=== PATIENT | male | born 1930 | race Caucasian/White ===

== ENCOUNTER 2019-03-05 08:47 | Outpatient (CLI) | payer BC, MEDICARE ==
[2019-03-05 12:26] LABS: BASOPHILS # (AUTO) 0.1 10^3/uL (0.0-0.1); BASOPHILS % (AUTO) 0.6 %; EOSINOPHILS # (AUTO) 0.6 10^3/uL (0.0-0.7); HGB - HEMOGLOBIN 16.4 g/dL (14.0-18.0); LYMPHOCYTES % (AUTO) 9.7 %; MEAN CORPUSCULAR HEMOGLOBIN 30.1 pg (27.0-31.0); MEAN CORPUSCULAR HGB CONC 33.3 g/dL (32.0-36.0); MEAN CORPUSCULAR VOLUME 90.4 fL (80.0-94.0); MEAN PLATELET VOLUME 10.1 fL (7.4-11.4); MONOCYTES # (AUTO) 1.2 10^3/uL (0.0-1.0); MONOCYTES % (AUTO) 11.6 %; NEUTROPHILS # (AUTO) 7.1 10^3/uL (1.5-6.6); NEUTROPHILS % (AUTO) 71.6 %; PLT - PLATELET COUNT 259 10^3/uL (130-450); RED BLOOD COUNT 5.44 10^6/uL (4.70-6.10); RED CELL DISTRIBUTION WIDTH 13.1 % (12.0-15.0); WHITE BLOOD COUNT 9.9 x10^3/uL (4.8-10.8)
[2019-03-05 12:35] LABS: ALBUMIN 4.2 g/dL (3.2-5.5); ALBUMIN/GLOBULIN RATIO 1.4 (1.0-2.2); ALKALINE PHOSPHATASE 77 IU/L (42-121); ALT ALANINE AMINOTRANSFERASE 20 IU/L (10-60); AST ASPARTATE AMINOTRANSFERASE 23 IU/L (10-42); BILIRUBIN,TOTAL 0.8 mg/dL (0.2-1.0); BUN - BLOOD UREA NITROGEN 20 mg/dL (6-20); CARBON DIOXIDE - CO2 22 mmol/L (21-32); CHLORIDE 104 mmol/L (101-111); CHOLESTEROL 184 mg/dL; CREATININE 1.1 mg/dL (0.6-1.2); GFR - MDRD 63 (>89); GLUCOSE 102 mg/dL (70-100); HDL CHOLESTEROL 37 mg/dL; LDL CHOLESTEROL,CALCULATED 112 mg/dL; SODIUM 138 mmol/L (135-145); TOTAL PROTEIN 7.2 g/dL (6.7-8.2); VLDL CHOLESTEROL 35 mg/dL
== END 2019-03-05 08:48 | disposition home or self-care (01) ==
LOC: LAB.WCP 08:47
PROVIDERS: ATTEND Physician Assistant
DX: I10 Essential (primary) hypertension (principal); E78.5 Hyperlipidemia, unspecified; Z85.46 Personal history of malignant neoplasm of prostate
CPT/HCPCS: 36415; 80053; 80061; 83721; 84153; 85025

== ENCOUNTER 2019-03-19 07:16 | Outpatient (CLI) | payer BC, MEDICARE ==
--- NOTE | 2019-03-19 10:47 | MRI Report ---
Reason: CVA, FACIAL DROOP Procedure Date: 03/19/2019 Accession Number: [id number] / [id number] Procedure: MRI - Brain W/O CPT Code: FULL RESULT: EXAM: MRI BRAIN WITHOUT CONTRAST EXAM DATE: 03/19/2019 08:00 AM. CLINICAL HISTORY: CVA, facial droop. COMPARISON: No prior MRI. TECHNIQUE: Multiplanar, multisequence T1-weighted and fluid-sensitive MR sequences of the brain were performed. Sequences optimized for routine evaluation. Other: None. IV Contrast: None. FINDINGS: Brain Volume: Mild diffuse atrophy. Parenchyma/Dura: 11 mm focus of edema with mild restricted diffusion in the left grant radiata consistent with acute to subacute small vessel ischemic white matter infarct. Moderate to severe patchy, nodular and confluent bilateral cerebral white matter disease, nonspecific but likely attributable to aging and chronic small vessel ischemic disease. No evidence for acute hemorrhage. Probable chronic/senescent microhemorrhage in the right posterior temporal lobe deep white matter. Chronic lacunar infarct of the left caudate nucleus head. No mass effect, midline shift or abnormal subdural fluid collection. Ventricles/Cisterns: No hydrocephalus. Mild ventriculomegaly, probably from atrophy. Orbits: Previous lens extractions. Sella Turcica: No space-occupying mass. IAC: Grossly symmetric and unremarkable allowing for the inherent limitations of noncontrast imaging technique. Vasculature: The ICA skull base flow voids are present. There is loss of the normal proximal left intradural vertebral artery flow void where there is T2 FLAIR hyperintensity. Sinuses: Left maxillary retention cyst. Bones: No focal marrow edema. Other: None. IMPRESSION: 1. 11 mm nonhemorrhagic acute to subacute deep white matter infarct of the left grant radiata. 2. Loss of the expected left intradural vertebral artery flow void which may be from stenosis or occlusion. This could be further characterized as clinically warranted with MRA or CTA. 3. Moderately prominent generalized chronic senescent changes. 4. 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 [facility] ADDENDUM: 03/19/19 12:02 Telephone communication of findings of recent infarct to registered nurse Simi at 12:02 PM 03/19/2019.
--- NOTE | 2019-03-19 12:14 | MRI Report ---
Reason: CVA, FACIAL DROOP Procedure Date: 03/19/2019 Accession Number: [id number] / [id number] Procedure: MRI - Angio Neck W/O (MRA) CPT Code: FULL RESULT: EXAM: MR ANGIOGRAM NECK EXAM DATE: 03/19/2019 08:55 AM. CLINICAL HISTORY: Facial droop. Left cerebral infarct. COMPARISON: No prior MRA. TECHNIQUE: Noncontrast enhanced 2D [id number] neck MRA. Multi-projectional 3D MIP reconstructions. Fat-suppressed nonenhanced axial T1 of the neck. No IV contrast. Evaluation of arterial stenosis is based on a NASCET method of measurement. FINDINGS: Absent left vertebral artery flow signals suggestive of vessel occlusion. Arterial flow signal is present within the right cervical vertebral artery as expected. Intracranially the right vertebral artery continues as the basilar artery. As far as can be determined, no acute abnormality or focal flow-limiting stenosis of the cervical carotid arteries in the mid and upper neck. The cervical carotid bifurcations appear grossly patent. IMPRESSION: 1. 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 2. Patent right vertebral artery. 3. Grossly patent mid and distal cervical carotid arteries. No evidence for flow-limiting cervical carotid artery bifurcation stenosis. 4. 2D [id number] neck MRA imaging without contrast is somewhat motion limited. Also note that the MRA images do not include the top of the aortic arch or great vessel origins. [facility] The call report notification system was initiated by Dr. Josh Ham at 11:29 AM on 03/19/2019. The above call report findings were discussed with EMERALD Belcher by Dr. Josh Ham at 12:01 PM on 03/19/2019.
== END 2019-03-19 07:17 | disposition home or self-care (01) ==
LOC: DI 07:16
PROVIDERS: ATTEND Physician Assistant
DX: I63.212 Cerebral infarction due to unspecified occlusion or stenosis of left vertebral artery (principal); R29.810 Facial weakness; R90.82 White matter disease, unspecified; I35.1 Nonrheumatic aortic (valve) insufficiency
CPT/HCPCS: 70547; 70551; 93306

== ENCOUNTER 2019-07-12 14:06 | Outpatient (CLI) | payer BC, MEDICARE, OTHER | END 2019-07-12 14:07 | disposition home or self-care (01) | LOC: RT 14:06 | PROVIDERS: ATTEND Internal Medicine Cardiovascular Disease | DX: Z13.6 Encounter for screening for cardiovascular disorders (principal); R94.31 Abnormal electrocardiogram [ECG] [EKG] | CPT/HCPCS: 93005 ==

== ENCOUNTER 2021-08-02 09:27 | Outpatient (CLI) | payer BC, MEDICARE | END 2021-08-02 09:28 | disposition critical access hospital (66) | LOC: EMS 09:27 | DX: R53.1 Weakness (principal); R19.7 Diarrhea, unspecified; R19.5 Other fecal abnormalities | CPT/HCPCS: A0425; A0427 ==

== ENCOUNTER 2021-08-02 09:49 | Inpatient (IN) | payer BC, MEDICARE ==
--- NOTE | 2021-08-02 10:17 | ED Physician Documentation ---
PD HPI ALTERED MENTAL STATUS - Stated complaint Stated Complaint: WEAKNESS - Chief complaint Chief Complaint: Neuro - History obtained from History obtained from: Patient, Family, EMS - History of Present Illness Timing - onset: How many days ago (3-4) Timing - duration: Days (3-4 Days of increasing weakness associated with less oral intake and some odorous diarrhea. No note of melena per family or EMS. History of stroke with some speech abnormality residual that seems worse the last few days. No focal weakness.) Timing - details: Gradual onset Quality / character: Confused, Other (general weakness) Associated symptoms: General weakness. No: Fever, Headache, Dyspnea, Cough, Focal weakness Contributing factors: Recent illness (loose stools/diarrhea for 3-4 days.). No: New medication, Recent med change Basline status: Disoriented Treatment [employer] ADVISER: Accucheck Similar symptoms before: Has not had sx before Review of Systems Unable to obtain: Other (Patient with poor short-term memory. 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 denies: Vomiting, Constipation : denies: Dysuria Neurologic: reports: Generalized weakness. 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 ) Endocrine/Autoimmune: None Musculoskeletal: Osteoarthritis - Past Surgical History Past Surgical History: Yes HEENT: Cataracts - Present Medications Home Medications: Ambulatory Orders Medication Instructions Recorded Confirmed Aspirin [Aspir 81] 81 mg PO DAILY 03/01/14 03/01/14 Niacin 03/01/14 03/01/14 Timolol [Betimol] 03/01/14 03/01/14 Vit D3/Folic Acid/B2/B6/B12 03/01/14 03/01/14 [Folgard Tablet] amLODIPine [Norvasc] 10 mg PO DAILY 03/01/14 03/01/14 hydroCHLOROthiazide 03/01/14 03/01/14 [Hydrochlorothiazide] - Allergies Allergies/Adverse Reactions: Allergies Allergy/AdvReac Type Severity Reaction Status Date / Time No Known Drug Allergies Allergy Verified 08/02/21 09:59 - Social History Does the pt smoke?: No Smoking Status: Never smoker Does the pt drink ETOH?: Yes Does the pt have substance abuse?: No - POLST Patient has POLST: No PD ED PE NORMAL - Vitals Vital signs reviewed: Yes - General General: No acute distress, Well developed/nourished. No: Alert and oriented X 3 (alert and oriented to person and place. Does not remember symptoms from past few days. Able to express current symptoms. His speech is somewhat hard to understand. No focal weakness. ) - HEENT HEENT: Pharynx benign. No: Moist mucous membranes - Neck Neck: Supple, no meningeal sign - Cardiac Cardiac: RRR, No murmur - Respiratory Respiratory: Clear bilaterally - Abdomen Abdomen: Normal bowel sounds, Soft, Non distended, No organomegaly, Other (mild tenderness mid abdomen without guarding nor percussion tenderness. ) - Male Male : Other (normal genitalia) - Rectal Rectal: Other (loose watery stool in vault. Some dried in depends. Nonmelanotic appearance but does have malodor. ) - Derm Derm: Normal color, Warm and dry - Extremities Extremities: No tenderness to palpate, No edema, No calf tenderness / cord - Neuro Neuro: No motor deficit, No sensory deficit Eye Opening: Spontaneous Motor: Obeys Commands Verbal: Confused GCS Score: 14 Results - Vitals Vitals: Vital Signs - 24 hr 08/02/21 08/02/21 08/02/21 09:52 12:03 14:00 Temperature 36.7 C 36.4 C L 36.3 C L Heart Rate 56 L 54 L 54 L Respiratory 23 11 L 11 L Rate Blood Pressure 136/66 H 163/64 H 133/60 H O2 Saturation 100 100 100 Oxygen O2 Source Room air - Labs Labs: Microbiology 08/02/21 14:52 Occult Blood - Final Stool - Loose Consistency Laboratory Tests 08/02/21 08/02/21 08/02/21 11:37 12:05 12:05 WBC 9.5 RBC 5.14 Hgb 15.2 Hct 44.7 MCV 87.0 MCH 29.6 MCHC 34.0 RDW 13.1 Plt Count 284 MPV 8.7 Neut # (Auto) 8.2 H Lymph # (Auto) 0.6 L [place] # (Auto) 0.6 Eos # (Auto) 0.0 Baso # (Auto) 0.0 Absolute Nucleated RBC 0.00 Nucleated RBC % 0.0 Sodium 143 Potassium 4.0 Chloride 106 Carbon Dioxide 22 Anion Gap 15.0 H BUN 48 H Creatinine 1.8 H Estimated GFR (MDRD) 36 L Glucose 84 Lactic Acid Calcium 8.6 Magnesium 2.1 Total Bilirubin 1.2 H AST 88 H ALT 32 Alkaline Phosphatase 70 Total Protein 6.7 Albumin 4.0 Globulin 2.7 Albumin/Globulin Ratio 1.5 Lipase 19 L Urine Color DARK YELLOW Urine Clarity HAZY Urine pH 5.5 Ur Specific [place] >=1.030 H Urine Protein 30 H Urine Glucose (UA) NEGATIVE Urine Ketones 15 H Urine Occult Blood MODERATE H Urine Nitrite NEGATIVE Urine Bilirubin NEGATIVE Urine Urobilinogen 0.2 (NORMAL) Ur Leukocyte Esterase NEGATIVE Urine RBC 6-10 H Urine WBC 0-3 Ur Squamous Epith Cells NONE SEEN Urine Bacteria None Seen Ur Microscopic Review INDICATED Urine Culture Comments NOT INDICATED 08/02/21 12:05 WBC RBC Hgb Hct MCV MCH MCHC RDW Plt Count MPV Neut # (Auto) Lymph # (Auto) [place] # (Auto) Eos # (Auto) Baso # (Auto) Absolute Nucleated RBC Nucleated RBC % Sodium Potassium Chloride Carbon Dioxide Anion Gap BUN Creatinine Estimated GFR (MDRD) Glucose Lactic Acid 1.2 Calcium Magnesium Total Bilirubin AST ALT Alkaline Phosphatase Total Protein Albumin Globulin Albumin/Globulin Ratio Lipase Urine Color Urine Clarity Urine pH Ur Specific [place] Urine Protein Urine Glucose (UA) Urine Ketones Urine Occult Blood Urine Nitrite Urine Bilirubin Urine Urobilinogen Ur Leukocyte Esterase Urine RBC Urine WBC Ur Squamous Epith Cells Urine Bacteria Ur Microscopic Review Urine Culture Comments - Rads (name of study) chest xray Radiology: Prelim report reviewed (no acute abnormality), See rad report head CT Radiology: Prelim report reviewed (no acute process), See rad report abd/pelvic CT Radiology: Prelim report reviewed, See rad report PD MEDICAL DECISION MAKING - ED course Complexity details: reviewed results, re-evaluated patient (still general weakness and sleepy after IV fluids. Nursing attempted ambulation and they state he was barely able to walk on own, needed assistance and walker. Could not get up from bed himself. fall risk and has fallen at home couple times past 2 days. ), considered differential (Apparent acute illness with decreased oral intake but no vomiting associated with diarrhea and general weakness. states increased slurred speech from baseline. He attempted going to the restroom several times and she had to call EMS for lift assist twice. New acute symptoms.), d/w patient, d/w php consultant Departure - Departure Disposition: ED Place in Observation Clinical Impression: Generalized weakness, Acute diarrhea, NAVEED (acute kidney injury), Slurring of speech Condition: Stable Record reviewed to determine appropriate education?: Yes
[2021-08-02] MEDS ORDERED: SODIUM CHLORIDE 0.9% 1,000 ML IV STA ×2 (10:45→13:33)
[2021-08-02] MEDS ORDERED: IOVERSOL 320 100 ML VIAL IVP ONE ×2 (11:39→18:07)
--- NOTE | 2021-08-02 11:40 | XRAY Report ---
PROCEDURE: Chest 1 View X-Ray INDICATIONS: chest pain TECHNIQUE: One view of the chest was acquired. COMPARISON: None FINDINGS: Surgical changes and devices: None. Lungs and pleura: No pleural effusions or pneumothorax. Lungs are clear. Mediastinum: The aorta is prominent and tortuous. The cardiac contours are within normal limits. Bones and chest wall: No suspicious bony lesions. Age-appropriate degenerative changes are seen. O verlying soft tissues appear unremarkable. IMPRESSION: No acute cardiopulmonary process is seen. Prominent, tortuous aorta, with bony degenerative changes noted. Reviewed by: Blayne Luna MD on 08/02/2021 10:38 AM [facility] Approved by: Blayne Luna MD on 08/02/2021 10:38 AM [facility] Station ID: [id number]
[2021-08-02 12:14] LABS: BASOPHILS % (AUTO) 0.2 %; HCT - HEMATOCRIT 44.7 % (42.0-52.0); HGB - HEMOGLOBIN 15.2 g/dL (14.0-18.0); LYMPHOCYTES # (AUTO) 0.6 10^3/uL (1.5-3.5); LYMPHOCYTES % (AUTO) 6.2 %; MEAN CORPUSCULAR HEMOGLOBIN 29.6 pg (27.0-31.0); MEAN PLATELET VOLUME 8.7 fL (7.4-11.4); MONOCYTES # (AUTO) 0.6 10^3/uL (0.0-1.0); MONOCYTES % (AUTO) 6.7 %; NEUTROPHILS # (AUTO) 8.2 10^3/uL (1.5-6.6); NEUTROPHILS % (AUTO) 86.6 %; PLT - PLATELET COUNT 284 10^3/uL (130-450); RED BLOOD COUNT 5.14 10^6/uL (4.70-6.10); RED CELL DISTRIBUTION WIDTH 13.1 % (12.0-15.0); WHITE BLOOD COUNT 9.5 x10^3/uL (4.8-10.8)
[2021-08-02 12:15] LABS: BILIRUBIN,URINE NEGATIVE (NEGATIVE); GLUCOSE, URINE (UA) NEGATIVE (NEGATIVE); KETONES,URINE (UA) 15 mg/dL (NEGATIVE); LEUKOCYTE ESTERASE, URINE NEGATIVE (NEGATIVE); NITRITE,URINE NEGATIVE (NEGATIVE); OCCULT BLOOD,URINE MODERATE (NEGATIVE); PH,URINE 5.5 PH (5.0-7.5); PROTEIN,URINE 30 mg/dL (NEGATIVE); UROBILINOGEN,URINE 0.2 (NORMAL) E.U./dL (NORMAL)
[2021-08-02 12:17] LABS: CLARITY,URINE HAZY (CLEAR)
[2021-08-02 12:22] LABS: BACTERIA,URINE None Seen /HPF (None Seen); SQUAMOUS EPITHELIAL CELL,UR NONE SEEN (<= Few); WBC,URINE 0-3 /HPF (0-3)
[2021-08-02 12:27] LABS: ALBUMIN/GLOBULIN RATIO 1.5 (1.0-2.2); BILIRUBIN,TOTAL 1.2 mg/dL (0.2-1.0); CALCIUM 8.6 mg/dL (8.5-10.3); CREATININE 1.8 mg/dL (0.6-1.2); MAGNESIUM 2.1 mg/dL (1.7-2.8); TOTAL PROTEIN 6.7 g/dL (6.7-8.2)
--- NOTE | 2021-08-02 14:06 | CT Report ---
PROCEDURE: HEAD WO INDICATIONS: weakness for few days; slurred speech TECHNIQUE: Noncontrast 4.5 mm thick angled axial sections acquired from the foramen magnum to the vertex. For r adiation dose reduction, the following was used: automated exposure control, adjustment of mA and/or kV according to patient size. COMPARISON: 03/01/2014. Correlation is also made with brain MRI, 03/19/2019. Correlation is made with the accompanying abdomen and pelvis CT, 07/25/2021. FINDINGS: Image quality: Motion artifact is noted. There is streak artifact seen through the skull base. CSF spaces: Basal cisterns are patent. No extra-axial fluid collections. Ventricles are normal in size and shape. Brain: No midline shift. No intracranial masses or hemorrhage. [place]-white matter interface is norm al. Age-appropriate brain parenchymal volume loss and chronic small vessel ischemic change can be se en. Areas of remote infarction can be seen, which are overall most prominent involving the posterior occipital regions, right worse than left. Skull and face: Calvarium and visualized facial bones are intact, without suspicious lesions. Sinuses: There is a mucous retention cyst seen involving the posterior left maxillary sinus. Visuali zed sinuses and mastoids are otherwise relatively clear. IMPRESSION: No aundrea, acute abnormality can be seen. Areas of remote appearing infarct can be seen. If there is strong clinical concern for a stroke, please consider a dedicated brain MRI for further e valuation (assuming that there is no contraindication to MRI). Reviewed by: Blayne Luna MD on 08/02/2021 1:04 PM [facility] Approved by: Blayne Luna MD on 08/02/2021 1:04 PM [facility] Station ID: [id number]
--- NOTE | 2021-08-02 14:10 | CT Report ---
PROCEDURE: Abdomen/Pelvis W INDICATIONS: weakness, diarrhea, stomach cramps CONTRAST: IV CONTRAST: Optiray 320 ml: 100 PO CONTRAST: *NO PO CONTRAST TECHNIQUE: After the administration of IV contrast, 5 mm thick sections acquired from the diaphragms to the symp hysis. 5 mm thick coronal and sagittal reformats were acquired. For radiation dose reduction, the f ollowing was used: automated exposure control, adjustment of mA and/or kV according to patient size. COMPARISON: Correlation is made with the accompanying head CT, 08/02/2021. FINDINGS: Image quality: Motion artifact is noted. ABDOMEN: Lung bases: Nodular opacities seen involving the right lower lobe laterally, as on series 10 images 1 8 through 32. Heart size is normal. Relatively prominent coronary artery calcification can be seen. Solid organs: Liver and spleen are normal in size and enhancement. Gallbladder wall does not appear thickened. Biliary system is non dilated. Pancreas enhances normally. No adrenal nodules. Kidn eys demonstrate normal size and enhancement, without hydronephrosis. Peritoneum and bowel: Bowel loops demonstrate normal wall thickness and caliber. No free fluid or a ir. Nodes and vessels: No retroperitoneal or mesenteric adenopathy by size criteria. Aorta and inferior vena cava are normal in size. Atherosclerotic irregularity and calcification can be seen. Miscellaneous: No ventral hernias. PELVIS: Genitourinary: Bladder wall thickness is normal. Status post prostatectomy, with lymph node dissect ion clips. Miscellaneous: No inguinal hernias or adenopathy. Bones: No suspicious bony lesions. No vertebral body compression fractures. Relatively advanced de generative changes are seen, which are worst involving the lumbar spine. IMPRESSION: No imaging explanation is found for the patient's presenting symptoms. There is nodular opacity seen involving the right lower lobe laterally. This has the appearance of ch ronic infection. However, neoplasm is also possible. If there are not outside prior CT examinations d emonstrating this to be a chronic, benign process, then please consider 3 month follow-up chest CT, i f clinically appropriate. Incidental note is made of: Advanced coronary artery calcification is seen. Prostatectomy Reviewed by: Blayne Luna MD on 08/02/2021 1:09 PM [facility] Approved by: Blayne Luna MD on 08/02/2021 1:09 PM [facility] Station ID: [id number]
[2021-08-02] MEDS ORDERED: SODIUM CHLORIDE 0.9% 1,000 ML IV SCH ×2 (16:00→17:38)
[2021-08-02 16:36] LABS: B. PARAPERTUSSIS- RESP PCR PAN NOT DETECTED; B. PERTUSSIS- RESP PCR PANEL NOT DETECTED; C. PNEUMONIAE- RESP PCR PANEL NOT DETECTED; CORONAVIRUS 229E-RESP PCR NOT DETECTED; CORONAVIRUS HKU1-RESP PCR NOT DETECTED; CORONAVIRUS NL63-RESP PCR NOT DETECTED; CORONAVIRUS OC43-RESP PCR NOT DETECTED; HUMAN METAPNEUMOVIRUS NOT DETECTED; INFLUENZA A- RESP PCR PANEL NOT DETECTED; INFLUENZA B - RESP PCR PANEL NOT DETECTED; M. PNEUMONIAE- RESP PCR PANEL NOT DETECTED; PARAINFLUENZA VIRUS 1 NOT DETECTED; PARAINFLUENZA VIRUS 2 NOT DETECTED; PARAINFLUENZA VIRUS 3 NOT DETECTED; PARAINFLUENZA VIRUS 4 NOT DETECTED; RHINOVIRUS/ENTEROVIRUS NOT DETECTED; RSV- RESP PCR PANEL NOT DETECTED; SARS-CoV-2 -RESP PCR PANEL NOT DETECTED
--- NOTE | 2021-08-02 16:51 | HISTORY & PHYSICAL EXAMINATION ---
Chief Complaint - Chief Complaint Chief Complaint: Weakness History of Present Illness - Admitted From Admitted From:: Home - History Obtained From Records Reviewed: [facility] History obtained from: Exam Limitations: Pt confused, very hard of hearing - History of Present Illness HPI Comment/Other: Mr. Ocasio is an 89 year old male brought in by EMS with new weakness and dehydration, found to have rhabdomyolosis with CK 3545. 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 History was obtained from his via phone and also the ER note as he was very hard of hearing and confused, poor historian. Per his 's report he stopped eating and drinking prior to Thanksgiving, which was unusual for him. He then started having episodes of malodorous diarrhea and started spending more time in bed, getting weaker. When he did get out of bed and walked to the bathroom it was difficult for him to stand even with his walker and assisting, and EMS had to be called x2 to assist him back to bed. She did not report a fall and he did not have signs of trauma from a fall on his skin check or CTs. He denies pain, nausea or vomiting and cannot tell me why he has stopped eating and drinking. He has not had new medication changes, but it is unclear if he is taking any medications at home as his reports he manages his own medications and she does not know what he takes. She was also unable to find any pill bottles in the home. When asked if he took any medicine today he could not answer. In addition to the CK of 3545 he has a new acute kidney injury, with BUN of 48 and creatinine of 1.8. His electrolytes are within normal range. He was given 2L NS in the ED but continues to exhibit s/x of dehydration, with dark yellow urine and dry mucous membranes. Denies burning, dysuria, urgency or frequency. He is oriented to self and the fact that he is in the hospital but it is unclear if the rest of the answers he gave are due to his difficulties hearing or true confusion and dementia. He has a past history of dementia per his chart but his was unable to elaborate on baseline orientation. Given the rhabdo, NAVEED, dehydration and new weakness the decision was made to admit him to observation status. He will receive IV fluids and further work up, including troponins and EKG to ensure he is not also having an NSTEMI. Per discussion with his on the phone as he could not hear me at bedside, he was made Do Not Resuscitate, as she reports his will states that he does not want to be intubated or to have CPR performed. History - Past Medical History Cardiovascular: reports: Hypertension Respiratory: reports: None Neuro: reports: Dementia, CVA (with some baseline residual sluring of speech and confusion. ) Endocrine/Autoimmune: reports: None : reports: Incontinence (Per his he wears a diaper at home) Musculoskeletal: reports: Osteoarthritis MRSA Hx?: No - Past Surgical History HEENT: reports: Cataracts - Family & Social History Family History Comment/Other: Pt a poor historian and is unsure of his family history Living arrangement: At home Living Situation: With spouse/s.o. - Substance History Use: Uses substance without health or social issues: Alcohol (occasional glass of vodka that potts down) Abuse: Recurrent use of substance despite neg consequences: NONE Dependence: Experiences withdrawal or developed tolerances: NONE - POLST Patient has POLST: No POLST Status: DNR (Discussed Pt's code status with his who reports he would not want CPR or intubation) Meds/Allgy - Home Medications Home Medications: Ambulatory Orders Medication Instructions Recorded Confirmed Aspirin [Aspir 81] 81 mg PO DAILY 03/01/14 03/01/14 Niacin 03/01/14 03/01/14 Timolol [Betimol] 03/01/14 03/01/14 Vit D3/Folic Acid/B2/B6/B12 03/01/14 03/01/14 [Folgard Tablet] amLODIPine [Norvasc] 10 mg PO DAILY 03/01/14 03/01/14 hydroCHLOROthiazide 03/01/14 03/01/14 [Hydrochlorothiazide] - Allergies Allergies/Adverse Reactions: Allergies Allergy/AdvReac Type Severity Reaction Status Date / Time No Known Drug Allergies Allergy Verified 08/02/21 09:59 Review of Systems - Constitutional Constitutional: reports: Weakness - Ears, Nose & Throat Ears, Nose & Throat: reports: Hearing loss - Cardiovascular Cariovascular: denies: Palpitations, Chest pain - Respiratory Respiratory: denies: Cough, SOB at rest - Gastrointestinal Gastrointestinal: reports: Diarrhea, Poor appetite. denies: Abdominal pain - Genitourinary Genitourinary: reports: Incontinence - Other Findings Other Findings: Exam limited due to Pt confusion and significant difficulty hearing me Prior Level of Functionality: Up until approximately 2 weeks ago Pt was able to use a walker and get around independently. He took the [employer] to the grocery store to buy himself treat s a few times per day. He also medicated himself, his does not know what medications he is supposed to take or what medical conditions he has. He was able to dress and feed himself and perform his ADLs and iADLs with minimal assistance. Exam - Vital Signs Reviewed Vital Signs: Yes Vital Signs: Vital Signs x48h Temp Pulse Resp BP Pulse Ox 08/02/21 16:00 36.5 C 55 L 18 195/78 H 97 08/02/21 14:00 36.3 C L 54 L 11 L 133/60 H 100 08/02/21 12:03 36.4 C L 54 L 11 L 163/64 H 100 08/02/21 09:52 36.7 C 56 L 23 136/66 H 100 - Physical Exam General Appearance: positive: No acute distress, Alert Eyes Bilateral: positive: Normal inspection, PERRL ENT: positive: ENT inspection nml, Dry mucous membranes Neck: positive: Nml inspection Respiratory: positive: Chest non-tender, No respiratory distress, Breath sounds nml Cardiovascular: positive: Regular rate & rhythm, No murmur, No gallop, Tachycardia Abdomen: positive: Non-tender, No organomegaly, Nml bowel sounds, No distention Back: positive: Nml inspection Skin: positive: Dry, Pallor Extremities: positive: Non-tender, Nml appearance, No pedal edema Neurologic/Psychiatric: positive: Disoriented to time, Weakness, Other (Oriented to self and place but not oriented to time/date or reason for coming to the hospital) Sepsis Event Note (H) - Evaluation Current Stage of Sepsis: Ruled out Conclusion/Plan - Problem List (1) Rhabdomyolysis Conclusion/Plan: Per Pt's , he has not been eating or drinking much since the day before . No attributable cause he was just too weak to get up. He was spending long amounts of time in bed and when he did get up to the bathroom had difficulty getting off the toilet without assistance, which is new for him. He started having multiple episodes of foul-smelling diarrhea per his . On admission his labs are concerning for rhabdo, given his CK is 3545, BUN is 48 and creatinine 1.8. He was given a liter of normal saline in the ER. His urine is dark yellow. He does not have known kidney disease. Will plan to get an EKG and troponins to rule out VT, in addition to rehydrating him to treat the rhabdomyolysis. This may be the cause of his weakness. -EKG -Troponins x2, trend over 4 hours -IVF NS @ 150ml/hr -Regular diet, encourage hydration Qualifiers: Rhabdomyolysis type: non-traumatic Qualified Code(s): M62.82 - Rhabdomyol ysis (2) NAVEED (acute kidney injury) Conclusion/Plan: Due to dehydration and rhabdo. BUN 48 and creatinine 1.8. His last creatinine in [facility] was 1.1 03/05/2019. He was given 2L of fluids in the ED, we will plan to rehydrate with NS @ 150/hr and continue to monitor his urine output and labs. No electrolyte abnormalities, soidum, potassium, calcium and magnesium are all within normal ranges. -IVF NS @ 150ml/hr -Daily BMP -Monitor I/Os (3) Acute diarrhea Conclusion/Plan: Pt's reported multiple foul-smelling stools at home prior to admission. A stool culture is pending as he has not had an episode here. Will place him on enteric precautions and await a CDIFF PCR. The diarrhea likely has contributed to his significant dehydration, rhabdo and acute kidney injury. -Stool sample for CDIFF -Enteric precautions (4) Generalized weakness Conclusion/Plan: New over the past 2 weeks per Pt's . Prior to this he was able to get around independently with his walker. He was too weak to get out of bed to assess his gait. He is able to move in the bed with assistance. He has a history of a CVA but no evidence of acute infarct noted on head CT and no other evidence of stroke. Could consider MRI if no improvement noted with treatment of the rhabdo. Given his age and hx of CVA it is possible he is moving toward a new baseline. Will have PT/OT assess him tomorrow. -PT/OT consult (5) Hypertension Conclusion/Plan: On review of [facility] Pt was prescribed Amlodipine and Hydrochlorothiazide in February of 2014. His reports he has been managing his own medications and was unable to find any pill bottles at home, so he may not have been taking any medications for a while. While in the ER and now after admission he has been hypertensive but denies pain. Systolics have ranged 136-195. He has been bradycardic to the 50s. EKG showed sinus rhythm. Will continue to monitor and start him back on antihypertensives if indicated. Qualifiers: Hypertension type: primary hypertension Qualified Code(s): I10 - Essential (primary) hypertension (6) Dementia Conclusion/Plan: Pt's past medical history includes dementia per ER documentation. Per my discussion with his she is unsure of his diagnosis. She reports they later in life and she does not know his diagnoses or medications and he does not know hers. Per her report he does have baseline confusion to some extent but she did not elaborate. Prior to the last 2 weeks he was able to functionally care for himself and ride to the store on the [employer] multiple times per week to get himself snacks. Today he is able to state his name and th at he is in the hospital but the rest of his answers to my orientation questions were non-sensical. I am not sure if this is due to true confusion or to his difficulties hearing. Head CT was negative for intracranial processes or new infarct but it did show the old infarct from his prior CVA. Will continue to monitor to ascertain if he is at baseline, may consider a cognitive evaluation tomorrow. Qualifiers: Dementia type: unspecified type (7) Bradycardia Conclusion/Plan: His heart rate since arriving to the ED has been steady in the 50s. Sinus rhythm with occasional pauses on EKG. Unclear if this is his baseline but will continue to monitor. Will place on telemetry for 24 hours to assess. He denied chest pain, palpitations, light-headedness or feeling dizzy. Capillary refill is < 3 seconds and his skin is cool, appears to be well perfused. -Telemetry x24 hours -VS Q4H - Lab Results Fish Bones: 08/02/21 12:05 08/02/21 12:05 Core Measures - Anticipated LOS I expect patient to be DC'd or transferred within 96 hours.: Yes - Issues Hospital Issues and Management Plan: Rhabdomyalosis Weakness Dehydration Confusion/Dementia Plan to check troponins and EKG, rehydrate, and consider MRI if needed. - DVT/VTE - Prophylaxis VTE/DVT Device ordered at admit?: Yes
[2021-08-02] MEDS: SODIUM CHLORIDE FLUSH 0.9% 10 ML SYRINGE IVP SCH (18:49)
[2021-08-02] MEDS: LACTATED RINGERS 1,000 ML IV SCH (23:54)
[2021-08-03] MEDS ORDERED: ATROPINE ABBOJECT 1 MG/10 ML SYRINGE IVP ONE (00:28)
[2021-08-03] MEDS: SODIUM CHLORIDE FLUSH 0.9% 10 ML SYRINGE IVP SCH ×3 (05:06→16:59)
[2021-08-03 05:20] LABS: HCT - HEMATOCRIT 35.2 % (42.0-52.0); HGB - HEMOGLOBIN 11.7 g/dL (14.0-18.0); MEAN CORPUSCULAR HEMOGLOBIN 29.1 pg (27.0-31.0); MEAN CORPUSCULAR HGB CONC 33.2 g/dL (32.0-36.0); MEAN CORPUSCULAR VOLUME 87.6 fL (80.0-94.0); MEAN PLATELET VOLUME 9.2 fL (7.4-11.4); RED BLOOD COUNT 4.02 10^6/uL (4.70-6.10); RED CELL DISTRIBUTION WIDTH 13.5 % (12.0-15.0); WHITE BLOOD COUNT 8.7 x10^3/uL (4.8-10.8)
[2021-08-03 05:41] LABS: CALCIUM 8.1 mg/dL (8.5-10.3); CREATININE 1.3 mg/dL (0.6-1.2); POTASSIUM 3.4 mmol/L (3.5-5.0)
[2021-08-03] MEDS: LACTATED RINGERS 1,000 ML IV SCH ×2 (06:34→21:51)
[2021-08-03] MEDS ORDERED: POTASSIUM CHLORIDE 20 MEQ TABLET PO ONE (07:46)
[2021-08-03] MEDS: MIN OIL/DIMETHICON/COCONUT OIL 92 GM TUBE TOP PRN (13:48)
--- NOTE | 2021-08-03 14:01 | PHARMACY PROGRESS NOTE ---
- Best Possible Medication History Admit Date and Time: 08/02/21 1546 Processed by: Pharmacy Medication History completed: Yes Patient Interview: Pt unable to participate Secondary Source(s): Physician records As the person ultimately responsible for medication therapy, providers are able to order a medication from an existing home medication list in [facility] via the "Reconcile Routine" prior to Confirmation of that medication by pc support specialist. Such practice is discouraged except when the physician, in their clinical judgment, deems that a medical need exists for a medication without regard to previous use.
--- NOTE | 2021-08-03 15:35 | PROVIDER PROGRESS NOTE ---
Objective - Vital Signs/Intake & Output Vital Signs: Vital Signs x48h Temp Pulse Resp BP Pulse Ox 08/03/21 12:14 36.7 C 76 20 162/66 H 100 08/03/21 08:05 49 L 18 152/67 H 100 Intake & Output: Intake & Output 07/31/21 08/01/21 08/02/21 08/03/21 23:59 23:59 23:59 23:59 Intake Total 3500 3210 Output Total 125 Balance 3500 3085 - Lab Results Fish Bones: 08/03/21 04:52 08/03/21 04:52 Other Labs: Lab Results x24hrs 08/03/21 08/03/21 08/03/21 Range/Units 08: 04:52 04:52 WBC 8.7 (4.8-10.8) x10^3/uL RBC 4.02 L (4.70-6.10) 10^6/uL Hgb 11.7 L (14.0-18.0) g/dL Hct 35.2 L (42.0-52.0) % MCV 87.6 (80.0-94.0) fL MCH 29.1 (27.0-31.0) pg MCHC 33.2 (32.0-36.0) g/dL RDW 13.5 (12.0-15.0) % Plt Count 226 (130-450) 10^3/uL MPV 9.2 (7.4-11.4) fL Sodium 140 (135-145) mmol/L Potassium 3.4 L (3.5-5.0) mmol/L Chloride 109 (101-111) mmol/L Carbon Dioxide 20 L (21-32) mmol/L Anion Gap 11.0 (6-13) BUN 35 H (6-20) mg/dL Creatinine 1.3 H (0.6-1.2) mg/dL Estimated GFR (MDRD) 52 L (>89) Glucose 76 (70-100) mg/dL Calcium 8.1 L (8.5-10.3) mg/dL Total Creatine Kinase 1603 H* (22-269) IU/L Troponin I High Sens (2.3-19.7) ng/L Nasal Adenovirus (PCR) Nasal B. parapertussis DNA (PCR) Nasal Coronavir 229E PCR Nasal Coronavir HKU1 PCR Nasal Coronavir NL63 PCR Nasal Coronavir OC43 PCR Nasal Enterovir/Rhinovir PCR Nasal Influenza B PCR Nasal Influenza A PCR Nasal Parainfluen 1 PCR Nasal Parainfluen 2 PCR Nasal Parainfluen 3 PCR Nasal Parainfluen 4 PCR Nasal RSV (PCR) Nasal Screen MRSA (PCR) (NEGATIVE) Nasal B.pertussis DNA PCR Nasal C.pneumoniae (PCR) Edwin Human Metapneumo PCR Nasal M.pneumoniae (PCR) Nasal SARS-CoV-2 (PCR) Stl C. diff Tox B Gene NEGATIVE (NEGATIVE) 08/02/21 08/02/21 08/02/21 Range/Units 21:07 18:42 17:00 WBC (4.8-10.8) x10^3/uL RBC (4.70-6.10) 10^6/uL Hgb (14.0-18.0) g/dL Hct (42.0-52.0) % MCV (80.0-94.0) fL MCH (27.0-31.0) pg MCHC (32.0-36.0) g/dL RDW (12.0-15.0) % Plt Count (130-450) 10^3/uL MPV (7.4-11.4) fL Sodium (135-145) mmol/L Potassium (3.5-5.0) mmol/L Chloride (101-111) mmol/L Carbon Dioxide (21-32) mmol/L Anion Gap (6-13) BUN (6-20) mg/dL Creatinine (0.6-1.2) mg/dL Estimated GFR (MDRD) (>89) Glucose (70-100) mg/dL Calcium (8.5-10.3) mg/dL Total Creatine Kinase (22-269) IU/L Troponin I High Sens 60.8 H* 71.1 H* (2.3-19.7) ng/L Nasal Adenovirus (PCR) Nasal B. parapertussis DNA (PCR) Nasal Coronavir 229E PCR Nasal Coronavir HKU1 PCR Nasal Coronavir NL63 PCR Nasal Coronavir OC43 PCR Nasal Enterovir/Rhinovir PCR Nasal Influenza B PCR Nasal Influenza A PCR Nasal Parainfluen 1 PCR Nasal Parainfluen 2 PCR Nasal Parainfluen 3 PCR Nasal Parainfluen 4 PCR Nasal RSV (PCR) Nasal Screen MRSA (PCR) NEGATIVE (NEGATIVE) Nasal B.pertussis DNA PCR Nasal C.pneumoniae (PCR) Edwin Human Metapneumo PCR Nasal M.pneumoniae (PCR) Nasal SARS-CoV-2 (PCR) Stl C. diff Tox B Gene (NEGATIVE) 08/02/21 08/02/21 Range/Units 15:38 12:05 WBC (4.8-10.8) x10^3/uL RBC (4.70-6.10) 10^6/uL Hgb (14.0-18.0) g/dL Hct (42.0-52.0) % MCV (80.0-94.0) fL MCH (27.0-31.0) pg MCHC (32.0-36.0) g/dL RDW (12.0-15.0) % Plt Count (130-450) 10^3/uL MPV (7.4-11.4) fL Sodium (135-145) mmol/L Potassium (3.5-5.0) mmol/L Chloride (101-111) mmol/L Carbon Dioxide (21-32) mmol/L Anion Gap (6-13) BUN (6-20) mg/dL Creatinine (0.6-1.2) mg/dL Estimated GFR (MDRD) (>89) Glucose (70-100) mg/dL Calcium (8.5-10.3) mg/dL Total Creatine Kinase 3545 H* (22-269) IU/L Troponin I High Sens (2.3-19.7) ng/L Nasal Adenovirus (PCR) NOT DETECTED Nasal B. parapertussis DNA (PCR) NOT DETECTED Nasal Coronavir 229E PCR NOT DETECTED Nasal Coronavir HKU1 PCR NOT DETECTED Nasal Coronavir NL63 PCR NOT DETECTED Nasal Coronavir OC43 PCR NOT DETECTED Nasal Enterovir/Rhinovir PCR NOT DETECTED Nasal Influenza B PCR NOT DETECTED Nasal Influenza A PCR NOT DETECTED Nasal Parainfluen 1 PCR NOT DETECTED Nasal Parainfluen 2 PCR NOT DETECTED Nasal Parainfluen 3 PCR NOT DETECTED Nasal Parainfluen 4 PCR NOT DETECTED Nasal RSV (PCR) NOT DETECTED Nasal Screen MRSA (PCR) (NEGATIVE) Nasal B.pertussis DNA PCR NOT DETECTED Nasal C.pneumoniae (PCR) NOT DETECTED Edwin Human Metapneumo PCR NOT DETECTED Nasal M.pneumoniae (PCR) NOT DETECTED Nasal SARS-CoV-2 (PCR) NOT DETECTED Stl C. diff Tox B Gene (NEGATIVE) Sepsis Event Note (H) - Evaluation Current Stage of Sepsis: Ruled out Assessment/Plan - Problem List (1) Rhabdomyolysis Qualifiers: Rhabdomyolysis type: non-traumatic Qualified Code(s): M62.82 - Rhabdomyolysis (5) Hypertension Qualifiers: Hypertension type: primary hypertension Qualified Code(s): I10 - Essential (primary) hypertension (6) Dementia Qualifiers: Dementia type: unspecified type
[2021-08-03 16:02] LABS: CALCIUM 8.5 mg/dL (8.5-10.3); CREATININE 1.3 mg/dL (0.6-1.2); POTASSIUM 3.7 mmol/L (3.5-5.0)
--- NOTE | 2021-08-03 16:22 | PROVIDER PROGRESS NOTE ---
Subjective - Prog Note Date Prog Note Date: 08/03/21 - Subjective Pt reports feeling: Improved Subjective: Pt more alert today, able to answer basic questions. Thought he was in [place] and was surprised and unsure why he is in the hospital. Reports he slept well ("I don't remember doing it so it must have been good"). Found to have multiple pauses, the longest of 6 sec, on telemetry overnight. Denies chest pain, dizziness, light-headedness or palpitations. Also denies nausea, vomiting or pain. Objective - Vital Signs/Intake & Output Reviewed Vital Signs: Yes Vital Signs: Vital Signs x48h Temp Pulse Resp BP Pulse Ox 08/03/21 12:14 36.7 C 76 20 162/66 H 100 Intake & Output: Intake & Output 07/31/21 08/01/21 08/02/21 08/03/21 23:59 23:59 23:59 23:59 Intake Total 3500 3210 Output Total 125 Balance 3500 3085 - Objective General Appearance: positive: No acute distress, Alert Eyes Bilateral: positive: Normal inspection, No scleral icterus ENT: positive: ENT inspection nml, No signs of dehydration, Other (Hard of hearing) Neck: positive: Nml inspection Respiratory: positive: Chest non-tender, No respiratory distress, Breath sounds nml Cardiovascular: positive: Regular rate & rhythm, No murmur, Bradycardia Peripheral Pulses: 2+ Radial (R), 2+ Radial (L), 2+ Dorsalis pedis (R), 2+ Dorsalis pedis (L) Abdomen: positive: Non-tender, No organomegaly, Nml bowel sounds, No distention Back: positive: Nml inspection Skin: positive: Warm, Dry, Pallor Extremities: positive: Non-tender, Full ROM, Nml appearance, No pedal edema Neurologic/Psychiatric: positive: Mood/affect nml, Disoriented to place, Disoriented to time, Slurred/abnml speech (at baseline his speech is somewhat slurred due to CVA) - Lab Results Fish Bones: 08/03/21 04:52 08/03/21 15:38 Other Labs: Lab Results x24hrs 08/03/21 08/03/21 08/03/21 Range/Units 15:38 08:29 04:52 WBC (4.8-10.8) x10^3/uL RBC (4.70-6.10) 10^6/uL Hgb (14.0-18.0) g/dL Hct (42.0-52.0) % MCV (80.0-94.0) fL MCH (27.0-31.0) pg MCHC (32.0-36.0) g/dL RDW (12.0-15.0) % Plt Count (130-450) 10^3/uL MPV (7.4-11.4) fL Sodium 137 140 (135-145) mmol/L Potassium 3.7 3.4 L (3.5-5.0) mmol/L Chloride 104 109 (101-111) mmol/L Carbon Dioxide 23 20 L (21-32) mmol/L Anion Gap 10.0 11.0 (6-13) BUN 31 H 35 H (6-20) mg/dL Creatinine 1.3 H 1.3 H (0.6-1.2) mg/dL Estimated GFR (MDRD) 52 L 52 L (>89) Glucose 117 H 76 (70-100) mg/dL Calcium 8.5 8.1 L (8.5-10.3) mg/dL Total Creatine Kinase 1123 H* 1603 H* (22-269) IU/L Troponin I High Sens (2.3-19.7) ng/L Nasal Adenovirus (PCR) Nasal B. parapertussis DNA (PCR) Nasal Coronavir 229E PCR Nasal Coronavir HKU1 PCR Nasal Coronavir NL63 PCR Nasal Coronavir OC43 PCR Nasal Enterovir/Rhinovir PCR Nasal Influenza B PCR Nasal Influenza A PCR Nasal Parainfluen 1 PCR Nasal Parainfluen 2 PCR Nasal Parainfluen 3 PCR Nasal Parainfluen 4 PCR Nasal RSV (PCR) Nasal Screen MRSA (PCR) (NEGATIVE) Nasal B.pertussis DNA PCR Nasal C.pneumoniae (PCR) Edwin Human Metapneumo PCR Nasal M.pneumoniae (PCR) Nasal SARS-CoV-2 (PCR) Stl C. diff Tox B Gene NEGATIVE (NEGATIVE) 08/03/21 08/02/21 08/02/21 Range/Units 04:52 21:07 18:42 WBC 8.7 (4.8-10.8) x10^3/uL RBC 4.02 L (4.70-6.10) 10^6/uL Hgb 11.7 L (14.0-18.0) g/dL Hct 35.2 L (42.0-52.0) % MCV 87.6 (80.0-94.0) fL MCH 29.1 (27.0-31.0) pg MCHC 33.2 (32.0-36.0) g/dL RDW 13.5 (12.0-15.0) % Plt Count 226 (130-450) 10^3/uL MPV 9.2 (7.4-11.4) fL Sodium (135-145) mmol/L Potassium (3.5-5.0) mmol/L Chloride (101-111) mmol/L Carbon Dioxide (21-32) mmol/L Anion Gap (6-13) BUN (6-20) mg/dL Creatinine (0.6-1.2) mg/dL Estimated GFR (MDRD) (>89) Glucose (70-100) mg/dL Calcium (8.5-10.3) mg/dL Total Creatine Kinase (22-269) IU/L Troponin I High Sens 60.8 H* (2.3-19.7) ng/L Nasal Adenovirus (PCR) Nasal B. parapertussis DNA (PCR) Nasal Coronavir 229E PCR Nasal Coronavir HKU1 PCR Nasal Coronavir NL63 PCR Nasal Coronavir OC43 PCR Nasal Enterovir/Rhinovir PCR Nasal Influenza B PCR Nasal Influenza A PCR Nasal Parainfluen 1 PCR Nasal Parainfluen 2 PCR Nasal Parainfluen 3 PCR Nasal Parainfluen 4 PCR Nasal RSV (PCR) Nasal Screen MRSA (PCR) NEGATIVE (NEGATIVE) Nasal B.pertussis DNA PCR Nasal C.pneumoniae (PCR) Edwin Human Metapneumo PCR Nasal M.pneumoniae (PCR) Nasal SARS-CoV-2 (PCR) Stl C. diff Tox B Gene (NEGATIVE) 08/02/21 08/02/21 Range/Units 17:00 15:38 WBC (4.8-10.8) x10^3/uL RBC (4.70-6.10) 10^6/uL Hgb (14.0-18.0) g/dL Hct (42.0-52.0) % MCV (80.0-94.0) fL MCH (27.0-31.0) pg MCHC (32.0-36.0) g/dL RDW (12.0-15.0) % Plt Count (130-450) 10^3/uL MPV (7.4-11.4) fL Sodium (135-145) mmol/L Potassium (3.5-5.0) mmol/L Chloride (101-111) mmol/L Carbon Dioxide (21-32) mmol/L Anion Gap (6-13) BUN (6-20) mg/dL Creatinine (0.6-1.2) mg/dL Estimated GFR (MDRD) (>89) Glucose (70-100) mg/dL Calcium (8.5-10.3) mg/dL Total Creatine Kinase (22-269) IU/L Troponin I High Sens 71.1 H* (2.3-19.7) ng/L Nasal Adenovirus (PCR) NOT DETECTED Nasal B. parapertussis DNA (PCR) NOT DETECTED Nasal Coronavir 229E PCR NOT DETECTED Nasal Coronavir HKU1 PCR NOT DETECTED Nasal Coronavir NL63 PCR NOT DETECTED Nasal Coronavir OC43 PCR NOT DETECTED Nasal Enterovir/Rhinovir PCR NOT DETECTED Nasal Influenza B PCR NOT DETECTED Nasal Influenza A PCR NOT DETECTED Nasal Parainfluen 1 PCR NOT DETECTED Nasal Parainfluen 2 PCR NOT DETECTED Nasal Parainfluen 3 PCR NOT DETECTED Nasal Parainfluen 4 PCR NOT DETECTED Nasal RSV (PCR) NOT DETECTED Nasal Screen MRSA (PCR) (NEGATIVE) Nasal B.pertussis DNA PCR NOT DETECTED Nasal C.pneumoniae (PCR) NOT DETECTED Edwin Human Metapneumo PCR NOT DETECTED Nasal M.pneumoniae (PCR) NOT DETECTED Nasal SARS-CoV-2 (PCR) NOT DETECTED Stl C. diff Tox B Gene (NEGATIVE) ABX Reporting Has patient been on IV antibiotics over the past 48 hours?: No Sepsis Event Note (H) - Evaluation Current Stage of Sepsis: Ruled out Assessment/Plan - Problem List (1) Rhabdomyolysis Impression: Improving. Per Pt's , he has not been eating or drinking much since the day before . On admission he was found to have CK 3545 with BUN 48 and creatinine 1.8. He reportedly had diarrhea at home but has only had soft mostly formed stool here. He received multiple liters of NS yesterday and is now receiving lactated ringers. He is eating and drinking appropriately. His CK continues to trend down and is currently 1123. His weakness on my assessment appears to be slightly improved. He refused to work with PT/OT today due to confusion. -LR @ 150 -Trend CK -Regular diet, encourage hydration Qualifiers: Rhabdomyolysis type: non-traumatic Qualified Code(s): M62.82 - Rhabdomyolysis (2) NAVEED (acute kidney injury) Impression: Improving. Due to dehydration and rhabdo. BUN 48 and creatinine 1.8 on admission, decreased to 31 and 1.3 this afternoon. His last creatinine in [facility] was 1.1 03/05/2019. He received multiple liters of NS yesterday and is now receiving LR. No signs of fluid overload. He does not appear to be as dry as yesterday as his urine is clear and yellow and his mucus membranes are now moist. Can likely be saline locked from his fluids this evening or tomorrow morning if he continues to have appropriate oral intake. -IVF LR @ 150ml/hr -Daily BMP -Monitor I/Os (3) Generalized weakness Impression: Stable. New over the past 2 weeks per Pt's . Prior to this he was able to get around independently with his walker. He has been out of bed twice on my assessment, and able to get up with 1-2 person assist and his walker. Nursing believes he will need a grab bar to get off the toilet at home. He refused to work with PT/OT x2 today due to confusion. I spoke with his this morning and they do not have a grab bar but she had already ordered one from [employer] as well as a raised toilet seat with hands for him to use at home. He is able to move in the bed with assistance. He has a history of a CVA but no evidence of acute infarct noted on head CT and no other evidence of stroke. Given his age and hx of CVA it is possible he is moving toward a new baseline. -PT/OT if able (4) Hypertension Impression: Stable. On review of [facility] Pt was prescribed Amlodipine and Hydrochloroth iazide in February of 2014. His reports he has been managing his own medications and was unable to find any pill bottles at home, so he may not have been taking any medications for a while. This morning he reported he does not take medications at home except for "an occasional aspirin", however I am not sure how reliable he is. While in the ER and now after admission he has been hypertensive but denies pain. Systolics have ranged 130-160s. Will continue to monitor and start him back on antihypertensives if indicated. Qualifiers: Hypertension type: primary hypertension Qualified Code(s): I10 - Essential (primary) hypertension (5) Dementia Impression: Stable. Pt's past medical history includes dementia per ER documentation. Per my discussion with his she is unsure of his diagnosis. She reports they later in life and she does not know his diagnoses or medications and he does not know hers. Per her report he does have baseline confusion to some extent but she did not elaborate. Prior to the last 2 weeks he was able to functionally care for himself and ride to the store on the [employer] multiple times per week to get himself snacks. Today he is able to state his name but he thought he was in [place] and did not know he was in a hospital or why. He did not know the year, month, date or day of the week. He was pleasantly confused every time I checked in with him. Qualifiers: Dementia type: unspecified type (6) Bradycardia Impression: Stable. His heart rate has been consistently in the 50s. He has had 24 hours of telemetry and overnight he was noted to have multiple pauses, ranging from 3- 6 seconds. He was in sinus rhythm. On chart review he has been seen in the past (approximately 2013) for this but it is unclear if he followed up and his does not remember. I discussed this with him today and asked if he would be interested in a pacemaker. He reported very clearly that no, he does not want a pacemaker as if his heart stops "it is my time, I've had a long life". I also spoke with his and she stated that he would not want interventions as this is stated in his will. He denied chest pain, palpitations, light- headedness or feeling dizzy. (7) Acute diarrhea Impression: Resolved. No episodes of diarrhea since admission, only soft stool this morning. Sample was CDIFF negative and he was removed from enteric precautions.
[2021-08-03] MEDS: MULTIVITAMIN W/MINERALS TABLET PO SCH (16:58)
[2021-08-04] MEDS: SODIUM CHLORIDE FLUSH 0.9% 10 ML SYRINGE IVP SCH ×3 (01:36→16:18)
[2021-08-04] MEDS: LACTATED RINGERS 1,000 ML IV SCH ×3 (04:23→21:28)
[2021-08-04 05:31] LABS: HCT - HEMATOCRIT 36.9 % (42.0-52.0); HGB - HEMOGLOBIN 12.5 g/dL (14.0-18.0); MEAN CORPUSCULAR HEMOGLOBIN 29.5 pg (27.0-31.0); MEAN CORPUSCULAR HGB CONC 33.9 g/dL (32.0-36.0); MEAN PLATELET VOLUME 9.3 fL (7.4-11.4); RED BLOOD COUNT 4.24 10^6/uL (4.70-6.10); RED CELL DISTRIBUTION WIDTH 13.4 % (12.0-15.0); WHITE BLOOD COUNT 7.6 x10^3/uL (4.8-10.8)
[2021-08-04 05:48] LABS: CALCIUM 8.5 mg/dL (8.5-10.3); CREATININE 1.2 mg/dL (0.6-1.2); POTASSIUM 3.7 mmol/L (3.5-5.0)
[2021-08-04] MEDS: MULTIVITAMIN W/MINERALS TABLET PO SCH (11:05)
--- NOTE | 2021-08-04 15:38 | PROVIDER PROGRESS NOTE ---
Assessment/Plan - Problem List (1) Rhabdomyolysis Qualifiers: Rhabdomyolysis type: non-traumatic Qualified Code(s): M62.82 - Rhabdomyolysis Assessment/Plan: Improving. pt is comfortable laying at the bed. he denies any pain. CK is down to 760, continue IVF at 100 cc/h now. -Regular diet, encourage hydration, continue lab monitor (2) NAVEED (acute kidney injury) Impression: significantly Improving. creatinine is 1.2, BUN 23 now, continue IVF at 100 cc/h, continue lab monitor and avoid nephrotoxic agents (3) Generalized weakness Impression: PT/OT recommend to SNF, consult with social service technician for Disposition planning (4) Hypertension elevated BP, Resume home blood pressure medications Losartan, HCTZ, Amlodipine, Add hydralazine as needed, Continue vital signs monitor (5) Dementia Impression: Stable. OT had a evaluation for patient, pt has 7/30 score on [facility] Mental Status (6) Bradycardia Impression: Stable. per previous provider discussed as the following: "His heart rate has been consistently in the 50s. He has had 24 hours of telemetry and overnight he was noted to have multiple pauses, ranging from 3-6 seconds. He was in sinus rhythm. On chart review he has been seen in the past (approximately 2013) for this but it is unclear if he followed up and his does not remember. I discussed this with him today and asked if he would be interested in a pacemaker. He reported very clearly that no, he does not want a pacemaker as if his heart stops "it is my time, I've had a long life". I also spoke with his and she stated that he would not want interventions as this is stated in his will. He denied chest pain, palpitations, light-headedness or feeling dizzy." pt denies chest pain, shortness of breath, lightheaded. At this point, pt was already off tele monitor, and we will continue followup with pt's desire and wishes. (7) Acute diarrhea Impression: Resolved. No episodes of diarrhea since admission, only soft stool this morning. Sample was CDIFF negative and he was removed from enteric precautions. - Current Meds Current Meds: Current Medications Generic Name Dose Route Start Last Admin Trade Name Freq PRN Reason Stop Dose Admin Lactated Ringer's 1,000 mls @ 100 mls/hr 08/04/21 07:53 08/04/21 11:03 Lr IV 08/05/21 03:52 100 mls/hr .Q10H CARLOS Administration Mineral Oil 1 applic 08/02/21 22:23 08/03/21 13:48 Min Oil/Dimethicon/Coconut Oil 92 Gm Tube TOP 1 applic PRN PRN Administration Skin Care Multivitamins/Minerals 1 tab 08/03/21 16:00 08/04/21 11:05 Multivitamin W/Minerals Tablet PO 1 tab DAILYWM CARLOS Administration Sodium Chloride 10 ml 08/02/21 17:00 08/04/21 11:07 Sodium Chloride Flush 0.9% 10 Ml Syringe IVP Not Given 0100,0900,1700 CARLOS - Lab Result Fish Bone Diagrams: 08/04/21 04:39 08/04/21 04:39 - Additional Planning My Orders: My Active Orders 08/04/21 07:53 Lactated Ringers [Lr] 1,000 ml IV 100 mls/hr 08/05/21 05:00 BMP - BASIC METABOLIC PANEL [CHEM] DAILYLAB CBC - COMP BLD CT W/AUTO DIFF [HEME] DAILYLAB 08/06/21 05:00 BMP - BASIC METABOLIC PANEL [CHEM] DAILYLAB CBC - COMP BLD CT W/AUTO DIFF [HEME] DAILYLAB 08/07/21 05:00 BMP - BASIC METABOLIC PANEL [CHEM] DAILYLAB CBC - COMP BLD CT W/AUTO DIFF [HEME] DAILYLAB 08/08/21 05:00 BMP - BASIC METABOLIC PANEL [CHEM] DAILYLAB CBC - COMP BLD CT W/AUTO DIFF [HEME] DAILYLAB 08/09/21 05:00 BMP - BASIC METABOLIC PANEL [CHEM] DAILYLAB CBC - COMP BLD CT W/AUTO DIFF [HEME] DAILYLAB Subjective - Subjective Patient Reports: Feeling Better, Resting Comfortably Objective Vital Signs: Vital Signs - 24 hr 08/03/21 08/03/21 08/04/21 16:36 20:09 01:00 Temperature 36.5 C 36.8 C 36.5 C Heart Rate [ 72 73 50 L Brachial] Heart Rate [ Supine] Respiratory 18 20 18 Rate Blood Pressure 152/58 H 160/54 H 163/86 H [Left Brachial artery] Blood Pressure [Supine] O2 Saturation 100 100 98 08/04/21 08/04/21 08/04/21 05:00 09:45 12:00 Temperature 36.6 C 36.8 C Heart Rate [ 54 L 57 L Brachial] Heart Rate [ 60 Supine] Respiratory 14 20 Rate Blood Pressure 152/70 H 152/60 H [Left Brachial artery] Blood Pressure 196/79 H [Supine] O2 Saturation 93 96 08/04/21 08/04/21 12:35 14:51 Temperature 36.6 C Heart Rate [ 57 L Brachial] Heart Rate [ 60 Supine] Respiratory 20 Rate Blood Pressure 196/79 H [Left Brachial artery] Blood Pressure 196/79 H [Supine] O2 Saturation 95 Oxygen O2 Source Room air I&O (Last 24 Hrs): Intake and Output Totals x24h 08/02/21 08/03/21 08/04/21 23:59 23:59 23:59 Intake Total 3500 4637.5 2462.5 Output Total 125 250 Balance 3500 4512.5 2212.5 General: Alert, Cooperative, No acute distress HEENT: Atraumatic Neck: Supple Lymphatic: no adenopathy Neuro: Alert, Non Focal Cardiovascular: Regular rate, Normal S1, Normal S2 Respiratory: Chest non-tender, No respiratory distress Abdomen: Normal bowel sounds, Soft Extremities: Normal pulses - Results Results: Laboratory Results WBC 7.6 x10^3/uL (4.8-10.8) 08/04/21 04:39 RBC 4.24 10^6/uL (4.70-6.10) L 08/04/21 04:39 Hgb 12.5 g/dL (14.0-18.0) L 08/04/21 04:39 Hct 36.9 % (42.0-52.0) L 08/04/21 04:39 MCV 87.0 fL (80.0-94.0) 08/04/21 04:39 MCH 29.5 pg (27.0-31.0) 08/04/21 04:39 MCHC 33.9 g/dL (32.0-36.0) 08/04/21 04:39 RDW 13.4 % (12.0-15.0) 08/04/21 04:39 Plt Count 231 10^3/uL (130-450) 08/04/21 04:39 MPV 9.3 fL (7.4-11.4) 08/04/21 04:39 Neut # (Auto) 8.2 10^3/uL (1.5-6.6) H 08/02/21 12:05 Lymph # (Auto) 0.6 10^3/uL (1.5-3.5) L 08/02/21 12:05 [place] # (Auto) 0.6 10^3/uL (0.0-1.0) 08/02/21 12:05 Eos # (Auto) 0.0 10^3/uL (0.0-0.7) 08/02/21 12:05 Baso # (Auto) 0.0 10^3/uL (0.0-0.1) 08/02/21 12:05 Absolute Nucleated RBC 0.00 x10^3/uL 08/02/21 12:05 Nucleated RBC % 0.0 /100WBC 08/02/21 12:05 Sodium 135 mmol/L (135-145) 08/04/21 04:39 Potassium 3.7 mmol/L (3.5-5.0) 08/04/21 04:39 Chloride 104 mmol/L (101-111) 08/04/21 04:39 Carbon Dioxide 21 mmol/L (21-32) 08/04/21 04:39 Anion Gap 10.0 (6-13) 08/04/21 04:39 BUN 23 mg/dL (6-20) H 08/04/21 04:39 Creatinine 1.2 mg/dL (0.6-1.2) 08/04/21 04:39 Estimated GFR (MDRD) 57 (>89) L 08/04/21 04:39 Glucose 86 mg/dL (70-100) 08/04/21 04:39 Lactic Acid 1.2 mmol/L (0.5-2.2) 08/02/21 12:05 Calcium 8.5 mg/dL (8.5-10.3) 08/04/21 04:39 Magnesium 2.1 mg/dL (1.7-2.8) 08/02/21 12:05 Total Bilirubin 1.2 mg/dL (0.2-1.0) H 08/02/21 12:05 AST 88 IU/L (10-42) H 08/02/21 12:05 ALT 32 IU/L (10-60) 08/02/21 12:05 Alkaline Phosphatase 70 IU/L (42-121) 08/02/21 12:05 Total Creatine Kinase 767 IU/L (22-269) H 08/04/21 04:39 Troponin I High Sens 60.8 ng/L (2.3-19.7) H* 08/02/21 21:07 Total Protein 6.7 g/dL (6.7-8.2) 08/02/21 12:05 Albumin 4.0 g/dL (3.2-5.5) 08/02/21 12:05 Globulin 2.7 g/dL (2.1-4.2) 08/02/21 12:05 Albumin/Globulin Ratio 1.5 (1.0-2.2) 08/02/21 12:05 Lipase 19 U/L (22-51) L 08/02/21 12:05 Urine Color DARK YELLOW 08/02/21 11:37 Urine Clarity HAZY (CLEAR) 08/02/21 11:37 Urine pH 5.5 PH (5.0-7.5) 08/02/21 11:37 Ur Specific Spur >=1.030 (1.002-1.030) H 08/02/21 11:37 Urine Protein 30 mg/dL (NEGATIVE) H 08/02/21 11:37 Urine Glucose (UA) NEGATIVE mg/dL (NEGATIVE) 08/02/21 11:37 Urine Ketones 15 mg/dL (NEGATIVE) H 08/02/21 11:37 Urine Occult Blood MODERATE (NEGATIVE) H 08/02/21 11:37 Urine Nitrite NEGATIVE (NEGATIVE) 08/02/21 11:37 Urine Bilirubin NEGATIVE (NEGATIVE) 08/02/21 11:37 Urine Urobilinogen 0.2 (NORMAL) E.U./dL (NORMAL) 08/02/21 11:37 Ur Leukocyte Esterase NEGATIVE (NEGATIVE) 08/02/21 11:37 Urine RBC 6-10 /HPF (0-5) H 08/02/21 11:37 Urine WBC 0-3 /HPF (0-3) 08/02/21 11:37 Ur Squamous Epith Cells NONE SEEN (<= Few) 08/02/21 11:37 Urine Bacteria None Seen /HPF (None Seen) 08/02/21 11:37 Ur Microscopic Review INDICATED 08/02/21 11:37 Urine Culture Comments NOT INDICATED 08/02/21 11:37 Nasal Adenovirus (PCR) NOT DETECTED 08/02/21 15:38 Nasal B. parapertussis DNA (PCR) NOT DETECTED 08/02/21 15:38 Nasal Coronavir 229E PCR NOT DETECTED 08/02/21 15:38 Nasal Coronavir HKU1 PCR NOT DETECTED 08/02/21 15:38 Nasal Coronavir NL63 PCR NOT DETECTED 08/02/21 15:38 Nasal Coronavir OC43 PCR NOT DETECTED 08/02/21 15:38 Nasal Enterovir/Rhinovir PCR NOT DETECTED 08/02/21 15:38 Nasal Influenza B PCR NOT DETECTED 08/02/21 15:38 Nasal Influenza A PCR NOT DETECTED 08/02/21 15:38 Nasal Parainfluen 1 PCR NOT DETECTED 08/02/21 15:38 Nasal Parainfluen 2 PCR NOT DETECTED 08/02/21 15:38 Nasal Parainfluen 3 PCR NOT DETECTED 08/02/21 15:38 Nasal Parainfluen 4 PCR NOT DETECTED 08/02/21 15:38 Nasal RSV (PCR) NOT DETECTED 08/02/21 15:38 Nasal Screen MRSA (PCR) NEGATIVE (NEGATIVE) 08/02/21 18:42 Nasal B.pertussis DNA PCR NOT DETECTED 08/02/21 15:38 Nasal C.pneumoniae (PCR) NOT DETECTED 08/02/21 15:38 Edwin Human Metapneumo PCR NOT DETECTED 08/02/21 15:38 Nasal M.pneumoniae (PCR) NOT DETECTED 08/02/21 15:38 Nasal SARS-CoV-2 (PCR) NOT DETECTED 08/02/21 15:38 Stl C. diff Tox B Gene NEGATIVE (NEGATIVE) 08/03/21 08:29 Sepsis Event Note (H) - Evaluation Current Stage of Sepsis: Ruled out ABX Reporting Has patient been on IV antibiotics over the past 48 hours?: No Current Medications - Current Medications Current Medications: Active Medications Amlodipine Besylate (Amlodipine 5 Mg Tablet) 10 mg PO DAILY [facility] Atorvastatin Calcium (Atorvastatin 40 Mg Tablet) 40 mg PO QPM [facility] Clopidogrel Bisulfate (Clopidogrel 75 Mg Tablet) 75 mg PO DAILY [facility] Enoxaparin Sodium (Enoxaparin 40 Mg/0.4 Ml Syringe) 40 mg SUBQ DAILY [facility] Hydralazine HCl (Hydralazine Inj 20 Mg/Ml Vial) 10 mg IVP QID PRN PRN Reason: Hypertensive Emergency Hydrochlorothiazide (Hydrochlorothiazide 25 Mg Tablet) 37.5 mg PO DAILY [facility] Lactated Ringer's (Lr) 1,000 mls @ 100 mls/hr IV .Q10H [facility] Stop: 08/05/21 03:52 Last Admin: 08/04/21 11:03 Dose: 100 mls/hr Documented by: Loratadine (Loratadine 10 Mg Tablet) 10 mg PO DAILY [facility] Losartan Potassium (Losartan 50 Mg Tablet) 25 mg PO DAILY [facility] Mineral Oil (Min Oil/Dimethicon/Coconut Oil 92 Gm Tube) 1 applic TOP PRN PRN PRN Reason: Skin Care Last Admin: 08/03/21 13:48 Dose: 1 applic Documented by: Multivitamins/Minerals (Multivitamin W/Minerals Tablet) 1 tab PO DAILYWM [facility] Last Admin: 08/04/21 11:05 Dose: 1 tab Documented by: Sodium Chloride (Sodium Chloride Flush 0.9% 10 Ml Syringe) 10 ml IVP PRN PRN PRN Reason: NEEDED PER PROVIDER ORDERS Sodium Chloride (Sodium Chloride Flush 0.9% 10 Ml Syringe) 10 ml IVP 0100,0900,1700 [facility] Last Admin: 08/04/21 11:07 Dose: Not Given Documented by: Amlodipine Besylate [Norvasc] 10 mg PO DAILY 08/03/21 Atorvastatin Calcium 40 mg PO QPM 08/03/21 Chlorthalidone 25 mg PO DAILY 08/03/21 Clopidogrel [Plavix] 75 mg PO DAILY 08/03/21 Loratadine [Claritin] 10 mg PO DAILY 08/03/21 Losartan Potassium 25 mg PO DAILY 08/03/21
[2021-08-04] MEDS ORDERED: hydrALAZINE INJ 20 MG/ML VIAL IVP PRN (15:44)
[2021-08-04] MEDS ORDERED: LOSARTAN 50 MG TABLET PO SCH (16:00)
[2021-08-04] MEDS: ENOXAPARIN 40 MG/0.4 ML SYRINGE SUBQ SCH (16:16)
[2021-08-04] MEDS: amLODIPine 5 MG TABLET PO SCH (16:17)
[2021-08-04] MEDS: ATORVASTATIN 40 MG TABLET PO SCH (21:25)
[2021-08-05] MEDS: SODIUM CHLORIDE FLUSH 0.9% 10 ML SYRINGE IVP SCH ×3 (04:34→17:18)
[2021-08-05 05:23] LABS: BASOPHILS % (AUTO) 0.3 %; EOSINOPHILS # (AUTO) 0.1 10^3/uL (0.0-0.7); EOSINOPHILS % (AUTO) 0.5 %; HCT - HEMATOCRIT 40.7 % (42.0-52.0); HGB - HEMOGLOBIN 13.8 g/dL (14.0-18.0); LYMPHOCYTES # (AUTO) 0.7 10^3/uL (1.5-3.5); LYMPHOCYTES % (AUTO) 6.8 %; MEAN CORPUSCULAR HEMOGLOBIN 29.4 pg (27.0-31.0); MEAN CORPUSCULAR HGB CONC 33.9 g/dL (32.0-36.0); MEAN CORPUSCULAR VOLUME 86.6 fL (80.0-94.0); MEAN PLATELET VOLUME 9.4 fL (7.4-11.4); MONOCYTES # (AUTO) 0.8 10^3/uL (0.0-1.0); MONOCYTES % (AUTO) 7.7 %; NEUTROPHILS # (AUTO) 9.1 10^3/uL (1.5-6.6); NEUTROPHILS % (AUTO) 84.3 %; PLT - PLATELET COUNT 306 10^3/uL (130-450); WHITE BLOOD COUNT 10.7 x10^3/uL (4.8-10.8)
[2021-08-05 05:32] LABS: CALCIUM 8.7 mg/dL (8.5-10.3); CREATININE 1.3 mg/dL (0.6-1.2); POTASSIUM 3.7 mmol/L (3.5-5.0)
[2021-08-05] MEDS: SODIUM CHLORIDE 0.9% 1,000 ML IV SCH ×2 (07:54→21:06)
[2021-08-05] MEDS ORDERED: SODIUM CHLORIDE 0.9% 1,000 ML IV SCH (08:00)
[2021-08-05] MEDS ORDERED: hydroCHLOROthiazide 25 MG TABLET PO SCH (09:00)
[2021-08-05] MEDS: hydroCHLOROthiazide 25 MG TABLET PO SCH (09:44)
[2021-08-05] MEDS: CLOPIDOGREL 75 MG TABLET PO SCH (09:44)
[2021-08-05] MEDS: LORATADINE 10 MG TABLET PO SCH (09:44)
[2021-08-05] MEDS: MULTIVITAMIN W/MINERALS TABLET PO SCH (09:44)
[2021-08-05] MEDS: amLODIPine 5 MG TABLET PO SCH (09:44)
[2021-08-05] MEDS: LOSARTAN 50 MG TABLET PO SCH (09:45)
[2021-08-05] MEDS: ENOXAPARIN 40 MG/0.4 ML SYRINGE SUBQ SCH (09:45)
--- NOTE | 2021-08-05 11:11 | CT Report ---
PROCEDURE: HEAD WO INDICATIONS: slurred speech, more confused TECHNIQUE: Noncontrast 4.5 mm thick angled axial sections acquired from the foramen magnum to the vertex. For r adiation dose reduction, the following was used: automated exposure control, adjustment of mA and/or kV according to patient size. COMPARISON: 08/02/2021 FINDINGS: Image quality: Excellent. CSF spaces: Basal cisterns are patent. No extra-axial fluid collections. The ventricles are symmet nia in size and shape. Brain: No intracranial bleeds or masses. Scattered small old infarcts are again seen in bilateral p osterior occipital region and left basal ganglia unchanged from prior study. There is cerebral volume loss for age, with resultant ventricular and sulcal prominence. There are periventricular and deep white matter chronic small vessel ischemic changes. There is intracranial internal carotid artery at herosclerosis. Skull and face: Calvarium and visualized facial bones appear intact, without suspicious lesions. Sinuses: Likely mucous retention cyst in left maxillary sinus is again seen unchanged from prior stud y. IMPRESSION: No CT evidence of acute intracranial bleed, midline shift or mass effect. No definite CT evidence of acute infarction. No significant changes from previous study. Reviewed by: Logan Vital MD on 08/05/2021 11:10 AM [facility] Approved by: Logan Vital MD on 08/05/2021 11:10 AM PST Station ID: [id number]
--- NOTE | 2021-08-05 14:18 | PROVIDER PROGRESS NOTE ---
Assessment/Plan - Problem List (1) Confused Assessment/Plan: 08/05 pt seem more confused on today, but at the same time, he report" I always confused." pt still present slurred speech and slight weakness on his left side as his hx of [place] residence and remain. otherwise pt does not present other acute Focal neuro deficits. CT of head reveal no acute process. continue neuro check, continue home Plavix and Statin. (2) Rhabdomyolysis 08/05 improved Ck is down to 480, continue gentle IVF, lab monitor Improving. pt is comfortable laying at the bed. he denies any pain. CK is down to 760, continue IVF at 100 cc/h now. -Regular diet, encourage hydration, continue lab monitor (3) NAVEED (acute kidney injury) Impression: 08/05 creatinine 1.3, continue IVF, and lab monitor significantly Improving. creatinine is 1.2, BUN 23 now, continue IVF at 100 cc/h, continue lab monitor and avoid nephrotoxic agents (4) Generalized weakness Impression: PT/OT recommend to SNF, consult with addiction social worker for Disposition planning (5) Hypertension 08/05 improved. continue home BP meds, increased home Losartan dosage, continue vital monitor elevated BP, Resume home blood pressure medications Losartan, HCTZ, Amlodipine, Add hydralazine as needed, Continue vital signs monitor (6) Dementia Impression: Stable. OT had a evaluation for patient, pt has 7/30 score on U Mental Status (7) Bradycardia Impression: Stable. per previous provider discussed as the following: "His heart rate has been consistently in the 50s. He has had 24 hours of telemetry and overnight he was noted to have multiple pauses, ranging from 3-6 seconds. He was in sinus rhythm. On chart review he has been seen in the past (approximately 2013) for this but it is unclear if he followed up and his does not remember. I discussed this with him today and asked if he would be interested in a pacemaker. He reported very clearly that no, he does not want a pacemaker as if his heart stops "it is my time, I've had a long life". I also spoke with his and she stated that he would not want interventions as this is stated in his will. He denied chest pain, palpitations, light-headedness or feeling dizzy." pt denies chest pain, shortness of breath, lightheaded. At this point, pt was already off tele monitor, and we will continue followup with pt's desire and wishes. (8) Acute diarrhea Impression: Resolved. No episodes of diarrhea since admission, only soft stool this morning. Sample was CDIFF negative and he was removed from enteric precautions. (9)hx of stroke pt has hx of stroke with left side slight weakness and slurred speech. pt does not present acute neurological deficits now. continue Plavix and Statin, plan d/c to SNF per PT/OT recommendation. (2) Rhabdomyolysis Qualifiers: Rhabdomyolysis type: non-traumatic Qualified Code(s): M62.82 - Rhabdomyoly sis - Current Meds Current Meds: Current Medications Generic Name Dose Route Start Last Admin Trade Name Freq PRN Reason Stop Dose Admin Amlodipine Besylate 10 mg 08/04/21 16:00 08/05/21 09:44 Amlodipine 5 Mg Tablet PO 10 mg DAILY CARLOS Administration Atorvastatin Calcium 40 mg 08/04/21 21:00 08/04/21 21:25 Atorvastatin 40 Mg Tablet PO 40 mg QPM CARLOS Administration Clopidogrel Bisulfate 75 mg 08/05/21 09:00 08/05/21 09:44 Clopidogrel 75 Mg Tablet PO 75 mg DAILY CARLOS Administration Enoxaparin Sodium 40 mg 08/04/21 15:43 08/05/21 09:45 Enoxaparin 40 Mg/0.4 Ml Syringe SUBQ 40 mg DAILY CARLOS Administration Hydrochlorothiazide 25 mg 08/05/21 09:00 08/05/21 09:44 Hydrochlorothiazide 25 Mg Tablet PO 25 mg DAILY CARLOS Administration Sodium Chloride 1,000 mls @ 100 mls/hr 08/05/21 08:00 08/05/21 07:54 Normal Saline 0.9% IV 100 mls/hr .Q10H CARLOS Administration Loratadine 10 mg 08/05/21 09:00 08/05/21 09:44 Loratadine 10 Mg Tablet PO 10 mg DAILY CARLOS Administration Losartan Potassium 100 mg 08/05/21 09:00 08/05/21 09:45 Losartan 50 Mg Tablet PO 100 mg DAILY CARLOS Administration Mineral Oil 1 applic 08/02/21 22:23 08/03/21 13:48 Min Oil/Dimethicon/Coconut Oil 92 Gm Tube TOP 1 applic PRN PRN Administration Skin Care Multivitamins/Minerals 1 tab 08/03/21 16:00 08/05/21 09:44 Multivitamin W/Minerals Tablet PO 1 tab DAILYWM CARLOS Administration Sodium Chloride 10 ml 08/02/21 17:00 08/05/21 09:45 Sodium Chloride Flush 0.9% 10 Ml Syringe IVP Not Given 0100,0900,1700 CARLOS - Lab Result Fish Bone Diagrams: 08/05/21 04:07 08/05/21 04:07 - Additional Planning My Orders: My Active Orders 08/04/21 15:43 Enoxaparin [Lovenox] 40 mg SUBQ DAILY 08/04/21 15:44 hydrALAZINE INJ [Apresoline Inj] 10 mg IVP QID PRN 08/04/21 15:50 Out of bed 3+ hours today [RC] TID 08/04/21 16:00 amLODIPine [Norvasc] 10 mg PO DAILY 08/04/21 21:00 Atorvastatin [Lipitor] 40 mg PO QPM 08/05/21 08:00 Sodium Chloride 0.9% [Normal Saline 0.9%] 1,000 ml IV 100 mls/hr 08/05/21 09:00 Clopidogrel [Plavix] 75 mg PO DAILY Loratadine [Claritin] 10 mg PO DAILY Losartan [Cozaar] 100 mg PO DAILY hydroCHLOROthiazide [Hydrodiuril] 25 mg PO DAILY 08/05/21 10:27 Admit [Admit \\ Transfer \\ Status] [RC] .ONCE 08/06/21 05:00 BMP - BASIC METABOLIC PANEL [CHEM] DAILYLAB CBC - COMP BLD CT W/AUTO DIFF [HEME] DAILYLAB CK- CREATINE KINASE [CHEM] DAILYLAB 08/07/21 05:00 BMP - BASIC METABOLIC PANEL [CHEM] DAILYLAB CBC - COMP BLD CT W/AUTO DIFF [HEME] DAILYLAB CK- CREATINE KINASE [CHEM] DAILYLAB 08/08/21 05:00 BMP - BASIC METABOLIC PANEL [CHEM] DAILYLAB CBC - COMP BLD CT W/AUTO DIFF [HEME] DAILYLAB CK- CREATINE KINASE [CHEM] DAILYLAB 08/09/21 05:00 BMP - BASIC METABOLIC PANEL [CHEM] DAILYLAB CBC - COMP BLD CT W/AUTO DIFF [HEME] DAILYLAB CK- CREATINE KINASE [CHEM] DAILYLAB Subjective - Subjective Patient Reports: Resting Comfortably, No Complaints Nursing Reports: Confused Objective Vital Signs: Vital Signs - 24 hr 11/30/21 11/30/21 11/30/21 14:51 15:58 19:52 Temperature 37 C 36.7 C Heart Rate [ 67 63 Brachial] Heart Rate [ 60 Supine] Respiratory 18 18 Rate Blood Pressure 200/74 H 157/60 H [Left Brachial artery] Blood Pressure 196/79 H [Supine] O2 Saturation 97 96 08/05/21 08/05/21 08/05/21 00:20 05:00 08:10 Temperature 36.9 C 36.6 C 36.7 C Heart Rate [ 93 70 64 Brachial] Heart Rate [ Supine] Respiratory 20 20 18 Rate Blood Pressure 164/80 H 181/80 H 169/81 H [Left Brachial artery] Blood Pressure [Supine] O2 Saturation 93 93 93 08/05/21 11:50 Temperature 36.6 C Heart Rate [ 69 Brachial] Heart Rate [ Supine] Respiratory 18 Rate Blood Pressure 164/77 H [Left Brachial artery] Blood Pressure [Supine] O2 Saturation 94 Oxygen O2 Source Room air I&O (Last 24 Hrs): Intake and Output Totals x24h 08/03/21 08/04/21 08/05/21 23:59 23:59 23:59 Intake Total 4637.5 4595.833 480 Output Total 125 350 Balance 4512.5 4245.833 480 General: Alert, Cooperative, No acute distress HEENT: Atraumatic Neck: Supple Lymphatic: no adenopathy Neuro: Alert Cardiovascular: Regular rate, Normal S1, Normal S2 Respiratory: Chest non-tender, No respiratory distress Abdomen: Normal bowel sounds, Soft, No tenderness Extremities: Normal pulses - Results Results: Laboratory Results WBC 10.7 x10^3/uL (4.8-10.8) 08/05/21 04:07 RBC 4.70 10^6/uL (4.70-6.10) 08/05/21 04:07 Hgb 13.8 g/dL (14.0-18.0) L 08/05/21 04:07 Hct 40.7 % (42.0-52.0) L 08/05/21 04:07 MCV 86.6 fL (80.0-94.0) 08/05/21 04:07 MCH 29.4 pg (27.0-31.0) 08/05/21 04:07 MCHC 33.9 g/dL (32.0-36.0) 08/05/21 04:07 RDW 13.0 % (12.0-15.0) 08/05/21 04:07 Plt Count 306 10^3/uL (130-450) 08/05/21 04:07 MPV 9.4 fL (7.4-11.4) 08/05/21 04:07 Neut # (Auto) 9.1 10^3/uL (1.5-6.6) H 08/05/21 04:07 Lymph # (Auto) 0.7 10^3/uL (1.5-3.5) L 08/05/21 04:07 [place] # (Auto) 0.8 10^3/uL (0.0-1.0) 08/05/21 04:07 Eos # (Auto) 0.1 10^3/uL (0.0-0.7) 08/05/21 04:07 Baso # (Auto) 0.0 10^3/uL (0.0-0.1) 08/05/21 04:07 Absolute Nucleated RBC 0.00 x10^3/uL 08/05/21 04:07 Nucleated RBC % 0.0 /100WBC 08/05/21 04:07 Sodium 140 mmol/L (135-145) 08/05/21 04:07 Potassium 3.7 mmol/L (3.5-5.0) 08/05/21 04:07 Chloride 103 mmol/L (101-111) 08/05/21 04:07 Carbon Dioxide 26 mmol/L (21-32) 08/05/21 04:07 Anion Gap 11.0 (6-13) 08/05/21 04:07 BUN 17 mg/dL (6-20) 08/05/21 04:07 Creatinine 1.3 mg/dL (0.6-1.2) H 08/05/21 04:07 Estimated GFR (MDRD) 52 (>89) L 08/05/21 04:07 Glucose 112 mg/dL (70-100) H 08/05/21 04:07 Lactic Acid 1.2 mmol/L (0.5-2.2) 08/02/21 12:05 Calcium 8.7 mg/dL (8.5-10.3) 08/05/21 04:07 Magnesium 2.1 mg/dL (1.7-2.8) 08/02/21 12:05 Total Bilirubin 1.2 mg/dL (0.2-1.0) H 08/02/21 12:05 AST 88 IU/L (10-42) H 08/02/21 12:05 ALT 32 IU/L (10-60) 08/02/21 12:05 Alkaline Phosphatase 70 IU/L (42-121) 08/02/21 12:05 Total Creatine Kinase 488 IU/L (22-269) H 08/05/21 04:07 Troponin I High Sens 60.8 ng/L (2.3-19.7) H* 08/02/21 21:07 Total Protein 6.7 g/dL (6.7-8.2) 08/02/21 12:05 Albumin 4.0 g/dL (3.2-5.5) 08/02/21 12:05 Globulin 2.7 g/dL (2.1-4.2) 08/02/21 12:05 Albumin/Globulin Ratio 1.5 (1.0-2.2) 08/02/21 12:05 Lipase 19 U/L (22-51) L 08/02/21 12:05 Urine Color DARK YELLOW 08/02/21 11:37 Urine Clarity HAZY (CLEAR) 08/02/21 11:37 Urine pH 5.5 PH (5.0-7.5) 08/02/21 11:37 Ur Specific [place] >=1.030 (1.002-1.030) H 08/02/21 11:37 Urine Protein 30 mg/dL (NEGATIVE) H 08/02/21 11:37 Urine Glucose (UA) NEGATIVE mg/dL (NEGATIVE) 08/02/21 11:37 Urine Ketones 15 mg/dL (NEGATIVE) H 08/02/21 11:37 Urine Occult Blood MODERATE (NEGATIVE) H 08/02/21 11:37 Urine Nitrite NEGATIVE (NEGATIVE) 08/02/21 11:37 Urine Bilirubin NEGATIVE (NEGATIVE) 08/02/21 11:37 Urine Urobilinogen 0.2 (NORMAL) E.U./dL (NORMAL) 08/02/21 11:37 Ur Leukocyte Esterase NEGATIVE (NEGATIVE) 08/02/21 11:37 Urine RBC 6-10 /HPF (0-5) H 08/02/21 11:37 Urine WBC 0-3 /HPF (0-3) 08/02/21 11:37 Ur Squamous Epith Cells NONE SEEN (<= Few) 08/02/21 11:37 Urine Bacteria None Seen /HPF (None Seen) 08/02/21 11:37 Ur Microscopic Review INDICATED 08/02/21 11:37 Urine Culture Comments NOT INDICATED 08/02/21 11:37 Nasal Adenovirus (PCR) NOT DETECTED 08/02/21 15:38 Nasal B. parapertussis DNA (PCR) NOT DETECTED 08/02/21 15:38 Nasal Coronavir 229E PCR NOT DETECTED 08/02/21 15:38 Nasal Coronavir HKU1 PCR NOT DETECTED 08/02/21 15:38 Nasal Coronavir NL63 PCR NOT DETECTED 08/02/21 15:38 Nasal Coronavir OC43 PCR NOT DETECTED 08/02/21 15:38 Nasal Enterovir/Rhinovir PCR NOT DETECTED 08/02/21 15:38 Nasal Influenza B PCR NOT DETECTED 08/02/21 15:38 Nasal Influenza A PCR NOT DETECTED 08/02/21 15:38 Nasal Parainfluen 1 PCR NOT DETECTED 08/02/21 15:38 Nasal Parainfluen 2 PCR NOT DETECTED 08/02/21 15:38 Nasal Parainfluen 3 PCR NOT DETECTED 08/02/21 15:38 Nasal Parainfluen 4 PCR NOT DETECTED 08/02/21 15:38 Nasal RSV (PCR) NOT DETECTED 08/02/21 15:38 Nasal Screen MRSA (PCR) NEGATIVE (NEGATIVE) 08/02/21 18:42 Nasal B.pertussis DNA PCR NOT DETECTED 08/02/21 15:38 Nasal C.pneumoniae (PCR) NOT DETECTED 08/02/21 15:38 Edwin Human Metapneumo PCR NOT DETECTED 08/02/21 15:38 Nasal M.pneumoniae (PCR) NOT DETECTED 08/02/21 15:38 Nasal SARS-CoV-2 (PCR) NOT DETECTED 08/02/21 15:38 Stl C. diff Tox B Gene NEGATIVE (NEGATIVE) 08/03/21 08:29 Sepsis Event Note (H) - Evaluation Current Stage of Sepsis: Ruled out ABX Reporting Has patient been on IV antibiotics over the past 48 hours?: No Current Medications - Current Medications Current Medications: Active Medications Amlodipine Besylate (Amlodipine 5 Mg Tablet) 10 mg PO DAILY [facility] Last Admin: 08/05/21 09:44 Dose: 10 mg Documented by: Atorvastatin Calcium (Atorvastatin 40 Mg Tablet) 40 mg PO QPM [facility] Last Admin: 08/04/21 21:25 Dose: 40 mg Documented by: Clopidogrel Bisulfate (Clopidogrel 75 Mg Tablet) 75 mg PO DAILY [facility] Last Admin: 08/05/21 09:44 Dose: 75 mg Documented by: Enoxaparin Sodium (Enoxaparin 40 Mg/0.4 Ml Syringe) 40 mg SUBQ DAILY [facility] Last Admin: 08/05/21 09:45 Dose: 40 mg Documented by: Hydralazine HCl (Hydralazine Inj 20 Mg/Ml Vial) 10 mg IVP QID PRN PRN Reason: Hypertensive Emergency Hydrochlorothiazide (Hydrochlorothiazide 25 Mg Tablet) 25 mg PO DAILY [facility] Last Admin: 08/05/21 09:44 Dose: 25 mg Documented by: Sodium Chloride (Normal Saline 0.9%) 1,000 mls @ 100 mls/hr IV .Q10H [facility] Last Admin: 08/05/21 07:54 Dose: 100 mls/hr Documented by: Loratadine (Loratadine 10 Mg Tablet) 10 mg PO DAILY [facility] Last Admin: 08/05/21 09:44 Dose: 10 mg Documented by: Losartan Potassium (Losartan 50 Mg Tablet) 100 mg PO DAILY [facility] Last Admin: 08/05/21 09:45 Dose: 100 mg Documented by: Mineral Oil (Min Oil/Dimethicon/Coconut Oil 92 Gm Tube) 1 applic TOP PRN PRN PRN Reason: Skin Care Last Admin: 08/03/21 13:48 Dose: 1 applic Documented by: Multivitamins/Minerals (Multivitamin W/Minerals Tablet) 1 tab PO DAILYWM [facility] Last Admin: 08/05/21 09:44 Dose: 1 tab Documented by: Sodium Chloride (Sodium Chloride Flush 0.9% 10 Ml Syringe) 10 ml IVP PRN PRN PRN Reason: NEEDED PER PROVIDER ORDERS Sodium Chloride (Sodium Chloride Flush 0.9% 10 Ml Syringe) 10 ml IVP 0100,0900,1700 [facility] Last Admin: 08/05/21 09:45 Dose: Not Given Documented by: Amlodipine Besylate [Norvasc] 10 mg PO DAILY 08/03/21 Atorvastatin Calcium 40 mg PO QPM 08/03/21 Chlorthalidone 25 mg PO DAILY 08/03/21 Clopidogrel [Plavix] 75 mg PO DAILY 08/03/21 Loratadine [Claritin] 10 mg PO DAILY 08/03/21 Losartan Potassium 25 mg PO DAILY 08/03/21
[2021-08-05] MEDS ORDERED: hydrALAZINE 25 MG TABLET PO SCH (16:13)
[2021-08-05] MEDS ORDERED: cefTRIAXone 1 GM in SODIUM CHLORIDE 0.9% MINIBAG 100 ML IV SCH (17:47)
--- NOTE | 2021-08-05 18:07 | XRAY Report ---
PROCEDURE: Chest 1 View X-Ray INDICATIONS: sob TECHNIQUE: One view of the chest was acquired. COMPARISON: 08/02/2021 FINDINGS: Surgical changes and devices: None. Lungs and pleura: No pleural effusions or pneumothorax. Ill-defined patchy airspace opacities of the bilateral mid and lower lung zones more pronounced on the right. These are new compared to most rece nt study dated 08/02/2021 Mediastinum: Mediastinal contours appear normal. Heart size is normal. Bones and chest wall: No suspicious bony lesions. Overlying soft tissues appear unremarkable. IMPRESSION: Bilateral mid and lower lung zone airspace opacities more pronounced on the right. Findings likely re present developing airspace disease/pneumonia. Recommend follow-up chest radiograph 4-6 weeks after treatment to document resolution of findings and /or return to baseline exam. Reviewed by: Collin Copeland MD on 08/05/2021 6:05 PM PST Approved by: Collin Copeland MD on 08/05/2021 6:05 PM PST Station ID: [id number]
[2021-08-05 18:53] LABS: BILIRUBIN,URINE NEGATIVE (NEGATIVE); GLUCOSE, URINE (UA) NEGATIVE (NEGATIVE); KETONES,URINE (UA) NEGATIVE (NEGATIVE); LEUKOCYTE ESTERASE, URINE NEGATIVE (NEGATIVE); NITRITE,URINE NEGATIVE (NEGATIVE); OCCULT BLOOD,URINE NEGATIVE (NEGATIVE); PH,URINE 6.5 PH (5.0-7.5); PROTEIN,URINE NEGATIVE (NEGATIVE); UROBILINOGEN,URINE 0.2 (NORMAL) E.U./dL (NORMAL)
[2021-08-05 18:56] LABS: CLARITY,URINE CLEAR (CLEAR)
[2021-08-05 19:07] LABS: BACTERIA,URINE None Seen /HPF (None Seen); RBC,URINE 0-5 /HPF (0-5); SQUAMOUS EPITHELIAL CELL,UR NONE SEEN (<= Few); WBC,URINE 0-3 /HPF (0-3)
[2021-08-05] MEDS: CEFEPIME 1 GM in SODIUM CHLORIDE 0.9% MINIBAG 100 ML IV SCH (19:08)
[2021-08-05] MEDS: ACETAMINOPHEN 325 MG TABLET PO PRN (19:09)
[2021-08-05] MEDS ORDERED: ZINC OXIDE 20% OINT 30 GM TUBE TOP PRN (20:21)
[2021-08-05] MEDS ORDERED: LIDOCAINE 2% URO-JET 5 ML SYRINGE UR ONE (20:42)
[2021-08-05] MEDS: ATORVASTATIN 40 MG TABLET PO SCH (21:07)
[2021-08-05] MEDS: MIN OIL/DIMETHICON/COCONUT OIL 92 GM TUBE TOP PRN (21:25)
[2021-08-06] MEDS: SODIUM CHLORIDE FLUSH 0.9% 10 ML SYRINGE IVP SCH ×3 (00:12→17:01)
[2021-08-06] MEDS: CEFEPIME 1 GM in SODIUM CHLORIDE 0.9% MINIBAG 100 ML IV SCH ×3 (05:37→21:36)
[2021-08-06 05:52] LABS: BASOPHILS % (AUTO) 0.2 %; EOSINOPHILS # (AUTO) 0.3 10^3/uL (0.0-0.7); EOSINOPHILS % (AUTO) 3.1 %; HCT - HEMATOCRIT 35.3 % (42.0-52.0); LYMPHOCYTES # (AUTO) 0.7 10^3/uL (1.5-3.5); MEAN CORPUSCULAR HEMOGLOBIN 29.3 pg (27.0-31.0); MEAN CORPUSCULAR VOLUME 86.1 fL (80.0-94.0); MEAN PLATELET VOLUME 9.4 fL (7.4-11.4); MONOCYTES # (AUTO) 0.6 10^3/uL (0.0-1.0); MONOCYTES % (AUTO) 7.1 %; NEUTROPHILS # (AUTO) 6.6 10^3/uL (1.5-6.6); NEUTROPHILS % (AUTO) 81.1 %; PLT - PLATELET COUNT 229 10^3/uL (130-450); RED CELL DISTRIBUTION WIDTH 13.1 % (12.0-15.0); WHITE BLOOD COUNT 8.2 x10^3/uL (4.8-10.8)
[2021-08-06 05:58] LABS: CALCIUM 8.1 mg/dL (8.5-10.3); CREATININE 1.5 mg/dL (0.6-1.2); POTASSIUM 3.3 mmol/L (3.5-5.0)
[2021-08-06] MEDS ORDERED: POTASSIUM CHLORIDE 20 MEQ TABLET PO ONE ×2 (06:48→07:38)
[2021-08-06] MEDS: SODIUM CHLORIDE 0.9% 1,000 ML IV SCH ×2 (07:39→16:39)
[2021-08-06] MEDS: MULTIVITAMIN W/MINERALS TABLET PO SCH (07:39)
[2021-08-06] MEDS: TAMSULOSIN 0.4 MG CAPSULE PO SCH (08:03)
[2021-08-06] MEDS: polyethylene glycoL 3350 17 GM PACKET PO SCH (08:03)
[2021-08-06] MEDS: LOSARTAN 50 MG TABLET PO SCH (08:04)
[2021-08-06] MEDS: LORATADINE 10 MG TABLET PO SCH (08:04)
[2021-08-06] MEDS: amLODIPine 5 MG TABLET PO SCH (08:04)
[2021-08-06] MEDS: hydroCHLOROthiazide 25 MG TABLET PO SCH (08:05)
[2021-08-06] MEDS: CLOPIDOGREL 75 MG TABLET PO SCH (08:05)
--- NOTE | 2021-08-06 10:14 | PROVIDER PROGRESS NOTE ---
Assessment/Plan - Problem List (1) Pneumonia Assessment/Plan: 08/06 pt had low degree fever on yesterday afternoon, his O2 sat was reduced, CXR reveals bilateral lower lung airspace opacities more pronounced on the right, likely represent pneumonia. ordered blood culture, start with antibiotics Cefepime and probiotics, and continue gentle IVF (2)delirium Assessment/Plan: 08/06 significant improved. pt's mental status is close to his baseline. It was likely cause by his acute infection and acute urinary retention. 08/05 pt seem more confused on today, but at the same time, he report" I always confused." pt still present slurred speech and slight weakness on his left side as his hx of [place] residence and remain. otherwise pt does not present other acute Focal neuro deficits. CT of head reveal no acute process. continue neuro check, continue home Plavix and Statin. (3) Rhabdomyolysis 08/06 CK is down to normal arrange, resolved 08/05 improved Ck is down to 480, continue gentle IVF, lab monitor Improving. pt is comfortable laying at the bed. he denies any pain. CK is down to 760, continue IVF at 100 cc/h now. -Regular diet, encourage hydration, continue lab monitor (4) NAVEED (acute kidney injury) Impression: 08/06 creatinine is increased to 1.5 although pt continue to have IVF. Order US to r/o obstruction, hydronephrosis to affect kidney, continue gently IVF, avoid nephrotoxic agent, and lab monitor. 08/05 creatinine 1.3, continue IVF, and lab monitor significantly Improving. creatinine is 1.2, BUN 23 now, continue IVF at 100 cc/h, continue lab monitor and avoid nephrotoxic agents (5) Generalized weakness Impression: PT/OT recommend to SNF, consult with social media sr strategy manager for Disposition planning (6) Hypertension 08/06 improved. continue home meds and hydralazine PRN 08/05 improved. continue home BP meds, increased home Losartan dosage, continue vital monitor elevated BP, Resume home blood pressure medications Losartan, HCTZ, Amlodipine, Add hydralazine as needed, Continue vital signs monitor (7) Dementia Impression: Stable. OT had a evaluation for patient, pt has 30 score on [facility] Mental Status (8) Bradycardia Impression: Stable. per previous provider discussed as the following: "His heart rate has been consistently in the 50s. He has had 24 hours of telemetry and overnight he was noted to have multiple pauses, ranging from 3-6 seconds. He was in sinus rhythm. On chart review he has been seen in the past (approximately 2013) for this but it is unclear if he followed up and his does not remember. I discussed this with him today and asked if he would be interested in a pacemaker. He reported very clearly that no, he does not want a pacemaker as if his heart stops "it is my time, I've had a long life". I also spoke with his and she stated that he would not want interventions as this is stated in his will. He denied chest pain, palpitations, light-headedness or feeling dizzy." pt denies chest pain, shortness of breath, lightheaded. At this point, pt was already off tele monitor, and we will continue followup with pt's desire and wishes. (9) Acute diarrhea Impression: Resolved. No episodes of diarrhea since admission, only soft stool this morning. Sample was CDIFF negative and he was removed from enteric precautions. (10)hx of stroke pt has hx of stroke with left side slight weakness and slurred speech. pt does not present acute neurological deficits now. continue Plavix and Statin, plan d/c to SNF per PT/OT recommendation. (11)urinary retention / pt had 1000cc urine on straight catheter, pt has difficult to urinary now, order US to r/o obstruction, add Flomax, order Matthews catheter for pt. (3) Rhabdomyolysis Qualifiers: Rhabdomyolysis type: non-traumatic Qualified Code(s): M62.82 - Rhabdomyolysis - Current Meds Current Meds: Current Medications Generic Name Dose Route Start Last Admin Trade Name Freq PRN Reason Stop Dose Admin Acetaminophen 650 mg 08/05/21 17:45 08/05/21 19:09 Acetaminophen 325 Mg Tablet PO 650 mg Q4HR PRN Administration Pain or Fever > 38C (100.4F) Amlodipine Besylate 10 mg 08/04/21 16:00 08/06/21 08:04 Amlodipine 5 Mg Tablet PO 10 mg DAILY CARLOS Administration Atorvastatin Calcium 40 mg 08/04/21 21:00 08/05/21 21:07 Atorvastatin 40 Mg Tablet PO 40 mg QPM CARLOS Administration Clopidogrel Bisulfate 75 mg 08/05/21 09:00 08/06/21 08:05 Clopidogrel 75 Mg Tablet PO 75 mg DAILY CARLOS Administration Hydrochlorothiazide 25 mg 08/05/21 09:00 08/06/21 08:05 Hydrochlorothiazide 25 Mg Tablet PO 25 mg DAILY CARLOS Administration Sodium Chloride 1,000 mls @ 100 mls/hr 08/05/21 08:00 08/06/21 07:39 Normal Saline 0.9% IV 100 mls/hr .Q10H CARLOS Administration Cefepime HCl 1 gm/ Sodium 100 mls @ 200 mls/hr 08/05/21 19:00 08/06/21 06:10 Chloride IV Infused TID CARLOS Infusion Loratadine 10 mg 08/05/21 09:00 08/06/21 08:04 Loratadine 10 Mg Tablet PO 10 mg DAILY CARLOS Administration Losartan Potassium 100 mg 08/05/21 09:00 08/06/21 08:04 Losartan 50 Mg Tablet PO 100 mg DAILY CARLOS Administration Mineral Oil 1 applic 08/02/21 22:23 08/05/21 21:25 Min Oil/Dimethicon/Coconut Oil 92 Gm Tube TOP 1 applic PRN PRN Administration Skin Care Multi-Ingredient Ointment 1 applic 08/05/21 20:21 08/06/21 05:37 Zinc Oxide 20% Oint 30 Gm Tube TOP 1 applic PRN PRN Administration Skin Care Multivitamins/Minerals 1 tab 08/03/21 16:00 08/06/21 07:39 Multivitamin W/Minerals Tablet PO 1 tab DAILYWM CARLOS Administration Polyethylene Glycol 17 gm 08/06/21 09:00 08/06/21 08:03 Polyethylene Glycol 3350 17 Gm Packet PO 17 gm DAILY CARLOS Administration Sodium Chloride 10 ml 08/02/21 17:00 08/06/21 08:03 Sodium Chloride Flush 0.9% 10 Ml Syringe IVP 10 ml 0100,0900,1700 CARLOS Administration Tamsulosin HCl 0.4 mg 08/06/21 09:00 08/06/21 08:03 Tamsulosin 0.4 Mg Capsule PO 0.4 mg DAILY CARLOS Administration - Lab Result Fish Bone Diagrams: 08/06/21 05:08 08/06/21 05:08 - Additional Planning My Orders: My Active Orders 08/05/21 14:21 Neuro Check [RC] QSHIFT 08/05/21 17:45 Straight Catheter Insertion [RC] ONCE Acetaminophen [Tylenol] 650 mg PO Q4HR PRN 08/05/21 18:31 Matthews Insertion [RC] QSHIFT 08/05/21 18:50 Blood Culture [CULTURE, BLOOD #1] [RM] Urgent 08/05/21 18:54 Blood Culture [CULTURE, BLOOD #2] [RM] Urgent 08/05/21 19:00 Cefepime [Maxipime] 1 gm Sodium Chloride 0.9% Minibag [Normal Saline 0.9% Minibag] 100 ml IV TID 08/06/21 08:00 Retroperitoneal [US] Stat 08/06/21 09:00 Tamsulosin [Flomax] 0.4 mg PO DAILY 08/07/21 05:00 BMP - BASIC METABOLIC PANEL [CHEM] DAILYLAB CBC - COMP BLD CT W/AUTO DIFF [HEME] DAILYLAB CK- CREATINE KINASE [CHEM] DAILYLAB 08/08/21 05:00 BMP - BASIC METABOLIC PANEL [CHEM] DAILYLAB CBC - COMP BLD CT W/AUTO DIFF [HEME] DAILYLAB CK- CREATINE KINASE [CHEM] DAILYLAB 08/09/21 05:00 BMP - BASIC METABOLIC PANEL [CHEM] DAILYLAB CBC - COMP BLD CT W/AUTO DIFF [HEME] DAILYLAB CK- CREATINE KINASE [CHEM] DAILYLAB Subjective - Subjective Patient Reports: Resting Comfortably Objective Vital Signs: Vital Signs - 24 hr 08/05/21 08/05/21 08/05/21 11:50 15:35 15:45 Temperature 36.6 C Heart Rate [ 69 Brachial] Heart Rate [ 93 93 Sitting] Heart Rate [ 67 67 Supine] Respiratory 18 Rate Blood Pressure 164/77 H [Left Brachial artery] Blood Pressure 196/87 H 196/87 H [Sitting] Blood Pressure 193/70 H 193/70 H [Supine] O2 Saturation 94 08/05/21 08/05/21 08/05/21 16:27 17:24 21:00 Temperature 37.3 C 38.2 C H 37.6 C Heart Rate [ 64 59 L Brachial] Heart Rate [ Sitting] Heart Rate [ Supine] Respiratory 20 18 Rate Blood Pressure 147/61 H 153/75 H [Left Brachial artery] Blood Pressure [Sitting] Blood Pressure [Supine] O2 Saturation 93 100 08/06/21 08/06/21 08/06/21 00:34 06:02 07:18 Temperature 37.4 C 36.8 C 37.1 C Heart Rate [ 100 73 57 L Brachial] Heart Rate [ Sitting] Heart Rate [ Supine] Respiratory 18 16 18 Rate Blood Pressure 137/84 H 165/62 H [Left Brachial artery] Blood Pressure [Sitting] Blood Pressure [Supine] O2 Saturation 98 90 L 92 Oxygen O2 Source Room air I&O (Last 24 Hrs): Intake and Output Totals x24h 08/04/21 08/05/21 08/06/21 23:59 23:59 23:59 Intake Total 4595.833 3526.667 1130 Output Total 350 1700 800 Balance 4245.833 1826.667 330 General: Alert, Cooperative, No acute distress HEENT: Atraumatic Neck: Supple Lymphatic: no adenopathy Neuro: Alert, Non Focal Cardiovascular: Regular rate, Normal S1, Normal S2 Respiratory: Chest non-tender, No respiratory distress Abdomen: Normal bowel sounds, Soft Extremities: Normal pulses - Results Results: Laboratory Results WBC 8.2 x10^3/uL (4.8-10.8) 08/06/21 05:08 RBC 4.10 10^6/uL (4.70-6.10) L 08/06/21 05:08 Hgb 12.0 g/dL (14.0-18.0) L 08/06/21 05:08 Hct 35.3 % (42.0-52.0) L 08/06/21 05:08 MCV 86.1 fL (80.0-94.0) 08/06/21 05:08 MCH 29.3 pg (27.0-31.0) 08/06/21 05:08 MCHC 34.0 g/dL (32.0-36.0) 08/06/21 05:08 RDW 13.1 % (12.0-15.0) 08/06/21 05:08 Plt Count 229 10^3/uL (130-450) 08/06/21 05:08 MPV 9.4 fL (7.4-11.4) 08/06/21 05:08 Neut # (Auto) 6.6 10^3/uL (1.5-6.6) 08/06/21 05:08 Lymph # (Auto) 0.7 10^3/uL (1.5-3.5) L 08/06/21 05:08 Brantley # (Auto) 0.6 10^3/uL (0.0-1.0) 08/06/21 05:08 Eos # (Auto) 0.3 10^3/uL (0.0-0.7) 08/06/21 05:08 Baso # (Auto) 0.0 10^3/uL (0.0-0.1) 08/06/21 05:08 Absolute Nucleated RBC 0.00 x10^3/uL 08/06/21 05:08 Nucleated RBC % 0.0 /100WBC 08/06/21 05:08 Sodium 137 mmol/L (135-145) 08/06/21 05:08 Potassium 3.3 mmol/L (3.5-5.0) L 08/06/21 05:08 Chloride 104 mmol/L (101-111) 08/06/21 05:08 Carbon Dioxide 24 mmol/L (21-32) 08/06/21 05:08 Anion Gap 9.0 (6-13) 08/06/21 05:08 BUN 19 mg/dL (6-20) 08/06/21 05:08 Creatinine 1.5 mg/dL (0.6-1.2) H 08/06/21 05:08 Estimated GFR (MDRD) 44 (>89) L 08/06/21 05:08 Glucose 97 mg/dL (70-100) 08/06/21 05:08 Lactic Acid 1.2 mmol/L (0.5-2.2) 08/02/21 12:05 Calcium 8.1 mg/dL (8.5-10.3) L 08/06/21 05:08 Magnesium 2.1 mg/dL (1.7-2.8) 08/02/21 12:05 Total Bilirubin 1.2 mg/dL (0.2-1.0) H 08/02/21 12:05 AST 88 IU/L (10-42) H 08/02/21 12:05 ALT 32 IU/L (10-60) 08/02/21 12:05 Alkaline Phosphatase 70 IU/L (42-121) 08/02/21 12:05 Total Creatine Kinase 160 IU/L (22-269) 08/06/21 05:08 Troponin I High Sens 60.8 ng/L (2.3-19.7) H* 08/02/21 21:07 Total Protein 6.7 g/dL (6.7-8.2) 08/02/21 12:05 Albumin 4.0 g/dL (3.2-5.5) 08/02/21 12:05 Globulin 2.7 g/dL (2.1-4.2) 08/02/21 12:05 Albumin/Globulin Ratio 1.5 (1.0-2.2) 08/02/21 12:05 Lipase 19 U/L (22-51) L 08/02/21 12:05 Urine Color YELLOW 08/05/21 18:32 Urine Clarity CLEAR (CLEAR) 08/05/21 18:32 Urine pH 6.5 PH (5.0-7.5) 08/05/21 18:32 Ur Specific [place] 1.010 (1.002-1.030) 08/05/21 18:32 Urine Protein NEGATIVE mg/dL (NEGATIVE) 08/05/21 18:32 Urine Glucose (UA) NEGATIVE mg/dL (NEGATIVE) 08/05/21 18:32 Urine Ketones NEGATIVE mg/dL (NEGATIVE) 08/05/21 18:32 Urine Occult Blood NEGATIVE (NEGATIVE) 08/05/21 18:32 Urine Nitrite NEGATIVE (NEGATIVE) 08/05/21 18:32 Urine Bilirubin NEGATIVE (NEGATIVE) 08/05/21 18:32 Urine Urobilinogen 0.2 (NORMAL) E.U./dL (NORMAL) 08/05/21 18:32 Ur Leukocyte Esterase NEGATIVE (NEGATIVE) 08/05/21 18:32 Urine RBC 0-5 /HPF (0-5) 08/05/21 18:32 Urine WBC 0-3 /HPF (0-3) 08/05/21 18:32 Ur Squamous Epith Cells NONE SEEN (<= Few) 08/05/21 18:32 Urine Bacteria None Seen /HPF (None Seen) 08/05/21 18:32 Ur Microscopic Review INDICATED 08/02/21 11:37 Urine Culture Comments NOT INDICATED 08/05/21 18:32 Nasal Adenovirus (PCR) NOT DETECTED 08/02/21 15:38 Nasal B. parapertussis DNA (PCR) NOT DETECTED 08/02/21 15:38 Nasal Coronavir 229E PCR NOT DETECTED 08/02/21 15:38 Nasal Coronavir HKU1 PCR NOT DETECTED 08/02/21 15:38 Nasal Coronavir NL63 PCR NOT DETECTED 08/02/21 15:38 Nasal Coronavir OC43 PCR NOT DETECTED 08/02/21 15:38 Nasal Enterovir/Rhinovir PCR NOT DETECTED 08/02/21 15:38 Nasal Influenza B PCR NOT DETECTED 08/02/21 15:38 Nasal Influenza A PCR NOT DETECTED 08/02/21 15:38 Nasal Parainfluen 1 PCR NOT DETECTED 08/02/21 15:38 Nasal Parainfluen 2 PCR NOT DETECTED 08/02/21 15:38 Nasal Parainfluen 3 PCR NOT DETECTED 08/02/21 15:38 Nasal Parainfluen 4 PCR NOT DETECTED 08/02/21 15:38 Nasal RSV (PCR) NOT DETECTED 08/02/21 15:38 Nasal Screen MRSA (PCR) NEGATIVE (NEGATIVE) 08/02/21 18:42 Nasal B.pertussis DNA PCR NOT DETECTED 08/02/21 15:38 Nasal C.pneumoniae (PCR) NOT DETECTED 08/02/21 15:38 Edwin Human Metapneumo PCR NOT DETECTED 08/02/21 15:38 Nasal M.pneumoniae (PCR) NOT DETECTED 08/02/21 15:38 Nasal SARS-CoV-2 (PCR) NOT DETECTED 08/02/21 15:38 Stl C. diff Tox B Gene NEGATIVE (NEGATIVE) 08/03/21 08:29 Sepsis Event Note (H) - Evaluation Current Stage of Sepsis: Ruled out ABX Reporting Has patient been on IV antibiotics over the past 48 hours?: Yes Current Medications - Current Medications Current Medications: Active Medications Acetaminophen (Acetaminophen 325 Mg Tablet) 650 mg PO Q4HR PRN PRN Reason: Pain or Fever > 38C (100.4F) Last Admin: 08/05/21 19:09 Dose: 650 mg Documented by: Amlodipine Besylate (Amlodipine 5 Mg Tablet) 10 mg PO DAILY [facility] Last Admin: 08/06/21 08:04 Dose: 10 mg Documented by: Atorvastatin Calcium (Atorvastatin 40 Mg Tablet) 40 mg PO QPM [facility] Last Admin: 08/05/21 21:07 Dose: 40 mg Documented by: Clopidogrel Bisulfate (Clopidogrel 75 Mg Tablet) 75 mg PO DAILY [facility] Last Admin: 08/06/21 08:05 Dose: 75 mg Documented by: Hydralazine HCl (Hydralazine Inj 20 Mg/Ml Vial) 10 mg IVP QID PRN PRN Reason: Hypertensive Emergency Hydrochlorothiazide (Hydrochlorothiazide 25 Mg Tablet) 25 mg PO DAILY [facility] Last Admin: 08/06/21 08:05 Dose: 25 mg Documented by: Sodium Chloride (Normal Saline 0.9%) 1,000 mls @ 100 mls/hr IV .Q10H [facility] Last Admin: 08/06/21 07:39 Dose: 100 mls/hr Documented by: Cefepime HCl 1 gm/ Sodium (Chloride) 100 mls @ 200 mls/hr IV TID [facility] Last Infusion: 08/06/21 06:10 Dose: Infused Documented by: Loratadine (Loratadine 10 Mg Tablet) 10 mg PO DAILY [facility] Last Admin: 08/06/21 08:04 Dose: 10 mg Documented by: Losartan Potassium (Losartan 50 Mg Tablet) 100 mg PO DAILY [facility] Last Admin: 08/06/21 08:04 Dose: 100 mg Documented by: Mineral Oil (Min Oil/Dimethicon/Coconut Oil 92 Gm Tube) 1 applic TOP PRN PRN PRN Reason: Skin Care Last Admin: 08/05/21 21:25 Dose: 1 applic Documented by: Multi-Ingredient Ointment (Zinc Oxide 20% Oint 30 Gm Tube) 1 applic TOP PRN PRN PRN Reason: Skin Care Last Admin: 08/06/21 05:37 Dose: 1 applic Documented by: Multivitamins/Minerals (Multivitamin W/Minerals Tablet) 1 tab PO DAILYWM [facility] Last Admin: 08/06/21 07:39 Dose: 1 tab Documented by: Polyethylene Glycol (Polyethylene Glycol 3350 17 Gm Packet) 17 gm PO DAILY [facility] Last Admin: 08/06/21 08:03 Dose: 17 gm Documented by: Sodium Chloride (Sodium Chloride Flush 0.9% 10 Ml Syringe) 10 ml IVP PRN PRN PRN Reason: NEEDED PER PROVIDER ORDERS Sodium Chloride (Sodium Chloride Flush 0.9% 10 Ml Syringe) 10 ml IVP 0100,0900,1700 [facility] Last Admin: 08/06/21 08:03 Dose: 10 ml Documented by: Tamsulosin HCl (Tamsulosin 0.4 Mg Capsule) 0.4 mg PO DAILY [facility] Last Admin: 08/06/21 08:03 Dose: 0.4 mg Documented by: Amlodipine Besylate [Norvasc] 10 mg PO DAILY 08/03/21 Atorvastatin Calcium 40 mg PO QPM 08/03/21 Chlorthalidone 25 mg PO DAILY 08/03/21 Clopidogrel [Plavix] 75 mg PO DAILY 08/03/21 Loratadine [Claritin] 10 mg PO DAILY 08/03/21 Losartan Potassium 25 mg PO DAILY 08/03/21
--- NOTE | 2021-08-06 10:42 | Ultrasound Report ---
PROCEDURE: Retroperitoneal INDICATIONS: NAVEED, URINARY BLOCKAGE TECHNIQUE: Real-time scanning was performed of the kidneys and bladder, with image documentation. COMPARISON: CT abdomen/pelvis 08/02/2021 FINDINGS: Kidneys: Kidneys are normal in size. Right kidney measures 10.4 cm long; left kidney measures 9.7 c m long. Right renal cortical thickness is 1.8 cm; left renal cortical thickness is 1.5 cm. Renal co rtical echotexture is normal. No hydronephrosis or nephrolithiasis. No suspicious solid mass lesion s. A 2.9 cm cyst is seen in the inferior pole of the right kidney. Trace nonspecific perinephric flu id is seen in the right. Bladder: The bladder is decompressed by a Matthews catheter, which compromises evaluation. Miscellaneous: No free pelvic fluid. A right pleural effusion is incidentally noted and incompletel y imaged. IMPRESSION: 1.No hydronephrosis or nephrolithiasis. 2.Trace nonspecific right perinephric fluid is of uncertain etiology. 3.Bladder is decompressed by a Matthews catheter. 4.Incidental right pleural effusion is partially imaged. Reviewed by: Zach Vegas MD on 08/06/2021 10:41 AM PST Approved by: Zach Vegas MD on 08/06/2021 10:41 AM PST Station ID: [id number]
[2021-08-06] MEDS ORDERED: SODIUM CHLORIDE 0.9% 1,000 ML IV SCH (14:31)
[2021-08-06] MEDS: SACCHAROMYCES BOULARDII 250 MG CAPSULE PO SCH (16:59)
[2021-08-06] MEDS: ATORVASTATIN 40 MG TABLET PO SCH (20:26)
[2021-08-07] MEDS: SODIUM CHLORIDE FLUSH 0.9% 10 ML SYRINGE IVP SCH ×4 (00:45→23:12)
[2021-08-07] MEDS: SODIUM CHLORIDE 0.9% 1,000 ML IV SCH ×3 (03:23→19:50)
[2021-08-07] MEDS: MIN OIL/DIMETHICON/COCONUT OIL 92 GM TUBE TOP PRN (05:08)
[2021-08-07] MEDS: CEFEPIME 1 GM in SODIUM CHLORIDE 0.9% MINIBAG 100 ML IV SCH ×3 (05:17→21:32)
[2021-08-07 05:55] LABS: BASOPHILS % (AUTO) 0.2 %; EOSINOPHILS # (AUTO) 0.3 10^3/uL (0.0-0.7); EOSINOPHILS % (AUTO) 3.9 %; HGB - HEMOGLOBIN 11.7 g/dL (14.0-18.0); LYMPHOCYTES # (AUTO) 0.8 10^3/uL (1.5-3.5); LYMPHOCYTES % (AUTO) 8.6 %; MEAN CORPUSCULAR HGB CONC 33.4 g/dL (32.0-36.0); MEAN CORPUSCULAR VOLUME 86.6 fL (80.0-94.0); MEAN PLATELET VOLUME 9.5 fL (7.4-11.4); MONOCYTES # (AUTO) 0.7 10^3/uL (0.0-1.0); MONOCYTES % (AUTO) 8.1 %; NEUTROPHILS # (AUTO) 6.9 10^3/uL (1.5-6.6); NEUTROPHILS % (AUTO) 78.9 %; PLT - PLATELET COUNT 243 10^3/uL (130-450); RED BLOOD COUNT 4.04 10^6/uL (4.70-6.10); RED CELL DISTRIBUTION WIDTH 13.1 % (12.0-15.0); WHITE BLOOD COUNT 8.8 x10^3/uL (4.8-10.8)
[2021-08-07 06:03] LABS: CREATININE 1.2 mg/dL (0.6-1.2); POTASSIUM 3.7 mmol/L (3.5-5.0)
[2021-08-07] MEDS: polyethylene glycoL 3350 17 GM PACKET PO SCH (07:51)
[2021-08-07] MEDS: SACCHAROMYCES BOULARDII 250 MG CAPSULE PO SCH ×2 (07:51→16:06)
[2021-08-07] MEDS: MULTIVITAMIN W/MINERALS TABLET PO SCH (07:51)
[2021-08-07] MEDS: hydroCHLOROthiazide 25 MG TABLET PO SCH (08:17)
[2021-08-07] MEDS: LOSARTAN 50 MG TABLET PO SCH (08:17)
[2021-08-07] MEDS: TAMSULOSIN 0.4 MG CAPSULE PO SCH (08:17)
[2021-08-07] MEDS: CLOPIDOGREL 75 MG TABLET PO SCH (08:17)
[2021-08-07] MEDS: amLODIPine 5 MG TABLET PO SCH (08:17)
[2021-08-07] MEDS: LORATADINE 10 MG TABLET PO SCH (08:17)
[2021-08-07] MEDS: ENOXAPARIN 40 MG/0.4 ML SYRINGE SUBQ SCH (08:56)
--- NOTE | 2021-08-07 11:07 | PROVIDER PROGRESS NOTE ---
Assessment/Plan - Problem List (1) Pneumonia Assessment/Plan: 08/07 stable respiratory status, no acute respiratory distress, blood culture is Negative for bacteremia. We will finish intravenous antibiotics on today, we may switch p.o. antibiotics on tomorrow. Continue probiotics 08/06 pt had low degree fever on yesterday afternoon, his O2 sat was reduced, CXR reveals bilateral lower lung airspace opacities more pronounced on the right, likely represent pneumonia. ordered blood culture, start with antibiotics Cefepime and probiotics, and continue gentle IVF (2)delirium Assessment/Plan: 123, stable, As patient's baseline. 08/06 significant improved. pt's mental status is close to his baseline. It was likely cause by his acute infection and acute urinary retention. 08/05 pt seem more confused on today, but at the same time, he report" I always confused." pt still present slurred speech and slight weakness on his left side as his hx of [place] residence and remain. otherwise pt does not present other acute Focal neuro deficits. CT of head reveal no acute process. continue neuro check, continue home Plavix and Statin. (3) Rhabdomyolysis 08/06 CK is down to normal arrange, resolved 08/05 improved Ck is down to 480, continue gentle IVF, lab monitor Improving. pt is comfortable laying at the bed. he denies any pain. CK is down to 760, continue IVF at 100 cc/h now. -Regular diet, encourage hydration, continue lab monitor (4) NAVEED (acute kidney injury) Impression: 123, Improved significantly, Creatinine is 1.2, from yesterday 1.5. BUN at the normal range, continue IVF at 75cc/h now, pt has hx of dementia, he is risk of dehydration and poor oral intake. 08/06 creatinine is increased to 1.5 although pt continue to have IVF. Order US to r/o obstruction, hydronephrosis to affect kidney, continue gently IVF, avoid nephrotoxic agent, and lab monitor. 08/05 creatinine 1.3, continue IVF, and lab monitor significantly Improving. creatinine is 1.2, BUN 23 now, continue IVF at 100 cc/h, continue lab monitor and avoid nephrotoxic agents (5) Generalized weakness Impression: 123, we will continue PT and OT evaluation and treatment, patient was assessed by PT and OT before, and recommended for SNF. Continue consult with social work for disposition planning PT/OT recommend to SNF, consult with dialysis social worker for Disposition planning (6) Hypertension 12/ improved. continue home meds and hydralazine PRN 08/05 improved. continue home BP meds, increased home Losartan dosage, continue vital monitor elevated BP, Resume home blood pressure medications Losartan, HCTZ, Amlodipine, Add hydralazine as needed, Continue vital signs monitor (7) Dementia Impression: Stable. OT had a evaluation for patient, pt has 7/30 score on [facility] Mental Status (8) Bradycardia Impression: Stable. per previous provider discussed as the following: "His heart rate has been consistently in the 50s. He has had 24 hours of telemetry and overnight he was noted to have multiple pauses, ranging from 3-6 seconds. He was in sinus rhythm. On chart review he has been seen in the past (approximately 2013) for this but it is unclear if he followed up and his does not remember. I discussed this with him today and asked if he would be interested in a pacemaker. He reported very clearly that no, he does not want a pacemaker as if his heart stops "it is my time, I've had a long life". I also spoke with his and she stated that he would not want interventions as this is stated in his will. He denied chest pain, palpitations, light-headedness or feeling dizzy." pt denies chest pain, shortness of breath, lightheaded. At this point, pt was already off tele monitor, and we will continue followup with pt's desire and wishes. (9) Acute diarrhea Impression: Resolved. No episodes of diarrhea since admission, only soft stool this morning. Sample was CDIFF negative and he was removed from enteric precautions. (10)hx of stroke pt has hx of stroke with left side slight weakness and slurred speech. pt does not present acute neurological deficits now. continue Plavix and Statin, plan d/c to SNF per PT/OT recommendation. (11)urinary retention 12/2 pt had 1000cc urine on straight catheter, pt has difficult to urinary now, order US to r/o obstruction, add Flomax, order Matthews catheter for pt. (3) Rhabdomyolysis Qualifiers: Rhabdomyolysis type: non-traumatic Qualified Code(s): M62.82 - Rhabdomyolysis - Current Meds Current Meds: Current Medications Generic Name Dose Route Start Last Admin Trade Name Freq PRN Reason Stop Dose Admin Acetaminophen 650 mg 08/05/21 17:45 08/05/21 19:09 Acetaminophen 325 Mg Tablet PO 650 mg Q4HR PRN Administration Pain or Fever > 38C (100.4F) Amlodipine Besylate 10 mg 08/04/21 16:00 08/07/21 08:17 Amlodipine 5 Mg Tablet PO 10 mg DAILY [facility] Administration Atorvastatin Calcium 40 mg 08/04/21 21:00 08/06/21 20:26 Atorvastatin 40 Mg Tablet PO 40 mg QPM [facility] Administration Clopidogrel Bisulfate 75 mg 08/05/21 09:00 08/07/21 08:17 Clopidogrel 75 Mg Tablet PO 75 mg DAILY [facility] Administration Enoxaparin Sodium 40 mg 08/07/21 09:00 08/07/21 08:56 Enoxaparin 40 Mg/0.4 Ml Syringe SUBQ 40 mg DAILY [facility] Administration Hydrochlorothiazide 25 mg 08/05/21 09:00 08/07/21 08:17 Hydrochlorothiazide 25 Mg Tablet PO 25 mg DAILY [facility] Administration Cefepime HCl 1 gm/ Sodium 100 mls @ 200 mls/hr 08/05/21 19:00 08/07/21 05:50 Chloride IV Infused TID [facility] Infusion Sodium Chloride 1,000 mls @ 75 mls/hr 08/07/21 07:21 08/07/21 07:43 Normal Saline 0.9% IV 08/08/21 10:00 75 mls/hr .[id number] [facility] Administration Loratadine 10 mg 08/05/21 09:00 08/07/21 08:17 Loratadine 10 Mg Tablet PO 10 mg DAILY [facility] Administration Losartan Potassium 100 mg 08/05/21 09:00 08/07/21 08:17 Losartan 50 Mg Tablet PO 100 mg DAILY [facility] Administration Mineral Oil 1 applic 08/02/21 22:23 08/07/21 05:08 Min Oil/Dimethicon/Coconut Oil 92 Gm Tube TOP 1 applic PRN PRN Administration Skin Care Multi-Ingredient Ointment 1 applic 08/05/21 20:21 08/06/21 05:37 Zinc Oxide 20% Oint 30 Gm Tube TOP 1 applic PRN PRN Administration Skin Care Multivitamins/Minerals 1 tab 08/03/21 16:00 08/07/21 07:51 Multivitamin W/Minerals Tablet PO 1 tab DAILYWM [facility] Administration Polyethylene Glycol 17 gm 08/06/21 09:00 08/07/21 07:51 Polyethylene Glycol 3350 17 Gm Packet PO 17 gm DAILY [facility] Administration Saccharomyces Boulardii 250 mg 08/06/21 17:00 08/07/21 07:51 Saccharomyces Boulardii 250 Mg Capsule PO 250 mg BIDWM [facility] Administration Sodium Chloride 10 ml 08/02/21 17:00 08/07/21 08:17 Sodium Chloride Flush 0.9% 10 Ml Syringe IVP 10 ml 0100,0900,1700 [facility] Administration Tamsulosin HCl 0.4 mg 08/06/21 09:00 08/07/21 08:17 Tamsulosin 0.4 Mg Capsule PO 0.4 mg DAILY [facility] Administration - Lab Result Fish Bone Diagrams: 08/07/21 05:17 08/07/21 05:17 - Additional Planning My Orders: My Active Orders 08/06/21 10:15 Incentive Spirometry - RT [RC] .TID 08/06/21 17:00 Saccharomyces Boulardii [Florastor] 250 mg PO BIDWM 08/07/21 07:21 Sodium Chloride 0.9% [Normal Saline 0.9%] 1,000 ml IV 75 mls/hr 08/07/21 09:00 Enoxaparin [Lovenox] 40 mg SUBQ DAILY 08/08/21 05:00 BMP - BASIC METABOLIC PANEL [CHEM] DAILYLAB CBC - COMP BLD CT W/AUTO DIFF [HEME] DAILYLAB 08/09/21 05:00 BMP - BASIC METABOLIC PANEL [CHEM] DAILYLAB CBC - COMP BLD CT W/AUTO DIFF [HEME] DAILYLAB Subjective - Subjective Patient Reports: Resting Comfortably Objective Vital Signs: Vital Signs - 24 hr 08/06/21 08/06/21 08/07/21 15:35 20:08 00:05 Temperature 37.2 C 37.2 C 36.9 C Heart Rate [ 70 59 L 62 Brachial] Respiratory 16 20 20 Rate Blood Pressure 149/67 H 154/72 H 155/52 H [Left Brachial artery] O2 Saturation 96 97 93 08/07/21 08/07/21 05:11 07:40 Temperature 37.2 C 36.2 C L Heart Rate [ 59 L 68 Brachial] Respiratory 20 18 Rate Blood Pressure 152/53 H 161/61 H [Left Brachial artery] O2 Saturation 96 95 Oxygen O2 Source Room air I&O (Last 24 Hrs): Intake and Output Totals x24h 08/05/21 08/06/21 08/07/21 23:59 23:59 23:59 Intake Total 3526.667 3431.333 1226.667 Output Total 1700 2900 2650 Balance 1826.667 531.333 -1423.333 General: Alert, Cooperative, No acute distress HEENT: Atraumatic Neck: Supple Lymphatic: no adenopathy Neuro: Alert, Non Focal Cardiovascular: Regular rate, Normal S1, Normal S2 Respiratory: Chest non-tender, No respiratory distress Abdomen: Normal bowel sounds, Soft Extremities: Normal pulses - Results Results: Laboratory Results WBC 8.8 x10^3/uL (4.8-10.8) 08/07/21 05:17 RBC 4.04 10^6/uL (4.70-6.10) L 08/07/21 05:17 Hgb 11.7 g/dL (14.0-18.0) L 08/07/21 05:17 Hct 35.0 % (42.0-52.0) L 08/07/21 05:17 MCV 86.6 fL (80.0-94.0) 08/07/21 05:17 MCH 29.0 pg (27.0-31.0) 08/07/21 05:17 MCHC 33.4 g/dL (32.0-36.0) 08/07/21 05:17 RDW 13.1 % (12.0-15.0) 08/07/21 05:17 Plt Count 243 10^3/uL (130-450) 08/07/21 05:17 MPV 9.5 fL (7.4-11.4) 08/07/21 05:17 Neut # (Auto) 6.9 10^3/uL (1.5-6.6) H 08/07/21 05:17 Lymph # (Auto) 0.8 10^3/uL (1.5-3.5) L 08/07/21 05:17 [place] # (Auto) 0.7 10^3/uL (0.0-1.0) 08/07/21 05:17 Eos # (Auto) 0.3 10^3/uL (0.0-0.7) 08/07/21 05:17 Baso # (Auto) 0.0 10^3/uL (0.0-0.1) 08/07/21 05:17 Absolute Nucleated RBC 0.00 x10^3/uL 08/07/21 05:17 Nucleated RBC % 0.0 /100WBC 08/07/21 05:17 Sodium 135 mmol/L (135-145) 08/07/21 05:17 Potassium 3.7 mmol/L (3.5-5.0) 08/07/21 05:17 Chloride 101 mmol/L (101-111) 08/07/21 05:17 Carbon Dioxide 25 mmol/L (21-32) 08/07/21 05:17 Anion Gap 9.0 (6-13) 08/07/21 05:17 BUN 19 mg/dL (6-20) 08/07/21 05:17 Creatinine 1.2 mg/dL (0.6-1.2) 08/07/21 05:17 Estimated GFR (MDRD) 57 (>89) L 08/07/21 05:17 Glucose 97 mg/dL (70-100) 08/07/21 05:17 Lactic Acid 1.2 mmol/L (0.5-2.2) 08/02/21 12:05 Calcium 8.0 mg/dL (8.5-10.3) L 08/07/21 05:17 Magnesium 2.1 mg/dL (1.7-2.8) 08/02/21 12:05 Total Bilirubin 1.2 mg/dL (0.2-1.0) H 08/02/21 12:05 AST 88 IU/L (10-42) H 08/02/21 12:05 ALT 32 IU/L (10-60) 08/02/21 12:05 Alkaline Phosphatase 70 IU/L (42-121) 08/02/21 12:05 Total Creatine Kinase 160 IU/L (22-269) 08/06/21 05:08 Troponin I High Sens 60.8 ng/L (2.3-19.7) H* 08/02/21 21:07 Total Protein 6.7 g/dL (6.7-8.2) 08/02/21 12:05 Albumin 4.0 g/dL (3.2-5.5) 08/02/21 12:05 Globulin 2.7 g/dL (2.1-4.2) 08/02/21 12:05 Albumin/Globulin Ratio 1.5 (1.0-2.2) 08/02/21 12:05 Lipase 19 U/L (22-51) L 08/02/21 12:05 Urine Color YELLOW 08/05/21 18:32 Urine Clarity CLEAR (CLEAR) 08/05/21 18:32 Urine pH 6.5 PH (5.0-7.5) 08/05/21 18:32 Ur Specific [place] 1.010 (1.002-1.030) 08/05/21 18:32 Urine Protein NEGATIVE mg/dL (NEGATIVE) 08/05/21 18:32 Urine Glucose (UA) NEGATIVE mg/dL (NEGATIVE) 08/05/21 18:32 Urine Ketones NEGATIVE mg/dL (NEGATIVE) 08/05/21 18:32 Urine Occult Blood NEGATIVE (NEGATIVE) 08/05/21 18:32 Urine Nitrite NEGATIVE (NEGATIVE) 08/05/21 18:32 Urine Bilirubin NEGATIVE (NEGATIVE) 08/05/21 18:32 Urine Urobilinogen 0.2 (NORMAL) E.U./dL (NORMAL) 08/05/21 18:32 Ur Leukocyte Esterase NEGATIVE (NEGATIVE) 08/05/21 18:32 Urine RBC 0-5 /HPF (0-5) 08/05/21 18:32 Urine WBC 0-3 /HPF (0-3) 08/05/21 18:32 Ur Squamous Epith Cells NONE SEEN (<= Few) 08/05/21 18:32 Urine Bacteria None Seen /HPF (None Seen) 08/05/21 18:32 Ur Microscopic Review INDICATED 08/02/21 11:37 Urine Culture Comments NOT INDICATED 08/05/21 18:32 Nasal Adenovirus (PCR) NOT DETECTED 08/02/21 15:38 Nasal B. parapertussis DNA (PCR) NOT DETECTED 08/02/21 15:38 Nasal Coronavir 229E PCR NOT DETECTED 08/02/21 15:38 Nasal Coronavir HKU1 PCR NOT DETECTED 08/02/21 15:38 Nasal Coronavir NL63 PCR NOT DETECTED 08/02/21 15:38 Nasal Coronavir OC43 PCR NOT DETECTED 08/02/21 15:38 Nasal Enterovir/Rhinovir PCR NOT DETECTED 08/02/21 15:38 Nasal Influenza B PCR NOT DETECTED 08/02/21 15:38 Nasal Influenza A PCR NOT DETECTED 08/02/21 15:38 Nasal Parainfluen 1 PCR NOT DETECTED 08/02/21 15:38 Nasal Parainfluen 2 PCR NOT DETECTED 08/02/21 15:38 Nasal Parainfluen 3 PCR NOT DETECTED 08/02/21 15:38 Nasal Parainfluen 4 PCR NOT DETECTED 08/02/21 15:38 Nasal RSV (PCR) NOT DETECTED 08/02/21 15:38 Nasal Screen MRSA (PCR) NEGATIVE (NEGATIVE) 08/02/21 18:42 Nasal B.pertussis DNA PCR NOT DETECTED 08/02/21 15:38 Nasal C.pneumoniae (PCR) NOT DETECTED 08/02/21 15:38 Edwin Human Metapneumo PCR NOT DETECTED 08/02/21 15:38 Nasal M.pneumoniae (PCR) NOT DETECTED 08/02/21 15:38 Nasal SARS-CoV-2 (PCR) NOT DETECTED 08/02/21 15:38 Stl C. diff Tox B Gene NEGATIVE (NEGATIVE) 08/03/21 08:29 Sepsis Event Note (H) - Evaluation Current Stage of Sepsis: Ruled out ABX Reporting Has patient been on IV antibiotics over the past 48 hours?: Yes Current Medications - Current Medications Current Medications: Active Medications Acetaminophen (Acetaminophen 325 Mg Tablet) 650 mg PO Q4HR PRN PRN Reason: Pain or Fever > 38C (100.4F) Last Admin: 08/05/21 19:09 Dose: 650 mg Documented by: Amlodipine Besylate (Amlodipine 5 Mg Tablet) 10 mg PO DAILY [facility] Last Admin: 08/07/21 08:17 Dose: 10 mg Documented by: Atorvastatin Calcium (Atorvastatin 40 Mg Tablet) 40 mg PO QPM [facility] Last Admin: 08/06/21 20:26 Dose: 40 mg Documented by: Clopidogrel Bisulfate (Clopidogrel 75 Mg Tablet) 75 mg PO DAILY [facility] Last Admin: 08/07/21 08:17 Dose: 75 mg Documented by: Enoxaparin Sodium (Enoxaparin 40 Mg/0.4 Ml Syringe) 40 mg SUBQ DAILY [facility] Last Admin: 08/07/21 08:56 Dose: 40 mg Documented by: Hydralazine HCl (Hydralazine Inj 20 Mg/Ml Vial) 10 mg IVP QID PRN PRN Reason: Hypertensive Emergency Hydrochlorothiazide (Hydrochlorothiazide 25 Mg Tablet) 25 mg PO DAILY [facility] Last Admin: 08/07/21 08:17 Dose: 25 mg Documented by: Cefepime HCl 1 gm/ Sodium (Chloride) 100 mls @ 200 mls/hr IV TID [facility] Last Infusion: 08/07/21 05:50 Dose: Infused Documented by: Sodium Chloride (Normal Saline 0.9%) 1,000 mls @ 75 mls/hr IV .[id number] [facility] Stop: 08/08/21 10:00 Last Admin: 08/07/21 07:43 Dose: 75 mls/hr Documented by: Loratadine (Loratadine 10 Mg Tablet) 10 mg PO DAILY [facility] Last Admin: 08/07/21 08:17 Dose: 10 mg Documented by: Losartan Potassium (Losartan 50 Mg Tablet) 100 mg PO DAILY [facility] Last Admin: 08/07/21 08:17 Dose: 100 mg Documented by: Mineral Oil (Min Oil/Dimethicon/Coconut Oil 92 Gm Tube) 1 applic TOP PRN PRN PRN Reason: Skin Care Last Admin: 08/07/21 05:08 Dose: 1 applic Documented by: Multi-Ingredient Ointment (Zinc Oxide 20% Oint 30 Gm Tube) 1 applic TOP PRN PRN PRN Reason: Skin Care Last Admin: 08/06/21 05:37 Dose: 1 applic Documented by: Multivitamins/Minerals (Multivitamin W/Minerals Tablet) 1 tab PO DAILYWM [facility] Last Admin: 08/07/21 07:51 Dose: 1 tab Documented by: Polyethylene Glycol (Polyethylene Glycol 3350 17 Gm Packet) 17 gm PO DAILY [facility] Last Admin: 08/07/21 07:51 Dose: 17 gm Documented by: Saccharomyces Boulardii (Saccharomyces Boulardii 250 Mg Capsule) 250 mg PO BIDWM [facility] Last Admin: 08/07/21 07:51 Dose: 250 mg Documented by: Sodium Chloride (Sodium Chloride Flush 0.9% 10 Ml Syringe) 10 ml IVP PRN PRN PRN Reason: NEEDED PER PROVIDER ORDERS Sodium Chloride (Sodium Chloride Flush 0.9% 10 Ml Syringe) 10 ml IVP 0100,0900,1700 [facility] Last Admin: 08/07/21 08:17 Dose: 10 ml Documented by: Tamsulosin HCl (Tamsulosin 0.4 Mg Capsule) 0.4 mg PO DAILY [facility] Last Admin: 08/07/21 08:17 Dose: 0.4 mg Documented by: Amlodipine Besylate [Norvasc] 10 mg PO DAILY 08/03/21 Atorvastatin Calcium 40 mg PO QPM 08/03/21 Chlorthalidone 25 mg PO DAILY 08/03/21 Clopidogrel [Plavix] 75 mg PO DAILY 08/03/21 Loratadine [Claritin] 10 mg PO DAILY 08/03/21 Losartan Potassium 25 mg PO DAILY 08/03/21
[2021-08-07] MEDS: ACETAMINOPHEN 325 MG TABLET PO PRN (16:06)
[2021-08-07] MEDS ORDERED: VANCOMYCIN INJ 1 GM, VANCOMYCIN INJ 250 MG in SODIUM CHLORIDE 0.9% 250 ML IV ONE (17:00)
--- NOTE | 2021-08-07 17:51 | XRAY Report ---
PROCEDURE: Chest 1 View X-Ray INDICATIONS: shortness of breath TECHNIQUE: One view of the chest was acquired. COMPARISON: 08/05/2021 FINDINGS: Surgical changes and devices: None. Lungs and pleura: No pleural effusions or pneumothorax. No significant change. Patchy bibasilar dens ities. Mediastinum: Mediastinal contours appear normal. Heart size is normal. Bones and chest wall: No suspicious bony lesions. Overlying soft tissues appear unremarkable. IMPRESSION: Unchanged patchy bibasilar densities, possibly representing atelectasis versus consolidation. Reviewed by: Amador Mancilla MD on 08/07/2021 5:49 PM PST Approved by: Amador Mancilla MD on 08/07/2021 5:49 PM PST Station ID: [id number]
[2021-08-07] MEDS: ATORVASTATIN 40 MG TABLET PO SCH (21:42)
[2021-08-08] MEDS: CEFEPIME 1 GM in SODIUM CHLORIDE 0.9% MINIBAG 100 ML IV SCH ×3 (05:27→22:37)
[2021-08-08 06:47] LABS: BASOPHILS # (AUTO) 0.1 10^3/uL (0.0-0.1); BASOPHILS % (AUTO) 0.6 %; EOSINOPHILS # (AUTO) 0.5 10^3/uL (0.0-0.7); EOSINOPHILS % (AUTO) 5.6 %; HGB - HEMOGLOBIN 12.4 g/dL (14.0-18.0); LYMPHOCYTES # (AUTO) 0.8 10^3/uL (1.5-3.5); LYMPHOCYTES % (AUTO) 8.7 %; MEAN CORPUSCULAR HEMOGLOBIN 29.5 pg (27.0-31.0); MEAN CORPUSCULAR HGB CONC 33.5 g/dL (32.0-36.0); MEAN CORPUSCULAR VOLUME 87.9 fL (80.0-94.0); MEAN PLATELET VOLUME 9.6 fL (7.4-11.4); MONOCYTES # (AUTO) 0.8 10^3/uL (0.0-1.0); MONOCYTES % (AUTO) 8.8 %; NEUTROPHILS # (AUTO) 6.7 10^3/uL (1.5-6.6); NEUTROPHILS % (AUTO) 75.8 %; PLT - PLATELET COUNT 248 10^3/uL (130-450); RED BLOOD COUNT 4.21 10^6/uL (4.70-6.10); RED CELL DISTRIBUTION WIDTH 13.2 % (12.0-15.0); WHITE BLOOD COUNT 8.9 x10^3/uL (4.8-10.8)
[2021-08-08 06:58] LABS: CALCIUM 8.3 mg/dL (8.5-10.3); CREATININE 1.2 mg/dL (0.6-1.2); POTASSIUM 3.9 mmol/L (3.5-5.0)
[2021-08-08] MEDS: LORATADINE 10 MG TABLET PO SCH (08:36)
[2021-08-08] MEDS: SACCHAROMYCES BOULARDII 250 MG CAPSULE PO SCH ×2 (08:36→17:10)
[2021-08-08] MEDS: LOSARTAN 50 MG TABLET PO SCH (08:36)
[2021-08-08] MEDS: MULTIVITAMIN W/MINERALS TABLET PO SCH (08:36)
[2021-08-08] MEDS: ENOXAPARIN 40 MG/0.4 ML SYRINGE SUBQ SCH (08:36)
[2021-08-08] MEDS: amLODIPine 5 MG TABLET PO SCH (08:36)
[2021-08-08] MEDS: TAMSULOSIN 0.4 MG CAPSULE PO SCH (08:37)
[2021-08-08] MEDS: polyethylene glycoL 3350 17 GM PACKET PO SCH (08:37)
[2021-08-08] MEDS: SODIUM CHLORIDE FLUSH 0.9% 10 ML SYRINGE IVP SCH ×2 (08:37→17:10)
[2021-08-08] MEDS: CLOPIDOGREL 75 MG TABLET PO SCH (08:37)
[2021-08-08] MEDS: hydroCHLOROthiazide 25 MG TABLET PO SCH (08:37)
[2021-08-08] MEDS: VANCOMYCIN INJ 1 GM in SODIUM CHLORIDE 0.9% 250 ML IV SCH (10:40)
--- NOTE | 2021-08-08 12:25 | PROVIDER PROGRESS NOTE ---
Assessment/Plan - Problem List (1) Pneumonia Assessment/Plan: He had a fever and was confused on 08/05/2021 and work-up showed a pneumonia. After starting antibiotics for presumed HCAP, his mentation has improved every day, but yesterday significant infiltrates were still seen on chest x-ray, which was repeated when he had a fever again yesterday. Await blood culture results. If no fever all of today, we may possibly switch p.o. antibiotics tomorrow. Continue probiotics (2) Delirium Assessment/Plan: This was an obvious change on 08/05/21. Improved now, he is probably at his baseline mentation today and able to cooperate with PT. (3) NAVEED (acute kidney injury) Impression: Improved daily Creatinine better and BUN at the normal range, Continue IVF since had a fever abd with his hx of dementia, he is risk of deh ydration and poor oral intake. Avoid nephrotoxins. (4) Hypertension Stable, on home BP meds and increased home Losartan dosage. (5) Acute urinary retention On 08/06 pt had 1000cc urine by straight catheter and continued difficulty to urinate. USwas neg for obstruction. We started Flomax. Matthews catheter inserted and continues. He will need Urol management. (6) Dementia Impression: Stable. OT did a mental exam evaluation for patient, and he scored 7/30 on [facility] Mental Status exam, consistent with significant impairment. (7) Bradycardia Impression: Stable. per previous provider discussed as the following: "His heart rate has been consistently in the 50s. He has had 24 hours of telemetry and overnight he was noted to have multiple pauses, ranging from 3-6 seconds. He was in sinus rhythm. On chart review, in approximately 2013, he was seen for this but it is unclear if he followed up and his does not remember. I discussed this with him today and asked if he would be interested in a pacemaker. He reported very clearly that no, he does not want a pacemaker as if his heart stops "it is my time, I've had a long life". I also spoke with his and she stated that he would not want interventions, and this is stated in his Will. He denied chest pain, palpitations, light-headedness or feeling dizzy." At this point, pt is off athletic monitor, and we will continue with pt's desire and wishes. (8) Hx of stroke He has hx of stroke with mild left side slight weakness and slurred speech. Will continue Plavix and Statin, plan d/c to SNF per PT/OT recommendation. (9) Generalized weakness Impression: He started working with PT and OT and recommended for SNF. SW is working on obtaining him placement. (10) Rhabdomyolysis Resolved. CK is down to normal range. (11) Acute diarrhea Impression: Resolved. No episodes of diarrhea since admission, only soft stool this morning. Sample was CDIFF negative and he was removed from enteric precautions. - Current Meds Current Meds: Current Medications Generic Name Dose Route Start Last Admin Trade Name Freq PRN Reason Stop Dose Admin Acetaminophen 650 mg 08/05/21 17:45 08/07/21 16:06 Acetaminophen 325 Mg Tablet PO 650 mg Q4HR PRN Administration Pain or Fever > 38C (100.4F) Amlodipine Besylate 10 mg 08/04/21 16:00 08/08/21 08:36 Amlodipine 5 Mg Tablet PO 10 mg DAILY CARLOS Administration Atorvastatin Calcium 40 mg 08/04/21 21:00 08/07/21 21:42 Atorvastatin 40 Mg Tablet PO 40 mg QPM CARLOS Administration Clopidogrel Bisulfate 75 mg 08/05/21 09:00 08/08/21 08:37 Clopidogrel 75 Mg Tablet PO 75 mg DAILY CARLOS Administration Enoxaparin Sodium 40 mg 08/07/21 09:00 08/08/21 08:36 Enoxaparin 40 Mg/0.4 Ml Syringe SUBQ 40 mg DAILY CARLOS Administration Hydrochlorothiazide 25 mg 08/05/21 09:00 08/08/21 08:37 Hydrochlorothiazide 25 Mg Tablet PO 25 mg DAILY CARLOS Administration Cefepime HCl 1 gm/ Sodium 100 mls @ 200 mls/hr 08/05/21 19:00 08/08/21 05:57 Chloride IV Infused TID CARLOS Infusion Vancomycin HCl 1 gm/ Sodium 250 mls @ 167 mls/hr 08/08/21 10:00 08/08/21 10:40 Chloride IV 167 mls/hr Q18H CARLOS Administration Loratadine 10 mg 08/05/21 09:00 08/08/21 08:36 Loratadine 10 Mg Tablet PO 10 mg DAILY CARLOS Administration Losartan Potassium 100 mg 08/05/21 09:00 08/08/21 08:36 Losartan 50 Mg Tablet PO 100 mg DAILY CARLOS Administration Mineral Oil 1 applic 08/02/21 22:23 08/07/21 05:08 Min Oil/Dimethicon/Coconut Oil 92 Gm Tube TOP 1 applic PRN PRN Administration Skin Care Multi-Ingredient Ointment 1 applic 08/05/21 20:21 08/06/21 05:37 Zinc Oxide 20% Oint 30 Gm Tube TOP 1 applic PRN PRN Administration Skin Care Multivitamins/Minerals 1 tab 08/03/21 16:00 08/08/21 08:36 Multivitamin W/Minerals Tablet PO 1 tab DAILYWM CARLOS Administration Polyethylene Glycol 17 gm 08/06/21 09:00 08/08/21 08:37 Polyethylene Glycol 3350 17 Gm Packet PO Not Given DAILY CARLOS Saccharomyces Boulardii 250 mg 08/06/21 17:00 08/08/21 08:36 Saccharomyces Boulardii 250 Mg Capsule PO 250 mg BIDWM CARLOS Administration Sodium Chloride 10 ml 08/02/21 17:00 08/08/21 08:37 Sodium Chloride Flush 0.9% 10 Ml Syringe IVP Not Given 0100,0900,1700 CARLOS Tamsulosin HCl 0.4 mg 08/06/21 09:00 08/08/21 08:37 Tamsulosin 0.4 Mg Capsule PO 0.4 mg DAILY CARLOS Administration - Lab Result Fish Bone Diagrams: 08/08/21 06:17 08/08/21 06:17 Subjective - Subjective Patient Reports: Resting Comfortably, No Complaints Nursing Reports: Other (Was able to cooperate with PT, walked 30 feet. Mentation much improved since yesterday, more alert, able to feed himself.) Objective Vital Signs: Vital Signs - 24 hr 08/07/21 08/07/21 08/08/21 16:04 20:01 00:06 Temperature 38.2 C H 36.6 C 37.1 C Heart Rate [ 62 55 L 54 L Brachial] Respiratory 18 16 17 Rate Blood Pressure 152/77 H 131/57 H 145/64 H [Left Brachial artery] O2 Saturation 91 L 97 95 08/08/21 08/08/21 05:48 07:21 Temperature 36.6 C 36.4 C L Heart Rate [ 54 L 54 L Brachial] Respiratory 19 16 Rate Blood Pressure 165/63 H 177/61 H [Left Brachial artery] O2 Saturation 96 100 Oxygen O2 Source Room air I&O (Last 24 Hrs): Intake and Output Totals x24h 08/06/21 08/07/21 08/08/21 23:59 23:59 23:59 Intake Total 3431.333 4145.417 640 Output Total 2900 3650 2650 Balance 531.333 495.417 -2010 General: Alert, No acute distress, Other (CVachectic, male pattern baldness) HEENT: Mucous membr. moist/pink Neck: Supple, No JVD Neuro: Alert, Non Focal Cardiovascular: No murmurs Respiratory: No respiratory distress, Breath sounds nml Abdomen: Normal bowel sounds, Soft Extremities: No edema - Results Results: Laboratory Results WBC 8.9 x10^3/uL (4.8-10.8) 08/08/21 06:17 RBC 4.21 10^6/uL (4.70-6.10) L 08/08/21 06:17 Hgb 12.4 g/dL (14.0-18.0) L 08/08/21 06:17 Hct 37.0 % (42.0-52.0) L 08/08/21 06:17 MCV 87.9 fL (80.0-94.0) 08/08/21 06:17 MCH 29.5 pg (27.0-31.0) 08/08/21 06:17 MCHC 33.5 g/dL (32.0-36.0) 08/08/21 06:17 RDW 13.2 % (12.0-15.0) 08/08/21 06:17 Plt Count 248 10^3/uL (130-450) 08/08/21 06:17 MPV 9.6 fL (7.4-11.4) 08/08/21 06:17 Neut # (Auto) 6.7 10^3/uL (1.5-6.6) H 08/08/21 06:17 Lymph # (Auto) 0.8 10^3/uL (1.5-3.5) L 08/08/21 06:17 [place] # (Auto) 0.8 10^3/uL (0.0-1.0) 08/08/21 06:17 Eos # (Auto) 0.5 10^3/uL (0.0-0.7) 08/08/21 06:17 Baso # (Auto) 0.1 10^3/uL (0.0-0.1) 08/08/21 06:17 Absolute Nucleated RBC 0.00 x10^3/uL 08/08/21 06:17 Nucleated RBC % 0.0 /100WBC 08/08/21 06:17 Sodium 136 mmol/L (135-145) 08/08/21 06:17 Potassium 3.9 mmol/L (3.5-5.0) 08/08/21 06:17 Chloride 101 mmol/L (101-111) 08/08/21 06:17 Carbon Dioxide 25 mmol/L (21-32) 08/08/21 06:17 Anion Gap 10.0 (6-13) 08/08/21 06:17 BUN 20 mg/dL (6-20) 08/08/21 06:17 Creatinine 1.2 mg/dL (0.6-1.2) 08/08/21 06:17 Estimated GFR (MDRD) 57 (>89) L 08/08/21 06:17 Glucose 92 mg/dL (70-100) 08/08/21 06:17 Lactic Acid 1.2 mmol/L (0.5-2.2) 08/02/21 12:05 Calcium 8.3 mg/dL (8.5-10.3) L 08/08/21 06:17 Magnesium 2.1 mg/dL (1.7-2.8) 08/02/21 12:05 Total Bilirubin 1.2 mg/dL (0.2-1.0) H 08/02/21 12:05 AST 88 IU/L (10-42) H 08/02/21 12:05 ALT 32 IU/L (10-60) 08/02/21 12:05 Alkaline Phosphatase 70 IU/L (42-121) 08/02/21 12:05 Total Creatine Kinase 160 IU/L (22-269) 08/06/21 05:08 Troponin I High Sens 60.8 ng/L (2.3-19.7) H* 08/02/21 21:07 Total Protein 6.7 g/dL (6.7-8.2) 08/02/21 12:05 Albumin 4.0 g/dL (3.2-5.5) 08/02/21 12:05 Globulin 2.7 g/dL (2.1-4.2) 08/02/21 12:05 Albumin/Globulin Ratio 1.5 (1.0-2.2) 08/02/21 12:05 Lipase 19 U/L (22-51) L 08/02/21 12:05 Urine Color YELLOW 08/05/21 18:32 Urine Clarity CLEAR (CLEAR) 08/05/21 18:32 Urine pH 6.5 PH (5.0-7.5) 08/05/21 18:32 Ur Specific [place] 1.010 (1.002-1.030) 08/05/21 18:32 Urine Protein NEGATIVE mg/dL (NEGATIVE) 08/05/21 18:32 Urine Glucose (UA) NEGATIVE mg/dL (NEGATIVE) 08/05/21 18:32 Urine Ketones NEGATIVE mg/dL (NEGATIVE) 08/05/21 18:32 Urine Occult Blood NEGATIVE (NEGATIVE) 08/05/21 18:32 Urine Nitrite NEGATIVE (NEGATIVE) 08/05/21 18:32 Urine Bilirubin NEGATIVE (NEGATIVE) 08/05/21 18:32 Urine Urobilinogen 0.2 (NORMAL) E.U./dL (NORMAL) 08/05/21 18:32 Ur Leukocyte Esterase NEGATIVE (NEGATIVE) 08/05/21 18:32 Urine RBC 0-5 /HPF (0-5) 08/05/21 18:32 Urine WBC 0-3 /HPF (0-3) 08/05/21 18:32 Ur Squamous Epith Cells NONE SEEN (<= Few) 08/05/21 18:32 Urine Bacteria None Seen /HPF (None Seen) 08/05/21 18:32 Ur Microscopic Review INDICATED 08/02/21 11:37 Urine Culture Comments NOT INDICATED 08/05/21 18:32 Nasal Adenovirus (PCR) NOT DETECTED 08/02/21 15:38 Nasal B. parapertussis DNA (PCR) NOT DETECTED 08/02/21 15:38 Nasal Coronavir 229E PCR NOT DETECTED 08/02/21 15:38 Nasal Coronavir HKU1 PCR NOT DETECTED 08/02/21 15:38 Nasal Coronavir NL63 PCR NOT DETECTED 08/02/21 15:38 Nasal Coronavir OC43 PCR NOT DETECTED 08/02/21 15:38 Nasal Enterovir/Rhinovir PCR NOT DETECTED 08/02/21 15:38 Nasal Influenza B PCR NOT DETECTED 08/02/21 15:38 Nasal Influenza A PCR NOT DETECTED 08/02/21 15:38 Nasal Parainfluen 1 PCR NOT DETECTED 08/02/21 15:38 Nasal Parainfluen 2 PCR NOT DETECTED 08/02/21 15:38 Nasal Parainfluen 3 PCR NOT DETECTED 08/02/21 15:38 Nasal Parainfluen 4 PCR NOT DETECTED 08/02/21 15:38 Nasal RSV (PCR) NOT DETECTED 08/02/21 15:38 Nasal Screen MRSA (PCR) NEGATIVE (NEGATIVE) 08/02/21 18:42 Nasal B.pertussis DNA PCR NOT DETECTED 08/02/21 15:38 Nasal C.pneumoniae (PCR) NOT DETECTED 08/02/21 15:38 Edwin Human Metapneumo PCR NOT DETECTED 08/02/21 15:38 Nasal M.pneumoniae (PCR) NOT DETECTED 08/02/21 15:38 Nasal SARS-CoV-2 (PCR) NOT DETECTED 08/02/21 15:38 Stl C. diff Tox B Gene NEGATIVE (NEGATIVE) 08/03/21 08:29 Sepsis Event Note (H) - Evaluation Current Stage of Sepsis: Ruled out
[2021-08-08] MEDS: SODIUM CHLORIDE FLUSH 0.9% 10 ML SYRINGE IVP PRN (22:38)
[2021-08-08] MEDS: ATORVASTATIN 40 MG TABLET PO SCH (22:38)
[2021-08-09] MEDS: SODIUM CHLORIDE FLUSH 0.9% 10 ML SYRINGE IVP SCH ×4 (00:30→23:37)
[2021-08-09] MEDS: VANCOMYCIN INJ 1 GM in SODIUM CHLORIDE 0.9% 250 ML IV SCH ×2 (03:55→21:40)
[2021-08-09 05:18] LABS: BASOPHILS % (AUTO) 0.3 %; EOSINOPHILS # (AUTO) 0.5 10^3/uL (0.0-0.7); EOSINOPHILS % (AUTO) 5.9 %; HGB - HEMOGLOBIN 12.3 g/dL (14.0-18.0); LYMPHOCYTES # (AUTO) 0.7 10^3/uL (1.5-3.5); LYMPHOCYTES % (AUTO) 8.6 %; MEAN CORPUSCULAR HEMOGLOBIN 29.6 pg (27.0-31.0); MEAN CORPUSCULAR HGB CONC 34.2 g/dL (32.0-36.0); MEAN CORPUSCULAR VOLUME 86.7 fL (80.0-94.0); MEAN PLATELET VOLUME 9.3 fL (7.4-11.4); MONOCYTES # (AUTO) 0.9 10^3/uL (0.0-1.0); MONOCYTES % (AUTO) 9.9 %; NEUTROPHILS # (AUTO) 6.4 10^3/uL (1.5-6.6); NEUTROPHILS % (AUTO) 74.7 %; PLT - PLATELET COUNT 263 10^3/uL (130-450); RED BLOOD COUNT 4.15 10^6/uL (4.70-6.10); RED CELL DISTRIBUTION WIDTH 13.1 % (12.0-15.0); WHITE BLOOD COUNT 8.6 x10^3/uL (4.8-10.8)
[2021-08-09 05:31] LABS: CALCIUM 8.3 mg/dL (8.5-10.3); CREATININE 1.3 mg/dL (0.6-1.2); POTASSIUM 3.7 mmol/L (3.5-5.0)
[2021-08-09] MEDS: CEFEPIME 1 GM in SODIUM CHLORIDE 0.9% MINIBAG 100 ML IV SCH ×3 (05:44→21:07)
[2021-08-09] MEDS: ENOXAPARIN 40 MG/0.4 ML SYRINGE SUBQ SCH (08:12)
[2021-08-09] MEDS: LOSARTAN 50 MG TABLET PO SCH (08:13)
[2021-08-09] MEDS: TAMSULOSIN 0.4 MG CAPSULE PO SCH (08:13)
[2021-08-09] MEDS: LORATADINE 10 MG TABLET PO SCH (08:13)
[2021-08-09] MEDS: hydroCHLOROthiazide 25 MG TABLET PO SCH (08:13)
[2021-08-09] MEDS: amLODIPine 5 MG TABLET PO SCH (08:13)
[2021-08-09] MEDS: SACCHAROMYCES BOULARDII 250 MG CAPSULE PO SCH ×2 (08:13→22:39)
[2021-08-09] MEDS: CLOPIDOGREL 75 MG TABLET PO SCH (08:13)
[2021-08-09] MEDS: MULTIVITAMIN W/MINERALS TABLET PO SCH (08:13)
--- NOTE | 2021-08-09 11:23 | PROVIDER PROGRESS NOTE ---
Assessment/Plan - Problem List (1) Pneumonia Assessment/Plan: He had a fever and confusion on 08/05/2021 and work-up showed a pneumonia. After starting antibiotics for presumed HCAP, his mentation has improved every day. Blood cultures are neg to date. Will switch to empiric p.o. antibiotics, using po Augmentin for 2 more days of treatment, starting tomorrow a.m. and stopping iv Cefepime and Vanco. Continue probiotics. He is now stable for discharge (2) CKD Impression: Creat mproved daily, last Creatinine was 1.3 and BUN was in normal range, Will stop iv fluids He is now stable for discharge (3) Hypertension Stable, on home BP meds and increased home Losartan dosage. (4) Acute urinary retention On 08/06 pt had 1000cc urine by straight catheter and continued difficulty to urinate. USwas neg for obstruction. We started Flomax. Matthews catheter inserted and continues. He will need Urol management. (5) Dementia Impression: Stable. OT did a mental exam evaluation for patient, and he scored 7/30 on [facility] Mental Status exam, consistent with significant impairment. (6) Bradycardia Impression: Stable. per previous provider discussed as the following: "His heart rate has been consistently in the 50s. He has had 24 hours of telemetry and overnight he was noted to have multiple pauses, ranging from 3-6 seconds. He was in sinus rhythm. On chart review, in approximately 2013, he was seen for this but it is unclear if he followed up and his does not remember. I discussed this with him today and asked if he would be interested in a pacemaker. He reported very clearly that no, he does not want a pacemaker as if his heart stops "it is my time, I've had a long life". I also spoke with his and she stated that he would not want interventions, and this is stated in his Will. He denied chest pain, palpitations, light-headedness or feeling dizzy." At this point, pt is off library monitor, and we will continue with pt's desire and wishes. (7) Hx of stroke He has hx of stroke with mild left side slight weakness and slurred speech. Will continue Plavix and Statin, plan d/c to SNF per PT/OT recommendation. (8) Generalized weakness Impression: He is working with PT and OT and recommended for SNF. SW is working on obtaining him placement. (9) Rhabdomyolysis Resolved. CK is down to normal range. (10) Acute diarrhea Impression: Resolved. No episodes of diarrhea since admission, only soft stool this morning. Sample was CDIFF negative and he was removed from enteric precautions. (11) Delirium Assessment/Plan: Resolved.This was an obvious change on 08/05/21. Improved considerably now, he is probably at his baseline mentation today and able to cooperate with PT. - Current Meds Current Meds: Current Medications Generic Name Dose Route Start Last Admin Trade Name Freq PRN Reason Stop Dose Admin Acetaminophen 650 mg 08/05/21 17:45 08/07/21 16:06 Acetaminophen 325 Mg Tablet PO 650 mg Q4HR PRN Administration Pain or Fever > 38C (100.4F) Amlodipine Besylate 10 mg 08/04/21 16:00 08/09/21 08:13 Amlodipine 5 Mg Tablet PO 10 mg DAILY CARLOS Administration Atorvastatin Calcium 40 mg 08/04/21 21:00 08/08/21 22:38 Atorvastatin 40 Mg Tablet PO 40 mg QPM CARLOS Administration Clopidogrel Bisulfate 75 mg 08/05/21 09:00 08/09/21 08:13 Clopidogrel 75 Mg Tablet PO 75 mg DAILY CARLOS Administration Enoxaparin Sodium 40 mg 08/07/21 09:00 08/09/21 08:12 Enoxaparin 40 Mg/0.4 Ml Syringe SUBQ 40 mg DAILY CARLOS Administration Hydrochlorothiazide 25 mg 08/05/21 09:00 08/09/21 08:13 Hydrochlorothiazide 25 Mg Tablet PO 25 mg DAILY CARLOS Administration Cefepime HCl 1 gm/ Sodium 100 mls @ 200 mls/hr 08/05/21 19:00 08/09/21 06:44 Chloride IV Infused TID CARLOS Infusion Vancomycin HCl 1 gm/ Sodium 250 mls @ 167 mls/hr 08/08/21 10:00 08/09/21 05:39 Chloride IV Infused Q18H CARLOS Infusion Loratadine 10 mg 08/05/21 09:00 08/09/21 08:13 Loratadine 10 Mg Tablet PO 10 mg DAILY CARLOS Administration Losartan Potassium 100 mg 08/05/21 09:00 08/09/21 08:13 Losartan 50 Mg Tablet PO 100 mg DAILY CARLOS Administration Mineral Oil 1 applic 08/02/21 22:23 08/07/21 05:08 Min Oil/Dimethicon/Coconut Oil 92 Gm Tube TOP 1 applic PRN PRN Administration Skin Care Multi-Ingredient Ointment 1 applic 08/05/21 20:21 08/06/21 05:37 Zinc Oxide 20% Oint 30 Gm Tube TOP 1 applic PRN PRN Administration Skin Care Multivitamins/Minerals 1 tab 08/03/21 16:00 08/09/21 08:13 Multivitamin W/Minerals Tablet PO 1 tab DAILYWM CARLOS Administration Polyethylene Glycol 17 gm 08/06/21 09:00 08/08/21 08:37 Polyethylene Glycol 3350 17 Gm Packet PO Not Given DAILY CARLOS Saccharomyces Boulardii 250 mg 08/06/21 17:00 08/09/21 08:13 Saccharomyces Boulardii 250 Mg Capsule PO 250 mg BIDWM CARLOS Administration Sodium Chloride 10 ml 08/02/21 15:46 08/08/21 22:38 Sodium Chloride Flush 0.9% 10 Ml Syringe IVP 10 ml PRN PRN Administration NEEDED PER PROVIDER ORDERS Sodium Chloride 10 ml 08/02/21 17:00 08/09/21 08:14 Sodium Chloride Flush 0.9% 10 Ml Syringe IVP 10 ml 0100,0900,1700 CARLOS Administration Tamsulosin HCl 0.4 mg 08/06/21 09:00 08/09/21 08:13 Tamsulosin 0.4 Mg Capsule PO 0.4 mg DAILY CARLOS Administration - Lab Result Fish Bone Diagrams: 08/09/21 04:50 08/09/21 04:50 Subjective - Subjective Patient Reports: Resting Comfortably, No Complaints Nursing Reports: Other (Able to feed himself the past 2+ days, walked quite a long distance in hallway with PT today.) Objective Vital Signs: Vital Signs - 24 hr 08/08/21 08/08/21 08/08/21 13:00 16:23 20:35 Temperature 37 C 36.5 C 37.9 C Heart Rate [ 57 L 62 62 Brachial] Respiratory 18 18 20 Rate Blood Pressure 136/54 H [Left Brachial artery] Blood Pressure 124/76 134/55 H [Right Brachial artery] O2 Saturation 96 96 96 08/08/21 08/09/21 08/09/21 23:59 06:00 07:30 Temperature 37.4 C 37 C 37 C Heart Rate [ 55 L 55 L 58 L Brachial] Respiratory 18 18 18 Rate Blood Pressure 154/61 H 167/63 H [Left Brachial artery] Blood Pressure 153/65 H [Right Brachial artery] O2 Saturation 94 94 100 Oxygen O2 Source Room air I&O (Last 24 Hrs): Intake and Output Totals x24h 08/07/21 08/08/21 08/09/21 23:59 23:59 23:59 Intake Total 4145.417 2640 910 Output Total 3650 4250 2300 Balance 495.417 -1610 -1390 General: Alert, Other (Cachectic) HEENT: Mucous membr. moist/pink Neck: Supple, No JVD Neuro: Non Focal Cardiovascular: Regular rate Respiratory: No respiratory distress Abdomen: Normal bowel sounds, Soft Extremities: No edema - Results Results: Laboratory Results WBC 8.6 x10^3/uL (4.8-10.8) 08/09/21 04:50 RBC 4.15 10^6/uL (4.70-6.10) L 08/09/21 04:50 Hgb 12.3 g/dL (14.0-18.0) L 08/09/21 04:50 Hct 36.0 % (42.0-52.0) L 08/09/21 04:50 MCV 86.7 fL (80.0-94.0) 08/09/21 04:50 MCH 29.6 pg (27.0-31.0) 08/09/21 04:50 MCHC 34.2 g/dL (32.0-36.0) 08/09/21 04:50 RDW 13.1 % (12.0-15.0) 08/09/21 04:50 Plt Count 263 10^3/uL (130-450) 08/09/21 04:50 MPV 9.3 fL (7.4-11.4) 08/09/21 04:50 Neut # (Auto) 6.4 10^3/uL (1.5-6.6) 08/09/21 04:50 Lymph # (Auto) 0.7 10^3/uL (1.5-3.5) L 08/09/21 04:50 [place] # (Auto) 0.9 10^3/uL (0.0-1.0) 08/09/21 04:50 Eos # (Auto) 0.5 10^3/uL (0.0-0.7) 08/09/21 04:50 Baso # (Auto) 0.0 10^3/uL (0.0-0.1) 08/09/21 04:50 Absolute Nucleated RBC 0.00 x10^3/uL 08/09/21 04:50 Nucleated RBC % 0.0 /100WBC 08/09/21 04:50 Sodium 136 mmol/L (135-145) 08/09/21 04:50 Potassium 3.7 mmol/L (3.5-5.0) 08/09/21 04:50 Chloride 100 mmol/L (101-111) L 08/09/21 04:50 Carbon Dioxide 26 mmol/L (21-32) 08/09/21 04:50 Anion Gap 10.0 (6-13) 08/09/21 04:50 BUN 20 mg/dL (6-20) 08/09/21 04:50 Creatinine 1.3 mg/dL (0.6-1.2) H 08/09/21 04:50 Estimated GFR (MDRD) 52 (>89) L 08/09/21 04:50 Glucose 94 mg/dL (70-100) 08/09/21 04:50 Lactic Acid 1.2 mmol/L (0.5-2.2) 08/02/21 12:05 Calcium 8.3 mg/dL (8.5-10.3) L 08/09/21 04:50 Magnesium 2.1 mg/dL (1.7-2.8) 08/02/21 12:05 Total Bilirubin 1.2 mg/dL (0.2-1.0) H 08/02/21 12:05 AST 88 IU/L (10-42) H 08/02/21 12:05 ALT 32 IU/L (10-60) 08/02/21 12:05 Alkaline Phosphatase 70 IU/L (42-121) 08/02/21 12:05 Total Creatine Kinase 160 IU/L (22-269) 08/06/21 05:08 Troponin I High Sens 60.8 ng/L (2.3-19.7) H* 08/02/21 21:07 Total Protein 6.7 g/dL (6.7-8.2) 08/02/21 12:05 Albumin 4.0 g/dL (3.2-5.5) 08/02/21 12:05 Globulin 2.7 g/dL (2.1-4.2) 08/02/21 12:05 Albumin/Globulin Ratio 1.5 (1.0-2.2) 08/02/21 12:05 Lipase 19 U/L (22-51) L 08/02/21 12:05 Urine Color YELLOW 08/05/21 18:32 Urine Clarity CLEAR (CLEAR) 08/05/21 18:32 Urine pH 6.5 PH (5.0-7.5) 08/05/21 18:32 Ur Specific [place] 1.010 (1.002-1.030) 08/05/21 18:32 Urine Protein NEGATIVE mg/dL (NEGATIVE) 08/05/21 18:32 Urine Glucose (UA) NEGATIVE mg/dL (NEGATIVE) 08/05/21 18:32 Urine Ketones NEGATIVE mg/dL (NEGATIVE) 08/05/21 18:32 Urine Occult Blood NEGATIVE (NEGATIVE) 08/05/21 18:32 Urine Nitrite NEGATIVE (NEGATIVE) 08/05/21 18:32 Urine Bilirubin NEGATIVE (NEGATIVE) 08/05/21 18:32 Urine Urobilinogen 0.2 (NORMAL) E.U./dL (NORMAL) 08/05/21 18:32 Ur Leukocyte Esterase NEGATIVE (NEGATIVE) 08/05/21 18:32 Urine RBC 0-5 /HPF (0-5) 08/05/21 18:32 Urine WBC 0-3 /HPF (0-3) 08/05/21 18:32 Ur Squamous Epith Cells NONE SEEN (<= Few) 08/05/21 18:32 Urine Bacteria None Seen /HPF (None Seen) 08/05/21 18:32 Ur Microscopic Review INDICATED 08/02/21 11:37 Urine Culture Comments NOT INDICATED 08/05/21 18:32 Nasal Adenovirus (PCR) NOT DETECTED 08/02/21 15:38 Nasal B. parapertussis DNA (PCR) NOT DETECTED 08/02/21 15:38 Nasal Coronavir 229E PCR NOT DETECTED 08/02/21 15:38 Nasal Coronavir HKU1 PCR NOT DETECTED 08/02/21 15:38 Nasal Coronavir NL63 PCR NOT DETECTED 08/02/21 15:38 Nasal Coronavir OC43 PCR NOT DETECTED 08/02/21 15:38 Nasal Enterovir/Rhinovir PCR NOT DETECTED 08/02/21 15:38 Nasal Influenza B PCR NOT DETECTED 08/02/21 15:38 Nasal Influenza A PCR NOT DETECTED 08/02/21 15:38 Nasal Parainfluen 1 PCR NOT DETECTED 08/02/21 15:38 Nasal Parainfluen 2 PCR NOT DETECTED 08/02/21 15:38 Nasal Parainfluen 3 PCR NOT DETECTED 08/02/21 15:38 Nasal Parainfluen 4 PCR NOT DETECTED 08/02/21 15:38 Nasal RSV (PCR) NOT DETECTED 08/02/21 15:38 Nasal Screen MRSA (PCR) NEGATIVE (NEGATIVE) 08/02/21 18:42 Nasal B.pertussis DNA PCR NOT DETECTED 08/02/21 15:38 Nasal C.pneumoniae (PCR) NOT DETECTED 08/02/21 15:38 Edwin Human Metapneumo PCR NOT DETECTED 08/02/21 15:38 Nasal M.pneumoniae (PCR) NOT DETECTED 08/02/21 15:38 Nasal SARS-CoV-2 (PCR) NOT DETECTED 08/02/21 15:38 Stl C. diff Tox B Gene NEGATIVE (NEGATIVE) 08/03/21 08:29 Sepsis Event Note (H) - Evaluation Current Stage of Sepsis: Ruled out
[2021-08-09] MEDS: ATORVASTATIN 40 MG TABLET PO SCH (20:33)
[2021-08-09] MEDS: polyethylene glycoL 3350 17 GM PACKET PO SCH (22:39)
[2021-08-10] MEDS: hydroCHLOROthiazide 25 MG TABLET PO SCH (08:13)
[2021-08-10] MEDS: AMOX/CLAV 875 MG/125 MG TABLET PO SCH ×2 (08:13→19:54)
[2021-08-10] MEDS: SACCHAROMYCES BOULARDII 250 MG CAPSULE PO SCH ×2 (08:13→19:53)
[2021-08-10] MEDS: TAMSULOSIN 0.4 MG CAPSULE PO SCH (08:13)
[2021-08-10] MEDS: LOSARTAN 50 MG TABLET PO SCH (08:13)
[2021-08-10] MEDS: ENOXAPARIN 40 MG/0.4 ML SYRINGE SUBQ SCH (08:13)
[2021-08-10] MEDS: LORATADINE 10 MG TABLET PO SCH (08:14)
[2021-08-10] MEDS: CLOPIDOGREL 75 MG TABLET PO SCH (08:14)
[2021-08-10] MEDS: amLODIPine 5 MG TABLET PO SCH (08:14)
[2021-08-10] MEDS: MULTIVITAMIN W/MINERALS TABLET PO SCH (08:14)
[2021-08-10] MEDS: SODIUM CHLORIDE FLUSH 0.9% 10 ML SYRINGE IVP SCH ×2 (08:14→19:55)
[2021-08-10] MEDS: polyethylene glycoL 3350 17 GM PACKET PO SCH (09:00)
--- NOTE | 2021-08-10 13:42 | PROVIDER PROGRESS NOTE ---
Assessment/Plan - Problem List (1) Pneumonia Assessment/Plan: He had a fever and confusion on 08/05/2021 and work-up showed a pneumonia. After starting antibiotics for presumed HCAP, his mentation has improved every day. Blood cultures are neg to date. Will switch to empiric p.o. antibiotics, using po Augmentin for 2 more days of treatment, starting today, and we stopped iv Cefepime and Vanco. Continue probiotics. He is medically cleared for discharge (2) CKD Impression: Creat improved daily, last Creatinine was 1.3 and BUN was in normal range, He is now stable for discharge (3) Hypertension Stable, on home BP meds and increased home Losartan dosage. (4) Acute urinary retention On 08/06 pt had 1000cc urine by straight catheter and continued difficulty to urinate. USwas neg for obstruction. We started Flomax. Matthews catheter inserted and continues. He will need Urology management after discharge. (5) Dementia Impression: Stable. OT did a mental exam evaluation for patient, and he scored 7/30 on U Mental Status exam, consistent with significant impairment. His cannot provide for his needs and he will need a shelter care facility after the SNF. SW is trying to secure this. (6) Bradycardia Impression: Stable. per previous provider discussed as the following: "His heart rate has been consistently in the 50s. He has had 24 hours of telemetry and overnight he was noted to have multiple pauses, ranging from 3-6 seconds. He was in sinus rhythm. On chart review, in approximately 2013, he was seen for this but it is unclear if he followed up and his does not remember. I discussed this with him today and asked if he would be interested in a pacemaker. He reported very clearly that no, he does not want a pacemaker as if his heart stops "it is my time, I've had a long life". I also spoke with his and she stated that he would not want interventions, and this is stated in his Will. He denied chest pain, palpitations, light-headedness or feeling dizzy." At this point, pt is off compliance monitor, and we will continue with pt's desire and wishes. (7) Hx of stroke He has hx of stroke with mild left side slight weakness and slurred speech. Will continue Plavix and Statin, plan d/c to SNF per PT/OT recommendation. (8) Generalized weakness Impression: He is working with PT and OT and recommended for SNF. SW is working on obtaining him placement. (9) Rhabdomyolysis Resolved. CK is down to normal range. (10) Acute diarrhea Impression: Resolved. No episodes of diarrhea since admission, only soft stool this morning. Sample was CDIFF negative and he was removed from enteric precautions. (11) Delirium Assessment/Plan: Resolved.This was an obvious change on 08/05/21. Improved considerably now, he is probably at his baseline mentation today and able to cooperate with PT. - Current Meds Current Meds: Current Medications Generic Name Dose Route Start Last Admin Trade Name Freq PRN Reason Stop Dose Admin Acetaminophen 650 mg 08/05/21 17:45 08/07/21 16:06 Acetaminophen 325 Mg Tablet PO 650 mg Q4HR PRN Administration Pain or Fever > 38C (100.4F) Amlodipine Besylate 10 mg 08/04/21 16:00 08/10/21 08:14 Amlodipine 5 Mg Tablet PO 10 mg DAILY CARLOS Administration Amoxicillin/Clavulanate Potassium 1 tab 08/10/21 09:00 08/10/21 08:13 Amox/Clav 875 Mg/125 Mg Tablet PO 08/12/21 00:01 1 tab BID CARLOS Administration Atorvastatin Calcium 40 mg 08/04/21 21:00 08/09/21 20:33 Atorvastatin 40 Mg Tablet PO 40 mg QPM CARLOS Administration Clopidogrel Bisulfate 75 mg 08/05/21 09:00 08/10/21 08:14 Clopidogrel 75 Mg Tablet PO 75 mg DAILY CARLOS Administration Enoxaparin Sodium 40 mg 08/07/21 09:00 08/10/21 08:13 Enoxaparin 40 Mg/0.4 Ml Syringe SUBQ 40 mg DAILY CARLOS Administration Hydrochlorothiazide 25 mg 08/05/21 09:00 08/10/21 08:13 Hydrochlorothiazide 25 Mg Tablet PO 25 mg DAILY CARLOS Administration Loratadine 10 mg 08/05/21 09:00 08/10/21 08:14 Loratadine 10 Mg Tablet PO 10 mg DAILY CARLOS Administration Losartan Potassium 100 mg 08/05/21 09:00 08/10/21 08:13 Losartan 50 Mg Tablet PO 100 mg DAILY CARLOS Administration Mineral Oil 1 applic 08/02/21 22:23 08/07/21 05:08 Min Oil/Dimethicon/Coconut Oil 92 Gm Tube TOP 1 applic PRN PRN Administration Skin Care Multi-Ingredient Ointment 1 applic 08/05/21 20:21 08/06/21 05:37 Zinc Oxide 20% Oint 30 Gm Tube TOP 1 applic PRN PRN Administration Skin Care Multivitamins/Minerals 1 tab 08/03/21 16:00 08/10/21 08:14 Multivitamin W/Minerals Tablet PO 1 tab DAILYWM CARLOS Administration Polyethylene Glycol 17 gm 08/06/21 09:00 08/10/21 09:00 Polyethylene Glycol 3350 17 Gm Packet PO 17 gm DAILY CARLOS Administration Saccharomyces Boulardii 250 mg 08/06/21 17:00 08/10/21 08:13 Saccharomyces Boulardii 250 Mg Capsule PO 250 mg BIDWM CARLOS Administration Sodium Chloride 10 ml 08/02/21 15:46 08/08/21 22:38 Sodium Chloride Flush 0.9% 10 Ml Syringe IVP 10 ml PRN PRN Administration NEEDED PER PROVIDER ORDERS Sodium Chloride 10 ml 08/02/21 17:00 08/10/21 08:14 Sodium Chloride Flush 0.9% 10 Ml Syringe IVP 10 ml 0100,0900,1700 CARLOS Administration Tamsulosin HCl 0.4 mg 08/06/21 09:00 08/10/21 08:13 Tamsulosin 0.4 Mg Capsule PO 0.4 mg DAILY CARLOS Administration - Lab Result Fish Bone Diagrams: 08/09/21 04:50 08/09/21 04:50 - Additional Planning My Orders: My Active Orders 08/10/21 09:00 Amox/Clav 875/125 [Augmentin 875/125 Tab] 1 tab PO BID 08/10/21 12:00 Cholecalciferol [Vitamin D3] 50 mcg PO DAILY 08/11/21 05:00 BMP - BASIC METABOLIC PANEL [CHEM] DAILYLAB CBC - COMP BLD CT W/AUTO DIFF [HEME] DAILYLAB Subjective - Subjective Patient Reports: No Complaints Nursing Reports: Other (He ambulated a long distance even in the hallway, with PT yesterday) Objective Vital Signs: Vital Signs - 24 hr 08/09/21 08/09/21 08/10/21 16:25 20:33 00:10 Temperature 37.1 C 36.6 C 37.0 C Heart Rate [ 75 68 58 L Brachial] Respiratory 22 20 18 Rate Blood Pressure 148/63 H 151/57 H 157/67 H [Right Brachial artery] O2 Saturation 98 98 96 08/10/21 08/10/21 08/10/21 05:25 07:50 11:23 Temperature 36.8 C 36.1 C L 36.1 C L Heart Rate [ 57 L 111 H 67 Brachial] Respiratory 18 18 18 Rate Blood Pressure 148/66 H 141/63 H 137/76 H [Right Brachial artery] O2 Saturation 97 93 92 Oxygen O2 Source Room air I&O (Last 24 Hrs): Intake and Output Totals x24h 08/08/21 08/09/21 08/10/21 23:59 23:59 23:59 Intake Total 2640 2110 1080 Output Total 4250 3750 1275 Balance -1051 -6485 -138 - Results Results: Laboratory Results WBC 8.6 x10^3/uL (4.8-10.8) 08/09/21 04:50 RBC 4.15 10^6/uL (4.70-6.10) L 08/09/21 04:50 Hgb 12.3 g/dL (14.0-18.0) L 08/09/21 04:50 Hct 36.0 % (42.0-52.0) L 08/09/21 04:50 MCV 86.7 fL (80.0-94.0) 08/09/21 04:50 MCH 29.6 pg (27.0-31.0) 08/09/21 04:50 MCHC 34.2 g/dL (32.0-36.0) 08/09/21 04:50 RDW 13.1 % (12.0-15.0) 08/09/21 04:50 Plt Count 263 10^3/uL (130-450) 08/09/21 04:50 MPV 9.3 fL (7.4-11.4) 08/09/21 04:50 Neut # (Auto) 6.4 10^3/uL (1.5-6.6) 08/09/21 04:50 Lymph # (Auto) 0.7 10^3/uL (1.5-3.5) L 08/09/21 04:50 Cecil # (Auto) 0.9 10^3/uL (0.0-1.0) 08/09/21 04:50 Eos # (Auto) 0.5 10^3/uL (0.0-0.7) 08/09/21 04:50 Baso # (Auto) 0.0 10^3/uL (0.0-0.1) 08/09/21 04:50 Absolute Nucleated RBC 0.00 x10^3/uL 08/09/21 04:50 Nucleated RBC % 0.0 /100WBC 08/09/21 04:50 Sodium 136 mmol/L (135-145) 08/09/21 04:50 Potassium 3.7 mmol/L (3.5-5.0) 08/09/21 04:50 Chloride 100 mmol/L (101-111) L 08/09/21 04:50 Carbon Dioxide 26 mmol/L (21-32) 08/09/21 04:50 Anion Gap 10.0 (6-13) 08/09/21 04:50 BUN 20 mg/dL (6-20) 08/09/21 04:50 Creatinine 1.3 mg/dL (0.6-1.2) H 08/09/21 04:50 Estimated GFR (MDRD) 52 (>89) L 08/09/21 04:50 Glucose 94 mg/dL (70-100) 08/09/21 04:50 Lactic Acid 1.2 mmol/L (0.5-2.2) 08/02/21 12:05 Calcium 8.3 mg/dL (8.5-10.3) L 08/09/21 04:50 Magnesium 2.1 mg/dL (1.7-2.8) 08/02/21 12:05 Total Bilirubin 1.2 mg/dL (0.2-1.0) H 08/02/21 12:05 AST 88 IU/L (10-42) H 08/02/21 12:05 ALT 32 IU/L (10-60) 08/02/21 12:05 Alkaline Phosphatase 70 IU/L (42-121) 08/02/21 12:05 Total Creatine Kinase 160 IU/L (22-269) 08/06/21 05:08 Troponin I High Sens 60.8 ng/L (2.3-19.7) H* 08/02/21 21:07 Total Protein 6.7 g/dL (6.7-8.2) 08/02/21 12:05 Albumin 4.0 g/dL (3.2-5.5) 08/02/21 12:05 Globulin 2.7 g/dL (2.1-4.2) 08/02/21 12:05 Albumin/Globulin Ratio 1.5 (1.0-2.2) 08/02/21 12:05 Lipase 19 U/L (22-51) L 08/02/21 12:05 Urine Color YELLOW 08/05/21 18:32 Urine Clarity CLEAR (CLEAR) 08/05/21 18:32 Urine pH 6.5 PH (5.0-7.5) 08/05/21 18:32 Ur Specific [place] 1.010 (1.002-1.030) 08/05/21 18:32 Urine Protein NEGATIVE mg/dL (NEGATIVE) 08/05/21 18:32 Urine Glucose (UA) NEGATIVE mg/dL (NEGATIVE) 08/05/21 18:32 Urine Ketones NEGATIVE mg/dL (NEGATIVE) 08/05/21 18:32 Urine Occult Blood NEGATIVE (NEGATIVE) 08/05/21 18:32 Urine Nitrite NEGATIVE (NEGATIVE) 08/05/21 18:32 Urine Bilirubin NEGATIVE (NEGATIVE) 08/05/21 18:32 Urine Urobilinogen 0.2 (NORMAL) E.U./dL (NORMAL) 08/05/21 18:32 Ur Leukocyte Esterase NEGATIVE (NEGATIVE) 08/05/21 18:32 Urine RBC 0-5 /HPF (0-5) 08/05/21 18:32 Urine WBC 0-3 /HPF (0-3) 08/05/21 18:32 Ur Squamous Epith Cells NONE SEEN (<= Few) 08/05/21 18:32 Urine Bacteria None Seen /HPF (None Seen) 08/05/21 18:32 Ur Microscopic Review INDICATED 08/02/21 11:37 Urine Culture Comments NOT INDICATED 08/05/21 18:32 Nasal Adenovirus (PCR) NOT DETECTED 08/02/21 15:38 Nasal B. parapertussis DNA (PCR) NOT DETECTED 08/02/21 15:38 Nasal Coronavir 229E PCR NOT DETECTED 08/02/21 15:38 Nasal Coronavir HKU1 PCR NOT DETECTED 08/02/21 15:38 Nasal Coronavir NL63 PCR NOT DETECTED 08/02/21 15:38 Nasal Coronavir OC43 PCR NOT DETECTED 08/02/21 15:38 Nasal Enterovir/Rhinovir PCR NOT DETECTED 08/02/21 15:38 Nasal Influenza B PCR NOT DETECTED 08/02/21 15:38 Nasal Influenza A PCR NOT DETECTED 08/02/21 15:38 Nasal Parainfluen 1 PCR NOT DETECTED 08/02/21 15:38 Nasal Parainfluen 2 PCR NOT DETECTED 08/02/21 15:38 Nasal Parainfluen 3 PCR NOT DETECTED 08/02/21 15:38 Nasal Parainfluen 4 PCR NOT DETECTED 08/02/21 15:38 Nasal RSV (PCR) NOT DETECTED 08/02/21 15:38 Nasal Screen MRSA (PCR) NEGATIVE (NEGATIVE) 08/02/21 18:42 Nasal B.pertussis DNA PCR NOT DETECTED 08/02/21 15:38 Nasal C.pneumoniae (PCR) NOT DETECTED 08/02/21 15:38 Edwin Human Metapneumo PCR NOT DETECTED 08/02/21 15:38 Nasal M.pneumoniae (PCR) NOT DETECTED 08/02/21 15:38 Nasal SARS-CoV-2 (PCR) NOT DETECTED 08/02/21 15:38 Stl C. diff Tox B Gene NEGATIVE (NEGATIVE) 08/03/21 08:29 Sepsis Event Note (H) - Evaluation Current Stage of Sepsis: Ruled out
[2021-08-10] MEDS: CHOLECALCIFEROL 25 MCG TABLET PO SCH (19:52)
[2021-08-10] MEDS: ATORVASTATIN 40 MG TABLET PO SCH (19:53)
[2021-08-11] MEDS: SODIUM CHLORIDE FLUSH 0.9% 10 ML SYRINGE IVP SCH ×3 (05:37→17:27)
[2021-08-11 06:37] LABS: BASOPHILS % (AUTO) 0.4 %; EOSINOPHILS # (AUTO) 0.4 10^3/uL (0.0-0.7); EOSINOPHILS % (AUTO) 5.6 %; HCT - HEMATOCRIT 37.9 % (42.0-52.0); HGB - HEMOGLOBIN 12.6 g/dL (14.0-18.0); LYMPHOCYTES % (AUTO) 13.8 %; MEAN CORPUSCULAR HEMOGLOBIN 29.2 pg (27.0-31.0); MEAN CORPUSCULAR HGB CONC 33.2 g/dL (32.0-36.0); MEAN CORPUSCULAR VOLUME 87.9 fL (80.0-94.0); MEAN PLATELET VOLUME 9.4 fL (7.4-11.4); MONOCYTES # (AUTO) 0.9 10^3/uL (0.0-1.0); MONOCYTES % (AUTO) 11.8 %; NEUTROPHILS # (AUTO) 4.9 10^3/uL (1.5-6.6); NEUTROPHILS % (AUTO) 67.8 %; PLT - PLATELET COUNT 269 10^3/uL (130-450); RED BLOOD COUNT 4.31 10^6/uL (4.70-6.10); RED CELL DISTRIBUTION WIDTH 13.1 % (12.0-15.0); WHITE BLOOD COUNT 7.2 x10^3/uL (4.8-10.8)
[2021-08-11 06:45] LABS: CALCIUM 8.4 mg/dL (8.5-10.3); CREATININE 1.4 mg/dL (0.6-1.2)
[2021-08-11] MEDS: polyethylene glycoL 3350 17 GM PACKET PO SCH (07:44)
[2021-08-11] MEDS: MULTIVITAMIN W/MINERALS TABLET PO SCH (07:45)
[2021-08-11] MEDS: SODIUM CHLORIDE 0.9% 1,000 ML IV SCH ×2 (07:45→18:01)
[2021-08-11] MEDS: SACCHAROMYCES BOULARDII 250 MG CAPSULE PO SCH ×2 (07:46→17:25)
[2021-08-11] MEDS: ENOXAPARIN 40 MG/0.4 ML SYRINGE SUBQ SCH (07:52)
[2021-08-11] MEDS: CHOLECALCIFEROL 25 MCG TABLET PO SCH (07:52)
[2021-08-11] MEDS: hydroCHLOROthiazide 25 MG TABLET PO SCH (07:52)
[2021-08-11] MEDS: amLODIPine 5 MG TABLET PO SCH (07:53)
[2021-08-11] MEDS: CLOPIDOGREL 75 MG TABLET PO SCH (07:53)
[2021-08-11] MEDS: LOSARTAN 50 MG TABLET PO SCH (07:53)
[2021-08-11] MEDS: TAMSULOSIN 0.4 MG CAPSULE PO SCH (07:53)
[2021-08-11] MEDS: LORATADINE 10 MG TABLET PO SCH (07:53)
[2021-08-11] MEDS: AMOX/CLAV 875 MG/125 MG TABLET PO SCH ×2 (07:54→20:00)
[2021-08-11] MEDS: SENNA 8.6 MG TABLET PO SCH (10:26)
[2021-08-11] MEDS: DOCUSATE SODIUM 250 MG CAPSULE PO SCH (10:26)
--- NOTE | 2021-08-11 10:37 | PROVIDER PROGRESS NOTE ---
Assessment/Plan - Problem List (1) Pneumonia Assessment/Plan: 08/11 stable, Patient has no fever, patient has stable respiratory status. Antibiotics is already switched to p.o. Augmentin, will finish 7 days. Continue probiotics, Encourage patient out of the bed, incentive spirometer to prevention for pneumonia. 08/07 stable respiratory status, no acute respiratory distress, blood culture is Negative for bacteremia. We will finish intravenous antibiotics on today, we may switch p.o. antibiotics on tomorrow. Continue probiotics 08/06 pt had low degree fever on yesterday afternoon, his O2 sat was reduced, CXR reveals bilateral lower lung airspace opacities more pronounced on the right, likely represent pneumonia. ordered blood culture, start with antibiotics Cefepime and probiotics, and continue gentle IVF (2)delirium Assessment/Plan: 08/11 resolved, as pt's baseline. pt ate his breakfast by himself. 123, stable, As patient's baseline. 08/06 significant improved. pt's mental status is close to his baseline. It was likely cause by his acute infection and acute urinary retention. 08/05 pt seem more confused on today, but at the same time, he report" I always confused." pt still present slurred speech and slight weakness on his left side as his hx of [place] residence and remain. otherwise pt does not present other acute Focal neuro deficits. CT of head reveal no acute process. continue neuro check, continue home Plavix and Statin. (3) Rhabdomyolysis 08/06 CK is down to normal arrange, resolved 08/05 improved Ck is down to 480, continue gentle IVF, lab monitor Improving. pt is comfortable laying at the bed. he denies any pain. CK is down to 760, continue IVF at 100 cc/h now. -Regular diet, encourage hydration, continue lab monitor (4) NAVEED (acute kidney injury) Impression: 08/11 slight elevated creatinine and BUN, keep pt hydration and start with gentle IVF, and continue lab monitor. 123, Improved significantly, Creatinine is 1.2, from yesterday 1.5. BUN at the normal range, continue IVF at 75cc/h now, pt has hx of dementia, he is risk of dehydration and poor oral intake. 08/06 creatinine is increased to 1.5 although pt continue to have IVF. Order US to r/o obstruction, hydronephrosis to affect kidney, continue gently IVF, avoid nephrotoxic agent, and lab monitor. 08/05 creatinine 1.3, continue IVF, and lab monitor significantly Improving. creatinine is 1.2, BUN 23 now, continue IVF at 100 cc/h, continue lab monitor and avoid nephrotoxic agents (5) Generalized weakness Impression: 08/11 continue PT/OT, pt need SNF for d/c disposition. Continue consult with social work for disposition planning 123, we will continue PT and OT evaluation and treatment, patient was assessed by PT and OT before, and recommended for SNF. Continue consult with social work for disposition planning PT/OT recommend to SNF, consult with social and political studies professor for Disposition planning (6) Hypertension 08/11 stable, continue home meds 08/06 improved. continue home meds and hydralazine PRN 08/05 improved. continue home BP meds, increased home Losartan dosage, continue vital monitor elevated BP, Resume home blood pressure medications Losartan, HCTZ, Amlodipine, Add hydralazine as needed, Continue vital signs monitor (7) Dementia Impression: Stable. OT had a evaluation for patient, pt has 04/03 score on U Mental Status (8) Bradycardia Impression: Stable. per previous provider discussed as the following: "His heart rate has been consistently in the 50s. He has had 24 hours of telemetry and overnight he was noted to have multiple pauses, ranging from 3-6 seconds. He was in sinus rhythm. On chart review he has been seen in the past (approximately 2013) for this but it is unclear if he followed up and his does not remember. I discussed this with him today and asked if he would be interested in a pacemaker . He reported very clearly that no, he does not want a pacemaker as if his heart stops "it is my time, I've had a long life". I also spoke with his and she stated that he would not want interventions as this is stated in his will. He denied chest pain, palpitations, light-headedness or feeling dizzy." pt denies chest pain, shortness of breath, lightheaded. At this point, pt was already off tele monitor, and we will continue followup with pt's desire and wishes. (9) Acute diarrhea Impression: Resolved. No episodes of diarrhea since admission, only soft stool this morning. Sample was CDIFF negative and he was removed from enteric precautions. (10)hx of stroke pt has hx of stroke with left side slight weakness and slurred speech. pt does not present acute neurological deficits now. continue Plavix and Statin, plan d/c to SNF per PT/OT recommendation. (11)urinary retention 08/11 we may try once to d/c of [place] to see if pt can urinate by his own, continue Flomax, will discuss with nurse for the care. 08/06 pt had 1000cc urine on straight catheter, pt has difficult to urinary now, order US to r/o obstruction, add Flomax, order [place] catheter for pt. (3) Rhabdomyolysis Qualifiers: Rhabdomyolysis type: non-traumatic Qualified Code(s): M62.82 - Rhabdomyolysis - Current Meds Current Meds: Current Medications Generic Name Dose Route Start Last Admin Trade Name Freq PRN Reason Stop Dose Admin Acetaminophen 650 mg 08/05/21 17:45 08/07/21 16:06 Acetaminophen 325 Mg Tablet PO 650 mg Q4HR PRN Administration Pain or Fever > 38C (100.4F) Amlodipine Besylate 10 mg 08/04/21 16:00 08/11/21 07:53 Amlodipine 5 Mg Tablet PO 10 mg DAILY CARLOS Administration Amoxicillin/Clavulanate Potassium 1 tab 08/10/21 09:00 08/11/21 07:54 Amox/Clav 875 Mg/125 Mg Tablet PO 08/12/21 00:01 1 tab BID CARLOS Administration Atorvastatin Calcium 40 mg 08/04/21 21:00 08/10/21 19:53 Atorvastatin 40 Mg Tablet PO 40 mg QPM CARLOS Administration Cholecalciferol 50 mcg 08/10/21 12:00 08/11/21 07:52 Cholecalciferol 25 Mcg Tablet PO 50 mcg DAILY CARLOS Administration Clopidogrel Bisulfate 75 mg 08/05/21 09:00 08/11/21 07:53 Clopidogrel 75 Mg Tablet PO 75 mg DAILY CARLOS Administration Docusate Sodium 250 - 500 mg 08/11/21 11:00 08/11/21 10:26 Docusate Sodium 250 Mg Capsule PO 250 mg DAILY CARLOS Administration Enoxaparin Sodium 40 mg 08/07/21 09:00 08/11/21 07:52 Enoxaparin 40 Mg/0.4 Ml Syringe SUBQ 40 mg DAILY CARLOS Administration Hydrochlorothiazide 25 mg 08/05/21 09:00 08/11/21 07:52 Hydrochlorothiazide 25 Mg Tablet PO 25 mg DAILY CARLOS Administration Sodium Chloride 1,000 mls @ 100 mls/hr 08/11/21 08:00 08/11/21 07:45 Normal Saline 0.9% IV 08/12/21 03:59 100 mls/hr .Q10H CARLOS Administration Loratadine 10 mg 08/05/21 09:00 08/11/21 07:53 Loratadine 10 Mg Tablet PO 10 mg DAILY CARLOS Administration Losartan Potassium 100 mg 08/05/21 09:00 08/11/21 07:53 Losartan 50 Mg Tablet PO 100 mg DAILY CARLOS Administration Mineral Oil 1 applic 08/02/21 22:23 08/07/21 05:08 Min Oil/Dimethicon/Coconut Oil 92 Gm Tube TOP 1 applic PRN PRN Administration Skin Care Multi-Ingredient Ointment 1 applic 08/05/21 20:21 08/06/21 05:37 Zinc Oxide 20% Oint 30 Gm Tube TOP 1 applic PRN PRN Administration Skin Care Multivitamins/Minerals 1 tab 08/03/21 16:00 08/11/21 07:45 Multivitamin W/Minerals Tablet PO 1 tab DAILYWM CARLOS Administration Polyethylene Glycol 17 gm 08/06/21 09:00 08/11/21 07:44 Polyethylene Glycol 3350 17 Gm Packet PO 17 gm DAILY CARLOS Administration Saccharomyces Boulardii 250 mg 08/06/21 17:00 08/11/21 07:46 Saccharomyces Boulardii 250 Mg Capsule PO 250 mg BIDWM CARLOS Administration Senna 8.6 - 17.2 mg 08/11/21 11:00 08/11/21 10:26 Senna 8.6 Mg Tablet PO 8.6 mg DAILY CRALOS Administration Sodium Chloride 10 ml 08/02/21 15:46 08/08/21 22:38 Sodium Chloride Flush 0.9% 10 Ml Syringe IVP 10 ml PRN PRN Administration NEEDED PER PROVIDER ORDERS Sodium Chloride 10 ml 08/02/21 17:00 08/11/21 07:46 Sodium Chloride Flush 0.9% 10 Ml Syringe IVP 10 ml 0100,0900,1700 CARLOS Administration Tamsulosin HCl 0.4 mg 08/06/21 09:00 08/11/21 07:53 Tamsulosin 0.4 Mg Capsule PO 0.4 mg DAILY CARLOS Administration - Lab Result Fish Bone Diagrams: 08/11/21 06:25 08/11/21 06:25 - Additional Planning My Orders: My Active Orders 08/11/21 08:00 Sodium Chloride 0.9% [Normal Saline 0.9%] 1,000 ml IV 100 mls/hr 08/12/21 05:00 BMP - BASIC METABOLIC PANEL [CHEM] DAILYLAB CBC - COMP BLD CT W/AUTO DIFF [HEME] DAILYLAB 08/13/21 05:00 BMP - BASIC METABOLIC PANEL [CHEM] DAILYLAB CBC - COMP BLD CT W/AUTO DIFF [HEME] DAILYLAB 08/14/21 05:00 BMP - BASIC METABOLIC PANEL [CHEM] DAILYLAB CBC - COMP BLD CT W/AUTO DIFF [HEME] DAILYLAB 08/15/21 05:00 BMP - BASIC METABOLIC PANEL [CHEM] DAILYLAB CBC - COMP BLD CT W/AUTO DIFF [HEME] DAILYLAB 08/16/21 05:00 BMP - BASIC METABOLIC PANEL [CHEM] DAILYLAB CBC - COMP BLD CT W/AUTO DIFF [HEME] DAILYLAB Subjective - Subjective Patient Reports: Resting Comfortably Objective Vital Signs: Vital Signs - 24 hr 08/10/21 08/10/21 08/10/21 11:23 16:18 19:49 Temperature 36.1 C L 36.7 C 37.2 C Heart Rate [ 67 67 64 Brachial] Respiratory 18 18 16 Rate Blood Pressure 136/64 H [Left Brachial artery] Blood Pressure 137/76 H 128/64 [Right Brachial artery] O2 Saturation 92 97 95 08/10/21 08/11/21 08/11/21 23:55 05:21 07:25 Temperature 36.8 C 36.9 C 37.2 C Heart Rate [ 54 L 52 L 56 L Brachial] Respiratory 17 18 18 Rate Blood Pressure 143/68 H [Left Brachial artery] Blood Pressure 148/66 H 145/55 H [Right Brachial artery] O2 Saturation 94 98 94 Oxygen O2 Source Room air I&O (Last 24 Hrs): Intake and Output Totals x24h 08/09/21 08/10/21 08/11/21 23:59 23:59 23:59 Intake Total 2110 1910 720 Output Total 0812 4208 [id number] [facility] -[id number] [phone] [phone] General: Alert, Cooperative, No acute distress HEENT: Atraumatic Neck: Supple Lymphatic: no adenopathy Neuro: Alert, Non Focal Cardiovascular: Regular rate, Normal S1, Normal S2 Respiratory: Chest non-tender, No respiratory distress Abdomen: Normal bowel sounds, Soft, No tenderness Extremities: Normal pulses - Results Results: Laboratory Results WBC 7.2 x10^3/uL (4.8-10.8) 08/11/21 06:25 RBC 4.31 10^6/uL (4.70-6.10) L 08/11/21 06:25 Hgb 12.6 g/dL (14.0-18.0) L 08/11/21 06:25 Hct 37.9 % (42.0-52.0) L 08/11/21 06:25 MCV 87.9 fL (80.0-94.0) 08/11/21 06:25 MCH 29.2 pg (27.0-31.0) 08/11/21 06:25 MCHC 33.2 g/dL (32.0-36.0) 08/11/21 06:25 RDW 13.1 % (12.0-15.0) 08/11/21 06:25 Plt Count 269 10^3/uL (130-450) 08/11/21 06:25 MPV 9.4 fL (7.4-11.4) 08/11/21 06:25 Neut # (Auto) 4.9 10^3/uL (1.5-6.6) 08/11/21 06:25 Lymph # (Auto) 1.0 10^3/uL (1.5-3.5) L 08/11/21 06:25 [place] # (Auto) 0.9 10^3/uL (0.0-1.0) 08/11/21 06:25 Eos # (Auto) 0.4 10^3/uL (0.0-0.7) 08/11/21 06:25 Baso # (Auto) 0.0 10^3/uL (0.0-0.1) 08/11/21 06:25 Absolute Nucleated RBC 0.00 x10^3/uL 08/11/21 06:25 Nucleated RBC % 0.0 /100WBC 08/11/21 06:25 Sodium 135 mmol/L (135-145) 08/11/21 06:25 Potassium 4.0 mmol/L (3.5-5.0) 08/11/21 06:25 Chloride 98 mmol/L (101-111) L 08/11/21 06:25 Carbon Dioxide 27 mmol/L (21-32) 08/11/21 06:25 Anion Gap 10.0 (6-13) 08/11/21 06:25 BUN 23 mg/dL (6-20) H 08/11/21 06:25 Creatinine 1.4 mg/dL (0.6-1.2) H 08/11/21 06:25 Estimated GFR (MDRD) 48 (>89) L 08/11/21 06:25 Glucose 96 mg/dL (70-100) 08/11/21 06:25 Lactic Acid 1.2 mmol/L (0.5-2.2) 08/02/21 12:05 Calcium 8.4 mg/dL (8.5-10.3) L 08/11/21 06:25 Magnesium 2.1 mg/dL (1.7-2.8) 08/02/21 12:05 Total Bilirubin 1.2 mg/dL (0.2-1.0) H 08/02/21 12:05 AST 88 IU/L (10-42) H 08/02/21 12:05 ALT 32 IU/L (10-60) 08/02/21 12:05 Alkaline Phosphatase 70 IU/L (42-121) 08/02/21 12:05 Total Creatine Kinase 160 IU/L (22-269) 08/06/21 05:08 Troponin I High Sens 60.8 ng/L (2.3-19.7) H* 08/02/21 21:07 Total Protein 6.7 g/dL (6.7-8.2) 08/02/21 12:05 Albumin 4.0 g/dL (3.2-5.5) 08/02/21 12:05 Globulin 2.7 g/dL (2.1-4.2) 08/02/21 12:05 Albumin/Globulin Ratio 1.5 (1.0-2.2) 08/02/21 12:05 Lipase 19 U/L (22-51) L 08/02/21 12:05 Urine Color YELLOW 08/05/21 18:32 Urine Clarity CLEAR (CLEAR) 08/05/21 18:32 Urine pH 6.5 PH (5.0-7.5) 08/05/21 18:32 Ur Specific [place] 1.010 (1.002-1.030) 08/05/21 18:32 Urine Protein NEGATIVE mg/dL (NEGATIVE) 08/05/21 18:32 Urine Glucose (UA) NEGATIVE mg/dL (NEGATIVE) 08/05/21 18:32 Urine Ketones NEGATIVE mg/dL (NEGATIVE) 08/05/21 18:32 Urine Occult Blood NEGATIVE (NEGATIVE) 08/05/21 18:32 Urine Nitrite NEGATIVE (NEGATIVE) 08/05/21 18:32 Urine Bilirubin NEGATIVE (NEGATIVE) 08/05/21 18:32 Urine Urobilinogen 0.2 (NORMAL) E.U./dL (NORMAL) 08/05/21 18:32 Ur Leukocyte Esterase NEGATIVE (NEGATIVE) 08/05/21 18:32 Urine RBC 0-5 /HPF (0-5) 08/05/21 18:32 Urine WBC 0-3 /HPF (0-3) 08/05/21 18:32 Ur Squamous Epith Cells NONE SEEN (<= Few) 08/05/21 18:32 Urine Bacteria None Seen /HPF (None Seen) 08/05/21 18:32 Ur Microscopic Review INDICATED 08/02/21 11:37 Urine Culture Comments NOT INDICATED 08/05/21 18:32 Nasal Adenovirus (PCR) NOT DETECTED 08/02/21 15:38 Nasal B. parapertussis DNA (PCR) NOT DETECTED 08/02/21 15:38 Nasal Coronavir 229E PCR NOT DETECTED 08/02/21 15:38 Nasal Coronavir HKU1 PCR NOT DETECTED 08/02/21 15:38 Nasal Coronavir NL63 PCR NOT DETECTED 08/02/21 15:38 Nasal Coronavir OC43 PCR NOT DETECTED 08/02/21 15:38 Nasal Enterovir/Rhinovir PCR NOT DETECTED 08/02/21 15:38 Nasal Influenza B PCR NOT DETECTED 08/02/21 15:38 Nasal Influenza A PCR NOT DETECTED 08/02/21 15:38 Nasal Parainfluen 1 PCR NOT DETECTED 08/02/21 15:38 Nasal Parainfluen 2 PCR NOT DETECTED 08/02/21 15:38 Nasal Parainfluen 3 PCR NOT DETECTED 08/02/21 15:38 Nasal Parainfluen 4 PCR NOT DETECTED 08/02/21 15:38 Nasal RSV (PCR) NOT DETECTED 08/02/21 15:38 Nasal Screen MRSA (PCR) NEGATIVE (NEGATIVE) 08/02/21 18:42 Nasal B.pertussis DNA PCR NOT DETECTED 08/02/21 15:38 Nasal C.pneumoniae (PCR) NOT DETECTED 08/02/21 15:38 Edwin Human Metapneumo PCR NOT DETECTED 08/02/21 15:38 Nasal M.pneumoniae (PCR) NOT DETECTED 08/02/21 15:38 Nasal SARS-CoV-2 (PCR) NOT DETECTED 08/02/21 15:38 Stl C. diff Tox B Gene NEGATIVE (NEGATIVE) 08/03/21 08:29 Sepsis Event Note (H) - Evaluation Current Stage of Sepsis: Ruled out ABX Reporting Has patient been on IV antibiotics over the past 48 hours?: Yes Current Medications - Current Medications Current Medications: Active Medications Acetaminophen (Acetaminophen 325 Mg Tablet) 650 mg PO Q4HR PRN PRN Reason: Pain or Fever > 38C (100.4F) Last Admin: 08/07/21 16:06 Dose: 650 mg Documented by: Amlodipine Besylate (Amlodipine 5 Mg Tablet) 10 mg PO DAILY [facility] Last Admin: 08/11/21 07:53 Dose: 10 mg Documented by: Amoxicillin/Clavulanate Potassium (Amox/Clav 875 Mg/125 Mg Tablet) 1 tab PO BID [facility] Stop: 08/12/21 00:01 Last Admin: 08/11/21 07:54 Dose: 1 tab Documented by: Atorvastatin Calcium (Atorvastatin 40 Mg Tablet) 40 mg PO QPM [facility] Last Admin: 08/10/21 19:53 Dose: 40 mg Documented by: Cholecalciferol (Cholecalciferol 25 Mcg Tablet) 50 mcg PO DAILY [facility] Last Admin: 08/11/21 07:52 Dose: 50 mcg Documented by: Clopidogrel Bisulfate (Clopidogrel 75 Mg Tablet) 75 mg PO DAILY [facility] Last Admin: 08/11/21 07:53 Dose: 75 mg Documented by: Docusate Sodium (Docusate Sodium 250 Mg Capsule) 250 - 500 mg PO DAILY [facility] Last Admin: 08/11/21 10:26 Dose: 250 mg Documented by: Enoxaparin Sodium (Enoxaparin 40 Mg/0.4 Ml Syringe) 40 mg SUBQ DAILY [facility] Last Admin: 08/11/21 07:52 Dose: 40 mg Documented by: Hydralazine HCl (Hydralazine Inj 20 Mg/Ml Vial) 10 mg IVP QID PRN PRN Reason: Hypertensive Emergency Hydrochlorothiazide (Hydrochlorothiazide 25 Mg Tablet) 25 mg PO DAILY [facility] Last Admin: 08/11/21 07:52 Dose: 25 mg Documented by: Sodium Chloride (Normal Saline 0.9%) 1,000 mls @ 100 mls/hr IV .Q10H [facility] Stop: 08/12/21 03:59 Last Admin: 08/11/21 07:45 Dose: 100 mls/hr Documented by: Loratadine (Loratadine 10 Mg Tablet) 10 mg PO DAILY [facility] Last Admin: 08/11/21 07:53 Dose: 10 mg Documented by: Losartan Potassium (Losartan 50 Mg Tablet) 100 mg PO DAILY [facility] Last Admin: 08/11/21 07:53 Dose: 100 mg Documented by: Mineral Oil (Min Oil/Dimethicon/Coconut Oil 92 Gm Tube) 1 applic TOP PRN PRN PRN Reason: Skin Care Last Admin: 08/07/21 05:08 Dose: 1 applic Documented by: Multi-Ingredient Ointment (Zinc Oxide 20% Oint 30 Gm Tube) 1 applic TOP PRN PRN PRN Reason: Skin Care Last Admin: 08/06/21 05:37 Dose: 1 applic Documented by: Multivitamins/Minerals (Multivitamin W/Minerals Tablet) 1 tab PO DAILYWM [facility] Last Admin: 08/11/21 07:45 Dose: 1 tab Documented by: Polyethylene Glycol (Polyethylene Glycol 3350 17 Gm Packet) 17 gm PO DAILY [facility] Last Admin: 08/11/21 07:44 Dose: 17 gm Documented by: Saccharomyces Boulardii (Saccharomyces Boulardii 250 Mg Capsule) 250 mg PO BIDWM [facility] Last Admin: 08/11/21 07:46 Dose: 250 mg Documented by: Senna (Senna 8.6 Mg Tablet) 8.6 - 17.2 mg PO DAILY [facility] Last Admin: 08/11/21 10:26 Dose: 8.6 mg Documented by: Sodium Chloride (Sodium Chloride Flush 0.9% 10 Ml Syringe) 10 ml IVP PRN PRN PRN Reason: NEEDED PER PROVIDER ORDERS Last Admin: 08/08/21 22:38 Dose: 10 ml Documented by: Sodium Chloride (Sodium Chloride Flush 0.9% 10 Ml Syringe) 10 ml IVP 0100,0900, 1700 [facility] Last Admin: 08/11/21 07:46 Dose: 10 ml Documented by: Tamsulosin HCl (Tamsulosin 0.4 Mg Capsule) 0.4 mg PO DAILY [facility] Last Admin: 08/11/21 07:53 Dose: 0.4 mg Documented by: Amlodipine Besylate [Norvasc] 10 mg PO DAILY 08/03/21 Atorvastatin Calcium 40 mg PO QPM 08/03/21 Chlorthalidone 25 mg PO DAILY 08/03/21 Clopidogrel [Plavix] 75 mg PO DAILY 08/03/21 Loratadine [Claritin] 10 mg PO DAILY 08/03/21 Losartan Potassium 25 mg PO DAILY 08/03/21
[2021-08-11] MEDS: ATORVASTATIN 40 MG TABLET PO SCH (20:00)
[2021-08-12] MEDS: SODIUM CHLORIDE FLUSH 0.9% 10 ML SYRINGE IVP SCH ×4 (01:04→23:32)
[2021-08-12 05:56] LABS: BASOPHILS % (AUTO) 0.6 %; EOSINOPHILS # (AUTO) 0.4 10^3/uL (0.0-0.7); EOSINOPHILS % (AUTO) 5.2 %; HCT - HEMATOCRIT 37.5 % (42.0-52.0); HGB - HEMOGLOBIN 12.3 g/dL (14.0-18.0); LYMPHOCYTES % (AUTO) 13.7 %; MEAN CORPUSCULAR HEMOGLOBIN 29.2 pg (27.0-31.0); MEAN CORPUSCULAR HGB CONC 32.8 g/dL (32.0-36.0); MEAN CORPUSCULAR VOLUME 89.1 fL (80.0-94.0); MEAN PLATELET VOLUME 9.6 fL (7.4-11.4); MONOCYTES # (AUTO) 0.8 10^3/uL (0.0-1.0); NEUTROPHILS # (AUTO) 4.9 10^3/uL (1.5-6.6); NEUTROPHILS % (AUTO) 68.7 %; PLT - PLATELET COUNT 287 10^3/uL (130-450); RED BLOOD COUNT 4.21 10^6/uL (4.70-6.10); WHITE BLOOD COUNT 7.2 x10^3/uL (4.8-10.8)
[2021-08-12 06:03] LABS: CALCIUM 8.6 mg/dL (8.5-10.3); CREATININE 1.4 mg/dL (0.6-1.2)
[2021-08-12] MEDS: ENOXAPARIN 40 MG/0.4 ML SYRINGE SUBQ SCH (08:00)
[2021-08-12] MEDS: TAMSULOSIN 0.4 MG CAPSULE PO SCH (08:00)
[2021-08-12] MEDS: LOSARTAN 50 MG TABLET PO SCH (08:00)
[2021-08-12] MEDS: polyethylene glycoL 3350 17 GM PACKET PO SCH (08:00)
[2021-08-12] MEDS: LORATADINE 10 MG TABLET PO SCH (08:01)
[2021-08-12] MEDS: hydroCHLOROthiazide 25 MG TABLET PO SCH (08:01)
[2021-08-12] MEDS: CLOPIDOGREL 75 MG TABLET PO SCH (08:01)
[2021-08-12] MEDS: SENNA 8.6 MG TABLET PO SCH (08:01)
[2021-08-12] MEDS: CHOLECALCIFEROL 25 MCG TABLET PO SCH (08:01)
[2021-08-12] MEDS: DOCUSATE SODIUM 250 MG CAPSULE PO SCH (08:01)
[2021-08-12] MEDS: MULTIVITAMIN W/MINERALS TABLET PO SCH (08:01)
[2021-08-12] MEDS: amLODIPine 5 MG TABLET PO SCH (08:01)
[2021-08-12] MEDS: SACCHAROMYCES BOULARDII 250 MG CAPSULE PO SCH ×2 (08:01→17:07)
[2021-08-12] MEDS: SODIUM CHLORIDE 0.9% 1,000 ML IV SCH ×2 (08:02→21:38)
--- NOTE | 2021-08-12 12:54 | PROVIDER PROGRESS NOTE ---
Assessment/Plan - Problem List (1) Pneumonia Assessment/Plan: 08/12 stable, pt stable respiratory status. pt had 7 days antibiotics treatment for his pneumonia on today. we will d/c antibiotics on tomorrow. continue consult with social media project manager for replacement. 08/11 stable, Patient has no fever, patient has stable respiratory status. Antibiotics is already switched to p.o. Augmentin, will finish 7 days. Continue probiotics, Encourage patient out of the bed, incentive spirometer to prevention for pneumonia. 08/07 stable respiratory status, no acute respiratory distress, blood culture is Negative for bacteremia. We will finish intravenous antibiotics on today, we may switch p.o. antibiotics on tomorrow. Continue probiotics 08/06 pt had low degree fever on yesterday afternoon, his O2 sat was reduced, CXR reveals bilateral lower lung airspace opacities more pronounced on the right, likely represent pneumonia. ordered blood culture, start with antibiotics Cefepime and probiotics, and continue gentle IVF (2)delirium Assessment/Plan: 08/11 resolved, as pt's baseline. pt ate his breakfast by himself. 123, stable, As patient's baseline. 08/06 significant improved. pt's mental status is close to his baseline. It was likely cause by his acute infection and acute urinary retention. 08/05 pt seem more confused on today, but at the same time, he report" I always confused." pt still present slurred speech and slight weakness on his left side as his hx of [place] residence and remain. otherwise pt does not present other acute Focal neuro deficits. CT of head reveal no acute process. continue neuro check, continue home Plavix and Statin. (3) Rhabdomyolysis 08/06 CK is down to normal arrange, resolved 08/05 improved Ck is down to 480, continue gentle IVF, lab monitor Improving. pt is comfortable laying at the bed. he denies any pain. CK is down to 760, continue IVF at 100 cc/h now. -Regular diet, encourage hydration, continue lab monitor (4) NAVEED (acute kidney injury) Impression: 08/12 creatinine is 1.4, will continue IVF for one day, continue lab monitor. 08/11 slight elevated creatinine and BUN, keep pt hydration and start with gentle IVF, and continue lab monitor. 123, Improved significantly, Creatinine is 1.2, from yesterday 1.5. BUN at the normal range, continue IVF at 75cc/h now, pt has hx of dementia, he is risk of dehydration and poor oral intake. 08/06 creatinine is increased to 1.5 although pt continue to have IVF. Order US to r/o obstruction, hydronephrosis to affect kidney, continue gently IVF, avoid nephrotoxic agent, and lab monitor. 08/05 creatinine 1.3, continue IVF, and lab monitor significantly Improving. creatinine is 1.2, BUN 23 now, continue IVF at 100 cc/h, continue lab monitor and avoid nephrotoxic agents (5) Generalized weakness Impression: 08/11 continue PT/OT, pt need SNF for d/c disposition. Continue consult with social work for disposition planning 123, we will continue PT and OT evaluation and treatment, patient was assessed by PT and OT before, and recommended for SNF. Continue consult with social work for disposition planning PT/OT recommend to SNF, consult with social media project manager for Disposition planning (6) Hypertension 08/11 stable, continue home meds 08/06 improved. continue home meds and hydralazine PRN 08/05 improved. continue home BP meds, increased home Losartan dosage, continue vital monitor elevated BP, Resume home blood pressure medications Losartan, HCTZ, Amlodipine, Add hydralazine as needed, Continue vital signs monitor (7) Dementia Impression: Stable. OT had a evaluation for patient, pt has 7/30 score on [facility] Mental Status (8) Bradycardia Impression: Stable. per previous provider discussed as the following: "His heart rate has been consistently in the 50s. He has had 24 hours of telemetry and overnight he was noted to have multiple pauses, ranging from 3-6 seconds. He was in sinus rhythm. On chart review he has been seen in the past (approximately 2013) for this but it is unclear if he followed up and his does not remember. I d iscussed this with him today and asked if he would be interested in a pacemaker. He reported very clearly that no, he does not want a pacemaker as if his heart stops "it is my time, I've had a long life". I also spoke with his and she stated that he would not want interventions as this is stated in his will. He denied chest pain, palpitations, light-headedness or feeling dizzy." pt denies chest pain, shortness of breath, lightheaded. At this point, pt was already off tele monitor, and we will continue followup with pt's desire and wishes. (9) Acute diarrhea Impression: Resolved. No episodes of diarrhea since admission, only soft stool this morning. Sample was CDIFF negative and he was removed from enteric precautions. (10)hx of stroke pt has hx of stroke with left side slight weakness and slurred speech. pt does not present acute neurological deficits now. continue Plavix and Statin, plan d/c to SNF per PT/OT recommendation. (11)urinary retention 08/12 we tried to d/c [place] off but pt still has urinary retention, bladder scan show over 500 fluid in bladder, reinsert of [place], followup with out-pt urologist. 08/11 we may try once to d/c of [place] to see if pt can urinate by his own, continue Flomax, will discuss with nurse for the care. 08/06 pt had 1000cc urine on straight catheter, pt has difficult to urinary now, order US to r/o obstruction, add Flomax, order [place] catheter for pt. (3) Rhabdomyolysis Qualifiers: Rhabdomyolysis type: non-traumatic Qualified Code(s): M62.82 - Rhabdomyolysis - Current Meds Current Meds: Current Medications Generic Name Dose Route Start Last Admin Trade Name Freq PRN Reason Stop Dose Admin Acetaminophen 650 mg 08/05/21 17:45 08/07/21 16:06 Acetaminophen 325 Mg Tablet PO 650 mg Q4HR PRN Administration Pain or Fever > 38C (100.4F) Amlodipine Besylate 10 mg 08/04/21 16:00 08/12/21 08:01 Amlodipine 5 Mg Tablet PO 10 mg DAILY CARLOS Administration Atorvastatin Calcium 40 mg 08/04/21 21:00 08/11/21 20:00 Atorvastatin 40 Mg Tablet PO 40 mg QPM CARLOS Administration Cholecalciferol 50 mcg 08/10/21 12:00 08/12/21 08:01 Cholecalciferol 25 Mcg Tablet PO 50 mcg DAILY CARLOS Administration Clopidogrel Bisulfate 75 mg 08/05/21 09:00 08/12/21 08:01 Clopidogrel 75 Mg Tablet PO 75 mg DAILY CARLOS Administration Docusate Sodium 250 - 500 mg 08/11/21 11:00 08/12/21 08:01 Docusate Sodium 250 Mg Capsule PO 250 mg DAILY CARLOS Administration Enoxaparin Sodium 40 mg 08/07/21 09:00 08/12/21 08:00 Enoxaparin 40 Mg/0.4 Ml Syringe SUBQ 40 mg DAILY CARLOS Administration Hydrochlorothiazide 25 mg 08/05/21 09:00 08/12/21 08:01 Hydrochlorothiazide 25 Mg Tablet PO 25 mg DAILY CARLOS Administration Sodium Chloride 1,000 mls @ 100 mls/hr 08/12/21 08:00 08/12/21 08:02 Normal Saline 0.9% IV 08/13/21 03:59 100 mls/hr .Q10H CARLOS Administration Loratadine 10 mg 08/05/21 09:00 08/12/21 08:01 Loratadine 10 Mg Tablet PO 10 mg DAILY CARLOS Administration Losartan Potassium 100 mg 08/05/21 09:00 08/12/21 08:00 Losartan 50 Mg Tablet PO 100 mg DAILY CARLOS Administration Mineral Oil 1 applic 08/02/21 22:23 08/07/21 05:08 Min Oil/Dimethicon/Coconut Oil 92 Gm Tube TOP 1 applic PRN PRN Administration Skin Care Multi-Ingredient Ointment 1 applic 08/05/21 20:21 08/06/21 05:37 Zinc Oxide 20% Oint 30 Gm Tube TOP 1 applic PRN PRN Administration Skin Care Multivitamins/Minerals 1 tab 08/03/21 16:00 08/12/21 08:01 Multivitamin W/Minerals Tablet PO 1 tab DAILYWM CARLOS Administration Polyethylene Glycol 17 gm 08/06/21 09:00 08/12/21 08:00 Polyethylene Glycol 3350 17 Gm Packet PO 17 gm DAILY CARLOS Administration Saccharomyces Boulardii 250 mg 08/06/21 17:00 08/12/21 08:01 Saccharomyces Boulardii 250 Mg Capsule PO 250 mg BIDWM CARLOS Administration Senna 8.6 - 17.2 mg 08/11/21 11:00 08/12/21 08:01 Senna 8.6 Mg Tablet PO 8.6 mg DAILY CARLOS Administration Sodium Chloride 10 ml 08/02/21 15:46 08/08/21 22:38 Sodium Chloride Flush 0.9% 10 Ml Syringe IVP 10 ml PRN PRN Administration NEEDED PER PROVIDER ORDERS Sodium Chloride 10 ml 08/02/21 17:00 08/12/21 08:02 Sodium Chloride Flush 0.9% 10 Ml Syringe IVP 10 ml 0100,0900,1700 CARLOS Administration Tamsulosin HCl 0.4 mg 08/06/21 09:00 08/12/21 08:00 Tamsulosin 0.4 Mg Capsule PO 0.4 mg DAILY CARLOS Administration - Lab Result Fish Bone Diagrams: 08/12/21 05:19 08/12/21 05:19 - Additional Planning My Orders: My Active Orders 08/12/21 07:26 Bladder Scan [RC] ONCE 08/12/21 08:00 Sodium Chloride 0.9% [Normal Saline 0.9%] 1,000 ml IV 100 mls/hr 08/12/21 10:01 [place] Insertion [RC] QSHIFT 08/12/21 10:02 [place] Continuation and Care [RC] QSHIFT 08/13/21 05:00 BMP - BASIC METABOLIC PANEL [CHEM] DAILYLAB CBC - COMP BLD CT W/AUTO DIFF [HEME] DAILYLAB 08/14/21 05:00 BMP - BASIC METABOLIC PANEL [CHEM] DAILYLAB CBC - COMP BLD CT W/AUTO DIFF [HEME] DAILYLAB 08/15/21 05:00 BMP - BASIC METABOLIC PANEL [CHEM] DAILYLAB CBC - COMP BLD CT W/AUTO DIFF [HEME] DAILYLAB 08/16/21 05:00 BMP - BASIC METABOLIC PANEL [CHEM] DAILYLAB CBC - COMP BLD CT W/AUTO DIFF [HEME] DAILYLAB Subjective - Subjective Patient Reports: Resting Comfortably Objective Vital Signs: Vital Signs - 24 hr 08/11/21 08/11/21 08/11/21 15:43 21:00 23:32 Temperature 36.6 C 36.8 C 36.1 C L Heart Rate [ 66 62 61 Brachial] Respiratory 20 18 18 Rate Blood Pressure 120/60 137/58 H 124/64 [Right Brachial artery] O2 Saturation 100 96 97 08/12/21 08/12/21 08/12/21 05:30 07:27 11:10 Temperature 35.9 C L 36.3 C L 36.2 C L Heart Rate [ 64 62 61 Brachial] Respiratory 18 18 18 Rate Blood Pressure 143/63 H 135/71 H 122/56 L [Right Brachial artery] O2 Saturation 98 96 99 Oxygen O2 Source Room air I&O (Last 24 Hrs): Intake and Output Totals x24h 08/10/21 08/11/21 08/12/21 23:59 23:59 23:59 Intake Total 0 4840 1960 Output Total 5610 1875 1495 Balance -815 805 465 General: Alert, Cooperative, No acute distress HEENT: Atraumatic Neck: Supple Lymphatic: no adenopathy Neuro: Alert, Non Focal Cardiovascular: Regular rate, Normal S1, Normal S2 Respiratory: Chest non-tender, No respiratory distress Abdomen: Normal bowel sounds, Soft, No tenderness Extremities: Normal pulses - Results Results: Laboratory Results WBC 7.2 x10^3/uL (4.8-10.8) 08/12/21 05:19 RBC 4.21 10^6/uL (4.70-6.10) L 08/12/21 05:19 Hgb 12.3 g/dL (14.0-18.0) L 08/12/21 05:19 Hct 37.5 % (42.0-52.0) L 08/12/21 05:19 MCV 89.1 fL (80.0-94.0) 08/12/21 05:19 MCH 29.2 pg (27.0-31.0) 08/12/21 05:19 MCHC 32.8 g/dL (32.0-36.0) 08/12/21 05:19 RDW 13.0 % (12.0-15.0) 08/12/21 05:19 Plt Count 287 10^3/uL (130-450) 08/12/21 05:19 MPV 9.6 fL (7.4-11.4) 08/12/21 05:19 Neut # (Auto) 4.9 10^3/uL (1.5-6.6) 08/12/21 05:19 Lymph # (Auto) 1.0 10^3/uL (1.5-3.5) L 08/12/21 05:19 [place] # (Auto) 0.8 10^3/uL (0.0-1.0) 08/12/21 05:19 Eos # (Auto) 0.4 10^3/uL (0.0-0.7) 08/12/21 05:19 Baso # (Auto) 0.0 10^3/uL (0.0-0.1) 08/12/21 05:19 Absolute Nucleated RBC 0.00 x10^3/uL 08/12/21 05:19 Nucleated RBC % 0.0 /100WBC 08/12/21 05:19 Sodium 138 mmol/L (135-145) 08/12/21 05:19 Potassium 4.0 mmol/L (3.5-5.0) 08/12/21 05:19 Chloride 102 mmol/L (101-111) 08/12/21 05:19 Carbon Dioxide 27 mmol/L (21-32) 08/12/21 05:19 Anion Gap 9.0 (6-13) 08/12/21 05:19 BUN 20 mg/dL (6-20) 08/12/21 05:19 Creatinine 1.4 mg/dL (0.6-1.2) H 08/12/21 05:19 Estimated GFR (MDRD) 48 (>89) L 08/12/21 05:19 Glucose 94 mg/dL (70-100) 08/12/21 05:19 Lactic Acid 1.2 mmol/L (0.5-2.2) 08/02/21 12:05 Calcium 8.6 mg/dL (8.5-10.3) 08/12/21 05:19 Magnesium 2.1 mg/dL (1.7-2.8) 08/02/21 12:05 Total Bilirubin 1.2 mg/dL (0.2-1.0) H 08/02/21 12:05 AST 88 IU/L (10-42) H 08/02/21 12:05 ALT 32 IU/L (10-60) 08/02/21 12:05 Alkaline Phosphatase 70 IU/L (42-121) 08/02/21 12:05 Total Creatine Kinase 160 IU/L (22-269) 08/06/21 05:08 Troponin I High Sens 60.8 ng/L (2.3-19.7) H* 08/02/21 21:07 Total Protein 6.7 g/dL (6.7-8.2) 08/02/21 12:05 Albumin 4.0 g/dL (3.2-5.5) 08/02/21 12:05 Globulin 2.7 g/dL (2.1-4.2) 08/02/21 12:05 Albumin/Globulin Ratio 1.5 (1.0-2.2) 08/02/21 12:05 Lipase 19 U/L (22-51) L 08/02/21 12:05 Urine Color YELLOW 08/05/21 18:32 Urine Clarity CLEAR (CLEAR) 08/05/21 18:32 Urine pH 6.5 PH (5.0-7.5) 08/05/21 18:32 Ur Specific [place] 1.010 (1.002-1.030) 08/05/21 18:32 Urine Protein NEGATIVE mg/dL (NEGATIVE) 08/05/21 18:32 Urine Glucose (UA) NEGATIVE mg/dL (NEGATIVE) 08/05/21 18:32 Urine Ketones NEGATIVE mg/dL (NEGATIVE) 08/05/21 18:32 Urine Occult Blood NEGATIVE (NEGATIVE) 08/05/21 18:32 Urine Nitrite NEGATIVE (NEGATIVE) 08/05/21 18:32 Urine Bilirubin NEGATIVE (NEGATIVE) 08/05/21 18:32 Urine Urobilinogen 0.2 (NORMAL) E.U./dL (NORMAL) 08/05/21 18:32 Ur Leukocyte Esterase NEGATIVE (NEGATIVE) 08/05/21 18:32 Urine RBC 0-5 /HPF (0-5) 08/05/21 18:32 Urine WBC 0-3 /HPF (0-3) 08/05/21 18:32 Ur Squamous Epith Cells NONE SEEN (<= Few) 08/05/21 18:32 Urine Bacteria None Seen /HPF (None Seen) 08/05/21 18:32 Ur Microscopic Review INDICATED 08/02/21 11:37 Urine Culture Comments NOT INDICATED 08/05/21 18:32 Nasal Adenovirus (PCR) NOT DETECTED 08/02/21 15:38 Nasal B. parapertussis DNA (PCR) NOT DETECTED 08/02/21 15:38 Nasal Coronavir 229E PCR NOT DETECTED 08/02/21 15:38 Nasal Coronavir HKU1 PCR NOT DETECTED 08/02/21 15:38 Nasal Coronavir NL63 PCR NOT DETECTED 08/02/21 15:38 Nasal Coronavir OC43 PCR NOT DETECTED 08/02/21 15:38 Nasal Enterovir/Rhinovir PCR NOT DETECTED 08/02/21 15:38 Nasal Influenza B PCR NOT DETECTED 08/02/21 15:38 Nasal Influenza A PCR NOT DETECTED 08/02/21 15:38 Nasal Parainfluen 1 PCR NOT DETECTED 08/02/21 15:38 Nasal Parainfluen 2 PCR NOT DETECTED 08/02/21 15:38 Nasal Parainfluen 3 PCR NOT DETECTED 08/02/21 15:38 Nasal Parainfluen 4 PCR NOT DETECTED 08/02/21 15:38 Nasal RSV (PCR) NOT DETECTED 08/02/21 15:38 Nasal Screen MRSA (PCR) NEGATIVE (NEGATIVE) 08/02/21 18:42 Nasal B.pertussis DNA PCR NOT DETECTED 08/02/21 15:38 Nasal C.pneumoniae (PCR) NOT DETECTED 08/02/21 15:38 Edwin Human Metapneumo PCR NOT DETECTED 08/02/21 15:38 Nasal M.pneumoniae (PCR) NOT DETECTED 08/02/21 15:38 Nasal SARS-CoV-2 (PCR) NOT DETECTED 08/02/21 15:38 Stl C. diff Tox B Gene NEGATIVE (NEGATIVE) 08/03/21 08:29 Sepsis Event Note (H) - Evaluation Current Stage of Sepsis: Ruled out ABX Reporting Has patient been on IV antibiotics over the past 48 hours?: Yes Current Medications - Current Medications Current Medications: Active Medications Acetaminophen (Acetaminophen 325 Mg Tablet) 650 mg PO Q4HR PRN PRN Reason: Pain or Fever > 38C (100.4F) Last Admin: 08/07/21 16:06 Dose: 650 mg Documented by: Amlodipine Besylate (Amlodipine 5 Mg Tablet) 10 mg PO DAILY [facility] Last Admin: 08/12/21 08:01 Dose: 10 mg Documented by: Atorvastatin Calcium (Atorvastatin 40 Mg Tablet) 40 mg PO QPM [facility] Last Admin: 08/11/21 20:00 Dose: 40 mg Documented by: Cholecalciferol (Cholecalciferol 25 Mcg Tablet) 50 mcg PO DAILY [facility] Last Admin: 08/12/21 08:01 Dose: 50 mcg Documented by: Clopidogrel Bisulfate (Clopidogrel 75 Mg Tablet) 75 mg PO DAILY [facility] Last Admin: 08/12/21 08:01 Dose: 75 mg Documented by: Docusate Sodium (Docusate Sodium 250 Mg Capsule) 250 - 500 mg PO DAILY [facility] Last Admin: 08/12/21 08:01 Dose: 250 mg Documented by: Enoxaparin Sodium (Enoxaparin 40 Mg/0.4 Ml Syringe) 40 mg SUBQ DAILY [facility] Last Admin: 08/12/21 08:00 Dose: 40 mg Documented by: Hydralazine HCl (Hydralazine Inj 20 Mg/Ml Vial) 10 mg IVP QID PRN PRN Reason: Hypertensive Emergency Hydrochlorothiazide (Hydrochlorothiazide 25 Mg Tablet) 25 mg PO DAILY [facility] Last Admin: 08/12/21 08:01 Dose: 25 mg Documented by: Sodium Chloride (Normal Saline 0.9%) 1,000 mls @ 100 mls/hr IV .Q10H [facility] Stop: 08/13/21 03:59 Last Admin: 08/12/21 08:02 Dose: 100 mls/hr Documented by: Loratadine (Loratadine 10 Mg Tablet) 10 mg PO DAILY [facility] Last Admin: 08/12/21 08:01 Dose: 10 mg Documented by: Losartan Potassium (Losartan 50 Mg Tablet) 100 mg PO DAILY [facility] Last Admin: 08/12/21 08:00 Dose: 100 mg Documented by: Mineral Oil (Min Oil/Dimethicon/Coconut Oil 92 Gm Tube) 1 applic TOP PRN PRN PRN Reason: Skin Care Last Admin: 08/07/21 05:08 Dose: 1 applic Documented by: Multi-Ingredient Ointment (Zinc Oxide 20% Oint 30 Gm Tube) 1 applic TOP PRN PRN PRN Reason: Skin Care Last Admin: 08/06/21 05:37 Dose: 1 applic Documented by: Multivitamins/Minerals (Multivitamin W/Minerals Tablet) 1 tab PO DAILYWM [facility] Last Admin: 08/12/21 08:01 Dose: 1 tab Documented by: Polyethylene Glycol (Polyethylene Glycol 3350 17 Gm Packet) 17 gm PO DAILY [facility] Last Admin: 08/12/21 08:00 Dose: 17 gm Documented by: Saccharomyces Boulardii (Saccharomyces Boulardii 250 Mg Capsule) 250 mg PO BIDWM [facility] Last Admin: 08/12/21 08:01 Dose: 250 mg Documented by: Senna (Senna 8.6 Mg Tablet) 8.6 - 17.2 mg PO DAILY [facility] Last Admin: 08/12/21 08:01 Dose: 8.6 mg Documented by: Sodium Chloride (Sodium Chloride Flush 0.9% 10 Ml Syringe) 10 ml IVP PRN PRN PRN Reason: NEEDED PER PROVIDER ORDERS Last Admin: 08/08/21 22:38 Dose: 10 ml Documented by: Sodium Chloride (Sodium Chloride Flush 0.9% 10 Ml Syringe) 10 ml IVP 0100,0900,1700 [facility] Last Admin: 08/12/21 08:02 Dose: 10 ml Documented by: Tamsulosin HCl (Tamsulosin 0.4 Mg Capsule) 0.4 mg PO DAILY [facility] Last Admin: 08/12/21 08:00 Dose: 0.4 mg Documented by: Amlodipine Besylate [Norvasc] 10 mg PO DAILY 08/03/21 Atorvastatin Calcium 40 mg PO QPM 08/03/21 Chlorthalidone 25 mg PO DAILY 08/03/21 Clopidogrel [Plavix] 75 mg PO DAILY 08/03/21 Loratadine [Claritin] 10 mg PO DAILY 08/03/21 Losartan Potassium 25 mg PO DAILY 08/03/21
[2021-08-12] MEDS: MIN OIL/DIMETHICON/COCONUT OIL 92 GM TUBE TOP PRN (17:29)
[2021-08-12] MEDS: ATORVASTATIN 40 MG TABLET PO SCH (21:39)
[2021-08-13 06:10] LABS: BASOPHILS # (AUTO) 0.1 10^3/uL (0.0-0.1); BASOPHILS % (AUTO) 0.7 %; EOSINOPHILS # (AUTO) 0.4 10^3/uL (0.0-0.7); EOSINOPHILS % (AUTO) 5.5 %; HCT - HEMATOCRIT 36.1 % (42.0-52.0); HGB - HEMOGLOBIN 11.9 g/dL (14.0-18.0); LYMPHOCYTES # (AUTO) 1.1 10^3/uL (1.5-3.5); LYMPHOCYTES % (AUTO) 14.9 %; MEAN CORPUSCULAR HEMOGLOBIN 29.2 pg (27.0-31.0); MEAN CORPUSCULAR VOLUME 88.7 fL (80.0-94.0); MEAN PLATELET VOLUME 9.5 fL (7.4-11.4); MONOCYTES # (AUTO) 0.8 10^3/uL (0.0-1.0); MONOCYTES % (AUTO) 11.5 %; NEUTROPHILS # (AUTO) 4.7 10^3/uL (1.5-6.6); NEUTROPHILS % (AUTO) 66.5 %; PLT - PLATELET COUNT 298 10^3/uL (130-450); RED BLOOD COUNT 4.07 10^6/uL (4.70-6.10); RED CELL DISTRIBUTION WIDTH 12.9 % (12.0-15.0)
[2021-08-13 06:17] LABS: CALCIUM 8.4 mg/dL (8.5-10.3); CREATININE 1.3 mg/dL (0.6-1.2)
[2021-08-13] MEDS: ENOXAPARIN 40 MG/0.4 ML SYRINGE SUBQ SCH (08:36)
[2021-08-13] MEDS: LORATADINE 10 MG TABLET PO SCH (08:37)
[2021-08-13] MEDS: MULTIVITAMIN W/MINERALS TABLET PO SCH (08:37)
[2021-08-13] MEDS: DOCUSATE SODIUM 250 MG CAPSULE PO SCH (08:38)
[2021-08-13] MEDS: hydroCHLOROthiazide 25 MG TABLET PO SCH (08:38)
[2021-08-13] MEDS: SACCHAROMYCES BOULARDII 250 MG CAPSULE PO SCH ×2 (08:38→18:00)
[2021-08-13] MEDS: LOSARTAN 50 MG TABLET PO SCH (08:39)
[2021-08-13] MEDS: TAMSULOSIN 0.4 MG CAPSULE PO SCH (08:39)
[2021-08-13] MEDS: CHOLECALCIFEROL 25 MCG TABLET PO SCH (08:39)
[2021-08-13] MEDS: amLODIPine 5 MG TABLET PO SCH (08:40)
[2021-08-13] MEDS: SENNA 8.6 MG TABLET PO SCH (08:41)
[2021-08-13] MEDS: CLOPIDOGREL 75 MG TABLET PO SCH (08:41)
[2021-08-13] MEDS: SODIUM CHLORIDE FLUSH 0.9% 10 ML SYRINGE IVP SCH ×3 (08:46→23:18)
[2021-08-13] MEDS: SODIUM CHLORIDE 0.9% 1,000 ML IV SCH ×2 (10:00→20:57)
[2021-08-13] MEDS: polyethylene glycoL 3350 17 GM PACKET PO SCH (11:38)
--- NOTE | 2021-08-13 17:19 | PROVIDER PROGRESS NOTE ---
Assessment/Plan - Problem List (1) Pneumonia Assessment/Plan: 08/13 stable, pt has stable respiratory status. antibiotics is discontinued now. consult with delinquency prevention social worker for disposition planing to SNF 08/12 stable, pt stable respiratory status. pt had 7 days antibiotics treatment for his pneumonia on today. we will d/c antibiotics on tomorrow. continue consult with delinquency prevention social worker for replacement. 08/11 stable, Patient has no fever, patient has stable respiratory status. Antibiotics is already switched to p.o. Augmentin, will finish 7 days. Continue probiotics, Encourage patient out of the bed, incentive spirometer to prevention for pneumonia. 08/07 stable respiratory status, no acute respiratory distress, blood culture is Negative for bacteremia. We will finish intravenous antibiotics on today, we may switch p.o. antibiotics on tomorrow. Continue probiotics 08/06 pt had low degree fever on yesterday afternoon, his O2 sat was reduced, CXR reveals bilateral lower lung airspace opacities more pronounced on the right, likely represent pneumonia. ordered blood culture, start with antibiotics Cefepime and probiotics, and continue gentle IVF (2)delirium Assessment/Plan: 08/13 resolved. pt's mental status as his baseline. 08/11 resolved, as pt's baseline. pt ate his breakfast by himself. 123, stable, As patient's baseline. 08/06 significant improved. pt's mental status is close to his baseline. It was likely cause by his acute infection and acute urinary retention. 08/05 pt seem more confused on today, but at the same time, he report" I always confused." pt still present slurred speech and slight weakness on his left side as his hx of [place] residence and remain. otherwise pt does not present other acute Focal neuro deficits. CT of head reveal no acute process. continue neuro check, continue home Plavix and Statin. (3) Rhabdomyolysis 08/06 CK is down to normal arrange, resolved 08/05 improved Ck is down to 480, continue gentle IVF, lab monitor Improving. pt is comfortable laying at the bed. he denies any pain. CK is down to 760, continue IVF at 100 cc/h now. -Regular diet, encourage hydration, continue lab monitor (4) NAVEED (acute kidney injury) Impression: 08/13 improved, creatinine is 1.3, continue IVF at 83.3cc/h, lab monitor 08/12 creatinine is 1.4, will continue IVF for one day, continue lab monitor. 08/11 slight elevated creatinine and BUN, keep pt hydration and start with gentle IVF, and continue lab monitor. 123, Improved significantly, Creatinine is 1.2, from yesterday 1.5. BUN at the normal range, continue IVF at 75cc/h now, pt has hx of dementia, he is risk of dehydration and poor oral intake. 08/06 creatinine is increased to 1.5 although pt continue to have IVF. Order US to r/o obstruction, hydronephrosis to affect kidney, continue gently IVF, avoid nephrotoxic agent, and lab monitor. 08/05 creatinine 1.3, continue IVF, and lab monitor significantly Improving. creatinine is 1.2, BUN 23 now, continue IVF at 100 cc/h, continue lab monitor and avoid nephrotoxic agents (5) Generalized weakness Impression: 08/11 continue PT/OT, pt need SNF for d/c disposition. Continue consult with soci al work for disposition planning 123, we will continue PT and OT evaluation and treatment, patient was assessed by PT and OT before, and recommended for SNF. Continue consult with social work for disposition planning PT/OT recommend to SNF, consult with delinquency prevention social worker for Disposition planning (6) Hypertension 08/11 stable, continue home meds 08/06 improved. continue home meds and hydralazine PRN 08/05 improved. continue home BP meds, increased home Losartan dosage, continue vital monitor elevated BP, Resume home blood pressure medications Losartan, HCTZ, Amlodipine, Add hydralazine as needed, Continue vital signs monitor (7) Dementia Impression: Stable. OT had a evaluation for patient, pt has 7/30 score on [facility] Mental Status (8) Bradycardia Impression: Stable. per previous provider discussed as the following: "His heart rate has been consistently in the 50s. He has had 24 hours of telemetry and overnight he was noted to have multiple pauses, ranging from 3-6 seconds. He was in sinus rhythm. On chart review he has been seen in the past (approximately 2013) for this but it is unclear if he followed up and his does not remember. I discussed this with him today and asked if he would be interested in a pacemaker. He reported very clearly that no, he does not want a pacemaker as if his heart stops "it is my time, I've had a long life". I also spoke with his and she stated that he would not want interventions as this is stated in his will. He denied chest pain, palpitations, light-headedness or feeling dizzy." pt denies chest pain, shortness of breath, lightheaded. At this point, pt was already off tele monitor, and we will continue followup with pt's desire and wishes. (9) Acute diarrhea Impression: Resolved. No episodes of diarrhea since admission, only soft stool this morning. Sample was CDIFF negative and he was removed from enteric precautions. (10)hx of stroke pt has hx of stroke with left side slight weakness and slurred speech. pt does not present acute neurological deficits now. continue Plavix and Statin, plan d/c to SNF per PT/OT recommendation. (11)urinary retention 08/13 continue [place] care, followup with out-pt urologist. 08/12 we tried to d/c [place] off but pt still has urinary retention, bladder scan show over 500 fluid in bladder, reinsert of [place], followup with out-pt urologist. 08/11 we may try once to d/c of [place] to see if pt can urinate by his own, continue Flomax, will discuss with nurse for the care. 08/06 pt had 1000cc urine on straight catheter, pt has difficult to urinary now, order US to r/o obstruction, add Flomax, order [place] catheter for pt. (3) Rhabdomyolysis Qualifiers: Rhabdomyolysis type: non-traumatic Qualified Code(s): M62.82 - Rhabdomyolysis - Current Meds Current Meds: Current Medications Generic Name Dose Route Start Last Admin Trade Name Vilma PRN Reason Stop Dose Admin Acetaminophen 650 mg 08/05/21 17:45 08/07/21 16:06 Acetaminophen 325 Mg Tablet PO 650 mg Q4HR PRN Administration Pain or Fever > 38C (100.4F) Amlodipine Besylate 10 mg 08/04/21 16:00 08/13/21 08:40 Amlodipine 5 Mg Tablet PO 10 mg DAILY CARLOS Administration Atorvastatin Calcium 40 mg 08/04/21 21:00 08/12/21 21:39 Atorvastatin 40 Mg Tablet PO 40 mg QPM CARLOS Administration Cholecalciferol 50 mcg 08/10/21 12:00 08/13/21 08:39 Cholecalciferol 25 Mcg Tablet PO 50 mcg DAILY CARLOS Administration Clopidogrel Bisulfate 75 mg 08/05/21 09:00 08/13/21 08:41 Clopidogrel 75 Mg Tablet PO 75 mg DAILY CARLOS Administration Docusate Sodium 250 - 500 mg 08/11/21 11:00 08/13/21 08:38 Docusate Sodium 250 Mg Capsule PO 250 mg DAILY CARLOS Administration Enoxaparin Sodium 40 mg 08/07/21 09:00 08/13/21 08:36 Enoxaparin 40 Mg/0.4 Ml Syringe SUBQ 40 mg DAILY CARLOS Administration Hydrochlorothiazide 25 mg 08/05/21 09:00 08/13/21 08:38 Hydrochlorothiazide 25 Mg Tablet PO 25 mg DAILY CARLOS Administration Sodium Chloride 1,000 mls @ 83.333 mls/hr 08/13/21 08:00 08/13/21 10:00 Normal Saline 0.9% IV 08/14/21 07:59 83.333 mls/hr .Q12H CARLOS Administration Loratadine 10 mg 08/05/21 09:00 08/13/21 08:37 Loratadine 10 Mg Tablet PO 10 mg DAILY CARLOS Administration Losartan Potassium 100 mg 08/05/21 09:00 08/13/21 08:39 Losartan 50 Mg Tablet PO 100 mg DAILY CARLOS Administration Mineral Oil 1 applic 08/02/21 22:23 08/12/21 17:29 Min Oil/Dimethicon/Coconut Oil 92 Gm Tube TOP 1 applic PRN PRN Administration Skin Care Multi-Ingredient Ointment 1 applic 08/05/21 20:21 08/06/21 05:37 Zinc Oxide 20% Oint 30 Gm Tube TOP 1 applic PRN PRN Administration Skin Care Multivitamins/Minerals 1 tab 08/03/21 16:00 08/13/21 08:37 Multivitamin W/Minerals Tablet PO 1 tab DAILYWM CARLOS Administration Polyethylene Glycol 17 gm 08/06/21 09:00 08/13/21 11:38 Polyethylene Glycol 3350 17 Gm Packet PO Not Given DAILY CARLOS Saccharomyces Boulardii 250 mg 08/06/21 17:00 08/13/21 08:38 Saccharomyces Boulardii 250 Mg Capsule PO 250 mg BIDWM CARLOS Administration Senna 8.6 - 17.2 mg 08/11/21 11:00 08/13/21 08:41 Senna 8.6 Mg Tablet PO 8.6 mg DAILY CARLOS Administration Sodium Chloride 10 ml 08/02/21 15:46 08/08/21 22:38 Sodium Chloride Flush 0.9% 10 Ml Syringe IVP 10 ml PRN PRN Administration NEEDED PER PROVIDER ORDERS Sodium Chloride 10 ml 08/02/21 17:00 08/13/21 08:46 Sodium Chloride Flush 0.9% 10 Ml Syringe IVP Not Given 0100,0900,1700 CARLOS Tamsulosin HCl 0.4 mg 08/06/21 09:00 08/13/21 08:39 Tamsulosin 0.4 Mg Capsule PO 0.4 mg DAILY CARLOS Administration - Lab Result Fish Bone Diagrams: 08/13/21 05:28 08/13/21 05:28 - Additional Planning My Orders: My Active Orders 08/13/21 08:00 Sodium Chloride 0.9% [Normal Saline 0.9%] 1,000 ml IV 83.333 mls/hr 08/14/21 05:00 BMP - BASIC METABOLIC PANEL [CHEM] DAILYLAB CBC - COMP BLD CT W/AUTO DIFF [HEME] DAILYLAB 08/15/21 05:00 BMP - BASIC METABOLIC PANEL [CHEM] DAILYLAB CBC - COMP BLD CT W/AUTO DIFF [HEME] DAILYLAB 08/16/21 05:00 BMP - BASIC METABOLIC PANEL [CHEM] DAILYLAB CBC - COMP BLD CT W/AUTO DIFF [HEME] DAILYLAB Subjective - Subjective Patient Reports: Resting Comfortably Objective Vital Signs: Vital Signs - 24 hr 08/12/21 08/12/21 08/13/21 20:41 23:31 06:06 Temperature 36.5 C 36.2 C L 36.7 C Heart Rate [ 61 57 L 58 L Brachial] Respiratory 20 16 18 Rate Blood Pressure [Left Brachial artery] Blood Pressure 131/53 H 115/55 L 150/45 H [Right Brachial artery] O2 Saturation 97 97 98 08/13/21 08/13/21 08/13/21 07:29 13:05 16:06 Temperature 36.1 C L 36.4 C L 36.3 C L Heart Rate [ 59 L 68 65 Brachial] Respiratory 16 18 20 Rate Blood Pressure 153/63 H 128/48 L 127/93 H [Left Brachial artery] Blood Pressure [Right Brachial artery] O2 Saturation 100 99 97 Oxygen O2 Source Room air I&O (Last 24 Hrs): Intake and Output Totals x24h 08/11/21 08/12/21 08/13/21 23:59 23:59 23:59 Intake Total 2680 3551.667 1476.670 Output Total 1875 2495 2100 Balance 805 1056.667 -623.330 General: Alert, Cooperative, No acute distress HEENT: Atraumatic Neck: Supple Lymphatic: no adenopathy Cardiovascular: Regular rate, Normal S1, Normal S2 Respiratory: Chest non-tender, No respiratory distress Abdomen: Normal bowel sounds, Soft Extremities: Normal pulses - Results Results: Laboratory Results WBC 7.0 x10^3/uL (4.8-10.8) 08/13/21 05:28 RBC 4.07 10^6/uL (4.70-6.10) L 08/13/21 05:28 Hgb 11.9 g/dL (14.0-18.0) L 08/13/21 05:28 Hct 36.1 % (42.0-52.0) L 08/13/21 05:28 MCV 88.7 fL (80.0-94.0) 08/13/21 05:28 MCH 29.2 pg (27.0-31.0) 08/13/21 05:28 MCHC 33.0 g/dL (32.0-36.0) 08/13/21 05:28 RDW 12.9 % (12.0-15.0) 08/13/21 05:28 Plt Count 298 10^3/uL (130-450) 08/13/21 05:28 MPV 9.5 fL (7.4-11.4) 08/13/21 05:28 Neut # (Auto) 4.7 10^3/uL (1.5-6.6) 08/13/21 05:28 Lymph # (Auto) 1.1 10^3/uL (1.5-3.5) L 08/13/21 05:28 [place] # (Auto) 0.8 10^3/uL (0.0-1.0) 08/13/21 05:28 Eos # (Auto) 0.4 10^3/uL (0.0-0.7) 08/13/21 05:28 Baso # (Auto) 0.1 10^3/uL (0.0-0.1) 08/13/21 05:28 Absolute Nucleated RBC 0.00 x10^3/uL 08/13/21 05:28 Nucleated RBC % 0.0 /100WBC 08/13/21 05:28 Sodium 136 mmol/L (135-145) 08/13/21 05:28 Potassium 4.0 mmol/L (3.5-5.0) 08/13/21 05:28 Chloride 101 mmol/L (101-111) 08/13/21 05:28 Carbon Dioxide 26 mmol/L (21-32) 08/13/21 05:28 Anion Gap 9.0 (6-13) 08/13/21 05:28 BUN 19 mg/dL (6-20) 08/13/21 05:28 Creatinine 1.3 mg/dL (0.6-1.2) H 08/13/21 05:28 Estimated GFR (MDRD) 52 (>89) L 08/13/21 05:28 Glucose 95 mg/dL (70-100) 08/13/21 05:28 Lactic Acid 1.2 mmol/L (0.5-2.2) 08/02/21 12:05 Calcium 8.4 mg/dL (8.5-10.3) L 08/13/21 05:28 Magnesium 2.1 mg/dL (1.7-2.8) 08/02/21 12:05 Total Bilirubin 1.2 mg/dL (0.2-1.0) H 08/02/21 12:05 AST 88 IU/L (10-42) H 08/02/21 12:05 ALT 32 IU/L (10-60) 08/02/21 12:05 Alkaline Phosphatase 70 IU/L (42-121) 08/02/21 12:05 Total Creatine Kinase 160 IU/L (22-269) 08/06/21 05:08 Troponin I High Sens 60.8 ng/L (2.3-19.7) H* 08/02/21 21:07 Total Protein 6.7 g/dL (6.7-8.2) 08/02/21 12:05 Albumin 4.0 g/dL (3.2-5.5) 08/02/21 12:05 Globulin 2.7 g/dL (2.1-4.2) 08/02/21 12:05 Albumin/Globulin Ratio 1.5 (1.0-2.2) 08/02/21 12:05 Lipase 19 U/L (22-51) L 08/02/21 12:05 Urine Color YELLOW 08/05/21 18:32 Urine Clarity CLEAR (CLEAR) 08/05/21 18:32 Urine pH 6.5 PH (5.0-7.5) 08/05/21 18:32 Ur Specific [place] 1.010 (1.002-1.030) 08/05/21 18:32 Urine Protein NEGATIVE mg/dL (NEGATIVE) 08/05/21 18:32 Urine Glucose (UA) NEGATIVE mg/dL (NEGATIVE) 08/05/21 18:32 Urine Ketones NEGATIVE mg/dL (NEGATIVE) 08/05/21 18:32 Urine Occult Blood NEGATIVE (NEGATIVE) 08/05/21 18:32 Urine Nitrite NEGATIVE (NEGATIVE) 08/05/21 18:32 Urine Bilirubin NEGATIVE (NEGATIVE) 08/05/21 18:32 Urine Urobilinogen 0.2 (NORMAL) E.U./dL (NORMAL) 08/05/21 18:32 Ur Leukocyte Esterase NEGATIVE (NEGATIVE) 08/05/21 18:32 Urine RBC 0-5 /HPF (0-5) 08/05/21 18:32 Urine WBC 0-3 /HPF (0-3) 08/05/21 18:32 Ur Squamous Epith Cells NONE SEEN (<= Few) 08/05/21 18:32 Urine Bacteria None Seen /HPF (None Seen) 08/05/21 18:32 Ur Microscopic Review INDICATED 08/02/21 11:37 Urine Culture Comments NOT INDICATED 08/05/21 18:32 Nasal Adenovirus (PCR) NOT DETECTED 08/02/21 15:38 Nasal B. parapertussis DNA (PCR) NOT DETECTED 08/02/21 15:38 Nasal Coronavir 229E PCR NOT DETECTED 08/02/21 15:38 Nasal Coronavir HKU1 PCR NOT DETECTED 08/02/21 15:38 Nasal Coronavir NL63 PCR NOT DETECTED 08/02/21 15:38 Nasal Coronavir OC43 PCR NOT DETECTED 08/02/21 15:38 Nasal Enterovir/Rhinovir PCR NOT DETECTED 08/02/21 15:38 Nasal Influenza B PCR NOT DETECTED 08/02/21 15:38 Nasal Influenza A PCR NOT DETECTED 08/02/21 15:38 Nasal Parainfluen 1 PCR NOT DETECTED 08/02/21 15:38 Nasal Parainfluen 2 PCR NOT DETECTED 08/02/21 15:38 Nasal Parainfluen 3 PCR NOT DETECTED 08/02/21 15:38 Nasal Parainfluen 4 PCR NOT DETECTED 08/02/21 15:38 Nasal RSV (PCR) NOT DETECTED 08/02/21 15:38 Nasal Screen MRSA (PCR) NEGATIVE (NEGATIVE) 08/02/21 18:42 Nasal B.pertussis DNA PCR NOT DETECTED 08/02/21 15:38 Nasal C.pneumoniae (PCR) NOT DETECTED 08/02/21 15:38 Edwin Human Metapneumo PCR NOT DETECTED 08/02/21 15:38 Nasal M.pneumoniae (PCR) NOT DETECTED 08/02/21 15:38 Nasal SARS-CoV-2 (PCR) NOT DETECTED 08/02/21 15:38 Stl C. diff Tox B Gene NEGATIVE (NEGATIVE) 08/03/21 08:29 Sepsis Event Note (H) - Evaluation Current Stage of Sepsis: Ruled out ABX Reporting Has patient been on IV antibiotics over the past 48 hours?: No Current Medications - Current Medications Current Medications: Active Medications Acetaminophen (Acetaminophen 325 Mg Tablet) 650 mg PO Q4HR PRN PRN Reason: Pain or Fever > 38C (100.4F) Last Admin: 08/07/21 16:06 Dose: 650 mg Documented by: Amlodipine Besylate (Amlodipine 5 Mg Tablet) 10 mg PO DAILY [facility] Last Admin: 08/13/21 08:40 Dose: 10 mg Documented by: Atorvastatin Calcium (Atorvastatin 40 Mg Tablet) 40 mg PO QPM [facility] Last Admin: 08/12/21 21:39 Dose: 40 mg Documented by: Cholecalciferol (Cholecalciferol 25 Mcg Tablet) 50 mcg PO DAILY [facility] Last Admin: 08/13/21 08:39 Dose: 50 mcg Documented by: Clopidogrel Bisulfate (Clopidogrel 75 Mg Tablet) 75 mg PO DAILY [facility] Last Admin: 08/13/21 08:41 Dose: 75 mg Documented by: Docusate Sodium (Docusate Sodium 250 Mg Capsule) 250 - 500 mg PO DAILY [facility] Last Admin: 08/13/21 08:38 Dose: 250 mg Documented by: Enoxaparin Sodium (Enoxaparin 40 Mg/0.4 Ml Syringe) 40 mg SUBQ DAILY [facility] Last Admin: 08/13/21 08:36 Dose: 40 mg Documented by: Hydralazine HCl (Hydralazine Inj 20 Mg/Ml Vial) 10 mg IVP QID PRN PRN Reason: Hypertensive Emergency Hydrochlorothiazide (Hydrochlorothiazide 25 Mg Tablet) 25 mg PO DAILY [facility] Last Admin: 08/13/21 08:38 Dose: 25 mg Documented by: Sodium Chloride (Normal Saline 0.9%) 1,000 mls @ 83.333 mls/hr IV .Q12H [facility] Stop: 08/14/21 07:59 Last Admin: 08/13/21 10:00 Dose: 83.333 mls/hr Documented by: Loratadine (Loratadine 10 Mg Tablet) 10 mg PO DAILY [facility] Last Admin: 08/13/21 08:37 Dose: 10 mg Documented by: Losartan Potassium (Losartan 50 Mg Tablet) 100 mg PO DAILY [facility] Last Admin: 08/13/21 08:39 Dose: 100 mg Documented by: Mineral Oil (Min Oil/Dimethicon/Coconut Oil 92 Gm Tube) 1 applic TOP PRN PRN PRN Reason: Skin Care Last Admin: 08/12/21 17:29 Dose: 1 applic Documented by: Multi-Ingredient Ointment (Zinc Oxide 20% Oint 30 Gm Tube) 1 applic TOP PRN PRN PRN Reason: Skin Care Last Admin: 08/06/21 05:37 Dose: 1 applic Documented by: Multivitamins/Minerals (Multivitamin W/Minerals Tablet) 1 tab PO DAILYWM [facility] Last Admin: 08/13/21 08:37 Dose: 1 tab Documented by: Polyethylene Glycol (Polyethylene Glycol 3350 17 Gm Packet) 17 gm PO DAILY [facility] Last Admin: 08/13/21 11:38 Dose: Not Given Documented by: Saccharomyces Boulardii (Saccharomyces Boulardii 250 Mg Capsule) 250 mg PO BIDWM [facility] Last Admin: 08/13/21 08:38 Dose: 250 mg Documented by: Senna (Senna 8.6 Mg Tablet) 8.6 - 17.2 mg PO DAILY [facility] Last Admin: 08/13/21 08:41 Dose: 8.6 mg Documented by: Sodium Chloride (Sodium Chloride Flush 0.9% 10 Ml Syringe) 10 ml IVP PRN PRN PRN Reason: NEEDED PER PROVIDER ORDERS Last Admin: 08/08/21 22:38 Dose: 10 ml Documented by: Sodium Chloride (Sodium Chloride Flush 0.9% 10 Ml Syringe) 10 ml IVP 0100,0900,1700 [facility] Last Admin: 08/13/21 08:46 Dose: Not Given Documented by: Tamsulosin HCl (Tamsulosin 0.4 Mg Capsule) 0.4 mg PO DAILY [facility] Last Admin: 08/13/21 08:39 Dose: 0.4 mg Documented by: Amlodipine Besylate [Norvasc] 10 mg PO DAILY 08/03/21 Atorvastatin Calcium 40 mg PO QPM 08/03/21 Chlorthalidone 25 mg PO DAILY 08/03/21 Clopidogrel [Plavix] 75 mg PO DAILY 08/03/21 Loratadine [Claritin] 10 mg PO DAILY 08/03/21 Losartan Potassium 25 mg PO DAILY 08/03/21
[2021-08-13] MEDS: ATORVASTATIN 40 MG TABLET PO SCH (20:55)
[2021-08-14 06:13] LABS: BASOPHILS # (AUTO) 0.1 10^3/uL (0.0-0.1); BASOPHILS % (AUTO) 0.7 %; EOSINOPHILS # (AUTO) 0.4 10^3/uL (0.0-0.7); EOSINOPHILS % (AUTO) 5.3 %; HCT - HEMATOCRIT 34.8 % (42.0-52.0); HGB - HEMOGLOBIN 11.6 g/dL (14.0-18.0); LYMPHOCYTES % (AUTO) 15.2 %; MEAN CORPUSCULAR HEMOGLOBIN 29.2 pg (27.0-31.0); MEAN CORPUSCULAR HGB CONC 33.3 g/dL (32.0-36.0); MEAN CORPUSCULAR VOLUME 87.7 fL (80.0-94.0); MEAN PLATELET VOLUME 9.6 fL (7.4-11.4); MONOCYTES # (AUTO) 0.8 10^3/uL (0.0-1.0); MONOCYTES % (AUTO) 10.9 %; NEUTROPHILS # (AUTO) 4.6 10^3/uL (1.5-6.6); NEUTROPHILS % (AUTO) 67.3 %; PLT - PLATELET COUNT 294 10^3/uL (130-450); RED BLOOD COUNT 3.97 10^6/uL (4.70-6.10); RED CELL DISTRIBUTION WIDTH 12.8 % (12.0-15.0); WHITE BLOOD COUNT 6.9 x10^3/uL (4.8-10.8)
[2021-08-14 06:23] LABS: CALCIUM 8.5 mg/dL (8.5-10.3); CREATININE 1.4 mg/dL (0.6-1.2)
[2021-08-14] MEDS: ENOXAPARIN 40 MG/0.4 ML SYRINGE SUBQ SCH (08:38)
[2021-08-14] MEDS: DOCUSATE SODIUM 250 MG CAPSULE PO SCH (08:40)
[2021-08-14] MEDS: MULTIVITAMIN W/MINERALS TABLET PO SCH (08:40)
[2021-08-14] MEDS: LORATADINE 10 MG TABLET PO SCH (08:40)
[2021-08-14] MEDS: TAMSULOSIN 0.4 MG CAPSULE PO SCH (08:41)
[2021-08-14] MEDS: CHOLECALCIFEROL 25 MCG TABLET PO SCH (08:41)
[2021-08-14] MEDS: CLOPIDOGREL 75 MG TABLET PO SCH (08:42)
[2021-08-14] MEDS: hydroCHLOROthiazide 25 MG TABLET PO SCH (08:43)
[2021-08-14] MEDS: amLODIPine 5 MG TABLET PO SCH (08:43)
[2021-08-14] MEDS: SACCHAROMYCES BOULARDII 250 MG CAPSULE PO SCH ×2 (08:43→16:48)
[2021-08-14] MEDS: LOSARTAN 50 MG TABLET PO SCH (08:44)
[2021-08-14] MEDS: SENNA 8.6 MG TABLET PO SCH (08:44)
[2021-08-14] MEDS: SODIUM CHLORIDE FLUSH 0.9% 10 ML SYRINGE IVP SCH ×3 (08:45→23:55)
[2021-08-14] MEDS: polyethylene glycoL 3350 17 GM PACKET PO SCH (08:45)
--- NOTE | 2021-08-14 08:48 | PROVIDER PROGRESS NOTE ---
Assessment/Plan - Problem List (1) Pneumonia Assessment/Plan: 08/14 stable and resolved. pt has stable respiratory status. antibiotics was discontinued. continue consult with social media senior associate for d/c plan and replacement. 08/13 stable, pt has stable respiratory status. antibiotics is discontinued now. consult with social media senior associate for disposition planing to SNF 08/12 stable, pt stable respiratory status. pt had 7 days antibiotics treatment for his pneumonia on today. we will d/c antibiotics on tomorrow. continue consult with social media senior associate for replacement. 08/11 stable, Patient has no fever, patient has stable respiratory status. Antibiotics is already switched to p.o. Augmentin, will finish 7 days. Continue probiotics, Encourage patient out of the bed, incentive spirometer to prevention for pneumonia. 08/07 stable respiratory status, no acute respiratory distress, blood culture is Negative for bacteremia. We will finish intravenous antibiotics on today, we may switch p.o. antibiotics on tomorrow. Continue probiotics 08/06 pt had low degree fever on yesterday afternoon, his O2 sat was reduced, CXR reveals bilateral lower lung airspace opacities more pronounced on the right, likely represent pneumonia. ordered blood culture, start with antibiotics Cefepime and probiotics, and continue gentle IVF (2)delirium Assessment/Plan: 08/13 resolved. pt's mental status as his baseline. 08/11 resolved, as pt's baseline. pt ate his breakfast by himself. 123, stable, As patient's baseline. 08/06 significant improved. pt's mental status is close to his baseline. It was likely cause by his acute infection and acute urinary retention. 08/05 pt seem more confused on today, but at the same time, he report" I always confused." pt still present slurred speech and slight weakness on his left side as his hx of [place] residence and remain. otherwise pt does not present other acute Focal neuro deficits. CT of head reveal no acute process. continue neuro check, continue home Plavix and Statin. (3) Rhabdomyolysis 08/06 CK is down to normal arrange, resolved 08/05 improved Ck is down to 480, continue gentle IVF, lab monitor Improving. pt is comfortable laying at the bed. he denies any pain. CK is down to 760, continue IVF at 100 cc/h now. -Regular diet, encourage hydration, continue lab monitor (4) NAVEED (acute kidney injury) Impression: 08/14 stable, creatinine 1.4, pt is likely not on enough oral fluid intake, discussed with nurse for enough fluid intake for pt. continue gentle IVF on today. 08/13 improved, creatinine is 1.3, continue IVF at 83.3cc/h, lab monitor 08/12 creatinine is 1.4, will continue IVF for one day, continue lab monitor. 08/11 slight elevated creatinine and BUN, keep pt hydration and start with gentle IVF, and continue lab monitor. 123, Improved significantly, Creatinine is 1.2, from yesterday 1.5. BUN at the normal range, continue IVF at 75cc/h now, pt has hx of dementia, he is risk of dehydration and poor oral intake. 08/06 creatinine is increased to 1.5 although pt continue to have IVF. Order US to r/o obstruction, hydronephrosis to affect kidney, continue gently IVF, avoid nephrotoxic agent, and lab monitor. 08/05 creatinine 1.3, continue IVF, and lab monitor significantly Improving. creatinine is 1.2, BUN 23 now, continue IVF at 100 cc/h, continue lab monitor and avoid nephrotoxic agents (5) Generalized weakness Impression: 08/14 improved, continue PT/OT evaluation and treatment. 08/11 continue PT/OT, pt need SNF for d/c disposition. Continue consult with social work for disposition planning 123, we will continue PT and OT evaluation and treatment, patient was assessed by PT and OT before, and recommended for SNF. Continue consult with social work for disposition planning PT/OT recommend to SNF, consult with social media senior associate for Disposition planning (6) Hypertension 08/11 stable, continue home meds 08/06 improved. continue home meds and hydralazine PRN 08/05 improved. continue home BP meds, increased home Losartan dosage, continue vital monitor elevated BP, Resume home blood pressure medications Losartan, HCTZ, Amlodipine, Add hydralazine as needed, Continue vital signs monitor (7) Dementia Impression: Stable. OT had a evaluation for patient, pt has 7/30 score on [facility] Mental Status (8) Bradycardia Impression: Stable. per previous provider discussed as the following: "His heart rate has been consistently in the 50s. He has had 24 hours of telemetry and overnight he was noted to have multiple pauses, ranging from 3-6 seconds. He was in sinus rhythm. On chart review he has been seen in the past (approximately 2013) for this but it is unclear if he followed up and his does not remember. I discussed this with him today and asked if he would be interested in a pacemaker. He reported very clearly that no, he does not want a pacemaker as if his heart stops "it is my time, I've had a long life". I also spoke with his and she stated that he would not want interventions as this is stated in his will. He denied chest pain, palpitations, light-headedness or feeling dizzy." pt denies chest pain, shortness of breath, lightheaded. At this point, pt was already off tele monitor, and we will continue followup with pt's desire and wishes. (9) Acute diarrhea Impression: Resolved. No episodes of diarrhea since admission, only soft stool this morning. Sample was CDIFF negative and he was removed from enteric precautions. (10)hx of stroke pt has hx of stroke with left side slight weakness and slurred speech. pt does not present acute neurological deficits now. continue Plavix and Statin, plan d/c to SNF per PT/OT recommendation. (11)urinary retention 08/13 continue [place] care, followup with out-pt urologist. 08/12 we tried to d/c [place] off but pt still has urinary retention, bladder scan show over 500 fluid in bladder, reinsert of [place], followup with out-pt urologist. 08/11 we may try once to d/c of [place] to see if pt can urinate by his own, continue Flomax, will discuss with nurse for the care. 08/06 pt had 1000cc urine on straight catheter, pt has difficult to urinary now, order US to r/o obstruction, add Flomax, order [place] catheter for pt. (3) Rhabdomyolysis Qualifiers: Rhabdomyolysis type: non-traumatic Qualified Code(s): M62.82 - Rhabdomyol ysis - Current Meds Current Meds: Current Medications Generic Name Dose Route Start Last Admin Trade Name Freq PRN Reason Stop Dose Admin Acetaminophen 650 mg 08/05/21 17:45 08/07/21 16:06 Acetaminophen 325 Mg Tablet PO 650 mg Q4HR PRN Administration Pain or Fever > 38C (100.4F) Amlodipine Besylate 10 mg 08/04/21 16:00 08/14/21 08:43 Amlodipine 5 Mg Tablet PO 10 mg DAILY CARLOS Administration Atorvastatin Calcium 40 mg 08/04/21 21:00 08/13/21 20:55 Atorvastatin 40 Mg Tablet PO 40 mg QPM CARLOS Administration Cholecalciferol 50 mcg 08/10/21 12:00 08/14/21 08:41 Cholecalciferol 25 Mcg Tablet PO 50 mcg DAILY CARLOS Administration Clopidogrel Bisulfate 75 mg 08/05/21 09:00 08/14/21 08:42 Clopidogrel 75 Mg Tablet PO 75 mg DAILY CARLOS Administration Docusate Sodium 250 - 500 mg 08/11/21 11:00 08/14/21 08:40 Docusate Sodium 250 Mg Capsule PO 250 mg DAILY CARLOS Administration Enoxaparin Sodium 40 mg 08/07/21 09:00 08/14/21 08:38 Enoxaparin 40 Mg/0.4 Ml Syringe SUBQ 40 mg DAILY CARLOS Administration Hydrochlorothiazide 25 mg 08/05/21 09:00 08/14/21 08:43 Hydrochlorothiazide 25 Mg Tablet PO 25 mg DAILY CARLOS Administration Loratadine 10 mg 08/05/21 09:00 08/14/21 08:40 Loratadine 10 Mg Tablet PO 10 mg DAILY CARLOS Administration Losartan Potassium 100 mg 08/05/21 09:00 08/14/21 08:44 Losartan 50 Mg Tablet PO 100 mg DAILY CARLOS Administration Mineral Oil 1 applic 08/02/21 22:23 08/12/21 17:29 Min Oil/Dimethicon/Coconut Oil 92 Gm Tube TOP 1 applic PRN PRN Administration Skin Care Multi-Ingredient Ointment 1 applic 08/05/21 20:21 08/06/21 05:37 Zinc Oxide 20% Oint 30 Gm Tube TOP 1 applic PRN PRN Administration Skin Care Multivitamins/Minerals 1 tab 08/03/21 16:00 08/14/21 08:40 Multivitamin W/Minerals Tablet PO 1 tab DAILYWM [facility] Administration Polyethylene Glycol 17 gm 08/06/21 09:00 08/13/21 11:38 Polyethylene Glycol 3350 17 Gm Packet PO Not Given DAILY [facility] Saccharomyces Boulardii 250 mg 08/06/21 17:00 08/14/21 08:43 Saccharomyces Boulardii 250 Mg Capsule PO 250 mg BIDWM [facility] Administration Senna 8.6 - 17.2 mg 08/11/21 11:00 08/14/21 08:44 Senna 8.6 Mg Tablet PO 8.6 mg DAILY CARLOS Administration Sodium Chloride 10 ml 08/02/21 15:46 08/08/21 22:38 Sodium Chloride Flush 0.9% 10 Ml Syringe IVP 10 ml PRN PRN Administration NEEDED PER PROVIDER ORDERS Sodium Chloride 10 ml 08/02/21 17:00 08/13/21 23:18 Sodium Chloride Flush 0.9% 10 Ml Syringe IVP Not Given 0100,0900,1700 CAR[facility] Tamsulosin HCl 0.4 mg 08/06/21 09:00 08/14/21 08:41 Tamsulosin 0.4 Mg Capsule PO 0.4 mg DAILY CARLOS Administration - Lab Result Fish Bone Diagrams: 08/14/21 05:35 08/14/21 05:35 - Additional Planning My Orders: My Active Orders 08/15/21 05:00 BMP - BASIC METABOLIC PANEL [CHEM] DAILYLAB CBC - COMP BLD CT W/AUTO DIFF [HEME] DAILYLAB 08/16/21 05:00 BMP - BASIC METABOLIC PANEL [CHEM] DAILYLAB CBC - COMP BLD CT W/AUTO DIFF [HEME] DAILYLAB Subjective - Subjective Patient Reports: Resting Comfortably Objective Vital Signs: Vital Signs - 24 hr 08/13/21 08/13/21 08/13/21 13:05 16:06 23:34 Temperature 36.4 C L 36.3 C L 36.9 C Heart Rate [ 68 65 54 L Brachial] Respiratory 18 20 18 Rate Blood Pressure 128/48 L 127/93 H [Left Brachial artery] Blood Pressure 126/53 L [Right Brachial artery] O2 Saturation 99 97 96 08/14/21 07:36 Temperature 36.3 C L Heart Rate [ 61 Brachial] Respiratory 18 Rate Blood Pressure [Left Brachial artery] Blood Pressure 137/55 H [Right Brachial artery] O2 Saturation 100 Oxygen O2 Source Room air I&O (Last 24 Hrs): Intake and Output Totals x24h 08/12/21 08/13/21 08/14/21 23:59 23:59 23:59 Intake Total 3551.667 3229.166 1839.441 Output Total 2495 3100 550 Balance 1056.667 997.692 4332.441 General: Alert, Cooperative, No acute distress HEENT: Atraumatic Neck: Supple Lymphatic: no adenopathy Neuro: Alert, Non Focal Cardiovascular: Regular rate, Normal S1, Normal S2 Respiratory: Chest non-tender, No respiratory distress Abdomen: Normal bowel sounds, Soft Extremities: Normal pulses - Results Results: Laboratory Results WBC 6.9 x10^3/uL (4.8-10.8) 08/14/21 05:35 RBC 3.97 10^6/uL (4.70-6.10) L 08/14/21 05:35 Hgb 11.6 g/dL (14.0-18.0) L 08/14/21 05:35 Hct 34.8 % (42.0-52.0) L 08/14/21 05:35 MCV 87.7 fL (80.0-94.0) 08/14/21 05:35 MCH 29.2 pg (27.0-31.0) 08/14/21 05:35 MCHC 33.3 g/dL (32.0-36.0) 08/14/21 05:35 RDW 12.8 % (12.0-15.0) 08/14/21 05:35 Plt Count 294 10^3/uL (130-450) 08/14/21 05:35 MPV 9.6 fL (7.4-11.4) 08/14/21 05:35 Neut # (Auto) 4.6 10^3/uL (1.5-6.6) 08/14/21 05:35 Lymph # (Auto) 1.0 10^3/uL (1.5-3.5) L 08/14/21 05:35 [place] # (Auto) 0.8 10^3/uL (0.0-1.0) 08/14/21 05:35 Eos # (Auto) 0.4 10^3/uL (0.0-0.7) 08/14/21 05:35 Baso # (Auto) 0.1 10^3/uL (0.0-0.1) 08/14/21 05:35 Absolute Nucleated RBC 0.00 x10^3/uL 08/14/21 05:35 Nucleated RBC % 0.0 /100WBC 08/14/21 05:35 Sodium 136 mmol/L (135-145) 08/14/21 05:35 Potassium 4.0 mmol/L (3.5-5.0) 08/14/21 05:35 Chloride 101 mmol/L (101-111) 08/14/21 05:35 Carbon Dioxide 24 mmol/L (21-32) 08/14/21 05:35 Anion Gap 11.0 (6-13) 08/14/21 05:35 BUN 22 mg/dL (6-20) H 08/14/21 05:35 Creatinine 1.4 mg/dL (0.6-1.2) H 08/14/21 05:35 Estimated GFR (MDRD) 48 (>89) L 08/14/21 05:35 Glucose 90 mg/dL (70-100) 08/14/21 05:35 Lactic Acid 1.2 mmol/L (0.5-2.2) 08/02/21 12:05 Calcium 8.5 mg/dL (8.5-10.3) 08/14/21 05:35 Magnesium 2.1 mg/dL (1.7-2.8) 08/02/21 12:05 Total Bilirubin 1.2 mg/dL (0.2-1.0) H 08/02/21 12:05 AST 88 IU/L (10-42) H 08/02/21 12:05 ALT 32 IU/L (10-60) 08/02/21 12:05 Alkaline Phosphatase 70 IU/L (42-121) 08/02/21 12:05 Total Creatine Kinase 160 IU/L (22-269) 08/06/21 05:08 Troponin I High Sens 60.8 ng/L (2.3-19.7) H* 08/02/21 21:07 Total Protein 6.7 g/dL (6.7-8.2) 08/02/21 12:05 Albumin 4.0 g/dL (3.2-5.5) 08/02/21 12:05 Globulin 2.7 g/dL (2.1-4.2) 08/02/21 12:05 Albumin/Globulin Ratio 1.5 (1.0-2.2) 08/02/21 12:05 Lipase 19 U/L (22-51) L 08/02/21 12:05 Urine Color YELLOW 08/05/21 18:32 Urine Clarity CLEAR (CLEAR) 08/05/21 18:32 Urine pH 6.5 PH (5.0-7.5) 08/05/21 18:32 Ur Specific [place] 1.010 (1.002-1.030) 08/05/21 18:32 Urine Protein NEGATIVE mg/dL (NEGATIVE) 08/05/21 18:32 Urine Glucose (UA) NEGATIVE mg/dL (NEGATIVE) 08/05/21 18:32 Urine Ketones NEGATIVE mg/dL (NEGATIVE) 08/05/21 18:32 Urine Occult Blood NEGATIVE (NEGATIVE) 08/05/21 18:32 Urine Nitrite NEGATIVE (NEGATIVE) 08/05/21 18:32 Urine Bilirubin NEGATIVE (NEGATIVE) 08/05/21 18:32 Urine Urobilinogen 0.2 (NORMAL) E.U./dL (NORMAL) 08/05/21 18:32 Ur Leukocyte Esterase NEGATIVE (NEGATIVE) 08/05/21 18:32 Urine RBC 0-5 /HPF (0-5) 08/05/21 18:32 Urine WBC 0-3 /HPF (0-3) 08/05/21 18:32 Ur Squamous Epith Cells NONE SEEN (<= Few) 08/05/21 18:32 Urine Bacteria None Seen /HPF (None Seen) 08/05/21 18:32 Ur Microscopic Review INDICATED 08/02/21 11:37 Urine Culture Comments NOT INDICATED 08/05/21 18:32 Nasal Adenovirus (PCR) NOT DETECTED 08/02/21 15:38 Nasal B. parapertussis DNA (PCR) NOT DETECTED 08/02/21 15:38 Nasal Coronavir 229E PCR NOT DETECTED 08/02/21 15:38 Nasal Coronavir HKU1 PCR NOT DETECTED 08/02/21 15:38 Nasal Coronavir NL63 PCR NOT DETECTED 08/02/21 15:38 Nasal Coronavir OC43 PCR NOT DETECTED 08/02/21 15:38 Nasal Enterovir/Rhinovir PCR NOT DETECTED 08/02/21 15:38 Nasal Influenza B PCR NOT DETECTED 08/02/21 15:38 Nasal Influenza A PCR NOT DETECTED 08/02/21 15:38 Nasal Parainfluen 1 PCR NOT DETECTED 08/02/21 15:38 Nasal Parainfluen 2 PCR NOT DETECTED 08/02/21 15:38 Nasal Parainfluen 3 PCR NOT DETECTED 08/02/21 15:38 Nasal Parainfluen 4 PCR NOT DETECTED 08/02/21 15:38 Nasal RSV (PCR) NOT DETECTED 08/02/21 15:38 Nasal Screen MRSA (PCR) NEGATIVE (NEGATIVE) 08/02/21 18:42 Nasal B.pertussis DNA PCR NOT DETECTED 08/02/21 15:38 Nasal C.pneumoniae (PCR) NOT DETECTED 08/02/21 15:38 Edwin Human Metapneumo PCR NOT DETECTED 08/02/21 15:38 Nasal M.pneumoniae (PCR) NOT DETECTED 08/02/21 15:38 Nasal SARS-CoV-2 (PCR) NOT DETECTED 08/02/21 15:38 Stl C. diff Tox B Gene NEGATIVE (NEGATIVE) 08/03/21 08:29 Sepsis Event Note (H) - Evaluation Current Stage of Sepsis: Ruled out ABX Reporting Has patient been on IV antibiotics over the past 48 hours?: No Current Medications - Current Medications Current Medications: Active Medications Acetaminophen (Acetaminophen 325 Mg Tablet) 650 mg PO Q4HR PRN PRN Reason: Pain or Fever > 38C (100.4F) Last Admin: 08/07/21 16:06 Dose: 650 mg Documented by: Amlodipine Besylate (Amlodipine 5 Mg Tablet) 10 mg PO DAILY [facility] Last Admin: 08/14/21 08:43 Dose: 10 mg Documented by: Atorvastatin Calcium (Atorvastatin 40 Mg Tablet) 40 mg PO QPM [facility] Last Admin: 08/13/21 20:55 Dose: 40 mg Documented by: Cholecalciferol (Cholecalciferol 25 Mcg Tablet) 50 mcg PO DAILY [facility] Last Admin: 08/14/21 08:41 Dose: 50 mcg Documented by: Clopidogrel Bisulfate (Clopidogrel 75 Mg Tablet) 75 mg PO DAILY [facility] Last Admin: 08/14/21 08:42 Dose: 75 mg Documented by: Docusate Sodium (Docusate Sodium 250 Mg Capsule) 250 - 500 mg PO DAILY [facility] Last Admin: 08/14/21 08:40 Dose: 250 mg Documented by: Enoxaparin Sodium (Enoxaparin 40 Mg/0.4 Ml Syringe) 40 mg SUBQ DAILY [facility] Last Admin: 08/14/21 08:38 Dose: 40 mg Documented by: Hydralazine HCl (Hydralazine Inj 20 Mg/Ml Vial) 10 mg IVP QID PRN PRN Reason: Hypertensive Emergency Hydrochlorothiazide (Hydrochlorothiazide 25 Mg Tablet) 25 mg PO DAILY [facility] Last Admin: 08/14/21 08:43 Dose: 25 mg Documented by: Loratadine (Loratadine 10 Mg Tablet) 10 mg PO DAILY [facility] Last Admin: 08/14/21 08:40 Dose: 10 mg Documented by: Losartan Potassium (Losartan 50 Mg Tablet) 100 mg PO DAILY [facility] Last Admin: 08/14/21 08:44 Dose: 100 mg Documented by: Mineral Oil (Min Oil/Dimethicon/Coconut Oil 92 Gm Tube) 1 applic TOP PRN PRN PRN Reason: Skin Care Last Admin: 08/12/21 17:29 Dose: 1 applic Documented by: Multi-Ingredient Ointment (Zinc Oxide 20% Oint 30 Gm Tube) 1 applic TOP PRN PRN PRN Reason: Skin Care Last Admin: 08/06/21 05:37 Dose: 1 applic Documented by: Multivitamins/Minerals (Multivitamin W/Minerals Tablet) 1 tab PO DAILYWM [facility] Last Admin: 08/14/21 08:40 Dose: 1 tab Documented by: Polyethylene Glycol (Polyethylene Glycol 3350 17 Gm Packet) 17 gm PO DAILY [facility] Last Admin: 08/14/21 08:45 Dose: Not Given Documented by: Saccharomyces Boulardii (Saccharomyces Boulardii 250 Mg Capsule) 250 mg PO BIDWM [facility] Last Admin: 08/14/21 08:43 Dose: 250 mg Documented by: Senna (Senna 8.6 Mg Tablet) 8.6 - 17.2 mg PO DAILY [facility] Last Admin: 08/14/21 08:44 Dose: 8.6 mg Documented by: Sodium Chloride (Sodium Chloride Flush 0.9% 10 Ml Syringe) 10 ml IVP PRN PRN PRN Reason: NEEDED PER PROVIDER ORDERS Last Admin: 08/08/21 22:38 Dose: 10 ml Documented by: Sodium Chloride (Sodium Chloride Flush 0.9% 10 Ml Syringe) 10 ml IVP 0100,0900,1700 [facility] Last Admin: 08/14/21 08:45 Dose: 10 ml Documented by: Tamsulosin HCl (Tamsulosin 0.4 Mg Capsule) 0.4 mg PO DAILY [facility] Last Admin: 08/14/21 08:41 Dose: 0.4 mg Documented by: Amlodipine Besylate [Norvasc] 10 mg PO DAILY 08/03/21 Atorvastatin Calcium 40 mg PO QPM 08/03/21 Chlorthalidone 25 mg PO DAILY 08/03/21 Clopidogrel [Plavix] 75 mg PO DAILY 08/03/21 Loratadine [Claritin] 10 mg PO DAILY 08/03/21 Losartan Potassium 25 mg PO DAILY 08/03/21
[2021-08-14] MEDS: ATORVASTATIN 40 MG TABLET PO SCH (23:55)
[2021-08-15 06:09] LABS: BASOPHILS # (AUTO) 0.1 10^3/uL (0.0-0.1); BASOPHILS % (AUTO) 0.7 %; EOSINOPHILS # (AUTO) 0.3 10^3/uL (0.0-0.7); EOSINOPHILS % (AUTO) 4.7 %; HCT - HEMATOCRIT 35.8 % (42.0-52.0); HGB - HEMOGLOBIN 11.9 g/dL (14.0-18.0); LYMPHOCYTES # (AUTO) 1.1 10^3/uL (1.5-3.5); LYMPHOCYTES % (AUTO) 15.8 %; MEAN CORPUSCULAR HGB CONC 33.2 g/dL (32.0-36.0); MEAN CORPUSCULAR VOLUME 87.1 fL (80.0-94.0); MEAN PLATELET VOLUME 9.2 fL (7.4-11.4); MONOCYTES # (AUTO) 0.7 10^3/uL (0.0-1.0); MONOCYTES % (AUTO) 9.3 %; NEUTROPHILS # (AUTO) 4.9 10^3/uL (1.5-6.6); NEUTROPHILS % (AUTO) 68.8 %; PLT - PLATELET COUNT 311 10^3/uL (130-450); RED BLOOD COUNT 4.11 10^6/uL (4.70-6.10); WHITE BLOOD COUNT 7.1 x10^3/uL (4.8-10.8)
[2021-08-15 06:17] LABS: CALCIUM 8.7 mg/dL (8.5-10.3); CREATININE 1.5 mg/dL (0.6-1.2); POTASSIUM 4.1 mmol/L (3.5-5.0)
[2021-08-15] MEDS: ENOXAPARIN 40 MG/0.4 ML SYRINGE SUBQ SCH (10:03)
[2021-08-15] MEDS: CLOPIDOGREL 75 MG TABLET PO SCH (10:07)
--- NOTE | 2021-08-15 10:42 | CT Report ---
PROCEDURE: Head W/O Stroke Protocol INDICATIONS: new left facial, slurred speech, lethargy TECHNIQUE: Noncontrast 4.5 mm thick angled axial sections acquired from the foramen magnum to the vertex, with c oronal reformats. For radiation dose reduction, the following was used: automated exposure control, adjustment of mA and/or kV according to patient size. COMPARISON: FINDINGS: Image quality: Excellent. CSF spaces: Basal cisterns are patent. No extra-axial fluid collections. Ventricles are normal in size and shape. Brain: No midline shift. No intracranial masses or hemorrhage. [place]-white matter interface is norm al. Skull and face: Calvarium and visualized facial bones are intact, without suspicious lesions. Sinuses: Visualized sinuses and mastoids are clear. IMPRESSION: No acute intracranial abnormality. This study fulfills neurological imaging criteria for inclusion or exclusion of acute stroke therapie s based on available published neurological imaging guidelines. Reviewed by: Radha Lowery MD on 08/15/2021 9:[address] [facility] Approved by: Radha Lowery MD on 08/15/2021 9:[address] [facility] Station ID: [id number]
[2021-08-15] MEDS: LOSARTAN 50 MG TABLET PO SCH (12:20)
[2021-08-15] MEDS: amLODIPine 5 MG TABLET PO SCH (12:21)
[2021-08-15] MEDS: hydroCHLOROthiazide 25 MG TABLET PO SCH (12:22)
[2021-08-15] MEDS: SODIUM CHLORIDE FLUSH 0.9% 10 ML SYRINGE IVP SCH ×2 (12:23→16:51)
--- NOTE | 2021-08-15 14:06 | PROVIDER PROGRESS NOTE ---
Subjective - Prog Note Date Prog Note Date: 08/15/21 Prog Note Time: 14:04 - Subjective Subjective: Nursing reports that he has had a complete change in status with regards to mentation. I am meeting this patient for the first time as I cover the [facility] list service. 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 These are chronic neurological deficits. He is on Plavix, statin. While he has a deficits, he is always been alert, cooperative. This morning he is lethargic. His speech is more slurred, arm is completely flaccid on the left, but left leg can still will jerk away and withdraw from noxious stimuli. I did a stat CT of the head and there is no acute stroke. He is still sleepy, not as verbal. He is described as alert and nonfocal on yesterday's note. Current Medications - Current Medications Current Medications: Active Medications Acetaminophen (Acetaminophen 325 Mg Tablet) 650 mg PO Q4HR PRN PRN Reason: Pain or Fever > 38C (100.4F) Last Admin: 08/07/21 16:06 Dose: 650 mg Documented by: Amlodipine Besylate (Amlodipine 5 Mg Tablet) 10 mg PO DAILY [facility] Last Admin: 08/15/21 12:21 Dose: 10 mg Documented by: Atorvastatin Calcium (Atorvastatin 40 Mg Tablet) 40 mg PO QPM [facility] Last Admin: 08/14/21 23:55 Dose: 40 mg Documented by: Cholecalciferol (Cholecalciferol 25 Mcg Tablet) 50 mcg PO DAILY [facility] Last Admin: 08/14/21 08:41 Dose: 50 mcg Documented by: Clopidogrel Bisulfate (Clopidogrel 75 Mg Tablet) 75 mg PO DAILY [facility] Last Admin: 08/15/21 10:07 Dose: 75 mg Documented by: Docusate Sodium (Docusate Sodium 250 Mg Capsule) 250 - 500 mg PO DAILY [facility] Last Admin: 08/14/21 08:40 Dose: 250 mg Documented by: Enoxaparin Sodium (Enoxaparin 40 Mg/0.4 Ml Syringe) 40 mg SUBQ DAILY [facility] Last Admin: 08/15/21 10:03 Dose: 40 mg Documented by: Hydralazine HCl (Hydralazine Inj 20 Mg/Ml Vial) 10 mg IVP QID PRN PRN Reason: Hypertensive Emergency Hydrochlorothiazide (Hydrochlorothiazide 25 Mg Tablet) 25 mg PO DAILY [facility] Last Admin: 08/15/21 12:22 Dose: 25 mg Documented by: Loratadine (Loratadine 10 Mg Tablet) 10 mg PO DAILY [facility] Last Admin: 08/14/21 08:40 Dose: 10 mg Documented by: Losartan Potassium (Losartan 50 Mg Tablet) 100 mg PO DAILY [facility] Last Admin: 08/15/21 12:20 Dose: 100 mg Documented by: Mineral Oil (Min Oil/Dimethicon/Coconut Oil 92 Gm Tube) 1 applic TOP PRN PRN PRN Reason: Skin Care Last Admin: 08/12/21 17:29 Dose: 1 applic Documented by: Multi-Ingredient Ointment (Zinc Oxide 20% Oint 30 Gm Tube) 1 applic TOP PRN PRN PRN Reason: Skin Care Last Admin: 08/06/21 05:37 Dose: 1 applic Documented by: Multivitamins/Minerals (Multivitamin W/Minerals Tablet) 1 tab PO DAILYWM [facility] Last Admin: 08/14/21 08:40 Dose: 1 tab Documented by: Polyethylene Glycol (Polyethylene Glycol 3350 17 Gm Packet) 17 gm PO DAILY [facility] Last Admin: 08/14/21 08:45 Dose: Not Given Documented by: Saccharomyces Boulardii (Saccharomyces Boulardii 250 Mg Capsule) 250 mg PO BIDWM [facility] Last Admin: 08/14/21 16:48 Dose: 250 mg Documented by: Senna (Senna 8.6 Mg Tablet) 8.6 - 17.2 mg PO DAILY [facility] Last Admin: 08/14/21 08:44 Dose: 8.6 mg Documented by: Sodium Chloride (Sodium Chloride Flush 0.9% 10 Ml Syringe) 10 ml IVP PRN PRN PRN Reason: NEEDED PER PROVIDER ORDERS Last Admin: 08/08/21 22:38 Dose: 10 ml Documented by: Sodium Chloride (Sodium Chloride Flush 0.9% 10 Ml Syringe) 10 ml IVP 0100,0900,1700 [facility] Last Admin: 08/15/21 12:23 Dose: 10 ml Documented by: Tamsulosin HCl (Tamsulosin 0.4 Mg Capsule) 0.4 mg PO DAILY [facility] Last Admin: 08/14/21 08:41 Dose: 0.4 mg Documented by: Amlodipine Besylate [Norvasc] 10 mg PO DAILY 08/03/21 Atorvastatin Calcium 40 mg PO QPM 08/03/21 Chlorthalidone 25 mg PO DAILY 08/03/21 Clopidogrel [Plavix] 75 mg PO DAILY 08/03/21 Loratadine [Claritin] 10 mg PO DAILY 08/03/21 Losartan Potassium 25 mg PO DAILY 08/03/21 Objective - Vital Signs/Intake & Output Reviewed Vital Signs: Yes Vital Signs: Vital Signs x48h Temp Pulse Resp BP Pulse Ox 08/15/21 07:37 36.6 C 102 H 16 143/75 H 96 Intake & Output: Intake & Output 08/12/21 08/13/21 08/14/21 08/15/21 23:59 23:59 23:59 23:59 Intake Total 3551.667 3229.166 3089.441 600 Output Total 2495 3100 1800 1000 Balance 1056.667 343.403 3787.441 -400 - Objective General Appearance: positive: No acute distress, Lethargic, Other (I have seen him 3 times this morning. Each time the patient has a left facial droop, slurred speech, is sleepy but does respond to my questioning) Eyes Bilateral: positive: Other (Right pupil is irregular but reactive. Right eye with lateral deviation. Sclera seems to be injected with slight amount of blood underneath the lower pole and his anterior chamber/cornea appears irregular). negative: PERRL, EOMI ENT: positive: No signs of dehydration Neck: positive: No JVD. negative: Stiff neck Respiratory: positive: No respiratory distress. negative: Wheezes, Rales, Rhonchi Cardiovascular: positive: Regular rate & rhythm, Systolic murmur. 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 I asked him if he is in pain and he says no. I asked him if he wants to eat and he says "not right now". I asked him if he is in pain, and he says not any more than usual". It is sometimes hard to understand him because of his dysarthria but I do understand him any). negative: Oriented x3 (He does know where he is, he does tell me that he thinks "was a sick" when I asked him why he was here but he cannot tell me what day it is, year or month), CN's nml (2-12) (Left facial droop, dysarthria and extraocular movement deviation), Motor nml (Left arm flaccid, left facial droop, left leg is not that weak) - Lab Results Fish Bones: 08/15/21 06:00 08/15/21 06:00 Other Labs: Lab Results x24hrs 08/15/21 08/15/21 Range/Units 06:00 06:00 WBC 7.1 (4.8-10.8) x10^3/uL RBC 4.11 L (4.70-6.10) 10^6/uL Hgb 11.9 L (14.0-18.0) g/dL Hct 35.8 L (42.0-52.0) % MCV 87.1 (80.0-94.0) fL MCH 29.0 (27.0-31.0) pg MCHC 33.2 (32.0-36.0) g/dL RDW 13.0 (12.0-15.0) % Plt Count 311 (130-450) 10^3/uL MPV 9.2 (7.4-11.4) fL Neut # (Auto) 4.9 (1.5-6.6) 10^3/uL Lymph # (Auto) 1.1 L (1.5-3.5) 10^3/uL [place] # (Auto) 0.7 (0.0-1.0) 10^3/uL Eos # (Auto) 0.3 (0.0-0.7) 10^3/uL Baso # (Auto) 0.1 (0.0-0.1) 10^3/uL Absolute Nucleated RBC 0.00 x10^3/uL Nucleated RBC % 0.0 /100WBC Sodium 138 (135-145) mmol/L Potassium 4.1 (3.5-5.0) mmol/L Chloride 101 (101-111) mmol/L Carbon Dioxide 26 (21-32) mmol/L Anion Gap 11.0 (6-13) BUN 20 (6-20) mg/dL Creatinine 1.5 H (0.6-1.2) mg/dL Estimated GFR (MDRD) 44 L (>89) Glucose 98 (70-100) mg/dL Calcium 8.7 (8.5-10.3) mg/dL Sepsis Event Note (H) - Evaluation Current Stage of Sepsis: Ruled out Assessment/Plan - Problem List (1) Slurring of speech Impression: with a hx of stroke pt has hx of stroke with left side slight weakness and slurred speech. pt does not present acute neurological deficits now. This is a chronic state for him. When he was admitted he did not have any acute neurological deficits. He was continued on Plavix and a statin. Because he barragan d worsening weakness due to deconditioning and illness, he required rehabilitation per recommendations of PT and OT and we are awaiting placement. Today is an acute change for him. I have repeated a CT of the head and there are no changes. Nevertheless he does have an acute change in neurological status with regards to left arm weakness, worse dysarthria, and lethargy. I am not seeing any signs of infection on objective lab or physical exam. Patient himself denies any new status. The only thing I can see in his old history is that of bradycardia with up to 6 seconds of pause. He has declined pacemaker. Plan: Not a candidate for TPA Check to make sure there are not other sources of lethargy since his previous infection but at this time there is no cough, fever, abdominal pain so I will continue to see periodically during the day to monitor. White cell count is 7.1 and has been stable since admission. He has not had any witnessed aspiration. Temporarily place him on telemetry. He could be having worse episodes of bradycardia. That would explain worsening chronic stroke findings without infection. But in the end there will be no change in management as he does not want a pacemaker (2) Pneumonia He presented as decreased p.o. intake starting prior to which was unusual for him. He then began having malodorous diarrhea and became weaker and weaker to the point he could not get out of bed. EMS had to be called twice to get him off the toilet. Chest x-ray on admission was without acute cardiopulmonary process. That was on August 02. He started having shortness of breath and cough and a repeat chest x-ray was done August 05. He had bilateral mid and lower lung zone airspace opacities more pronounced on right. Most likely developing airspace pneumonia. He was started on IV with cefepime and probiotics antibiotics and then switch to p.o. antibiotics. He completed 7 days of antibiotics on August 12. And antibiotics were stopped August 13. He has been stable since then. (3)delirium Assessment/Plan: He did have an episode of confusion and more slurred speech on August [address] that day also showed no acute process. By the next day it had all gone away. (4) Rhabdomyolysis resolved. Present on admission. His initial CK was 1123. With hydration it was down to 160 by August 06. (5) NAVEED (acute kidney injury) Impression: His usual baseline creatinine is 0.8-1.1. When he was admitted to the hospital he was 1.8. He went down as far as 1.2 on August 08 but has been gradually climbing back up since then. He is not on IV fluids but is on HydroDIURIL. He may be behind on his fluids and I will give him a liter over the next 24 hours. (6) Generalized weakness Impression: He was very weak and deconditioned when he was admitted. I think the diarrhea that he presented with as well as the subsequent pneumonia resulted in a poor functional status. He has been seeing physical therapy and Occupational Therapy. They have recommended physical therapy and Occupational Therapy and a SNF placement to get him stronger. (7) Hypertension On admission he had elevated blood pressures. His home medications were resumed and he has been stable. No change in home meds (8) Dementia Impression: Stable. OT had a evaluation for patient, pt has 7/30 score on U Mental Status (9) Bradycardia Impression: Stable. per previous provider discussed as the following: "His heart rate has been consistently in the 50s. He has had 24 hours of telemetry and overnight he was noted to have multiple pauses, ranging from 3-6 seconds. He was in sinus rhythm. On chart review he has been seen in the past (approximately 2013) for this but it is unclear if he followed up and his does not remember. I discussed this with him today and asked if he would be interested in a pacemaker. He reported very clearly that no, he does not want a pacemaker as if his heart stops "it is my time, I've had a long life". I also spoke with his and she stated that he would not want interventions as this is stated in his will. He denied chest pain, palpitations, light-headedness or feeling dizzy." pt denies chest pain, shortness of breath, lightheaded. At this point, pt was already off tele monitor, and we will continue followup with pt's desire and wishes. will resume tele today for only the day to see if this is the cause of his acute change. (10) Acute diarrhea Impression: Resolved. No episodes of diarrhea since admission, only soft stool this morning. Sample was CDIFF negative and he was removed from enteric precautions. (11)urinary retention Straight catheter was used to drain a urine output of 1000 cc. Ultrasound was done and there is no obstruction. We added Flomax and a Matthews catheter. We stopped the Matthews catheter on August 11 to see if he could urinate on his own and he could not so the catheter was resumed. He will follow up with outpatient care with a urology appointment.
[2021-08-15] MEDS: MULTIVITAMIN W/MINERALS TABLET PO SCH (14:31)
[2021-08-15] MEDS: polyethylene glycoL 3350 17 GM PACKET PO SCH (14:32)
[2021-08-15] MEDS: SACCHAROMYCES BOULARDII 250 MG CAPSULE PO SCH ×2 (14:32→17:41)
[2021-08-15] MEDS: CHOLECALCIFEROL 25 MCG TABLET PO SCH (14:32)
[2021-08-15] MEDS: DOCUSATE SODIUM 250 MG CAPSULE PO SCH (14:32)
[2021-08-15] MEDS: LORATADINE 10 MG TABLET PO SCH (14:32)
[2021-08-15] MEDS: SENNA 8.6 MG TABLET PO SCH (14:33)
[2021-08-15] MEDS: TAMSULOSIN 0.4 MG CAPSULE PO SCH (14:33)
[2021-08-15] MEDS: SODIUM CHLORIDE FLUSH 0.9% 10 ML SYRINGE IVP PRN (14:48)
[2021-08-15] MEDS ORDERED: SODIUM CHLORIDE 0.9% 1,000 ML IV SCH (15:00)
[2021-08-15] MEDS: ATORVASTATIN 40 MG TABLET PO SCH (21:20)
[2021-08-16] MEDS: SODIUM CHLORIDE FLUSH 0.9% 10 ML SYRINGE IVP SCH ×3 (05:51→19:41)
[2021-08-16] MEDS: ACETAMINOPHEN 325 MG TABLET PO PRN ×2 (05:51→19:41)
[2021-08-16 05:53] LABS: BASOPHILS # (AUTO) 0.1 10^3/uL (0.0-0.1); BASOPHILS % (AUTO) 0.5 %; EOSINOPHILS # (AUTO) 0.2 10^3/uL (0.0-0.7); EOSINOPHILS % (AUTO) 1.9 %; HCT - HEMATOCRIT 38.8 % (42.0-52.0); HGB - HEMOGLOBIN 12.9 g/dL (14.0-18.0); LYMPHOCYTES # (AUTO) 0.8 10^3/uL (1.5-3.5); LYMPHOCYTES % (AUTO) 7.4 %; MEAN CORPUSCULAR HEMOGLOBIN 28.8 pg (27.0-31.0); MEAN CORPUSCULAR HGB CONC 33.2 g/dL (32.0-36.0); MEAN CORPUSCULAR VOLUME 86.6 fL (80.0-94.0); MEAN PLATELET VOLUME 9.2 fL (7.4-11.4); MONOCYTES # (AUTO) 0.8 10^3/uL (0.0-1.0); MONOCYTES % (AUTO) 7.9 %; NEUTROPHILS # (AUTO) 8.7 10^3/uL (1.5-6.6); NEUTROPHILS % (AUTO) 81.8 %; PLT - PLATELET COUNT 379 10^3/uL (130-450); RED BLOOD COUNT 4.48 10^6/uL (4.70-6.10); RED CELL DISTRIBUTION WIDTH 12.8 % (12.0-15.0); WHITE BLOOD COUNT 10.6 x10^3/uL (4.8-10.8)
[2021-08-16 06:03] LABS: CREATININE 1.3 mg/dL (0.6-1.2); POTASSIUM 4.2 mmol/L (3.5-5.0)
--- NOTE | 2021-08-16 07:33 | PROVIDER PROGRESS NOTE ---
Subjective - Prog Note Date Prog Note Date: 08/16/21 Prog Note Time: 07:33 - Subjective Subjective: safety sitter reports no new events overnight. He is still more lethargic and this started on 08/15. I put him on tele to see if his sinus pauses or bradycardia could have contributed. And he is going down as low as 28 and is having pauses. But this gentleman has had this issue since 2013 and he declines a pacer then and with this admit. Current Medications - Current Medications Current Medications: Active Medications Acetaminophen (Acetaminophen 325 Mg Tablet) 650 mg PO Q4HR PRN PRN Reason: Pain or Fever > 38C (100.4F) Last Admin: 08/16/21 05:51 Dose: 650 mg Documented by: Amlodipine Besylate (Amlodipine 5 Mg Tablet) 10 mg PO DAILY [facility] Last Admin: 08/15/21 12:21 Dose: 10 mg Documented by: Atorvastatin Calcium (Atorvastatin 40 Mg Tablet) 40 mg PO QPM [facility] Last Admin: 08/15/21 21:20 Dose: 40 mg Documented by: Cholecalciferol (Cholecalciferol 25 Mcg Tablet) 50 mcg PO DAILY [facility] Last Admin: 08/15/21 14:32 Dose: Not Given Documented by: Clopidogrel Bisulfate (Clopidogrel 75 Mg Tablet) 75 mg PO DAILY [facility] Last Admin: 08/15/21 10:07 Dose: 75 mg Documented by: Docusate Sodium (Docusate Sodium 250 Mg Capsule) 250 - 500 mg PO DAILY [facility] Last Admin: 08/15/21 14:32 Dose: Not Given Documented by: Enoxaparin Sodium (Enoxaparin 40 Mg/0.4 Ml Syringe) 40 mg SUBQ DAILY [facility] Last Admin: 08/15/21 10:03 Dose: 40 mg Documented by: Hydralazine HCl (Hydralazine Inj 20 Mg/Ml Vial) 10 mg IVP QID PRN PRN Reason: Hypertensive Emergency Hydrochlorothiazide (Hydrochlorothiazide 25 Mg Tablet) 25 mg PO DAILY [facility] Last Admin: 08/15/21 12:22 Dose: 25 mg Documented by: Sodium Chloride (Normal Saline 0.9%) 1,000 mls @ 125 mls/hr IV .Q8H [facility] Stop: 08/16/21 15:59 Loratadine (Loratadine 10 Mg Tablet) 10 mg PO DAILY [facility] Last Admin: 08/15/21 14:32 Dose: Not Given Documented by: Losartan Potassium (Losartan 50 Mg Tablet) 100 mg PO DAILY [facility] Last Admin: 08/15/21 12:20 Dose: 100 mg Documented by: Mineral Oil (Min Oil/Dimethicon/Coconut Oil 92 Gm Tube) 1 applic TOP PRN PRN PRN Reason: Skin Care Last Admin: 08/12/21 17:29 Dose: 1 applic Documented by: Multi-Ingredient Ointment (Zinc Oxide 20% Oint 30 Gm Tube) 1 applic TOP PRN PRN PRN Reason: Skin Care Last Admin: 08/06/21 05:37 Dose: 1 applic Documented by: Multivitamins/Minerals (Multivitamin W/Minerals Tablet) 1 tab PO DAILYWM [facility] Last Admin: 08/15/21 14:31 Dose: Not Given Documented by: Polyethylene Glycol (Polyethylene Glycol 3350 17 Gm Packet) 17 gm PO DAILY [facility] Last Admin: 08/15/21 14:32 Dose: Not Given Documented by: Saccharomyces Boulardii (Saccharomyces Boulardii 250 Mg Capsule) 250 mg PO BIDWM [facility] Last Admin: 08/15/21 17:41 Dose: 250 mg Documented by: Senna (Senna 8.6 Mg Tablet) 8.6 - 17.2 mg PO DAILY [facility] Last Admin: 08/15/21 14:33 Dose: Not Given Documented by: Sodium Chloride (Sodium Chloride Flush 0.9% 10 Ml Syringe) 10 ml IVP PRN PRN PRN Reason: NEEDED PER PROVIDER ORDERS Last Admin: 08/15/21 14:48 Dose: 10 ml Documented by: Sodium Chloride (Sodium Chloride Flush 0.9% 10 Ml Syringe) 10 ml IVP 010 0,0900,1700 [facility] Last Admin: 08/16/21 05:51 Dose: 10 ml Documented by: Tamsulosin HCl (Tamsulosin 0.4 Mg Capsule) 0.4 mg PO DAILY [facility] Last Admin: 08/15/21 14:33 Dose: Not Given Documented by: Amlodipine Besylate [Norvasc] 10 mg PO DAILY 08/03/21 Atorvastatin Calcium 40 mg PO QPM 08/03/21 Chlorthalidone 25 mg PO DAILY 08/03/21 Clopidogrel [Plavix] 75 mg PO DAILY 08/03/21 Loratadine [Claritin] 10 mg PO DAILY 08/03/21 Losartan Potassium 25 mg PO DAILY 08/03/21 Objective - Vital Signs/Intake & Output Reviewed Vital Signs: Yes Vital Signs: Vital Signs x48h Temp Pulse Resp BP Pulse Ox 08/16/21 05:38 37 C 73 18 166/70 H 95 08/16/21 00:27 36.9 C 77 18 144/77 H 96 Intake & Output: Intake & Output 08/13/21 08/14/21 08/15/21 08/16/21 23:59 23:59 23:59 23:59 Intake Total 3229.166 3089.441 2335 100 Output Total 3100 1800 2350 1050 Balance 453.947 0955.441 -15 -950 - Objective General Appearance: positive: No acute distress, Lethargic (wakes to voice and will mumble words today. Yesterday was mumbling but I could undersand his reponses. Not so much this morning but it may be due to being woken up) Eyes Bilateral: positive: Other (right pupil irregular and does react to light. slight lateral gaze deviation. cornea abnormal w opacity and ?surgery scar. R sclera injected in lower half) ENT: positive: No signs of dehydration Neck: positive: No JVD. negative: Stiff neck Respiratory: positive: No respiratory distress. negative: Wheezes, Rales, Rhonchi Cardiovascular: positive: Regular rate & rhythm, Bradycardia, Systolic murmur. negative: Gallop/S4, Friction rub Abdomen: positive: Non-tender, No organomegaly, Nml bowel sounds, No distention Skin: positive: Warm, Dry Extremities: positive: No pedal edema Neurologic/Psychiatric: positive: Disoriented to person, Disoriented to place, Disoriented to time, Facial droop, Slurred/abnml speech. negative: Oriented x3, CN's nml (2-12) (left facial droop, left body neglect), Motor nml (left body we akness with armm> leg. L Arm was flaccid yesterday and moving later on but still weak. He does spontaneous withdraw left leg from babinski test.) - Lab Results Fish Bones: 08/16/21 05:20 08/16/21 05:20 Other Labs: Lab Results x24hrs 08/16/21 08/16/21 Range/Units 05:20 05:20 WBC 10.6 (4.8-10.8) x10^3/uL RBC 4.48 L (4.70-6.10) 10^6/uL Hgb 12.9 L (14.0-18.0) g/dL Hct 38.8 L (42.0-52.0) % MCV 86.6 (80.0-94.0) fL MCH 28.8 (27.0-31.0) pg MCHC 33.2 (32.0-36.0) g/dL RDW 12.8 (12.0-15.0) % Plt Count 379 (130-450) 10^3/uL MPV 9.2 (7.4-11.4) fL Neut # (Auto) 8.7 H (1.5-6.6) 10^3/uL Lymph # (Auto) 0.8 L (1.5-3.5) 10^3/uL [place] # (Auto) 0.8 (0.0-1.0) 10^3/uL Eos # (Auto) 0.2 (0.0-0.7) 10^3/uL Baso # (Auto) 0.1 (0.0-0.1) 10^3/uL Absolute Nucleated RBC 0.00 x10^3/uL Nucleated RBC % 0.0 /100WBC Sodium 136 (135-145) mmol/L Potassium 4.2 (3.5-5.0) mmol/L Chloride 99 L (101-111) mmol/L Carbon Dioxide 25 (21-32) mmol/L Anion Gap 12.0 (6-13) BUN 18 (6-20) mg/dL Creatinine 1.3 H (0.6-1.2) mg/dL Estimated GFR (MDRD) 52 L (>89) Glucose 117 H (70-100) mg/dL Calcium 9.0 (8.5-10.3) mg/dL ABX Reporting Has patient been on IV antibiotics over the past 48 hours?: No Sepsis Event Note (H) - Evaluation Current Stage of Sepsis: Ruled out Assessment/Plan - Problem List (1) Slurring of speech Impression: with a hx of stroke pt has hx of stroke with left side slight weakness and slurred speech. pt did not present acute neurological deficits at the start of admission. This is a chronic state for him. He was continued on Plavix and a statin. Because he had worsening weakness due to deconditioning and illness, he required rehabilitation per recommendations of PT and OT and we are awaiting placement. 08/15 was an acute change for him. I have repeated a CT of the head and there are no changes. Nevertheless he did have an acute change in neurological status with regards to left arm weakness, worse dysarthria, and lethargy. I am not seeing any signs of infection on objective lab or physical exam. Patient himself denies any new status. The only thing I can see in his old history is that of bradycardia with up to 6 seconds of pause. He has declined pacemaker. I have placed him on telemetry to verify if he is bradycardic. Nursing reports that he does slow down into the 20s, and he continues to have occasional sinus pauses. But I am not seeing the actual telemetry strips in the EMR. Plan: I will discussed the case with his to notify her that he has worsened due to bradycardia, I will also most likely discontinue telemetry after today (2) Pneumonia, resolved He presented as decreased p.o. intake starting prior to which was unusual for him. He then began having malodorous diarrhea and became weaker and weaker to the point he could not get out of bed. EMS had to be called twice to get him off the toilet. Chest x-ray on admission was without acute cardiopulmonary process. That was on August 02. He started having shortness of breath and cough and a repeat chest x-ray was done August 05. He had bilateral mid and lower lung zone airspace opacities more pronounced on right. Most likely developing airspace pneumonia. He was started on IV with cefepime and probiotics antibiotics and then switch to p.o. antibiotics. He completed 7 days of antibiotics on August 12. And antibiotics were stopped August 13. He has been stable since then. (3)delirium resolved Assessment/Plan: He did have an episode of confusion and more slurred speech on August [address] that day also showed no acute process. By the next day it had all gone away. (4) Rhabdomyolysis resolved. Present on admission. His initial CK was 1123. With hydration it was down to 160 by August 06. (5) NAVEED (acute kidney injury) Impression: His usual baseline creatinine is 0.8-1.1. When he was admitted to the hospital he was 1.8. He went down as far as 1.2 on August 08 but has been gradually climbing back up since then. He is not on IV fluids but is on HydroDIURIL. He may be behind on his fluids and I gave him a liter over 24 hours 08/15. This morning creat is 1.3 and his baseline 1.1 Plan: give 1 more liter of NS (6) Generalized weakness Impression: He was very weak and deconditioned when he was admitted. I think the diarrhea that he presented with as well as the subsequent pneumonia resulted in a poor functional status. He has been seeing physical therapy and Occupational Therapy. They have recommended physical therapy and Occupational Therapy and a SNF placement to get him stronger. (7) Hypertension On admission he had elevated blood pressures. His home medications were resumed and he has been stable. No change in home meds (8) Dementia Impression: Stable. OT had a evaluation for patient, pt has 7/30 score on U Mental Status (9) Bradycardia Impression: Stable. per previous provider discussed as the following: "His heart rate has been consistently in the 50s. He has had 24 hours of telemetry and overnight he was noted to have multiple pauses, ranging from 3-6 seconds. He was in sinus rhythm. On chart review he has been seen in the past (approximately 2013) for this but it is unclear if he followed up and his does not remember. I discussed this with him today and asked if he would be interested in a pacemaker. He reported very clearly that no, he does not want a pacemaker as if his heart stops "it is my time, I've had a long life". I also spoke with his and she stated that he would not want interventions as this is stated in his will. He denied chest pain, palpitations, light-headedness or feeling dizzy." pt denies chest pain, shortness of breath, lightheaded. At this point, pt was already off tele monitor, and we will continue followup with pt's desire and wishes. Tele 08/15 and then dc. (10) Acute diarrhea resolved Impression: No episodes of diarrhea since admission, only soft stool this morning. Sample was CDIFF negative and he was removed from enteric precautions. 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 Ultrasound was done and there is no obstruction. We added Flomax and a Matthews catheter. We stopped the Matthews catheter on August 11 to see if he could urinate on his own and he could not so the catheter was resumed. He will follow up with outpatient care with a urology appointment.
[2021-08-16] MEDS ORDERED: SODIUM CHLORIDE 0.9% 1,000 ML IV SCH (08:00)
[2021-08-16] MEDS: hydroCHLOROthiazide 25 MG TABLET PO SCH (08:24)
[2021-08-16] MEDS: CHOLECALCIFEROL 25 MCG TABLET PO SCH (08:25)
[2021-08-16] MEDS: MULTIVITAMIN W/MINERALS TABLET PO SCH (08:25)
[2021-08-16] MEDS: LORATADINE 10 MG TABLET PO SCH (08:26)
[2021-08-16] MEDS: LOSARTAN 50 MG TABLET PO SCH (08:26)
[2021-08-16] MEDS: CLOPIDOGREL 75 MG TABLET PO SCH (08:27)
[2021-08-16] MEDS: ENOXAPARIN 40 MG/0.4 ML SYRINGE SUBQ SCH (08:33)
[2021-08-16] MEDS: DOCUSATE SODIUM 250 MG CAPSULE PO SCH (08:34)
[2021-08-16] MEDS: SENNA 8.6 MG TABLET PO SCH (08:34)
[2021-08-16] MEDS: polyethylene glycoL 3350 17 GM PACKET PO SCH (08:34)
[2021-08-16] MEDS: TAMSULOSIN 0.4 MG CAPSULE PO SCH (08:35)
[2021-08-16] MEDS: SACCHAROMYCES BOULARDII 250 MG CAPSULE PO SCH ×2 (08:35→19:41)
[2021-08-16] MEDS: amLODIPine 5 MG TABLET PO SCH (08:43)
[2021-08-16] MEDS: ATORVASTATIN 40 MG TABLET PO SCH (19:42)
[2021-08-17] MEDS: SODIUM CHLORIDE FLUSH 0.9% 10 ML SYRINGE IVP SCH ×3 (01:17→16:32)
--- NOTE | 2021-08-17 07:15 | PROVIDER PROGRESS NOTE ---
Assessment/Plan - Problem List (1) Bradycardia Assessment/Plan: Patient intermittently bradycardic with occasional pauses. Patient has declined a pacemaker (2) Generalized weakness Assessment/Plan: This is likely multifactorial. He had diarrhea and subsequent pneumonia which likely contributed to poor functional status. He has been seen by physical therapy and Occupational Therapy. Recommendation is for SNF placement. Social work to help facilitate the process. (3) History of stroke Assessment/Plan: Chronic. With left upper extremity weakness as residual deficits. (4) Hypertension Qualifiers: Hypertension type: primary hypertension Qualified Code(s): I10 - Essential (primary) hypertension Assessment/Plan: On amlodipine, hydrochlorothiazide and losartan. (5) NAVEED (acute kidney injury) Assessment/Plan: Overall improved. Creatinine was 1.8 at time of admission and is currently 1.3. - Current Meds Current Meds: Current Medications Generic Name Dose Route Start Last Admin Trade Name Freq PRN Reason Stop Dose Admin Acetaminophen 650 mg 08/05/21 17:45 08/16/21 19:41 Acetaminophen 325 Mg Tablet PO 650 mg Q4HR PRN Administration Pain or Fever > 38C (100.4F) Amlodipine Besylate 10 mg 08/04/21 16:00 08/16/21 08:43 Amlodipine 5 Mg Tablet PO 10 mg DAILY [facility] Administration Atorvastatin Calcium 40 mg 08/04/21 21:00 08/16/21 19:42 Atorvastatin 40 Mg Tablet PO 40 mg QPM [facility] Administration Cholecalciferol 50 mcg 08/10/21 12:00 08/16/21 08:25 Cholecalciferol 25 Mcg Tablet PO 50 mcg DAILY [facility] Administration Clopidogrel Bisulfate 75 mg 08/05/21 09:00 08/16/21 08:27 Clopidogrel 75 Mg Tablet PO 75 mg DAILY [facility] Administration Docusate Sodium 250 - 500 mg 08/11/21 11:00 08/16/21 08:34 Docusate Sodium 250 Mg Capsule PO Not Given DAILY [facility] Enoxaparin Sodium 40 mg 08/07/21 09:00 08/16/21 08:33 Enoxaparin 40 Mg/0.4 Ml Syringe SUBQ 40 mg DAILY [facility] Administration Hydrochlorothiazide 25 mg 08/05/21 09:00 08/16/21 08:24 Hydrochlorothiazide 25 Mg Tablet PO 25 mg DAILY [facility] Administration Loratadine 10 mg 08/05/21 09:00 08/16/21 08:26 Loratadine 10 Mg Tablet PO 10 mg DAILY [facility] Administration Losartan Potassium 100 mg 08/05/21 09:00 08/16/21 08:26 Losartan 50 Mg Tablet PO 100 mg DAILY [facility] Administration Mineral Oil 1 applic 08/02/21 22:23 08/12/21 17:29 Min Oil/Dimethicon/Coconut Oil 92 Gm Tube TOP 1 applic PRN PRN Administration Skin Care Multi-Ingredient Ointment 1 applic 08/05/21 20:21 08/06/21 05:37 Zinc Oxide 20% Oint 30 Gm Tube TOP 1 applic PRN PRN Administration Skin Care Multivitamins/Minerals 1 tab 08/03/21 16:00 08/16/21 08:25 Multivitamin W/Minerals Tablet PO 1 tab DAILYWM [facility] Administration Polyethylene Glycol 17 gm 08/06/21 09:00 08/16/21 08:34 Polyethylene Glycol 3350 17 Gm Packet PO Not Given DAILY [facility] Saccharomyces Boulardii 250 mg 08/06/21 17:00 08/16/21 19:41 Saccharomyces Boulardii 250 Mg Capsule PO 250 mg BIDWM [facility] Administration Senna 8.6 - 17.2 mg 08/11/21 11:00 08/16/21 08:34 Senna 8.6 Mg Tablet PO Not Given DAILY [facility] Sodium Chloride 10 ml 08/02/21 15:46 08/15/21 14:48 Sodium Chloride Flush 0.9% 10 Ml Syringe IVP 10 ml PRN PRN Administration NEEDED PER PROVIDER ORDERS Sodium Chloride 10 ml 08/02/21 17:00 08/17/21 01:17 Sodium Chloride Flush 0.9% 10 Ml Syringe IVP 10 ml 0100,0900,1700 [facility] Administration Tamsulosin HCl 0.4 mg 08/06/21 09:00 08/16/21 08:35 Tamsulosin 0.4 Mg Capsule PO Not Given DAILY [facility] - Lab Result Fish Bone Diagrams: 08/16/21 05:20 08/16/21 05:20 Subjective - Subjective Patient Reports: Other (Sitting comfortably in bed. Appears somnolent but readily answers questions asked. Left upper extremity weakness appreciable. It was reported that patient is coughing with meals.) Objective Vital Signs: Vital Signs - 24 hr 08/16/21 08/17/21 07:37 01:20 Temperature 36.4 C L Heart Rate [ 64 68 Brachial] Respiratory 18 16 Rate Blood Pressure 133/72 H 154/59 H [Right Brachial artery] O2 Saturation 100 98 Oxygen O2 Source Room air I&O (Last 24 Hrs): Intake and Output Totals x24h 08/15/21 08/16/21 08/17/21 23:59 23:59 23:59 Intake Total 2335 2633 200 Output Total 2350 2775 600 Balance -15 -142 -400 General: Other (Somnolent. Oriented to self mainly) HEENT: PERRLA, EOMI Neck: Supple, No JVD Neuro: Other (Left upper extremity weakness. Chronic.) Cardiovascular: Normal S1, Normal S2, Other (Bradycardia) Respiratory: Chest non-tender, No respiratory distress, Breath sounds nml Abdomen: Normal bowel sounds, Soft Extremities: No clubbing, No edema, No tenderness/swelling Skin: No rashes, No breakdown, No significant lesion - Results Results: Laboratory Results WBC 10.6 x10^3/uL (4.8-10.8) 08/16/21 05:20 RBC 4.48 10^6/uL (4.70-6.10) L 08/16/21 05:20 Hgb 12.9 g/dL (14.0-18.0) L 08/16/21 05:20 Hct 38.8 % (42.0-52.0) L 08/16/21 05:20 MCV 86.6 fL (80.0-94.0) 08/16/21 05:20 MCH 28.8 pg (27.0-31.0) 08/16/21 05:20 MCHC 33.2 g/dL (32.0-36.0) 08/16/21 05:20 RDW 12.8 % (12.0-15.0) 08/16/21 05:20 Plt Count 379 10^3/uL (130-450) 08/16/21 05:20 MPV 9.2 fL (7.4-11.4) 08/16/21 05:20 Neut # (Auto) 8.7 10^3/uL (1.5-6.6) H 08/16/21 05:20 Lymph # (Auto) 0.8 10^3/uL (1.5-3.5) L 08/16/21 05:20 [place] # (Auto) 0.8 10^3/uL (0.0-1.0) 08/16/21 05:20 Eos # (Auto) 0.2 10^3/uL (0.0-0.7) 08/16/21 05:20 Baso # (Auto) 0.1 10^3/uL (0.0-0.1) 08/16/21 05:20 Absolute Nucleated RBC 0.00 x10^3/uL 08/16/21 05:20 Nucleated RBC % 0.0 /100WBC 08/16/21 05:20 Sodium 136 mmol/L (135-145) 08/16/21 05:20 Potassium 4.2 mmol/L (3.5-5.0) 08/16/21 05:20 Chloride 99 mmol/L (101-111) L 08/16/21 05:20 Carbon Dioxide 25 mmol/L (21-32) 08/16/21 05:20 Anion Gap 12.0 (6-13) 08/16/21 05:20 BUN 18 mg/dL (6-20) 08/16/21 05:20 Creatinine 1.3 mg/dL (0.6-1.2) H 08/16/21 05:20 Estimated GFR (MDRD) 52 (>89) L 08/16/21 05:20 Glucose 117 mg/dL (70-100) H 08/16/21 05:20 Lactic Acid 1.2 mmol/L (0.5-2.2) 08/02/21 12:05 Calcium 9.0 mg/dL (8.5-10.3) 08/16/21 05:20 Magnesium 2.1 mg/dL (1.7-2.8) 08/02/21 12:05 Total Bilirubin 1.2 mg/dL (0.2-1.0) H 08/02/21 12:05 AST 88 IU/L (10-42) H 08/02/21 12:05 ALT 32 IU/L (10-60) 08/02/21 12:05 Alkaline Phosphatase 70 IU/L (42-121) 08/02/21 12:05 Total Creatine Kinase 160 IU/L (22-269) 08/06/21 05:08 Troponin I High Sens 60.8 ng/L (2.3-19.7) H* 08/02/21 21:07 Total Protein 6.7 g/dL (6.7-8.2) 08/02/21 12:05 Albumin 4.0 g/dL (3.2-5.5) 08/02/21 12:05 Globulin 2.7 g/dL (2.1-4.2) 08/02/21 12:05 Albumin/Globulin Ratio 1.5 (1.0-2.2) 08/02/21 12:05 Lipase 19 U/L (22-51) L 08/02/21 12:05 Urine Color YELLOW 08/05/21 18:32 Urine Clarity CLEAR (CLEAR) 08/05/21 18:32 Urine pH 6.5 PH (5.0-7.5) 08/05/21 18:32 Ur Specific [place] 1.010 (1.002-1.030) 08/05/21 18:32 Urine Protein NEGATIVE mg/dL (NEGATIVE) 08/05/21 18:32 Urine Glucose (UA) NEGATIVE mg/dL (NEGATIVE) 08/05/21 18:32 Urine Ketones NEGATIVE mg/dL (NEGATIVE) 08/05/21 18:32 Urine Occult Blood NEGATIVE (NEGATIVE) 08/05/21 18:32 Urine Nitrite NEGATIVE (NEGATIVE) 08/05/21 18:32 Urine Bilirubin NEGATIVE (NEGATIVE) 08/05/21 18:32 Urine Urobilinogen 0.2 (NORMAL) E.U./dL (NORMAL) 08/05/21 18:32 Ur Leukocyte Esterase NEGATIVE (NEGATIVE) 08/05/21 18:32 Urine RBC 0-5 /HPF (0-5) 08/05/21 18:32 Urine WBC 0-3 /HPF (0-3) 08/05/21 18:32 Ur Squamous Epith Cells NONE SEEN (<= Few) 08/05/21 18:32 Urine Bacteria None Seen /HPF (None Seen) 08/05/21 18:32 Ur Microscopic Review INDICATED 08/02/21 11:37 Urine Culture Comments NOT INDICATED 08/05/21 18:32 Nasal Adenovirus (PCR) NOT DETECTED 08/02/21 15:38 Nasal B. parapertussis DNA (PCR) NOT DETECTED 08/02/21 15:38 Nasal Coronavir 229E PCR NOT DETECTED 08/02/21 15:38 Nasal Coronavir HKU1 PCR NOT DETECTED 08/02/21 15:38 Nasal Coronavir NL63 PCR NOT DETECTED 08/02/21 15:38 Nasal Coronavir OC43 PCR NOT DETECTED 08/02/21 15:38 Nasal Enterovir/Rhinovir PCR NOT DETECTED 08/02/21 15:38 Nasal Influenza B PCR NOT DETECTED 08/02/21 15:38 Nasal Influenza A PCR NOT DETECTED 08/02/21 15:38 Nasal Parainfluen 1 PCR NOT DETECTED 08/02/21 15:38 Nasal Parainfluen 2 PCR NOT DETECTED 08/02/21 15:38 Nasal Parainfluen 3 PCR NOT DETECTED 08/02/21 15:38 Nasal Parainfluen 4 PCR NOT DETECTED 08/02/21 15:38 Nasal RSV (PCR) NOT DETECTED 08/02/21 15:38 Nasal Screen MRSA (PCR) NEGATIVE (NEGATIVE) 08/02/21 18:42 Nasal B.pertussis DNA PCR NOT DETECTED 08/02/21 15:38 Nasal C.pneumoniae (PCR) NOT DETECTED 08/02/21 15:38 Edwin Human Metapneumo PCR NOT DETECTED 08/02/21 15:38 Nasal M.pneumoniae (PCR) NOT DETECTED 08/02/21 15:38 Nasal SARS-CoV-2 (PCR) NOT DETECTED 08/02/21 15:38 Stl C. diff Tox B Gene NEGATIVE (NEGATIVE) 08/03/21 08:29 Sepsis Event Note (H) - Evaluation Current Stage of Sepsis: Ruled out ABX Reporting Has patient been on IV antibiotics over the past 48 hours?: No
[2021-08-17] MEDS: CHOLECALCIFEROL 25 MCG TABLET PO SCH (10:28)
[2021-08-17] MEDS: LOSARTAN 50 MG TABLET PO SCH (10:28)
[2021-08-17] MEDS: ENOXAPARIN 40 MG/0.4 ML SYRINGE SUBQ SCH (10:28)
[2021-08-17] MEDS: MULTIVITAMIN W/MINERALS TABLET PO SCH (10:28)
[2021-08-17] MEDS: LORATADINE 10 MG TABLET PO SCH (10:28)
[2021-08-17] MEDS: polyethylene glycoL 3350 17 GM PACKET PO SCH (10:28)
[2021-08-17] MEDS: hydroCHLOROthiazide 25 MG TABLET PO SCH (10:28)
[2021-08-17] MEDS: SENNA 8.6 MG TABLET PO SCH (10:29)
[2021-08-17] MEDS: amLODIPine 5 MG TABLET PO SCH (10:29)
[2021-08-17] MEDS: TAMSULOSIN 0.4 MG CAPSULE PO SCH (10:29)
[2021-08-17] MEDS: CLOPIDOGREL 75 MG TABLET PO SCH (10:29)
[2021-08-17] MEDS: DOCUSATE SODIUM 250 MG CAPSULE PO SCH (10:29)
[2021-08-17] MEDS: SACCHAROMYCES BOULARDII 250 MG CAPSULE PO SCH ×2 (10:30→16:32)
[2021-08-17] MEDS: ACETAMINOPHEN 325 MG TABLET PO PRN (20:33)
[2021-08-17] MEDS: ATORVASTATIN 40 MG TABLET PO SCH (20:34)
[2021-08-18 06:44] LABS: BASOPHILS % (AUTO) 0.3 %; EOSINOPHILS # (AUTO) 0.1 10^3/uL (0.0-0.7); EOSINOPHILS % (AUTO) 0.9 %; HCT - HEMATOCRIT 38.6 % (42.0-52.0); LYMPHOCYTES # (AUTO) 0.8 10^3/uL (1.5-3.5); LYMPHOCYTES % (AUTO) 6.6 %; MEAN CORPUSCULAR HEMOGLOBIN 29.2 pg (27.0-31.0); MEAN CORPUSCULAR HGB CONC 33.7 g/dL (32.0-36.0); MEAN CORPUSCULAR VOLUME 86.7 fL (80.0-94.0); MEAN PLATELET VOLUME 9.3 fL (7.4-11.4); MONOCYTES # (AUTO) 0.7 10^3/uL (0.0-1.0); MONOCYTES % (AUTO) 5.8 %; NEUTROPHILS % (AUTO) 85.9 %; PLT - PLATELET COUNT 377 10^3/uL (130-450); RED BLOOD COUNT 4.45 10^6/uL (4.70-6.10); RED CELL DISTRIBUTION WIDTH 12.9 % (12.0-15.0); WHITE BLOOD COUNT 11.6 x10^3/uL (4.8-10.8)
[2021-08-18 06:52] LABS: CALCIUM 8.9 mg/dL (8.5-10.3); CREATININE 1.4 mg/dL (0.6-1.2); POTASSIUM 4.2 mmol/L (3.5-5.0)
[2021-08-18] MEDS ORDERED: SODIUM CHLORIDE 0.9% 1,000 ML IV SCH (08:00)
[2021-08-18] MEDS: SODIUM CHLORIDE FLUSH 0.9% 10 ML SYRINGE IVP SCH ×2 (08:06→09:21)
--- NOTE | 2021-08-18 08:17 | XRAY Report ---
PROCEDURE: Chest 1 View X-Ray INDICATIONS: sob TECHNIQUE: One view of the chest was acquired. COMPARISON: FINDINGS: Surgical changes and devices: None. Lungs and pleura: No pleural effusions or pneumothorax. Interval clearing of left basilar density. C ontinued right basilar density consistent with atelectasis versus pneumonia. Mediastinum: Mediastinal contours appear normal. Heart size is normal. Bones and chest wall: No suspicious bony lesions. Overlying soft tissues appear unremarkable. IMPRESSION: Focal atelectasis versus pneumonia, right lung base. Reviewed by: Amador Mancilla MD on 08/18/2021 8:16 AM [facility] Approved by: Amador Mancilla MD on 08/18/2021 8:16 AM PST Station ID: [id number]
[2021-08-18] MEDS: CLOPIDOGREL 75 MG TABLET PO SCH (09:20)
[2021-08-18] MEDS: LOSARTAN 50 MG TABLET PO SCH (09:20)
[2021-08-18] MEDS: hydroCHLOROthiazide 25 MG TABLET PO SCH (09:20)
[2021-08-18] MEDS: LORATADINE 10 MG TABLET PO SCH (09:20)
[2021-08-18] MEDS: SENNA 8.6 MG TABLET PO SCH (09:20)
[2021-08-18] MEDS: SACCHAROMYCES BOULARDII 250 MG CAPSULE PO SCH (09:20)
[2021-08-18] MEDS: polyethylene glycoL 3350 17 GM PACKET PO SCH (09:20)
[2021-08-18] MEDS: DOCUSATE SODIUM 250 MG CAPSULE PO SCH (09:20)
[2021-08-18] MEDS: ENOXAPARIN 40 MG/0.4 ML SYRINGE SUBQ SCH (09:21)
[2021-08-18] MEDS: MULTIVITAMIN W/MINERALS TABLET PO SCH (09:21)
[2021-08-18] MEDS: TAMSULOSIN 0.4 MG CAPSULE PO SCH (09:21)
[2021-08-18] MEDS: amLODIPine 5 MG TABLET PO SCH (09:21)
[2021-08-18] MEDS: CHOLECALCIFEROL 25 MCG TABLET PO SCH (09:21)
--- NOTE | 2021-08-18 11:25 | PROVIDER PROGRESS NOTE ---
Assessment/Plan - Problem List (1) Mental status alteration Assessment/Plan: pt continue to sleep with snoring but pt is Hemodynamic stable, he is difficult to wake up to have breakfast per nurse report. pt has recurrent AMS. pt's WBC is elevated now, pt had new Matthews catheter because of his urinary retention. Also pt suddenly present left facial droop on last Tuesday and left side weakness although CT of head is negative for Stroke at that time. we will check UA, order MRI of brain, continue neuro check (2) left side weakness pt suddenly present left facial droop on last Tuesday, and left side weakness although CT of head was negative for Stroke at that time. 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 we will order MRI of brain. continue home Plavix and statin, continue PT/OT at this time. (3)physical deconditioning pt present significant Physical deconditioning, hx of Significantly dementia, and recurrent mental status alteration in this Hospitalization, poor fluid intake and recurrent dehydration. We will continue finish above study, treated for the patient to see if patient response to the treatment, otherwise we will discussed with the patient's family, we may consult with palliative care (4) Rhabdomyolysis resolved. Present on admission. His initial CK was 1123. With hydration it was down to 160 by August 06. (5) NAVEED (acute kidney injury) Pt's creatinine is 1.4 on today, pt has poor oral fluid intake, and hx of d ementia, we will IVF for pt and lab check (6) Generalized weakness Impression: pt present AMS today, and Physical deconditioning, pt continue to sleep with snoring and he is difficult to wake up on today. We will continue support, treat for pt, and monitor patient, and to see if patient's condition improved, Otherwise we may discussed with the patient's family for care plan, and to have palliative care consult for patient (7) Hypertension stable. On admission he had elevated blood pressures. His home medications were resumed and he has been stable. No change in home meds (8) Dementia Impression: Stable. OT had a evaluation for patient, pt has 7/30 score on [facility] Mental Status (9) Bradycardia Impression: Stable. per previous provider discussed as the following: "His heart rate has been consistently in the 50s. He has had 24 hours of telemetry and overnight he was noted to have multiple pauses, ranging from 3-6 seconds. He was in sinus r hythm. On chart review he has been seen in the past (approximately 2013) for this but it is unclear if he followed up and his does not remember. I discussed this with him today and asked if he would be interested in a pacemaker. He reported very clearly that no, he does not want a pacemaker as if his heart stops "it is my time, I've had a long life". I also spoke with his and she stated that he would not want interventions as this is stated in his will. He denied chest pain, palpitations, light-headedness or feeling dizzy." pt denies chest pain, shortness of breath, lightheaded. At this point, pt was already off tele monitor, and we will continue followup with pt's desire and wishes. Tele 08/15 and then dc. (10) Acute diarrhea resolved Impression: No episodes of diarrhea since admission, only soft stool this morning. Sample was CDIFF negative and he was removed from enteric precautions. 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 Ultrasound was done and there is no obstruction. We added Flomax and a Matthews catheter. We stopped the Matthews catheter on August 11 to see if he could urinate on his own and he could not so the catheter was resumed. He will follow up with outpatient care with a urology appointment. (4) Rhabdomyolysis Qualifiers: Rhabdomyolysis type: non-traumatic Qualified Code(s): M62.82 - Rhabdomyolysis - Current Meds Current Meds: Current Medications Generic Name Dose Route Start Last Admin Trade Name Freq PRN Reason Stop Dose Admin Acetaminophen 650 mg 08/05/21 17:45 08/17/21 20:33 Acetaminophen 325 Mg Tablet PO 650 mg Q4HR PRN Administration Pain or Fever > 38C (100.4F) Amlodipine Besylate 10 mg 08/04/21 16:00 08/18/21 09:21 Amlodipine 5 Mg Tablet PO 10 mg DAILY CARLOS Administration Atorvastatin Calcium 40 mg 08/04/21 21:00 08/17/21 20:34 Atorvastatin 40 Mg Tablet PO 40 mg QPM CARLOS Administration Cholecalciferol 50 mcg 08/10/21 12:00 08/18/21 09:21 Cholecalciferol 25 Mcg Tablet PO 50 mcg DAILY CARLOS Administration Clopidogrel Bisulfate 75 mg 08/05/21 09:00 08/18/21 09:20 Clopidogrel 75 Mg Tablet PO 75 mg DAILY CARLOS Administration Docusate Sodium 250 - 500 mg 08/11/21 11:00 08/18/21 09:20 Docusate Sodium 250 Mg Capsule PO 250 mg DAILY CARLOS Administration Enoxaparin Sodium 40 mg 08/07/21 09:00 08/18/21 09:21 Enoxaparin 40 Mg/0.4 Ml Syringe SUBQ 40 mg DAILY CARLOS Administration Hydrochlorothiazide 25 mg 08/05/21 09:00 08/18/21 09:20 Hydrochlorothiazide 25 Mg Tablet PO 25 mg DAILY CARLOS Administration Sodium Chloride 1,000 mls @ 100 mls/hr 08/18/21 08:00 08/18/21 09:25 Normal Saline 0.9% IV 08/19/21 03:59 100 mls/hr .Q10H CALROS Administration Loratadine 10 mg 08/05/21 09:00 08/18/21 09:20 Loratadine 10 Mg Tablet PO 10 mg DAILY CARLOS Administration Losartan Potassium 100 mg 08/05/21 09:00 08/18/21 09:20 Losartan 50 Mg Tablet PO 100 mg DAILY CARLOS Administration Mineral Oil 1 applic 08/02/21 22:23 08/12/21 17:29 Min Oil/Dimethicon/Coconut Oil 92 Gm Tube TOP 1 applic PRN PRN Administration Skin Care Multi-Ingredient Ointment 1 applic 08/05/21 20:21 08/06/21 05:37 Zinc Oxide 20% Oint 30 Gm Tube TOP 1 applic PRN PRN Administration Skin Care Multivitamins/Minerals 1 tab 08/03/21 16:00 08/18/21 09:21 Multivitamin W/Minerals Tablet PO 1 tab DAILYWM CARLOS Administration Polyethylene Glycol 17 gm 08/06/21 09:00 08/18/21 09:20 Polyethylene Glycol 3350 17 Gm Packet PO 17 gm DAILY CARLOS Administration Saccharomyces Boulardii 250 mg 08/06/21 17:00 08/18/21 09:20 Saccharomyces Boulardii 250 Mg Capsule PO 250 mg BIDWM CARLOS Administration Senna 8.6 - 17.2 mg 08/11/21 11:00 08/18/21 09:20 Senna 8.6 Mg Tablet PO 8.6 mg DAILY CARLOS Administration Sodium Chloride 10 ml 08/02/21 15:46 08/15/21 14:48 Sodium Chloride Flush 0.9% 10 Ml Syringe IVP 10 ml PRN PRN Administration NEEDED PER PROVIDER ORDERS Sodium Chloride 10 ml 08/02/21 17:00 08/18/21 09:21 Sodium Chloride Flush 0.9% 10 Ml Syringe IVP 10 ml 0100,0900,1700 CARLOS Administration Tamsulosin HCl 0.4 mg 08/06/21 09:00 08/18/21 09:21 Tamsulosin 0.4 Mg Capsule PO 0.4 mg DAILY CARLOS Administration - Lab Result Fish Bone Diagrams: 08/18/21 06:20 08/18/21 06:20 - Additional Planning My Orders: My Active Orders 08/18/21 UA w/ MICROSCOPIC, CULT IF [URIN] Urgent Clinical Swallow Evaluation [ST] Routine 08/18/21 07:32 BRAIN WO [MRI] Stat 08/18/21 08:00 Sodium Chloride 0.9% [Normal Saline 0.9%] 1,000 ml IV 100 mls/hr Subjective - Subjective Patient Reports: Resting Comfortably Objective Vital Signs: Vital Signs - 24 hr 08/17/21 08/17/21 08/18/21 12:35 17:22 00:21 Temperature 37.2 C 36.9 C Heart Rate [ 97 69 Brachial] Heart Rate [ 40 L Sitting] Heart Rate [ 73 Supine] Respiratory 18 18 Rate Blood Pressure 143/64 H 115/57 L [Right Brachial artery] Blood Pressure 153/63 H [Sitting] Blood Pressure 139/69 H [Supine] O2 Saturation 97 97 08/18/21 08:59 Temperature 36.3 C L Heart Rate [ 68 Brachial] Heart Rate [ Sitting] Heart Rate [ Supine] Respiratory 18 Rate Blood Pressure 125/57 L [Right Brachial artery] Blood Pressure [Sitting] Blood Pressure [Supine] O2 Saturation 100 Oxygen O2 Source Room air I&O (Last 24 Hrs): Intake and Output Totals x24h 08/16/21 08/17/21 08/18/21 23:59 23:59 23:59 Intake Total 2633 730 Output Total 2775 1650 200 Balance -142 -920 -200 General: Alert, No acute distress HEENT: Atraumatic Neck: Supple Lymphatic: no adenopathy Neuro: Alert Cardiovascular: Regular rate, Normal S1, Normal S2 Respiratory: Chest non-tender, No respiratory distress Abdomen: Normal bowel sounds, Soft Extremities: Normal pulses - Results Results: Laboratory Results WBC 11.6 x10^3/uL (4.8-10.8) H 08/18/21 06:20 RBC 4.45 10^6/uL (4.70-6.10) L 08/18/21 06:20 Hgb 13.0 g/dL (14.0-18.0) L 08/18/21 06:20 Hct 38.6 % (42.0-52.0) L 08/18/21 06:20 MCV 86.7 fL (80.0-94.0) 08/18/21 06:20 MCH 29.2 pg (27.0-31.0) 08/18/21 06:20 MCHC 33.7 g/dL (32.0-36.0) 08/18/21 06:20 RDW 12.9 % (12.0-15.0) 08/18/21 06:20 Plt Count 377 10^3/uL (130-450) 08/18/21 06:20 MPV 9.3 fL (7.4-11.4) 08/18/21 06:20 Neut # (Auto) 10.0 10^3/uL (1.5-6.6) H 08/18/21 06:20 Lymph # (Auto) 0.8 10^3/uL (1.5-3.5) L 08/18/21 06:20 Wilkes # (Auto) 0.7 10^3/uL (0.0-1.0) 08/18/21 06:20 Eos # (Auto) 0.1 10^3/uL (0.0-0.7) 08/18/21 06:20 Baso # (Auto) 0.0 10^3/uL (0.0-0.1) 08/18/21 06:20 Absolute Nucleated RBC 0.00 x10^3/uL 08/18/21 06:20 Nucleated RBC % 0.0 /100WBC 08/18/21 06:20 Sodium 136 mmol/L (135-145) 08/18/21 06:20 Potassium 4.2 mmol/L (3.5-5.0) 08/18/21 06:20 Chloride 99 mmol/L (101-111) L 08/18/21 06:20 Carbon Dioxide 26 mmol/L (21-32) 08/18/21 06:20 Anion Gap 11.0 (6-13) 08/18/21 06:20 BUN 33 mg/dL (6-20) H 08/18/21 06:20 Creatinine 1.4 mg/dL (0.6-1.2) H 08/18/21 06:20 Estimated GFR (MDRD) 48 (>89) L 08/18/21 06:20 Glucose 108 mg/dL (70-100) H 08/18/21 06:20 Lactic Acid 1.2 mmol/L (0.5-2.2) 08/02/21 12:05 Calcium 8.9 mg/dL (8.5-10.3) 08/18/21 06:20 Magnesium 2.1 mg/dL (1.7-2.8) 08/02/21 12:05 Total Bilirubin 1.2 mg/dL (0.2-1.0) H 08/02/21 12:05 AST 88 IU/L (10-42) H 08/02/21 12:05 ALT 32 IU/L (10-60) 08/02/21 12:05 Alkaline Phosphatase 70 IU/L (42-121) 08/02/21 12:05 Total Creatine Kinase 160 IU/L (22-269) 08/06/21 05:08 Troponin I High Sens 60.8 ng/L (2.3-19.7) H* 08/02/21 21:07 Total Protein 6.7 g/dL (6.7-8.2) 08/02/21 12:05 Albumin 4.0 g/dL (3.2-5.5) 08/02/21 12:05 Globulin 2.7 g/dL (2.1-4.2) 08/02/21 12:05 Albumin/Globulin Ratio 1.5 (1.0-2.2) 08/02/21 12:05 Lipase 19 U/L (22-51) L 08/02/21 12:05 Urine Color YELLOW 08/05/21 18:32 Urine Clarity CLEAR (CLEAR) 08/05/21 18:32 Urine pH 6.5 PH (5.0-7.5) 08/05/21 18:32 Ur Specific [place] 1.010 (1.002-1.030) 08/05/21 18:32 Urine Protein NEGATIVE mg/dL (NEGATIVE) 08/05/21 18:32 Urine Glucose (UA) NEGATIVE mg/dL (NEGATIVE) 08/05/21 18:32 Urine Ketones NEGATIVE mg/dL (NEGATIVE) 08/05/21 18:32 Urine Occult Blood NEGATIVE (NEGATIVE) 08/05/21 18:32 Urine Nitrite NEGATIVE (NEGATIVE) 08/05/21 18:32 Urine Bilirubin NEGATIVE (NEGATIVE) 08/05/21 18:32 Urine Urobilinogen 0.2 (NORMAL) E.U./dL (NORMAL) 08/05/21 18:32 Ur Leukocyte Esterase NEGATIVE (NEGATIVE) 08/05/21 18:32 Urine RBC 0-5 /HPF (0-5) 08/05/21 18:32 Urine WBC 0-3 /HPF (0-3) 08/05/21 18:32 Ur Squamous Epith Cells NONE SEEN (<= Few) 08/05/21 18:32 Urine Bacteria None Seen /HPF (None Seen) 08/05/21 18:32 Ur Microscopic Review INDICATED 08/02/21 11:37 Urine Culture Comments NOT INDICATED 08/05/21 18:32 Nasal Adenovirus (PCR) NOT DETECTED 08/02/21 15:38 Nasal B. parapertussis DNA (PCR) NOT DETECTED 08/02/21 15:38 Nasal Coronavir 229E PCR NOT DETECTED 08/02/21 15:38 Nasal Coronavir HKU1 PCR NOT DETECTED 08/02/21 15:38 Nasal Coronavir NL63 PCR NOT DETECTED 08/02/21 15:38 Nasal Coronavir OC43 PCR NOT DETECTED 08/02/21 15:38 Nasal Enterovir/Rhinovir PCR NOT DETECTED 08/02/21 15:38 Nasal Influenza B PCR NOT DETECTED 08/02/21 15:38 Nasal Influenza A PCR NOT DETECTED 08/02/21 15:38 Nasal Parainfluen 1 PCR NOT DETECTED 08/02/21 15:38 Nasal Parainfluen 2 PCR NOT DETECTED 08/02/21 15:38 Nasal Parainfluen 3 PCR NOT DETECTED 08/02/21 15:38 Nasal Parainfluen 4 PCR NOT DETECTED 08/02/21 15:38 Nasal RSV (PCR) NOT DETECTED 08/02/21 15:38 Nasal Screen MRSA (PCR) NEGATIVE (NEGATIVE) 08/02/21 18:42 Nasal B.pertussis DNA PCR NOT DETECTED 08/02/21 15:38 Nasal C.pneumoniae (PCR) NOT DETECTED 08/02/21 15:38 Edwin Human Metapneumo PCR NOT DETECTED 08/02/21 15:38 Nasal M.pneumoniae (PCR) NOT DETECTED 08/02/21 15:38 Nasal SARS-CoV-2 (PCR) NOT DETECTED 08/02/21 15:38 Stl C. diff Tox B Gene NEGATIVE (NEGATIVE) 08/03/21 08:29 Sepsis Event Note (H) - Evaluation Current Stage of Sepsis: Ruled out ABX Reporting Has patient been on IV antibiotics over the past 48 hours?: No Current Medications - Current Medications Current Medications: Active Medications Acetaminophen (Acetaminophen 325 Mg Tablet) 650 mg PO Q4HR PRN PRN Reason: Pain or Fever > 38C (100.4F) Last Admin: 08/17/21 20:33 Dose: 650 mg Documented by: Amlodipine Besylate (Amlodipine 5 Mg Tablet) 10 mg PO DAILY [facility] Last Admin: 08/18/21 09:21 Dose: 10 mg Documented by: Atorvastatin Calcium (Atorvastatin 40 Mg Tablet) 40 mg PO QPM [facility] Last Admin: 08/17/21 20:34 Dose: 40 mg Documented by: Cholecalciferol (Cholecalciferol 25 Mcg Tablet) 50 mcg PO DAILY [facility] Last Admin: 08/18/21 09:21 Dose: 50 mcg Documented by: Clopidogrel Bisulfate (Clopidogrel 75 Mg Tablet) 75 mg PO DAILY [facility] Last Admin: 08/18/21 09:20 Dose: 75 mg Documented by: Docusate Sodium (Docusate Sodium 250 Mg Capsule) 250 - 500 mg PO DAILY [facility] Last Admin: 08/18/21 09:20 Dose: 250 mg Documented by: Enoxaparin Sodium (Enoxaparin 40 Mg/0.4 Ml Syringe) 40 mg SUBQ DAILY [facility] Last Admin: 08/18/21 09:21 Dose: 40 mg Documented by: Hydralazine HCl (Hydralazine Inj 20 Mg/Ml Vial) 10 mg IVP QID PRN PRN Reason: Hypertensive Emergency Hydrochlorothiazide (Hydrochlorothiazide 25 Mg Tablet) 25 mg PO DAILY [facility] Last Admin: 08/18/21 09:20 Dose: 25 mg Documented by: Sodium Chloride (Normal Saline 0.9%) 1,000 mls @ 100 mls/hr IV .Q10H [facility] Stop: 08/19/21 03:59 Last Admin: 08/18/21 09:25 Dose: 100 mls/hr Documented by: Loratadine (Loratadine 10 Mg Tablet) 10 mg PO DAILY [facility] Last Admin: 08/18/21 09:20 Dose: 10 mg Documented by: Losartan Potassium (Losartan 50 Mg Tablet) 100 mg PO DAILY [facility] Last Admin: 08/18/21 09:20 Dose: 100 mg Documented by: Mineral Oil (Min Oil/Dimethicon/Coconut Oil 92 Gm Tube) 1 applic TOP PRN PRN PRN Reason: Skin Care Last Admin: 08/12/21 17:29 Dose: 1 applic Documented by: Multi-Ingredient Ointment (Zinc Oxide 20% Oint 30 Gm Tube) 1 applic TOP PRN PRN PRN Reason: Skin Care Last Admin: 08/06/21 05:37 Dose: 1 applic Documented by: Multivitamins/Minerals (Multivitamin W/Minerals Tablet) 1 tab PO DAILYWM [facility] Last Admin: 08/18/21 09:21 Dose: 1 tab Documented by: Polyethylene Glycol (Polyethylene Glycol 3350 17 Gm Packet) 17 gm PO DAILY [facility] Last Admin: 08/18/21 09:20 Dose: 17 gm Documented by: Saccharomyces Boulardii (Saccharomyces Boulardii 250 Mg Capsule) 250 mg PO BIDWM [facility] Last Admin: 08/18/21 09:20 Dose: 250 mg Documented by: Senna (Senna 8.6 Mg Tablet) 8.6 - 17.2 mg PO DAILY [facility] Last Admin: 08/18/21 09:20 Dose: 8.6 mg Documented by: Sodium Chloride (Sodium Chloride Flush 0.9% 10 Ml Syringe) 10 ml IVP PRN PRN PRN Reason: NEEDED PER PROVIDER ORDERS Last Admin: 08/15/21 14:48 Dose: 10 ml Documented by: Sodium Chloride (Sodium Chloride Flush 0.9% 10 Ml Syringe) 10 ml IVP 0100,0900,1700 [facility] Last Admin: 08/18/21 09:21 Dose: 10 ml Documented by: Tamsulosin HCl (Tamsulosin 0.4 Mg Capsule) 0.4 mg PO DAILY [facility] Last Admin: 08/18/21 09:21 Dose: 0.4 mg Documented by: Amlodipine Besylate [Norvasc] 10 mg PO DAILY 08/03/21 Atorvastatin Calcium 40 mg PO QPM 08/03/21 Chlorthalidone 25 mg PO DAILY 08/03/21 Clopidogrel [Plavix] 75 mg PO DAILY 08/03/21 Loratadine [Claritin] 10 mg PO DAILY 08/03/21 Losartan Potassium 25 mg PO DAILY 08/03/21
[2021-08-18 12:15] LABS: BILIRUBIN,URINE NEGATIVE (NEGATIVE); GLUCOSE, URINE (UA) NEGATIVE (NEGATIVE); KETONES,URINE (UA) NEGATIVE (NEGATIVE); LEUKOCYTE ESTERASE, URINE NEGATIVE (NEGATIVE); NITRITE,URINE NEGATIVE (NEGATIVE); OCCULT BLOOD,URINE NEGATIVE (NEGATIVE); PROTEIN,URINE TRACE mg/dL (NEGATIVE); UROBILINOGEN,URINE 4 E.U./dL (NORMAL)
--- NOTE | 2021-08-18 12:17 | MRI Report ---
PROCEDURE: Brain W/O INDICATIONS: Left-sided weakness, concern for stroke, stroke? TECHNIQUE: Noncontrast axial T1 spin echo, axial T2 fast spin echo, sagittal and axial FLAIR, coronal T2 fast sp in echo, axial gradient echo, axial diffusion and ADC through the brain. COMPARISON: Head CT 08/15/2021 FINDINGS: There is global cerebral volume loss with severe chronic microvascular ischemic changes. There are bilateral areas of restricted diffusion consistent with acute infarct. There are numerous p unctate areas of restricted diffusion in the right frontal lobe rebolledo matter, subcortical white matter , and deep white matter. There is a more confluent area of gyriform restricted diffusion involving th e right postcentral gyrus and numerous parietal gyri, with involvement of both the rebolledo matter and argueta bcortical white matter. There are also numerous foci particularly diffusion in the right occipital an d temporal lobe. On the left, there is involvement of the parietal, occipital, and temporal lobes. In creased FLAIR signal is associated with all of the areas of infarct. Foci of susceptibility in the le ft occipital lobe are favored to represent petechial hemorrhage. The major intracranial vascular flow related signal voids are maintained. No mass effect or midline s hift. Midline structures are normal in configuration. The ventricular system and basilar cisterns are patent. No gross orbital abnormality. Left maxillary sinus mucous retention cyst. IMPRESSION: Numerous bilateral infarcts. The bilateral distribution and multiple vascular territories suggests ei ther embolic or systemic hypoperfusion as a potential cause. Reviewed by: Chai Goldberg MD on 08/18/2021 12:16 PM PST Approved by: Chai Goldberg MD on 08/18/2021 12:16 PM PST Station ID: [id number]
[2021-08-18 13:22] LABS: CLARITY,URINE CLEAR (CLEAR); RBC,URINE None Seen /HPF (0-5); WBC,URINE 0-3 /HPF (0-3)
[2021-08-18 13:23] LABS: BACTERIA,URINE None Seen /HPF (None Seen); SQUAMOUS EPITHELIAL CELL,UR NONE SEEN (<= Few)
--- NOTE | 2021-08-18 13:57 | ADVANCE CARE PLANNING NOTE ---
Advance Care Planning - Planning Encounter Date: 08/18/21 Time: 12:12 Purpose: Advance care planning for patient Parties in Attendance: Patient's , patient and me Decisional Capacity of the Patient: Patient cannot make medical decision now. He is difficult to rousing. pt developed major stroke. - Diagnosis for Encounter (4) Rhabdomyolysis Qualifiers: Rhabdomyolysis type: non-traumatic Qualified Code(s): M62.82 - Rhabdomyolysis - Encounter Subjective/Patient's Story: pt are still sleep with snoring and difficult for rousing and waking up him. pt's come to hospital to see pt. Discussed pt's MRI of brain result and pt's clinic presentations with pt's at the pt's bedside. pt's MRI of brain come back to show numerous bilateral acute infarcts, and left occipital lobe are favoured to represent petechial hemorrhage. pt had hx of severe bradycardia. pt and pt's know this history and had no intervention for this medical problem. This time at hospital, pt and pt's clearly declined any intervention for his severe bradycardia as well. pt's today state she hope pt has hospice care, and have comfortable care only status at hospital. pt's clearly understood and agreed comfortable care only status means NO IVF, NO other medications, NO lab monitor or vital sign monitor, only focus on comfortable care, and she understood pt can not eat now due to severe stroke, pt may at hospital when pt is on the comfortable care only status. I called and discussed the care plan with hospice care provider Dr. Stephen as well and consult with health and social care teacher for hospice care Disposition planning. Dr. Stephen state pt is eligible for hospice care, but Disposition plan is needed for pt now. Objective/Medical Story: Patient has medical history of advanced dementia, previous stroke with chronic slurred speech, dehydration, NAVEED, rhabdomyolysis, weakness, and Physical deconditioning, bradycardia. Goals of Care: focus on Comfortable measure Plan: focus on comfortable care only status in hospital, discharge with hospice care Code Status: Do Not Attempt Resuscitation Time spent on advance care plannin
[2021-08-18] MEDS ORDERED: LORazepam 0.5 MG TABLET SL PRN (14:03)
--- NOTE | 2021-08-19 12:43 | PROVIDER PROGRESS NOTE ---
Assessment/Plan - Problem List (1) Unresponsive state Assessment/Plan: pt present unresponsive and more difficult to rouse on today. discussed pt's medical conditions including major stroke, severe bradycardia conditions with pt's son and daughter at pt's bedside, both understood pt's conditions and the c are plan for pt, Pt is on comfortable measure only status, pt is likely imminent at hospital. (2)major stroke pt's MRI of brain show numerous bilateral acute infarcts, and left occipital lobe are favoured to represent petechial hemorrhage. pt is unresponsive. continu e comfortable measure only status at hospital, followup with hospice care (3)bradycardia pt had hx of severe bradycardia. pt had no intervention at the past, and pt and his declined to have intervention at this time hospitalization. (4)imminent pt has major stroke, and severe bradycardia, unresponsive status now, and pt is on comfortable measure, pt can not eat and drink. pt is likely imminent at hospital in couple of days. (5)comfortable measure only status pt's choose comfortable measure only status for pt. Based pt's major stroke, severe bradycardia, unresponsive status, physical Deconditioning, advanced dementia, support focus on comfortable measure on the hospital for pt. (5) Rhabdomyolysis Qualifiers: Rhabdomyolysis type: non-traumatic Qualified Code(s): M62.82 - Rhabdomyolysis - Lab Result Fish Bone Diagrams: 08/18/21 06:20 08/18/21 06:20 - Additional Planning My Orders: My Active Orders 08/18/21 14:03 LORazepam [Ativan] 0.5 mg SL Q6H PRN Morphine Oral Soln [Roxanol] 5 mg PO Q2HR PRN 08/19/21 13:00 Scopolamine Patch [Transderm-Scop] 1 patch TOP Q3D Subjective - Subjective Patient Reports: Resting Comfortably Objective Vital Signs: Oxygen O2 Source Room air I&O (Last 24 Hrs): Intake and Output Totals x24h 08/17/21 08/18/21 08/19/21 23:59 23:59 23:59 Intake Total 730 566.667 Output Total 1650 200 Balance -920 366.667 General: Other (unresponsive) HEENT: Atraumatic Neck: Supple Lymphatic: no adenopathy Neuro: Other (unresponsive) Cardiovascular: Regular rate, Normal S1, Normal S2 Respiratory: Chest non-tender, Other (shortness of breath) Abdomen: Normal bowel sounds, Soft Extremities: Normal pulses - Results Results: Laboratory Results WBC 11.6 x10^3/uL (4.8-10.8) H 08/18/21 06:20 RBC 4.45 10^6/uL (4.70-6.10) L 08/18/21 06:20 Hgb 13.0 g/dL (14.0-18.0) L 08/18/21 06:20 Hct 38.6 % (42.0-52.0) L 08/18/21 06:20 MCV 86.7 fL (80.0-94.0) 08/18/21 06:20 MCH 29.2 pg (27.0-31.0) 08/18/21 06:20 MCHC 33.7 g/dL (32.0-36.0) 08/18/21 06:20 RDW 12.9 % (12.0-15.0) 08/18/21 06:20 Plt Count 377 10^3/uL (130-450) 08/18/21 06:20 MPV 9.3 fL (7.4-11.4) 08/18/21 06:20 Neut # (Auto) 10.0 10^3/uL (1.5-6.6) H 08/18/21 06:20 Lymph # (Auto) 0.8 10^3/uL (1.5-3.5) L 08/18/21 06:20 [place] # (Auto) 0.7 10^3/uL (0.0-1.0) 08/18/21 06:20 Eos # (Auto) 0.1 10^3/uL (0.0-0.7) 08/18/21 06:20 Baso # (Auto) 0.0 10^3/uL (0.0-0.1) 08/18/21 06:20 Absolute Nucleated RBC 0.00 x10^3/uL 08/18/21 06:20 Nucleated RBC % 0.0 /100WBC 08/18/21 06:20 Sodium 136 mmol/L (135-145) 08/18/21 06:20 Potassium 4.2 mmol/L (3.5-5.0) 08/18/21 06:20 Chloride 99 mmol/L (101-111) L 08/18/21 06:20 Carbon Dioxide 26 mmol/L (21-32) 08/18/21 06:20 Anion Gap 11.0 (6-13) 08/18/21 06:20 BUN 33 mg/dL (6-20) H 08/18/21 06:20 Creatinine 1.4 mg/dL (0.6-1.2) H 08/18/21 06:20 Estimated GFR (MDRD) 48 (>89) L 08/18/21 06:20 Glucose 108 mg/dL (70-100) H 08/18/21 06:20 Lactic Acid 1.2 mmol/L (0.5-2.2) 08/02/21 12:05 Calcium 8.9 mg/dL (8.5-10.3) 08/18/21 06:20 Magnesium 2.1 mg/dL (1.7-2.8) 08/02/21 12:05 Total Bilirubin 1.2 mg/dL (0.2-1.0) H 08/02/21 12:05 AST 88 IU/L (10-42) H 08/02/21 12:05 ALT 32 IU/L (10-60) 08/02/21 12:05 Alkaline Phosphatase 70 IU/L (42-121) 08/02/21 12:05 Total Creatine Kinase 160 IU/L (22-269) 08/06/21 05:08 Troponin I High Sens 60.8 ng/L (2.3-19.7) H* 08/02/21 21:07 Total Protein 6.7 g/dL (6.7-8.2) 08/02/21 12:05 Albumin 4.0 g/dL (3.2-5.5) 08/02/21 12:05 Globulin 2.7 g/dL (2.1-4.2) 08/02/21 12:05 Albumin/Globulin Ratio 1.5 (1.0-2.2) 08/02/21 12:05 Lipase 19 U/L (22-51) L 08/02/21 12:05 Urine Color YELLOW 08/18/21 12:00 Urine Clarity CLEAR (CLEAR) 08/18/21 12:00 Urine pH 6.0 PH (5.0-7.5) 08/18/21 12:00 Ur Specific [place] 1.025 (1.002-1.030) 08/18/21 12:00 Urine Protein TRACE mg/dL (NEGATIVE) 08/18/21 12:00 Urine Glucose (UA) NEGATIVE mg/dL (NEGATIVE) 08/18/21 12:00 Urine Ketones NEGATIVE mg/dL (NEGATIVE) 08/18/21 12:00 Urine Occult Blood NEGATIVE (NEGATIVE) 08/18/21 12:00 Urine Nitrite NEGATIVE (NEGATIVE) 08/18/21 12:00 Urine Bilirubin NEGATIVE (NEGATIVE) 08/18/21 12:00 Urine Urobilinogen 4 E.U./dL (NORMAL) H 08/18/21 12:00 Ur Leukocyte Esterase NEGATIVE (NEGATIVE) 08/18/21 12:00 Urine RBC None Seen /HPF (0-5) 08/18/21 12:00 Urine WBC 0-3 /HPF (0-3) 08/18/21 12:00 Ur Squamous Epith Cells NONE SEEN (<= Few) 08/18/21 12:00 Urine Bacteria None Seen /HPF (None Seen) 08/18/21 12:00 Ur Microscopic Review INDICATED 08/02/21 11:37 Urine Culture Comments NOT INDICATED 08/18/21 12:00 Nasal Adenovirus (PCR) NOT DETECTED 08/02/21 15:38 Nasal B. parapertussis DNA (PCR) NOT DETECTED 08/02/21 15:38 Nasal Coronavir 229E PCR NOT DETECTED 08/02/21 15:38 Nasal Coronavir HKU1 PCR NOT DETECTED 08/02/21 15:38 Nasal Coronavir NL63 PCR NOT DETECTED 08/02/21 15:38 Nasal Coronavir OC43 PCR NOT DETECTED 08/02/21 15:38 Nasal Enterovir/Rhinovir PCR NOT DETECTED 08/02/21 15:38 Nasal Influenza B PCR NOT DETECTED 08/02/21 15:38 Nasal Influenza A PCR NOT DETECTED 08/02/21 15:38 Nasal Parainfluen 1 PCR NOT DETECTED 08/02/21 15:38 Nasal Parainfluen 2 PCR NOT DETECTED 08/02/21 15:38 Nasal Parainfluen 3 PCR NOT DETECTED 08/02/21 15:38 Nasal Parainfluen 4 PCR NOT DETECTED 08/02/21 15:38 Nasal RSV (PCR) NOT DETECTED 08/02/21 15:38 Nasal Screen MRSA (PCR) NEGATIVE (NEGATIVE) 08/02/21 18:42 Nasal B.pertussis DNA PCR NOT DETECTED 08/02/21 15:38 Nasal C.pneumoniae (PCR) NOT DETECTED 08/02/21 15:38 Edwin Human Metapneumo PCR NOT DETECTED 08/02/21 15:38 Nasal M.pneumoniae (PCR) NOT DETECTED 08/02/21 15:38 Nasal SARS-CoV-2 (PCR) NOT DETECTED 08/02/21 15:38 Stl C. diff Tox B Gene NEGATIVE (NEGATIVE) 08/03/21 08:29 Sepsis Event Note (H) - Evaluation Current Stage of Sepsis: Ruled out ABX Reporting Has patient been on IV antibiotics over the past 48 hours?: No Current Medications - Current Medications Current Medications: Active Medications Lorazepam (Lorazepam 0.5 Mg Tablet) 0.5 mg SL Q6H PRN PRN Reason: Anxiety Morphine Sulfate (Morphine Celia 10 Mg/0.5 Ml Oral Syringe) 5 mg PO Q2HR PRN PRN Reason: PAIN Scopolamine HBr (Scopolamine Patch) 1 patch TOP Q3D CARLOS Last Admin: 08/19/21 12:44 Dose: 1 patch Documented by: Amlodipine Besylate [Norvasc] 10 mg PO DAILY 08/03/21 Atorvastatin Calcium 40 mg PO QPM 08/03/21 Chlorthalidone 25 mg PO DAILY 08/03/21 Clopidogrel [Plavix] 75 mg PO DAILY 08/03/21 Loratadine [Claritin] 10 mg PO DAILY 08/03/21 Losartan Potassium 25 mg PO DAILY 08/03/21
[2021-08-19] MEDS: SCOPOLAMINE PATCH TOP SCH (12:44)
[2021-08-20] MEDS: MORPHINE SOL 10 MG/0.5 ML ORAL SYRINGE PO PRN ×3 (00:10→16:16)
--- NOTE | 2021-08-20 13:53 | PROVIDER PROGRESS NOTE ---
Assessment/Plan - Problem List (1) Unresponsive state Assessment/Plan: pt still present very difficult to rouse and unresponsive. continue comfortable care only status. pt present unresponsive and more difficult to rouse on today. discussed pt's medical conditions including major stroke, severe bradycardia conditions with pt's son and daughter at pt's bedside, both understood pt's conditions and the c are plan for pt, Pt is on comfortable measure only status, pt is likely imminent at hospital. (2)major stroke pt's MRI of brain show numerous bilateral acute infarcts, and left occipital lobe are favoured to represent petechial hemorrhage. pt is unresponsive. continu e comfortable measure only status at hospital, followup with hospice care (3)bradycardia pt had hx of severe bradycardia. pt had no intervention at the past, and pt and his declined to have intervention at this time hospitalization. (4)imminent pt has major stroke, and severe bradycardia, unresponsive status now, and pt is on comfortable measure, pt can not eat and drink. pt is likely imminent at hospital in couple of days. Pt's understood pt may be natural at hospital. (5)dementia pt has hx of advanced dementia, pt has hx of previous stroke. (6)physical Deconditioning pt present severe physical deconditioning at the hospital. Now pt has major stroke, family chose comfortable care and hospice care for pt after d/c. (7)comfortable measure only status pt's choose comfortable measure only status for pt. Based pt's major stro ke, severe bradycardia, unresponsive status, physical Deconditioning, advanced dementia, support focus on comfortable measure on the hospital for pt. (5) Rhabdomyolysis Qualifiers: Rhabdomyolysis type: non-traumatic Qualified Code(s): M62.82 - Rhabdomyolysis - Current Meds Current Meds: Current Medications Generic Name Dose Route Start Last Admin Trade Name Freq PRN Reason Stop Dose Admin Morphine Sulfate 5 mg 08/18/21 14:03 08/20/21 10:05 Morphine Celia 10 Mg/0.5 Ml Oral Syringe PO 5 mg Q2HR PRN Administration PAIN Scopolamine HBr 1 patch 08/19/21 13:00 08/19/21 12:44 Scopolamine Patch TOP 1 patch Q3D CARLOS Administration - Lab Result Fish Bone Diagrams: 08/18/21 06:20 08/18/21 06:20 - Additional Planning My Orders: My Active Orders 08/19/21 13:00 Scopolamine Patch [Transderm-Scop] 1 patch TOP Q3D Subjective - Subjective Patient Reports: Other (unresponsive) Objective Vital Signs: Oxygen O2 Source Room air I&O (Last 24 Hrs): Intake and Output Totals x24h 08/18/21 08/19/21 08/20/21 23:59 23:59 23:59 Intake Total 566.667 Output Total 200 Balance 366.667 General: Other (unresponsive) HEENT: Atraumatic Neuro: Other (unresponsive) Cardiovascular: Regular rate, Normal S1, Normal S2 Respiratory: Chest non-tender, Other (Tachypnea) Abdomen: Normal bowel sounds, Soft - Results Results: Laboratory Results WBC 11.6 x10^3/uL (4.8-10.8) H 08/18/21 06:20 RBC 4.45 10^6/uL (4.70-6.10) L 08/18/21 06:20 Hgb 13.0 g/dL (14.0-18.0) L 08/18/21 06:20 Hct 38.6 % (42.0-52.0) L 08/18/21 06:20 MCV 86.7 fL (80.0-94.0) 08/18/21 06:20 MCH 29.2 pg (27.0-31.0) 08/18/21 06:20 MCHC 33.7 g/dL (32.0-36.0) 08/18/21 06:20 RDW 12.9 % (12.0-15.0) 08/18/21 06:20 Plt Count 377 10^3/uL (130-450) 08/18/21 06:20 MPV 9.3 fL (7.4-11.4) 08/18/21 06:20 Neut # (Auto) 10.0 10^3/uL (1.5-6.6) H 08/18/21 06:20 Lymph # (Auto) 0.8 10^3/uL (1.5-3.5) L 08/18/21 06:20 [place] # (Auto) 0.7 10^3/uL (0.0-1.0) 08/18/21 06:20 Eos # (Auto) 0.1 10^3/uL (0.0-0.7) 08/18/21 06:20 Baso # (Auto) 0.0 10^3/uL (0.0-0.1) 08/18/21 06:20 Absolute Nucleated RBC 0.00 x10^3/uL 08/18/21 06:20 Nucleated RBC % 0.0 /100WBC 08/18/21 06:20 Sodium 136 mmol/L (135-145) 08/18/21 06:20 Potassium 4.2 mmol/L (3.5-5.0) 08/18/21 06:20 Chloride 99 mmol/L (101-111) L 08/18/21 06:20 Carbon Dioxide 26 mmol/L (21-32) 08/18/21 06:20 Anion Gap 11.0 (6-13) 08/18/21 06:20 BUN 33 mg/dL (6-20) H 08/18/21 06:20 Creatinine 1.4 mg/dL (0.6-1.2) H 08/18/21 06:20 Estimated GFR (MDRD) 48 (>89) L 08/18/21 06:20 Glucose 108 mg/dL (70-100) H 08/18/21 06:20 Lactic Acid 1.2 mmol/L (0.5-2.2) 08/02/21 12:05 Calcium 8.9 mg/dL (8.5-10.3) 08/18/21 06:20 Magnesium 2.1 mg/dL (1.7-2.8) 08/02/21 12:05 Total Bilirubin 1.2 mg/dL (0.2-1.0) H 08/02/21 12:05 AST 88 IU/L (10-42) H 08/02/21 12:05 ALT 32 IU/L (10-60) 08/02/21 12:05 Alkaline Phosphatase 70 IU/L (42-121) 08/02/21 12:05 Total Creatine Kinase 160 IU/L (22-269) 08/06/21 05:08 Troponin I High Sens 60.8 ng/L (2.3-19.7) H* 08/02/21 21:07 Total Protein 6.7 g/dL (6.7-8.2) 08/02/21 12:05 Albumin 4.0 g/dL (3.2-5.5) 08/02/21 12:05 Globulin 2.7 g/dL (2.1-4.2) 08/02/21 12:05 Albumin/Globulin Ratio 1.5 (1.0-2.2) 08/02/21 12:05 Lipase 19 U/L (22-51) L 08/02/21 12:05 Urine Color YELLOW 08/18/21 12:00 Urine Clarity CLEAR (CLEAR) 08/18/21 12:00 Urine pH 6.0 PH (5.0-7.5) 08/18/21 12:00 Ur Specific [place] 1.025 (1.002-1.030) 08/18/21 12:00 Urine Protein TRACE mg/dL (NEGATIVE) 08/18/21 12:00 Urine Glucose (UA) NEGATIVE mg/dL (NEGATIVE) 08/18/21 12:00 Urine Ketones NEGATIVE mg/dL (NEGATIVE) 08/18/21 12:00 Urine Occult Blood NEGATIVE (NEGATIVE) 08/18/21 12:00 Urine Nitrite NEGATIVE (NEGATIVE) 08/18/21 12:00 Urine Bilirubin NEGATIVE (NEGATIVE) 08/18/21 12:00 Urine Urobilinogen 4 E.U./dL (NORMAL) H 08/18/21 12:00 Ur Leukocyte Esterase NEGATIVE (NEGATIVE) 08/18/21 12:00 Urine RBC None Seen /HPF (0-5) 08/18/21 12:00 Urine WBC 0-3 /HPF (0-3) 08/18/21 12:00 Ur Squamous Epith Cells NONE SEEN (<= Few) 08/18/21 12:00 Urine Bacteria None Seen /HPF (None Seen) 08/18/21 12:00 Ur Microscopic Review INDICATED 08/02/21 11:37 Urine Culture Comments NOT INDICATED 08/18/21 12:00 Nasal Adenovirus (PCR) NOT DETECTED 08/02/21 15:38 Nasal B. parapertussis DNA (PCR) NOT DETECTED 08/02/21 15:38 Nasal Coronavir 229E PCR NOT DETECTED 08/02/21 15:38 Nasal Coronavir HKU1 PCR NOT DETECTED 08/02/21 15:38 Nasal Coronavir NL63 PCR NOT DETECTED 08/02/21 15:38 Nasal Coronavir OC43 PCR NOT DETECTED 08/02/21 15:38 Nasal Enterovir/Rhinovir PCR NOT DETECTED 08/02/21 15:38 Nasal Influenza B PCR NOT DETECTED 08/02/21 15:38 Nasal Influenza A PCR NOT DETECTED 08/02/21 15:38 Nasal Parainfluen 1 PCR NOT DETECTED 08/02/21 15:38 Nasal Parainfluen 2 PCR NOT DETECTED 08/02/21 15:38 Nasal Parainfluen 3 PCR NOT DETECTED 08/02/21 15:38 Nasal Parainfluen 4 PCR NOT DETECTED 08/02/21 15:38 Nasal RSV (PCR) NOT DETECTED 08/02/21 15:38 Nasal Screen MRSA (PCR) NEGATIVE (NEGATIVE) 08/02/21 18:42 Nasal B.pertussis DNA PCR NOT DETECTED 08/02/21 15:38 Nasal C.pneumoniae (PCR) NOT DETECTED 08/02/21 15:38 Edwin Human Metapneumo PCR NOT DETECTED 08/02/21 15:38 Nasal M.pneumoniae (PCR) NOT DETECTED 08/02/21 15:38 Nasal SARS-CoV-2 (PCR) NOT DETECTED 08/02/21 15:38 Stl C. diff Tox B Gene NEGATIVE (NEGATIVE) 08/03/21 08:29 Sepsis Event Note (H) - Evaluation Current Stage of Sepsis: Ruled out ABX Reporting Has patient been on IV antibiotics over the past 48 hours?: No Current Medications - Current Medications Current Medications: Active Medications Lorazepam (Lorazepam 0.5 Mg Tablet) 0.5 mg SL Q6H PRN PRN Reason: Anxiety Morphine Sulfate (Morphine Celia 10 Mg/0.5 Ml Oral Syringe) 5 mg PO Q2HR PRN PRN Reason: PAIN Last Admin: 08/20/21 10:05 Dose: 5 mg Documented by: Scopolamine HBr (Scopolamine Patch) 1 patch TOP Q3D CARLOS Last Admin: 08/19/21 12:44 Dose: 1 patch Documented by: Amlodipine Besylate [Norvasc] 10 mg PO DAILY 08/03/21 Atorvastatin Calcium 40 mg PO QPM 08/03/21 Chlorthalidone 25 mg PO DAILY 08/03/21 Clopidogrel [Plavix] 75 mg PO DAILY 08/03/21 Loratadine [Claritin] 10 mg PO DAILY 08/03/21 Losartan Potassium 25 mg PO DAILY 08/03/21
[2021-08-21] MEDS: MORPHINE SOL 10 MG/0.5 ML ORAL SYRINGE PO PRN ×4 (07:06→21:25)
[2021-08-21] MEDS: SCOPOLAMINE PATCH TOP SCH (13:23)
--- NOTE | 2021-08-21 14:12 | PROVIDER PROGRESS NOTE ---
Assessment/Plan - Problem List (1) Unresponsive state Assessment/Plan: 08/21 pt is unresponsive with tachypnea now. pt's come to see pt at the bedside, update pt's medical condition to pt's . continue consult with social psychologist for disposition with followup hospice care. pt present unresponsive and more difficult to rouse on today. discussed pt's medical conditions including major stroke, severe bradycardia conditions with pt's son and daughter at pt's bedside, both understood pt's conditions and the care plan for pt, Pt is on comfortable measure only status, pt is likely imminent at hospital. (2)major stroke pt's MRI of brain show numerous bilateral acute infarcts, and left occipital lobe are favoured to represent petechial hemorrhage. pt is unresponsive. continue comfortable measure only status at hospital, followup with hospice care (3)bradycardia pt had hx of severe bradycardia. pt had no intervention at the past, and pt and his declined to have intervention at this time hospitalization. (4)imminent pt has major stroke, and severe bradycardia, unresponsive status now, and pt is on comfortable measure, pt can not eat and drink. pt is likely imminent at hospital in couple of days. Pt's understood pt may be natural at hospital. (5)dementia pt has hx of advanced dementia, pt has hx of previous stroke. (6)physical Deconditioning pt present severe physical deconditioning at the hospital. Now pt has major stroke, family chose comfortable care and hospice care for pt after d/c. (7)comfortable measure only status pt's choose comfortable measure only status for pt. Based pt's major stroke, severe bradycardia, unresponsive status, physical Deconditioning, advanced dementia, support focus on comfortable measure on the hospital for pt. (5) Rhabdomyolysis Qualifiers: Rhabdomyolysis type: non-traumatic Qualified Code(s): M62.82 - Rhabdomyolysis - Current Meds Current Meds: Current Medications Generic Name Dose Route Start Last Admin Trade Name Freq PRN Reason Stop Dose Admin Morphine Sulfate 5 mg 08/18/21 14:03 08/21/21 11:25 Morphine Celia 10 Mg/0.5 Ml Oral Syringe PO 5 mg Q2HR PRN Administration PAIN Scopolamine HBr 1 patch 08/19/21 13:00 08/21/21 13:23 Scopolamine Patch TOP 1 patch Q3D CARLOS Administration - Lab Result Fish Bone Diagrams: 08/18/21 06:20 08/18/21 06:20 Subjective - Subjective Patient Reports: Other (unresponsive status) Objective Vital Signs: Oxygen O2 Source Room air I&O (Last 24 Hrs): Intake and Output Totals x24h 08/19/21 08/20/21 08/21/21 23:59 23:59 23:59 Output Total 100 Balance -100 General: Other (unresponsive) HEENT: Atraumatic Neck: Supple Neuro: Other (unresponsive) Cardiovascular: Other ( irregular rate) Respiratory: Other (Tachypnea) Abdomen: Soft - Results Results: Laboratory Results WBC 11.6 x10^3/uL (4.8-10.8) H 08/18/21 06:20 RBC 4.45 10^6/uL (4.70-6.10) L 08/18/21 06:20 Hgb 13.0 g/dL (14.0-18.0) L 08/18/21 06:20 Hct 38.6 % (42.0-52.0) L 08/18/21 06:20 MCV 86.7 fL (80.0-94.0) 08/18/21 06:20 MCH 29.2 pg (27.0-31.0) 08/18/21 06:20 MCHC 33.7 g/dL (32.0-36.0) 08/18/21 06:20 RDW 12.9 % (12.0-15.0) 08/18/21 06:20 Plt Count 377 10^3/uL (130-450) 08/18/21 06:20 MPV 9.3 fL (7.4-11.4) 08/18/21 06:20 Neut # (Auto) 10.0 10^3/uL (1.5-6.6) H 08/18/21 06:20 Lymph # (Auto) 0.8 10^3/uL (1.5-3.5) L 08/18/21 06:20 [place] # (Auto) 0.7 10^3/uL (0.0-1.0) 08/18/21 06:20 Eos # (Auto) 0.1 10^3/uL (0.0-0.7) 08/18/21 06:20 Baso # (Auto) 0.0 10^3/uL (0.0-0.1) 08/18/21 06:20 Absolute Nucleated RBC 0.00 x10^3/uL 08/18/21 06:20 Nucleated RBC % 0.0 /100WBC 08/18/21 06:20 Sodium 136 mmol/L (135-145) 08/18/21 06:20 Potassium 4.2 mmol/L (3.5-5.0) 08/18/21 06:20 Chloride 99 mmol/L (101-111) L 08/18/21 06:20 Carbon Dioxide 26 mmol/L (21-32) 08/18/21 06:20 Anion Gap 11.0 (6-13) 08/18/21 06:20 BUN 33 mg/dL (6-20) H 08/18/21 06:20 Creatinine 1.4 mg/dL (0.6-1.2) H 08/18/21 06:20 Estimated GFR (MDRD) 48 (>89) L 08/18/21 06:20 Glucose 108 mg/dL (70-100) H 08/18/21 06:20 Lactic Acid 1.2 mmol/L (0.5-2.2) 08/02/21 12:05 Calcium 8.9 mg/dL (8.5-10.3) 08/18/21 06:20 Magnesium 2.1 mg/dL (1.7-2.8) 08/02/21 12:05 Total Bilirubin 1.2 mg/dL (0.2-1.0) H 08/02/21 12:05 AST 88 IU/L (10-42) H 08/02/21 12:05 ALT 32 IU/L (10-60) 08/02/21 12:05 Alkaline Phosphatase 70 IU/L (42-121) 08/02/21 12:05 Total Creatine Kinase 160 IU/L (22-269) 08/06/21 05:08 Troponin I High Sens 60.8 ng/L (2.3-19.7) H* 08/02/21 21:07 Total Protein 6.7 g/dL (6.7-8.2) 08/02/21 12:05 Albumin 4.0 g/dL (3.2-5.5) 08/02/21 12:05 Globulin 2.7 g/dL (2.1-4.2) 08/02/21 12:05 Albumin/Globulin Ratio 1.5 (1.0-2.2) 08/02/21 12:05 Lipase 19 U/L (22-51) L 08/02/21 12:05 Urine Color YELLOW 08/18/21 12:00 Urine Clarity CLEAR (CLEAR) 08/18/21 12:00 Urine pH 6.0 PH (5.0-7.5) 08/18/21 12:00 Ur Specific [place] 1.025 (1.002-1.030) 08/18/21 12:00 Urine Protein TRACE mg/dL (NEGATIVE) 08/18/21 12:00 Urine Glucose (UA) NEGATIVE mg/dL (NEGATIVE) 08/18/21 12:00 Urine Ketones NEGATIVE mg/dL (NEGATIVE) 08/18/21 12:00 Urine Occult Blood NEGATIVE (NEGATIVE) 08/18/21 12:00 Urine Nitrite NEGATIVE (NEGATIVE) 08/18/21 12:00 Urine Bilirubin NEGATIVE (NEGATIVE) 08/18/21 12:00 Urine Urobilinogen 4 E.U./dL (NORMAL) H 08/18/21 12:00 Ur Leukocyte Esterase NEGATIVE (NEGATIVE) 08/18/21 12:00 Urine RBC None Seen /HPF (0-5) 08/18/21 12:00 Urine WBC 0-3 /HPF (0-3) 08/18/21 12:00 Ur Squamous Epith Cells NONE SEEN (<= Few) 08/18/21 12:00 Urine Bacteria None Seen /HPF (None Seen) 08/18/21 12:00 Ur Microscopic Review INDICATED 08/02/21 11:37 Urine Culture Comments NOT INDICATED 08/18/21 12:00 Nasal Adenovirus (PCR) NOT DETECTED 08/02/21 15:38 Nasal B. parapertussis DNA (PCR) NOT DETECTED 08/02/21 15:38 Nasal Coronavir 229E PCR NOT DETECTED 08/02/21 15:38 Nasal Coronavir HKU1 PCR NOT DETECTED 08/02/21 15:38 Nasal Coronavir NL63 PCR NOT DETECTED 08/02/21 15:38 Nasal Coronavir OC43 PCR NOT DETECTED 08/02/21 15:38 Nasal Enterovir/Rhinovir PCR NOT DETECTED 08/02/21 15:38 Nasal Influenza B PCR NOT DETECTED 08/02/21 15:38 Nasal Influenza A PCR NOT DETECTED 08/02/21 15:38 Nasal Parainfluen 1 PCR NOT DETECTED 08/02/21 15:38 Nasal Parainfluen 2 PCR NOT DETECTED 08/02/21 15:38 Nasal Parainfluen 3 PCR NOT DETECTED 08/02/21 15:38 Nasal Parainfluen 4 PCR NOT DETECTED 08/02/21 15:38 Nasal RSV (PCR) NOT DETECTED 08/02/21 15:38 Nasal Screen MRSA (PCR) NEGATIVE (NEGATIVE) 08/02/21 18:42 Nasal B.pertussis DNA PCR NOT DETECTED 08/02/21 15:38 Nasal C.pneumoniae (PCR) NOT DETECTED 08/02/21 15:38 Edwin Human Metapneumo PCR NOT DETECTED 08/02/21 15:38 Nasal M.pneumoniae (PCR) NOT DETECTED 08/02/21 15:38 Nasal SARS-CoV-2 (PCR) NOT DETECTED 08/02/21 15:38 Stl C. diff Tox B Gene NEGATIVE (NEGATIVE) 08/03/21 08:29 Sepsis Event Note (H) - Evaluation Current Stage of Sepsis: Ruled out ABX Reporting Has patient been on IV antibiotics over the past 48 hours?: No Current Medications - Current Medications Current Medications: Active Medications Lorazepam (Lorazepam 0.5 Mg Tablet) 0.5 mg SL Q6H PRN PRN Reason: Anxiety Morphine Sulfate (Morphine Celia 10 Mg/0.5 Ml Oral Syringe) 5 mg PO Q2HR PRN PRN Reason: PAIN Last Admin: 08/21/21 11:25 Dose: 5 mg Documented by: Scopolamine HBr (Scopolamine Patch) 1 patch TOP Q3D CARLOS Last Admin: 08/21/21 13:23 Dose: 1 patch Documented by: Amlodipine Besylate [Norvasc] 10 mg PO DAILY 08/03/21 Atorvastatin Calcium 40 mg PO QPM 08/03/21 Chlorthalidone 25 mg PO DAILY 08/03/21 Clopidogrel [Plavix] 75 mg PO DAILY 08/03/21 Loratadine [Claritin] 10 mg PO DAILY 08/03/21 Losartan Potassium 25 mg PO DAILY 08/03/21
[2021-08-22] MEDS: MORPHINE SOL 10 MG/0.5 ML ORAL SYRINGE PO PRN ×2 (10:30→13:05)
[2021-08-22 10:53] VITALS: BP 93/38
--- NOTE | 2021-08-22 11:42 | PROVIDER PROGRESS NOTE ---
Assessment/Plan - Problem List (1) Unresponsive state Assessment/Plan: 08/22 pt still has Tachypnea but with shallow breathing. he is still unresponsive. Social work report patient might be transferred to inpatient hospice on today, will followup with social scientist's consultation. 08/21 pt is unresponsive with tachypnea now. pt's come to see pt at the bedside, update pt's medical condition to pt's . continue consult with social scientist for disposition with followup hospice care. pt present unresponsive and more difficult to rouse on today. discussed pt's medical conditions including major stroke, severe bradycardia conditions with pt's son and daughter at pt's bedside, both understood pt's conditions and the care plan for pt, Pt is on comfortable measure only status, pt is likely imm inent at hospital. (2)major stroke pt's MRI of brain show numerous bilateral acute infarcts, and left occipital lobe are favoured to represent petechial hemorrhage. pt is unresponsive. continue comfortable measure only status at hospital, followup with hospice care (3)bradycardia pt had hx of severe bradycardia. pt had no intervention at the past, and pt and his declined to have intervention at this time hospitalization. (4)dementia pt has hx of advanced dementia, pt has hx of previous stroke. (5)physical Deconditioning pt present severe physical deconditioning at the hospital. Now pt has major stroke, family chose comfortable care and hospice care for pt after d/c. (6)comfortable measure only status pt's choose comfortable measure only status for pt. Based pt's major stroke, severe bradycardia, unresponsive status, physical Deconditioning, advanced dementia, support focus on comfortable measure on the hospital for pt. (5) Rhabdomyolysis Qualifiers: Rhabdomyolysis type: non-traumatic Qualified Code(s): M62.82 - Rhabdomyolysis - Current Meds Current Meds: Current Medications Generic Name Dose Route Start Last Admin Trade Name Freq PRN Reason Stop Dose Admin Morphine Sulfate 5 mg 08/18/21 14:03 08/22/21 10:30 Morphine Celia 10 Mg/0.5 Ml Oral Syringe PO 5 mg Q2HR PRN Administration PAIN Scopolamine HBr 1 patch 08/19/21 13:00 08/21/21 13:23 Scopolamine Patch TOP 1 patch Q3D CARLOS Administration - Lab Result Fish Bone Diagrams: 08/18/21 06:20 08/18/21 06:20 Subjective - Subjective Patient Reports: Shortness of Breath Objective Vital Signs: Vital Signs - 24 hr 08/22/21 08/22/21 09:12 10:45 Temperature 38.3 C H 38 C H Heart Rate [ 92 Brachial] Respiratory 32 H Rate Blood Pressure 93/38 L [Right Brachial artery] O2 Saturation 86 L Oxygen O2 Source Room air I&O (Last 24 Hrs): Intake and Output Totals x24h 08/20/21 08/21/21 08/22/21 23:59 23:59 23:59 Intake Total 0 Output Total 100 230 Balance -100 -230 General: Other (unresponsive) HEENT: Atraumatic Neck: Supple Neuro: Other (unresponsive) Cardiovascular: Regular rate, Normal S1, Normal S2 Respiratory: Chest non-tender, Other (Tachypnea with shallow breathing) Abdomen: Soft Extremities: Other (weak pulses) - Results Results: Laboratory Results WBC 11.6 x10^3/uL (4.8-10.8) H 08/18/21 06:20 RBC 4.45 10^6/uL (4.70-6.10) L 08/18/21 06:20 Hgb 13.0 g/dL (14.0-18.0) L 08/18/21 06:20 Hct 38.6 % (42.0-52.0) L 08/18/21 06:20 MCV 86.7 fL (80.0-94.0) 08/18/21 06:20 MCH 29.2 pg (27.0-31.0) 08/18/21 06:20 MCHC 33.7 g/dL (32.0-36.0) 08/18/21 06:20 RDW 12.9 % (12.0-15.0) 08/18/21 06:20 Plt Count 377 10^3/uL (130-450) 08/18/21 06:20 MPV 9.3 fL (7.4-11.4) 08/18/21 06:20 Neut # (Auto) 10.0 10^3/uL (1.5-6.6) H 08/18/21 06:20 Lymph # (Auto) 0.8 10^3/uL (1.5-3.5) L 08/18/21 06:20 Graham # (Auto) 0.7 10^3/uL (0.0-1.0) 08/18/21 06:20 Eos # (Auto) 0.1 10^3/uL (0.0-0.7) 08/18/21 06:20 Baso # (Auto) 0.0 10^3/uL (0.0-0.1) 08/18/21 06:20 Absolute Nucleated RBC 0.00 x10^3/uL 08/18/21 06:20 Nucleated RBC % 0.0 /100WBC 08/18/21 06:20 Sodium 136 mmol/L (135-145) 08/18/21 06:20 Potassium 4.2 mmol/L (3.5-5.0) 08/18/21 06:20 Chloride 99 mmol/L (101-111) L 08/18/21 06:20 Carbon Dioxide 26 mmol/L (21-32) 08/18/21 06:20 Anion Gap 11.0 (6-13) 08/18/21 06:20 BUN 33 mg/dL (6-20) H 08/18/21 06:20 Creatinine 1.4 mg/dL (0.6-1.2) H 08/18/21 06:20 Estimated GFR (MDRD) 48 (>89) L 08/18/21 06:20 Glucose 108 mg/dL (70-100) H 08/18/21 06:20 Lactic Acid 1.2 mmol/L (0.5-2.2) 08/02/21 12:05 Calcium 8.9 mg/dL (8.5-10.3) 08/18/21 06:20 Magnesium 2.1 mg/dL (1.7-2.8) 08/02/21 12:05 Total Bilirubin 1.2 mg/dL (0.2-1.0) H 08/02/21 12:05 AST 88 IU/L (10-42) H 08/02/21 12:05 ALT 32 IU/L (10-60) 08/02/21 12:05 Alkaline Phosphatase 70 IU/L (42-121) 08/02/21 12:05 Total Creatine Kinase 160 IU/L (22-269) 08/06/21 05:08 Troponin I High Sens 60.8 ng/L (2.3-19.7) H* 08/02/21 21:07 Total Protein 6.7 g/dL (6.7-8.2) 08/02/21 12:05 Albumin 4.0 g/dL (3.2-5.5) 08/02/21 12:05 Globulin 2.7 g/dL (2.1-4.2) 08/02/21 12:05 Albumin/Globulin Ratio 1.5 (1.0-2.2) 08/02/21 12:05 Lipase 19 U/L (22-51) L 08/02/21 12:05 Urine Color YELLOW 08/18/21 12:00 Urine Clarity CLEAR (CLEAR) 08/18/21 12:00 Urine pH 6.0 PH (5.0-7.5) 08/18/21 12:00 Ur Specific [place] 1.025 (1.002-1.030) 08/18/21 12:00 Urine Protein TRACE mg/dL (NEGATIVE) 08/18/21 12:00 Urine Glucose (UA) NEGATIVE mg/dL (NEGATIVE) 08/18/21 12:00 Urine Ketones NEGATIVE mg/dL (NEGATIVE) 08/18/21 12:00 Urine Occult Blood NEGATIVE (NEGATIVE) 08/18/21 12:00 Urine Nitrite NEGATIVE (NEGATIVE) 08/18/21 12:00 Urine Bilirubin NEGATIVE (NEGATIVE) 08/18/21 12:00 Urine Urobilinogen 4 E.U./dL (NORMAL) H 08/18/21 12:00 Ur Leukocyte Esterase NEGATIVE (NEGATIVE) 08/18/21 12:00 Urine RBC None Seen /HPF (0-5) 08/18/21 12:00 Urine WBC 0-3 /HPF (0-3) 08/18/21 12:00 Ur Squamous Epith Cells NONE SEEN (<= Few) 08/18/21 12:00 Urine Bacteria None Seen /HPF (None Seen) 08/18/21 12:00 Ur Microscopic Review INDICATED 08/02/21 11:37 Urine Culture Comments NOT INDICATED 08/18/21 12:00 Nasal Adenovirus (PCR) NOT DETECTED 08/02/21 15:38 Nasal B. parapertussis DNA (PCR) NOT DETECTED 08/02/21 15:38 Nasal Coronavir 229E PCR NOT DETECTED 08/02/21 15:38 Nasal Coronavir HKU1 PCR NOT DETECTED 08/02/21 15:38 Nasal Coronavir NL63 PCR NOT DETECTED 08/02/21 15:38 Nasal Coronavir OC43 PCR NOT DETECTED 08/02/21 15:38 Nasal Enterovir/Rhinovir PCR NOT DETECTED 08/02/21 15:38 Nasal Influenza B PCR NOT DETECTED 08/02/21 15:38 Nasal Influenza A PCR NOT DETECTED 08/02/21 15:38 Nasal Parainfluen 1 PCR NOT DETECTED 08/02/21 15:38 Nasal Parainfluen 2 PCR NOT DETECTED 08/02/21 15:38 Nasal Parainfluen 3 PCR NOT DETECTED 08/02/21 15:38 Nasal Parainfluen 4 PCR NOT DETECTED 08/02/21 15:38 Nasal RSV (PCR) NOT DETECTED 08/02/21 15:38 Nasal Screen MRSA (PCR) NEGATIVE (NEGATIVE) 08/02/21 18:42 Nasal B.pertussis DNA PCR NOT DETECTED 08/02/21 15:38 Nasal C.pneumoniae (PCR) NOT DETECTED 08/02/21 15:38 Edwin Human Metapneumo PCR NOT DETECTED 08/02/21 15:38 Nasal M.pneumoniae (PCR) NOT DETECTED 08/02/21 15:38 Nasal SARS-CoV-2 (PCR) NOT DETECTED 08/02/21 15:38 Stl C. diff Tox B Gene NEGATIVE (NEGATIVE) 08/03/21 08:29 Sepsis Event Note (H) - Evaluation Current Stage of Sepsis: Ruled out ABX Reporting Has patient been on IV antibiotics over the past 48 hours?: No Current Medications - Current Medications Current Medications: Active Medications Lorazepam (Lorazepam 0.5 Mg Tablet) 0.5 mg SL Q6H PRN PRN Reason: Anxiety Morphine Sulfate (Morphine Celia 10 Mg/0.5 Ml Oral Syringe) 5 mg PO Q2HR PRN PRN Reason: PAIN Last Admin: 08/22/21 10:30 Dose: 5 mg Documented by: Scopolamine HBr (Scopolamine Patch) 1 patch TOP Q3D CARLOS Last Admin: 08/21/21 13:23 Dose: 1 patch Documented by: Amlodipine Besylate [Norvasc] 10 mg PO DAILY 08/03/21 Atorvastatin Calcium 40 mg PO QPM 08/03/21 Chlorthalidone 25 mg PO DAILY 08/03/21 Clopidogrel [Plavix] 75 mg PO DAILY 08/03/21 Loratadine [Claritin] 10 mg PO DAILY 08/03/21 Losartan Potassium 25 mg PO DAILY 08/03/21
[2021-08-22] MEDS ORDERED: MORPHINE SOL 10 MG/0.5 ML ORAL SYRINGE PO PRN (14:37)
--- NOTE | 2021-08-22 16:31 | DISCHARGE SUMMARY ---
Discharge Summary Admit Date: 08/02/21 Discharge Date: 08/22/21 Discharging Provider: Emma Whiteheadtu Code Status: Do Not Attempt Resuscitation Condition at Discharge: Poor Discharge Disposition: 20 - DIAGNOSES Admission Diagnoses: Rhabdomyolysis Acute kidney injury Acute diarrhea Generalized weakness Hypertension Dementia Bradycardia Discharge Diagnoses with Status of Each Condition: CVA: Patient was made comfort measures and then Rhabdomyolysis: Patient was made comfort measures and then Acute kidney injury: Patient was made comfort measures and then Acute diarrhea: Patient was made comfort measures and then Generalized weakness: Patient was made comfort measures and then Hypertension: Patient was made comfort measures and then Dementia: Patient was made comfort measures and then Bradycardia: Client having a pacemaker placed. He was made comfort measures and then - HPI History of Present Illness: Mr. Ocasio is an 89 year old male brought in by EMS with new weakness and dehydration, found to have rhabdomyolosis with CK 3545. 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 Hi story was obtained from his via phone and also the ER note as he was very hard of hearing and confused, poor historian. Per his 's report he stopped eating and drinking prior to Thanksgiving, which was unusual for him. He then started having episodes of malodorous diarrhea and started spending more time in bed, getting weaker. When he did get out of bed and walked to the bathroom it was difficult for him to stand even with his walker and assisting, and EMS had to be called x2 to assist him back to bed. She did not report a fall and he did not have signs of trauma from a fall on his skin check or CTs. He denies pain, nausea or vomiting and cannot tell me why he has stopped eating and drinking. He has not had new medication changes, but it is unclear if he is taking any medications at home as his reports he manages his own medications and she does not know what he takes. She was also unable to find any pill bottles in the home. When asked if he took any medicine today he could not answer. In addition to the CK of 3545 he has a new acute kidney injury, with BUN of 48 and creatinine of 1.8. His electrolytes are within normal range. He was given 2L NS in the ED but continues to exhibit s/x of dehydration, with dark yellow urine and dry mucous membranes. Denies burning, dysuria, urgency or frequency. He is oriented to self and the fact that he is in the hospital but it is unclear if the rest of the answers he gave are due to his difficulties hearing or true confusion and dementia. He has a past history of dementia per his chart but his was unable to elaborate on baseline orientation. Given the rhabdo, NAVEED, dehydration and new weakness the decision was made to admit him to observation status. He will receive IV fluids and further work up, including troponins and EKG to ensure he is not also having an NSTEMI. Per discussion with his on the phone as he could not hear me at bedside, he was made Do Not Resuscitate, as she reports his will states that he does not want to be intubated or to have CPR performed. - HOSPITAL COURSE Hospital Course: He was admitted and treated with IV fluids and his rhabdomyolysis state steadily improved and resolved. Initial creatinine at presentation was 1.8. It improved to 1.4 through the cause of his hospital stay. On 08/06/2021 he had a low-grade fever for which further work-up included a chest x-ray and revealed bilateral lower lung airspace opacities. It was more pronounced on the right. For concern about possible pneumonia the patient was started on Cefepime.He maintained antibiotics for 7 days. Patient's heart rate was consistently in the 50s with multiple pauses ranging from 3 to 6 seconds. When asked if he would like to have a pacemaker placed, he stated that he did not want a pacemaker and if he has had stop it was his time. That he had lived a long life. Patient became very lethargic on 08/15. At the time he was still having sinus pauses and bradycardia with his heart rate as low as 28. His change in mentation was initially thought to be solely due to his bradycardia. When there was no change in his clinical condition he had an MRI of the brain done on 08/18/2021. It showed numerous bilateral infarcts. The bilateral dis tribution and multiple vascular territories suggested either embolic or systemic hypoperfusion as a potential course. This findings were discussed with the patient's who requested the patient be made comfort measures. The patient was seen by hospice team and determined to be hospice appropriate pending discharge from the hospital. From 08/19/21 patient was unresponsive and difficult to arouse. On 08/22/2021 Was brought to the provider's attention that the patient was not breathing. Upon presentation to bedside patient was unresponsive to tactile or verbal stimuli. Pupils were fixed dilated and unreactive to light. There was no corneal reflex. There were no carotid or radial pulses bilaterally. There were no heart or breath sounds on auscultation. Patient was pronounced at 1530 5 PM on 08/22/2021. The patient's was at bedside. - ALLERGIES Allergies/Adverse Reactions: Allergies Allergy/AdvReac Type Severity Reaction Status Date / Time No Known Drug Allergies Allergy Verified 08/02/21 09:59 - MEDICATIONS Home Medications: Ambulatory Orders Medication Instructions Recorded Confirmed Amlodipine Besylate [Norvasc] 10 mg PO DAILY 08/03/21 08/03/21 Atorvastatin Calcium 40 mg PO QPM 08/03/21 08/03/21 Chlorthalidone 25 mg PO DAILY 08/03/21 08/03/21 Clopidogrel [Plavix] 75 mg PO DAILY 08/03/21 08/03/21 Loratadine [Claritin] 10 mg PO DAILY 08/03/21 08/03/21 Losartan Potassium 25 mg PO DAILY 08/03/21 08/03/21 - LABS Result Diagrams: 08/18/21 06:20 08/18/21 06:20 - SEPSIS Current Stage of Sepsis: Ruled out - TIME SPENT Time Spent in Discharge (Minutes): 20
--- NOTE | 2021-08-22 16:32 | Discharge Plan ---
Discharge Plan Problem Reviewed?: Yes Disposition: 20 Condition: Stable No Smoking: If you smoke, Please STOP! Call for help. Follow-up with: Elizabeth Bailey DO [Primary Care Provider] -
== END 2021-08-22 15:35 | disposition expired | DRG 682 ==
LOC: EDUNIT# → EDBD → ED 09:49 → MS2 15:46 → ICU 16:45 → OBSVTOIN 08-05 10:27 → MS2 08-05 15:24
PROVIDERS: ADMIT Registered Nurse; ATTEND Internal Medicine
DX: N17.9 Acute kidney failure, unspecified (principal); I63.9 Cerebral infarction, unspecified; J18.9 Pneumonia, unspecified organism; M62.82 Rhabdomyolysis; F03.90 Unspecified dementia, unspecified severity, without behavioral disturbance, psychotic disturbance, mood disturbance, and anxiety; E86.0 Dehydration; I12.9 Hypertensive chronic kidney disease with stage 1 through stage 4 chronic kidney disease, or unspecified chronic kidney disease; N18.9 Chronic kidney disease, unspecified; I69.328 Other speech and language deficits following cerebral infarction; I69.334 Monoplegia of upper limb following cerebral infarction affecting left non-dominant side; I69.392 Facial weakness following cerebral infarction; H91.90 Unspecified hearing loss, unspecified ear; R00.1 Bradycardia, unspecified; R06.82 Tachypnea, not elsewhere classified; R19.7 Diarrhea, unspecified; R32 Unspecified urinary incontinence; R33.9 Retention of urine, unspecified; R41.0 Disorientation, unspecified; R53.1 Weakness; Z20.822 Contact with and (suspected) exposure to COVID-19; Z51.5 Encounter for palliative care; Z66 Do not resuscitate; Z79.02 Long term (current) use of antithrombotics/antiplatelets; Z79.82 Long term (current) use of aspirin; Z79.899 Other long term (current) drug therapy
CPT/HCPCS: 0202U; 36415; 51701; 70450; 70551; 71045; 74177; 76770; 80048; 80053; 81001; 82272; 82550; 83605; 83690; 83735; 84484; 85025; 85027; 87040; 87150; 87493; 93005; 96360; 96361; 96372; 97110; 97116; 97162; 97164; 97166; 97168; 97530; 99284; 99285; A6250; A9270; J1650; J3370; J3490; J7120; Q9967; 81003; 87086